=== PATIENT | female | born 1975 | race Caucasian/White ===

== ENCOUNTER → 2022-06-14 | Outpatient (CLI) | payer MEDICAID, SELFPAY ==
--- NOTE | 2022-06-14 10:29 | RAD_ITS ---
STUDY: X-RAY - LEFT KNEE REASON FOR EXAM: Female, 46 years old. Pain and swelling TECHNIQUE: 4 view(s) of the knee. COMPARISON: None. FINDINGS: Normal visualized distal femur. Normal visualized proximal tibia and fibula. Normal proximal tibiofibular articulation. There is moderate degenerative arthrosis of the medial femorotibial compartment with moderate joint space narrowing. Normal lateral femorotibial compartment. There is mild degenerative arthrosis of the patellofemoral articulation. The soft tissue structures are unremarkable. RAD/Knee 4 or More Views IMPRESSION: Degenerative arthrosis. Electronically Signed: Donato Jarrett MD at 10:52 EST ,
== END | disposition home or self-care (01) ==
LOC: RAD 10:27
DX: S83.005A Unspecified dislocation of left patella, initial encounter (principal)
CPT/HCPCS: 73564

== ENCOUNTER 2022-12-01 14:40 | Emergency (ER) | payer MEDICAID, SELFPAY ==
[2022-12-01 14:41] VITALS: BP 171/107; PULSE 118; RESP 16; TEMP 35.6; O2SAT 98; BMI 44.7
--- NOTE | 2022-12-01 16:01 | CT_ITS ---
STUDY: CT ABDOMEN AND PELVIS WITHOUT CONTRAST REASON FOR EXAM: Female, 47 years old. Kidney stones. RADIATION DOSAGE (If Supplied By Facility): CTDIvol = ( 24.18 ) mGy, DLP = ( 1335.01 ) mGycm TECHNIQUE: Transaxial images were obtained from the dome of the diaphragm to the symphysis pubis without oral contrast, and without intravenous contrast. Sagittal and coronal images were reconstructed. Individualized dose optimization techniques were used for this CT. COMPARISON: None. FINDINGS: The visualized lung bases are unremarkable. The visualized portions of the heart are within normal limits. Hepatomegaly without mass. Gallbladder is not visualized since only 3 surgically absent. There is no biliary ductal dilatation. The spleen is mildly enlarged. Several small calcified granulomata are noted. Normal pancreas. Normal bilateral adrenal glands. Normal right kidney. There is a 4 mm calcification upper pole left kidney. There is a 3 mm nonobstructing calculus lower pole calyx. No hydronephrosis. Normal bilateral ureters. Normal visualized stomach. Normal small intestine. There is luminal narrowing and wall thickening of the cecal and ascending colon extends just beyond the horizontal fissure. The distal colon is unremarkable. The appendix is visualized and appears normal. Normal abdominal aorta. Normal inferior vena cava. Normal retroperitoneum. Normal urinary bladder. Status post hysterectomy. Unremarkable vaginal cuff. The soft tissue mass along the left pelvic sidewall thought to be retained ovary. There are phleboliths in the pelvis without lymphadenopathy. No free air or free fluid is seen within the peritoneal cavity. Normal abdominal wall. Normal osseous structures. CT/Abdomen/Pelvis without Cont IMPRESSION: 1. Question mild right-sided colitis. 2. Normal appendix. 3. Nonobstructing left renal calculi. There is no other evidence of renal, ureteral or urinary bladder abnormality. 4. Hepatosplenomegaly. 5. Status post cholecystectomy and hysterectomy. Electronically Signed: Darrian Winter DO at 16:37 EDT Reading Location ID and State: [facility] / [place] Tel [phone], Service support ,
--- NOTE | 2022-12-01 16:03 | EDS_ITS ---
HPI History of Present Illness Chief Complaint: Back [facility] Medical History Arthritis Contact with and (suspected) exposure to other viral communicable diseases HTN (hypertension) Thyroid disease URI (upper respiratory infection) Home Medications cariprazine 6 mg capsule (Vraylar) 6 mg PO DAILY 09/14/22 [History Last Taken Unknown] lamotrigine 100 mg tablet 100 mg PO DAILY 09/14/22 [History Last Taken Unknown] levothyroxine 175 mcg tablet 175 mcg PO DAILY 09/14/22 [History Last Taken Unknown] propranolol 10 mg tablet 10 mg PO BID PRN 09/14/22 [History Last Taken Unknown] quetiapine 25 mg tablet 25 mg PO DAILY 09/14/22 [History Last Taken Unknown] venlafaxine 225 mg tablet,extended release 24 hr 225 mg PO QHS 09/14/22 [History Last Taken Unknown] etodolac 500 mg tablet 500 mg PO BID #40 tabs 10/11/22 [Rx Last Taken Unknown] Allergy/AdvReac Type Severity Reaction Status Date / Time No Known Allergies Allergy Unverified 12/01/22 14:40 Family History (Updated 09/14/22 @ 12:42 by Dory Hooker) Other Skin cancer Surgical History History of cholecystectomy Hx of tonsillectomy Social History (Updated 09/14/22 @ 12:41 by Dory Hooker) Smoking Status: Light Smoker (<10/day) alcohol intake: never EXAM Physical Exam Const Vital Signs: 12/01/22 14:41 Temperature 96.0 F L Temperature Source Temporal Pulse Rate 118 H Respiratory Rate 16 Blood Pressure 171/107 H Blood Pressure Mean 128 Pulse Ox 98 Oxygen Delivery Method Room Air MDM MDM MDM Narrative Medical decision making narrative: HISTORY OF PRESENT ILLNESS: 47-year-old female presents with left lower back pain/flank pain for the past day. States has a history of kidney stones this feels very similar. She denies any urinary complaints. Denies any recent trauma falls or surgery to her back. She denies any fever. She denies any heavy lifting. patient denies any saddle anesthesia, urinary tension, bowel or bladder incontinence, lower extremity weakness, fever or IV drug use, no recent spinal manipulation or surgery, no recent urinary catheterization. REVIEW OF SYSTEMS: Pertinent positives: Back/flank pain Pertinent negatives: Hematuria, frequency, urgency, bowel or bladder incontinence, urinary retention PHYSICAL EXAM: Nursing triage notes reviewed, Vital signs reviewed Constitutional: please see [facility] HENT: MMM Eyes: Pupils equal round and reactive to light, Extraocular muscles intact Neck: No stridor, no JVD, full neck ROM Lungs: Clear to auscultation, No wheezing or rales. No increased work of breathing, no conversational dyspnea, no accessory muscle use, no nasal flaring. No respiratory distress noted Heart: Regular rate and rhythm, No murmurs, No rubs and No gallops, 2+ distal pulses (radial, femoral, posterior tibial) in all extremities Abdomen: Soft, there is no tenderness, rigidity, rebound or guarding, no obvious peritoneal signs, no palpable pulsatile abdominal masses, no auscultated abdominal bruit : Left CVAT Back: TTP over left paraspinal muscles, muscle hypertonicity noted Extremities: No edema Neuro: Intact sensation L1-S1 dermatomal distributions. Intact 5/5 strength in hip flexion (T12-L3). Knee extension (L2-L4). Ankle dorsiflexion (L4-L5). Ankle plantar flexion (S1). Great toe extension (L5). 2+ patellar and Achilles DTRs. Skin: No rash or lesions noted MEDICAL DECISION MAKING: Chief Complaint: Left-sided back/flank pain External records reviewed: No recent advanced imaging of the abdomen or pelvis Factors affecting care: Hypertension, thyroid disease, nephrolithiasis Social determinants of health: Denies drug use History obtained from others: The patient significant other Consults: None ALL IMAGES HAVE BEEN PERSONALLY REVIEWED AND INTERPRETED BY MYSELF. [facility] Narrative: Patient was initially tachycardic, hypertensive afebrile. There is left CVAT as well as TTP over paraspinal back muscles. I considered the following differential diagnosis: Nephrolithiasis, pyelonephritis, musculoskeletal back pain, space-occupying lesion spine, cauda equina, AAA Patient's physical exam and history not consistent with space-occupying lesion of the spine or cauda equina. A low suspicion for acute surgical process in the back. I was more concerned for nephrolithiasis, pyelonephritis or musculoskeletal back pain. I treated the patient with IV morphine, Toradol and fluids I obtained a CT scan abdomen pelvis out contrast rule out nephrolithiasis. Also obtained urine, blood work to rule out signs of UTI or pyelonephritis. Signs of TATIANA or electrolyte abnormalities. Labs and images were remarkable for no evidence of definitive UTI. No evidence of acute kidney injury or significant electrolyte abnormalities. There is no systemic inflammation noted. CT scan showed no evidence of AAA. No evidence of nephrolithiasis. The etiology patient's complaints is unclear likely secondary to muscle skeletal back pain. Will give anti-inflammatories, Tylenol instructions. Get back pain return precautions and follow-up instructions. The patient presented complaining of back pain. There was no history of recent fall or trauma. There was no evidence to support genitourinary etiology. There is also no evidence to suggest vascular pathology such as AAA dissection. No fevers or other evidence to suspect infectious processes, abscess, osteomyelitis etc. The patient?s neurological exam is normal with normal motor and sensory. There is no saddle paresthesias reported and no bowel or bladder incontinence or retention. I suspect the pain is mechanical in nature. Clinical suspicion, plan of care and management was discussed with the patient. The patient was instructed to follow up with their health care provider. The patient was also instructed to return if the pain worsened, changed, or developed weakness or bowel or bladder trouble. The patient agreed with plan. I completed a structured, evidence-based clinical evaluation to screen for acute non-traumatic spinal emergencies. The patient has a normal detailed neurologic exam and red flag historical factors were negative. The evidence indicates that the patient is very low risk for an acute spinal emergency and this is consistent with my clinical intuition. The risk of further workup is higher than the likelihood of the patient having a spinal epidural abscess or other dangerous emergency spinal condition. It is, therefore, in the patient?s best interest not to do additional emergent testing at this time. Shared Decision-Making I have discussed with the patient my clinical impression and the result of an evidence-based clinical evaluation to screen for spinal epidural abscess and other spinal emergencies, as well as the risk of further testing and hospitalization. The evidence shows that the risk for an acute spinal emergency is less than 1%. Although the risk of an acute spinal emergency has not been completely eliminated, the risks of further testing likely exceed any potential benefit, and the patient agrees with not pursuing further emergent evaluation for causes of back pain at this time. Total critical care time today provided was at least 0 minutes. This excludes separately billable procedures. There was a high probability of clinically significant/life threatening deterioration in the patient's condition which required my urgent intervention. Lab Data Attestation: I reviewed the patient's lab results. Labs: Laboratory Results - last 24 hr 12/01/22 12/01/22 12/01/22 16:00 16:05 16:05 WBC 6.3 RBC 4.67 Hgb 14.6 Hct 44.3 MCV 94.9 MCH 31.3 MCHC 33.0 RDW Std Deviation 46.5 H RDW Coeff of Amandeep 13.4 Plt Count 263 MPV 11.5 Immature Gran % (Auto) 0.200 Neut % (Auto) 55.7 Lymph % (Auto) 36.2 [place] % (Auto) 5.7 Eos % (Auto) 1.6 Baso % (Auto) 0.6 Absolute Neuts (auto) 3.5 Absolute Lymphs (auto) 2.27 Nucleated RBC % 0 Sodium 142 Potassium 4.1 Chloride 107 Carbon Dioxide 28.0 Anion Gap 7 BUN 11 Creatinine 0.98 Estim Creat Clear Calc 78.39 Est GFR (MDRD) Af Amer 79 Est GFR (MDRD) Non-Af 65 BUN/Creatinine Ratio 11.2 Glucose 114 H Calcium 10.0 Urine Color Yellow Urine Clarity Cloudy Urine pH 5.0 Ur Specific [place] 1.025 Urine Protein 30 H Urine Glucose (UA) Normal Urine Ketones 15 H Urine Occult Blood 10 H Urine Nitrite Negative Urine Bilirubin 3 H Urine Urobilinogen 1 H Ur Leukocyte Esterase 25 H Radiography Diagnostic Testing: Clinical Impression(s) from Imaging Studies Abdomen/Pelvis CT 12/01/22 16:01 IMPRESSION: 1. Question mild right-sided colitis. 2. Normal appendix. 3. Nonobstructing left renal calculi. There is no other evidence of renal, ureteral or urinary bladder abnormality. 4. Hepatosplenomegaly. 5. Status post cholecystectomy and hysterectomy. Electronically Signed: Darrian Winter DO at 16:37 EDT Reading Location ID and State: [address] [place] [address] Tel [phone], Service support , Discharge Plan Triage Chief Complaint: Back ED Provider: Gage Oliva Dx/Rx/DC Orders Prescriptions: No Action Vraylar 6 mg capsule 6 mg PO DAILY levothyroxine 175 mcg tablet 175 mcg PO DAILY propranolol 10 mg tablet 10 mg PO BID PRN lamotrigine 100 mg tablet 100 mg PO DAILY venlafaxine 225 mg tablet extended release 24hr 225 mg PO QHS quetiapine 25 mg tablet 25 mg PO DAILY etodolac 500 mg tablet 500 mg PO BID Qty: 40 0RF Rx Instructions: do not take in conjunction with other NSAIDs, Tylenol is ok. Primary Care Provider: Care Physician,No Primary Referrals: Care Physician,No Primary [Primary Care Provider] -
[2022-12-01] MEDS: Morphine 4 MG/ML Syringe IV (16:09)
[2022-12-01] MEDS: Ondansetron 4 MG/2 ML Vial IV (16:09)
[2022-12-01] MEDS: 0.9% Normal Saline 1,000 ML 999 ML IV (16:09)
[2022-12-01] MEDS: Ketorolac 15 MG/ML Vial IV (16:09)
[2022-12-01 16:15] LABS: Mucous, Urine 0 SEEN /hpf (<or=2+)
[2022-12-01 16:15] LABS: Absolute Lymphocyte Count 2.27 X10^3/uL (0.83-4.51); Absolute Neutrophil Count 3.5 X10^3/uL (2.0-7.7); Basophil# 0.04 X10^3/uL; Basophil% 0.6 % (0-1); Eosinophils% 1.6 % (0-5); Hematocrit 44.3 % (37-47); Hemoglobin 14.6 g/dL (12.0-15.0); Lymphocyte # 2.27 X10^3/ul (0.83-4.51); Lymphocyte % 36.2 % (19-41); Mean Corpuscular Hgb 31.3 pg (27.0-32.0); Mean Corpuscular Volume 94.9 fL (81-99); Mean Platelet Vol. 11.5 fl (6.2-12.0); Monocyte# 0.36 X10^3/uL; Monocyte% 5.7 % (0-10); NRBC Flagged by Analyzer 0 % (0-5); Neutrophil # 3.49 X10^3/uL (2.7-7.7); Neutrophil % 55.7 % (47-70); Platelet Count 263 K/mm3 (150-450); RBC Distribution Width CV 13.4 % (11.6-14.6); RBC Distribution Width SD 46.5 fl (35.1-43.9); Red Blood Count 4.67 M/mm3 (4.2-5.4); White Blood Count 6.3 K/mm3 (4.4-11.0)
[2022-12-01 16:28] LABS: Color, Urine Yellow (Yellow); Glucose, Dipstick Normal (Normal); Ketone-Dipstick 15 mg/dl (Negative); Leukocyte Esterase-Dipstick 25 /ul (Negative); Nitrite-Dipstick Negative (Negative); Occult Blood-Urine 10 /ul (Negative); Protein-Dipstick 30 mg/dl (Negative); Specific Gravity, Urine 1.025 (1.002-1.030); Urine Bilirubin Dipstick 3 mg/dL (Negative); Urine Clarity Cloudy (Clear); Urine Urobilinogen 1 mg/dl (Normal)
[2022-12-01 16:40] LABS: Anion Gap 7 (5-15); BUN 11 mg/dL (7-18); BUN/Creat Ratio 11.2 RATIO (10-20); Chloride 107 mmol/L (98-107); Creatinine, Serum 0.98 mg/dL (0.55-1.02); EST Glomerular Filtration Rate 65 mL/min (>60); Est Glom Filt Rate - Afr Amer 79 mL/min (>60); Estimated Creatinine Clearance 78.39 ml/min; Glucose 114 mg/dL (74-106); Potassium 4.1 mmol/L (3.5-5.1); Sodium Level 142 mmol/L (136-145)
[2022-12-01 17:02] LABS: Squamous Epithelial Cells - UA 10-25 SEEN /hpf (5-10); White Blood Cells 0-5 SEEN /hpf (0-5)
[2022-12-01] MEDS: dexAMETHasone 10 MG/ML Vial 6 MG IV (17:02)
[2022-12-01 17:03] LABS: Bacteria 1+ /hpf (None Seen); Calcium Oxalate Crystals Ur 1+ /hpf (<or=2+); Red Blood Cells-Urine 0-5 SEEN /hpf (0-5)
[2022-12-01 17:06] VITALS: BP 133/84; PULSE 83; RESP 16; TEMP 36.7; O2SAT 99
== END 2022-12-01 17:08 | disposition home or self-care (01) ==
PROVIDERS: Emergency Provider Emergency Medicine; Visit Provider Emergency Medicine
DX: M54.50 Low back pain, unspecified (principal); I10 Essential (primary) hypertension; F17.200 Nicotine dependence, unspecified, uncomplicated; Z79.899 Other long term (current) drug therapy; Z87.442 Personal history of urinary calculi
CPT/HCPCS: 74176; 80048; 81001; 85025; 96361; 96374; 96375; 99283; J7030; A4216; J2405

== ENCOUNTER 2022-12-29 07:47 | Emergency (ER) | payer MEDICAID, SELFPAY ==
[2022-12-29 07:48] VITALS: BP 180/88; PULSE 76; RESP 18; TEMP 35.8; O2SAT 100; BMI 45.9
--- NOTE | 2022-12-29 08:12 | EKG12_ITS ---
Test Reason : cp Blood Pressure : / mmHG Vent. Rate : 068 BPM Atrial Rate : 068 BPM P-R Int : 158 ms QRS Dur : 106 ms QT Int : 414 ms P-R-T Axes : 053 039 060 degrees QTc Int : 440 ms Normal sinus rhythm Normal ECG Confirmed by CIRO NAPIER, ACOSTA ([id number]), proposal editor BAILEY DUARTE ([id number]) on 01/01/2023 12:44:02 PM Referred By: BB Confirmed By:ACOSTA TANNER MD
--- NOTE | 2022-12-29 08:19 | EDS_ITS ---
HPI History of Present Illness Chief Complaint: Chest Pain Informant: patient and spouse/S.O. Narrative Narrative: Presents with similar 5-day history worsening exertional chest tightness started at work. He states he was does heavy lifting she get tightness takes up to 2 3 hours to resolve with rest. Recurs with lifting. Today while at rest at home before work symptoms started 630 very mild symptoms currently. No recent illness or cough. Denies tobacco. Father with MA at the age of 77. She told him elevated blood pressure from PCP not currently on antihypertensives. Denies diabetes or hyperlipidemia. Denies any recent travel surgery or immobiliza tions. No history of PE or DVT. No history of stress test or heart cath in the past. Prior Similar Symptoms: No CVD Risk Factors: Positive for Hypertension; Negative for Diabetes, Hypercholesterolemia, Family History 1' </=55 or Smoking PE Risk Factors: Negative for Recent Travel/Surgery, Recent Immobilization or Prior DVT or PE [facility] Medical History Arthritis Contact with and (suspected) exposure to other viral communicable diseases HTN (hypertension) Thyroid disease URI (upper respiratory infection) Home Medications lamotrigine 100 mg tablet 100 mg PO DAILY 09/14/22 [History Last Taken 12/28/22] levothyroxine 175 mcg tablet 175 mcg PO DAILY 09/14/22 [History Last Taken 12/29/22] propranolol 10 mg tablet 10 mg PO BID PRN anxiety 09/14/22 [History Last Taken 12/28/22] quetiapine 25 mg tablet 25 mg PO DAILY 09/14/22 [History Last Taken 12/28/22] venlafaxine 225 mg tablet,extended release 24 hr 225 mg PO QHS 09/14/22 [History Last Taken 12/28/22] etodolac 500 mg tablet 500 mg PO BID #40 tabs 10/11/22 [Rx Last Taken Unknown] Allergy/AdvReac Type Severity Reaction Status Date / Time No Known Allergies Allergy Verified 12/29/22 07:23 Family History Other Skin cancer Surgical History History of cholecystectomy Hx of tonsillectomy Social History Smoking Status: Former smoker alcohol intake: never ROS ROS ED Constitutional Constitutional ED: Denies chills, fever(s) or sweats Eyes Eyes: Denies change in vision ENT ENT ED: Denies dysphagia or sore throat Cardiovascular Cardiovascular: Reports chest pain; Denies leg edema, palpitations or racing heartbeat Respiratory/Chest Respiratory/Chest: Denies cough, dyspnea or dyspnea on exertion Gastrointestinal Gastrointestinal: Denies abdominal pain, diarrhea, nausea or vomiting Genitourinary Genitourinary ED: Denies dysuria, hematuria or urinary frequency Musculoskeletal Musculoskeletal: Denies back pain, extremity pain or neck pain Integumentary Denies rash or wounds Neurologic Neurologic: Denies headache(s), paresthesias or weakness EXAM Physical Exam Const Vital Signs: 12/29/22 07:48 12/29/22 08:24 12/29/22 08:24 Temperature 96.5 F L Temperature Source Temporal Pulse Rate 76 67 Respiratory Rate 18 24 H Respiratory Effort Blood Pressure 180/88 H Blood Pressure Mean 118 Pulse Ox 100 100 Oxygen Delivery Method Room Air Room Air Room Air 12/29/22 08:24 12/29/22 09:00 12/29/22 10:00 Temperature Temperature Source Pulse Rate 56 L 62 Respiratory Rate Respiratory Effort Normal Non-Labored Blood Pressure 146/62 H 118/63 Blood Pressure Mean 90 81 Pulse Ox 100 99 Oxygen Delivery Method Room Air 12/29/22 10:21 Temperature Temperature Source Pulse Rate 63 Respiratory Rate Respiratory Effort Blood Pressure 129/65 H Blood Pressure Mean 86 Pulse Ox 100 Oxygen Delivery Method Room Air Positive well nourished and well developed Constitutional Narrative: BMI 45.9. General Appearance ED: well developed and NAD HEENT Reports moist mucous membranes normocephalic and atraumatic Eyes PERRL, EOMs intact bilaterally and conjunctivae normal General Eye ED: Yes normal appearance of both eyes Neck no lymphadenopathy and supple General: Negative for tenderness Chest Wall Chest: Negative for tenderness Resp normal respiratory effort and normal air movement Effort and Inspection: symmetric chest movement; Negative for respiratory distress Cardio regular rate, regular rhythm and no murmurs Peripheral Pulses: pulses 2+ throughout GI normal to inspection, nondistended, normoactive bowel sounds and non-tender Palpation: Negative for guarding or rebound tenderness present Back/Spine no CVA tenderness and no thoracic nor lumbar tenderness Extremity normal to inspection General Extremety ED: Negative for edema or tenderness General Extremity: Negative for edema Neuro oriented x3 and no sensory deficits noted Sensorium / Orientation: awake and alert Skin no rashes or lesions noted and no wounds Heart Score History: Moderately Suspicious ECG: Normal Age: >45 - <65 years Risk Factors: 1 or 2 Risk Factors Troponin: </= Normal Limit Score: 3 MDM MDM MDM Narrative Medical decision making narrative: Interventions / MDM: Differential diagnosis: ACS, chest pain Diagnosis considered but do not suspect: Pulmonary embolism, however D-dimer negative. My EKG interpretation: Sinus rate of 68, no ST changes, isolated T wave version in aVF nonspecific. Wandering baseline inferior leads. Imaging independently reviewed and interpreted by myself: 2 view chest x-ray: No acute process External documents reviewed: N/A Test considered but not ordered:N/A ED course: Patient EKG nonspecific T wave inversion in leads aVF. Cardiac work- up initiated. Initial troponin negative. D-dimer obtained due to exertional dyspnea symptoms also negative. Two-view chest x-ray added with a negative dimer shows no acute process. Patient given aspirin. 0930: Awaiting second troponin at this time. Currently symptom-free. 1150: Patient's repeat troponin also -14. Remains symptom-free.Patient's heart score is a 3. Further discussed with the patient, States it takes an hour to work before she starts having symptoms. I considered admission to exertional symptoms however she would like outpatient management. Blood pressure proved on 129/65 without any intervention. Patient with minimal risk factors, therefore I feel this is reasonable. Patient will call for follow-up outpatient stress testing with strict return precautions. They reported they just moved to the area would like to follow-up with Dr. Fortune. Therefore his information put on paperwork. All questions were answered. Re-evaluation: stable Disposition discussed with patient/family/significant other: patient and significant other Case discussed with consulting clinician: N/A This note was generated with [employer] dictation software. It may contain incorrect words, spelling, and punctuation that were not noted in checking the note before signing. Lab Data Attestation: I reviewed the patient's lab results. Labs: Laboratory Results - last 24 hr 12/29/22 12/29/22 08:30 10:34 WBC 5.0 RBC 4.14 L Hgb 12.7 Hct 39.5 MCV 95.4 MCH 30.7 MCHC 32.2 RDW Std Deviation 48.7 H RDW Coeff of Amandeep 13.9 Plt Count 222 MPV 10.7 Immature Gran % (Auto) 0.600 Neut % (Auto) 58.7 Lymph % (Auto) 32.9 [place] % (Auto) 5.2 Eos % (Auto) 2.2 Baso % (Auto) 0.4 Absolute Neuts (auto) 2.9 Absolute Lymphs (auto) 1.63 Nucleated RBC % 0 PT 13.0 INR 1.0 APTT 27.0 D-Dimer Quant (PE/DVT) 0.28 Sodium 142 Potassium 3.9 Chloride 109 H Carbon Dioxide 28.0 Anion Gap 5 BUN 13 Creatinine 0.99 Estim Creat Clear Calc 77.60 Est GFR (MDRD) Af Amer 78 Est GFR (MDRD) Non-Af 65 BUN/Creatinine Ratio 13.2 Glucose 102 Calcium 9.4 Troponin I High Sens 15 14 Radiography Diagnostic Testing: Clinical Impression(s) from Imaging Studies Chest X-Ray 12/29/22 09:25 IMPRESSION: Normal x-ray examination of the chest. Electronically Signed: Osmani Cordon MD at 9:43 EDT , Discharge Plan Triage Chief Complaint: Chest Pain ED Provider: Kit Russell Dx/Rx/DC Orders Clinical Impression: Elevated blood pressure reading in office without diagnosis of hypertension, Chest pain Instructions: ED Chest Pain, Uncertain Cause Prescriptions: No Action levothyroxine 175 mcg tablet 175 mcg PO DAILY propranolol 10 mg tablet 10 mg PO BID PRN (Reason: anxiety) lamotrigine 100 mg tablet 100 mg PO DAILY venlafaxine 225 mg tablet extended release 24hr 225 mg PO QHS quetiapine 25 mg tablet 25 mg PO DAILY etodolac 500 mg tablet 500 mg PO BID Qty: 40 0RF Rx Instructions: do not take in conjunction with other NSAIDs, Tylenol is ok. Stand Alone Forms: Work / School Excuse Primary Care Provider: Juan Francisco Flores Referrals: Dionisio Fortune Chi, MD [Med Staff - Active Staff] - 3-5 Days Care Physician,No Primary [Non-Staff] - Activity Restrictions/Additional Instructions: Cardiac work-up was negative. D-dimer negative. You report exertional chest tightness after an hour. He would need a stress test as an outpatient. Call for discussion with PCP for this. Your blood pressure 180/80 on arrival down to 129/65 without any treatment. You need recheck for this. Return if any worsening symptoms. Disposition Disposition: Home, Self Care
[2022-12-29 08:24] VITALS: PULSE 67; RESP 24; O2SAT 100
[2022-12-29] MEDS: Aspirin 81 MG TAB.CHEW 324 MG PO (08:36)
[2022-12-29 08:40] LABS: Absolute Lymphocyte Count 1.63 X10^3/uL (0.83-4.51); Absolute Neutrophil Count 2.9 X10^3/uL (2.0-7.7); Basophil# 0.02 X10^3/uL; Basophil% 0.4 % (0-1); Eosinophil# 0.11 X10^3/uL; Eosinophils% 2.2 % (0-5); Hematocrit 39.5 % (37-47); Hemoglobin 12.7 g/dL (12.0-15.0); Lymphocyte # 1.63 X10^3/ul (0.83-4.51); Lymphocyte % 32.9 % (19-41); Mean Corp Hgb Conc 32.2 g/dL (32-36); Mean Corpuscular Hgb 30.7 pg (27.0-32.0); Mean Corpuscular Volume 95.4 fL (81-99); Mean Platelet Vol. 10.7 fl (6.2-12.0); Monocyte# 0.26 X10^3/uL; Monocyte% 5.2 % (0-10); NRBC Flagged by Analyzer 0 % (0-5); Neutrophil # 2.91 X10^3/uL (2.7-7.7); Neutrophil % 58.7 % (47-70); Platelet Count 222 K/mm3 (150-450); RBC Distribution Width CV 13.9 % (11.6-14.6); RBC Distribution Width SD 48.7 fl (35.1-43.9); Red Blood Count 4.14 M/mm3 (4.2-5.4)
[2022-12-29 08:57] LABS: Anion Gap 5 (5-15); BUN 13 mg/dL (7-18); BUN/Creat Ratio 13.2 RATIO (10-20); Calcium,Total 9.4 mg/dL (8.5-10.1); Chloride 109 mmol/L (98-107); Creatinine, Serum 0.99 mg/dL (0.55-1.02); EST Glomerular Filtration Rate 65 mL/min (>60); Est Glom Filt Rate - Afr Amer 78 mL/min (>60); Glucose 102 mg/dL (74-106); Potassium 3.9 mmol/L (3.5-5.1); Sodium Level 142 mmol/L (136-145); Troponin-I HS (w/2H Reflex) 15 pg/mL (3.0-54.0)
[2022-12-29 09:00] VITALS: BP 146/62; PULSE 56; O2SAT 100
[2022-12-29 09:14] LABS: D-Dimer Quantitative (DVT/PE) 0.28 FEU/ug/m (0.27-0.49)
--- NOTE | 2022-12-29 09:25 | RAD_ITS ---
STUDY: X-RAY CHEST REASON FOR EXAM: Female, 47 years old. Chest pain TECHNIQUE: PA and lateral views of the chest. COMPARISON: None. FINDINGS: EKG electrodes are seen. The lungs are clear and expanded. There is no demonstrated pleural abnormality. Normal size heart. Normal mediastinum and aure. Normal visualized pulmonary arteries. Normal visualized aortic arch and descending thoracic aorta. Normal visualized thoracic spine. Normal visualized ribs, clavicles, and shoulders. There is no demonstrated abnormality of the visualized soft tissue structures of the upper abdomen. RAD/Chest PA and Lateral IMPRESSION: Normal x-ray examination of the chest. Electronically Signed: Osmani Cordon MD at 9:43 EDT ,
[2022-12-29 10:00] VITALS: BP 118/63; PULSE 62; O2SAT 99
[2022-12-29 10:21] VITALS: BP 129/65; PULSE 63; O2SAT 100
[2022-12-29 10:35] LABS: Reflex Troponin-HS? (from REC) Y
[2022-12-29 11:50] LABS: Troponin-I HS 14 pg/mL (3.0-54.0)
[2022-12-29 12:11] VITALS: RESP 18; O2SAT 100
== END 2022-12-29 12:12 | disposition home or self-care (01) ==
PROVIDERS: Emergency Provider Emergency Medicine; Visit Provider Emergency Medicine
DX: R07.89 Other chest pain (principal); R03.0 Elevated blood-pressure reading, without diagnosis of hypertension; Z87.891 Personal history of nicotine dependence; Z82.49 Family history of ischemic heart disease and other diseases of the circulatory system
CPT/HCPCS: 71046; 80048; 84484; 85025; 85379; 85610; 85730; 93005; 99284; A4216

== ENCOUNTER → 2023-01-03 | Outpatient (CLI) | payer MEDICAID, SELFPAY ==
[2023-01-03 17:51] LABS: Absolute Lymphocyte Count 2.42 X10^3/uL (0.83-4.51); Absolute Neutrophil Count 4.2 X10^3/uL (2.0-7.7); Basophil# 0.04 X10^3/uL; Basophil% 0.6 % (0-1); Eosinophil# 0.15 X10^3/uL; Eosinophils% 2.1 % (0-5); Hematocrit 43.5 % (37-47); Lymphocyte # 2.42 X10^3/ul (0.83-4.51); Lymphocyte % 33.7 % (19-41); Mean Corp Hgb Conc 32.2 g/dL (32-36); Mean Corpuscular Hgb 30.2 pg (27.0-32.0); Mean Platelet Vol. 11.2 fl (6.2-12.0); Monocyte# 0.35 X10^3/uL; Monocyte% 4.9 % (0-10); NRBC Flagged by Analyzer 0 % (0-5); Neutrophil # 4.21 X10^3/uL (2.7-7.7); Neutrophil % 58.4 % (47-70); Platelet Count 241 K/mm3 (150-450); RBC Distribution Width CV 13.6 % (11.6-14.6); RBC Distribution Width SD 46.9 fl (35.1-43.9); Red Blood Count 4.63 M/mm3 (4.2-5.4); White Blood Count 7.2 K/mm3 (4.4-11.0)
[2023-01-03 18:42] LABS: ALB/GLOB Ratio 0.9 RATIO (0.9-2.4); AST(SGOT) 20 U/L (15-37); Alanine Aminotransfer ALT/SGPT 26 U/L (13-56); Albumin, Serum 3.7 g/dL (3.2-5.0); Alkaline Phosphatase 83 U/L (45-117); Anion Gap 8 (5-15); BUN 13 mg/dL (7-18); BUN/Creat Ratio 13.2 RATIO (10-20); Calcium,Total 9.6 mg/dL (8.5-10.1); Chloride 107 mmol/L (98-107); Creatinine, Serum 0.99 mg/dL (0.55-1.02); EST Glomerular Filtration Rate 65 mL/min (>60); Est Glom Filt Rate - Afr Amer 78 mL/min (>60); Globulin 4.1 g/dL (2.2-4.2); Glucose 90 mg/dL (74-106); Potassium 3.6 mmol/L (3.5-5.1); Protein, Total 7.8 g/dL (6.4-8.2); Sodium Level 140 mmol/L (136-145)
[2023-01-03 20:50] LABS: Hepatitis C Antibody Non-Reactive (Nonreactive); Vitamin D,25 Hydroxy 39.8 ng/mL
[2023-01-04 08:44] LABS: Cholesterol 206 mg/dL (200); High Density Lipoprotein 51 mg/dL; Triglycerides 128 mg/dL; Very Low Density Lipoprotein 26 mg/dL (5-40)
== END | disposition home or self-care (01) ==
LOC: POLAB3 17:05
PROVIDERS: Visit Provider Family Medicine Geriatric Medicine
DX: Z00.00 Encounter for general adult medical examination without abnormal findings (principal); Z13.89 Encounter for screening for other disorder; I10 Essential (primary) hypertension; E78.5 Hyperlipidemia, unspecified
CPT/HCPCS: 36415; 80053; 80061; 82306; 84443; 85025; 86803

== ENCOUNTER → 2023-02-28 | Outpatient (CLI) | payer MEDICAID, SELFPAY | END | disposition home or self-care (01) | LOC: POLAB3 16:47 | PROVIDERS: Visit Provider Family Medicine Geriatric Medicine | DX: E03.9 Hypothyroidism, unspecified (principal) | CPT/HCPCS: 36415; 84443 ==

== ENCOUNTER 2023-05-13 16:09 | Emergency (ER) | payer MEDICAID, SELFPAY ==
[2023-05-13 16:12] VITALS: BP 153/102; PULSE 102; RESP 18; TEMP 36.9; O2SAT 100; BMI 43.2
--- NOTE | 2023-05-13 16:36 | EDS_ITS ---
HPI History of Present Illness Chief Complaint: Headache Informant: patient Onset/Context/Timing Onset: Days Context: Gradual Onset Narrative Narrative: Patient presents secondary to headache and congestion with runny nose. She reports frontal headache for the past 3 or 4 days. She has been taking Advil. She reports some pressure around her eyes and green mucus from her nose. No significant cough. No fever. [facility] Medical History Arthritis Contact with and (suspected) exposure to other viral communicable diseases HTN (hypertension) Thyroid disease URI (upper respiratory infection) Home Medications lamotrigine 100 mg tablet 100 mg PO DAILY 09/14/22 [History Last Taken 12/28/22] propranolol 10 mg tablet 10 mg PO BID PRN anxiety 09/14/22 [History Last Taken 12/28/22] venlafaxine 225 mg tablet,extended release 24 hr 225 mg PO QHS 09/14/22 [History Last Taken 12/28/22] diphenhydramine HCl 50 mg capsule 50 mg PO TID PRN headache #10 caps 05/13/23 [Rx Last Taken Unknown] ketorolac 10 mg tablet 10 mg PO Q8H PRN headache #10 tabs 05/13/23 [Rx Last Taken Unknown] levothyroxine 200 mcg tablet 200 mcg PO DAILY 05/13/23 [History Last Taken Unknown] levothyroxine 25 mcg tablet 25 mcg PO DAILY 05/13/23 [History Last Taken Unknown] metoclopramide HCl 10 mg tablet (Reglan) 10 mg PO Q8H PRN PRN headache #10 tabs 05/13/23 [Rx Last Taken Unknown] Allergy/AdvReac Type Severity Reaction Status Date / Time No Known Allergies Allergy Verified 05/13/23 16:10 Family History Other Skin cancer Surgical History History of cholecystectomy Hx of tonsillectomy Social History Smoking Status: Former smoker alcohol intake: never ROS ROS ED Constitutional Constitutional ED: Denies chills or fever(s) Eyes Eyes: Denies change in vision ENT ENT ED: Reports rhinorrhea; Denies sore throat Cardiovascular Cardiovascular: Denies chest pain or palpitations Respiratory/Chest Respiratory/Chest: Denies cough or dyspnea Gastrointestinal Gastrointestinal: Denies abdominal pain, nausea or vomiting Musculoskeletal Musculoskeletal: Denies back pain or extremity pain Integumentary Denies Abrasions or rash Neurologic Neurologic: Reports headache(s); Denies weakness Psychiatric Psychiatric: Denies anxiety or depression Allergic/Immunologic Allergic/Immunologic ED: Denies lip swelling or urticaria EXAM Physical Exam Const Vital Signs: 05/13/23 16:12 05/13/23 16:16 Temperature 98.4 F Temperature Source Temporal Pulse Rate 102 H Respiratory Rate 18 Respiratory Effort Normal Non-Labored Respiratory Pattern Normal Blood Pressure 153/102 H Blood Pressure Mean 119 Pulse Ox 100 Oxygen Delivery Method Room Air Positive well nourished and well developed General Appearance ED: well developed HEENT Reports moist mucous membranes HEENT Narrative: No tenderness to palpation over the frontal or maxillary sinuses. Posterior pharynx exam unremarkable. TMs are clear bilaterally. Eyes EOMs intact bilaterally Neck Neck Narrative: Mild bilateral cervical lymphadenopathy. Chest Wall inspection of chest normal Resp normal respiratory effort and clear to auscultation bilaterally Cardio regular rate and regular rhythm GI non-tender Palpation: soft Extremity normal to inspection Neuro oriented x3 and no sensory deficits noted Motor Exam: strength 5/5 throughout Psych mental status grossly normal Skin no rashes or lesions noted MDM MDM MDM Narrative Medical decision making narrative: Patient given IM Toradol along with p.o. Reglan and Benadryl. COVID swab obtained. 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 On repeat evaluation patient reports mild improvement in her headache. Her COVID test is negative. She be discharged with prescriptions for Toradol, Reglan, and Benadryl which she can use at home. Return instructions provided. Discharge Plan Triage Chief Complaint: Headache Other Complaint: Cold Sx ED Provider: Susannah Burnett Dx/Rx/DC Orders Clinical Impression: URI (upper respiratory infection), Headache Instructions: ED Headache Unspecified Prescriptions: New ketorolac 10 mg tablet 10 mg PO Q8H PRN (Reason: headache) Qty: 10 0RF metoclopramide HCl [Reglan] 10 mg tablet 10 mg PO Q8H PRN PRN (Reason: headache) Qty: 10 0RF diphenhydramine HCl 50 mg capsule 50 mg PO TID PRN (Reason: headache) Qty: 10 0RF No Action propranolol 10 mg tablet 10 mg PO BID PRN (Reason: anxiety) lamotrigine 100 mg tablet 100 mg PO DAILY venlafaxine 225 mg tablet extended release 24hr 225 mg PO QHS levothyroxine 200 mcg tablet 200 mcg PO DAILY levothyroxine 25 mcg tablet 25 mcg PO DAILY Primary Care Provider: Dionisio Fortune Chi Referrals: Dionisio Fortune Chi, MD [Primary Care Provider] - 1 Week if not improving Disposition Disposition: Home, Self Care
[2023-05-13] MEDS: Metoclopramide 10 MG/10 ML UDC PO (17:00)
[2023-05-13] MEDS: Ketorolac 60 MG/2 ML Vial IM (17:00)
== END 2023-05-13 18:48 | disposition home or self-care (01) ==
PROVIDERS: Emergency Provider Emergency Medicine; PCP Family Medicine Geriatric Medicine; Visit Provider Emergency Medicine
DX: J06.9 Acute upper respiratory infection, unspecified (principal); R51.9 Headache, unspecified; I10 Essential (primary) hypertension; E07.9 Disorder of thyroid, unspecified; Z87.891 Personal history of nicotine dependence; Z79.899 Other long term (current) drug therapy
CPT/HCPCS: 87428; 96372; 99284; A4216

== ENCOUNTER 2023-06-18 16:30 | Outpatient (RCR) | payer MEDICAID, SELFPAY ==
--- NOTE | 2023-05-16 17:00 | HP.PTEVAL_ITS ---
Patient's Visit Information Visit Information Visit Information: FRANKIE MCKINNEY is a 47 year old F referred to Physical Therapy by Dr. Inés Davila MD with a diagnosis of LOW BACK PAIN. Date of Evaluation: 05/16/23 Physical Therapist: Mike Escobar PT, Cert MDT, OCS Visit Plan Frequency: 2x /Week Duration: 4 Weeks Plan: PT INERVETIONS DLS ,POSTURAL EX'S , LUMVAR ROM ,MODATIES AND ACTIVITY MOD IFICATION Subjective Subjective: This 47 y/o female presents to physical therapy with low back pain. Patient has had Back pain since Mar 2023. Patient seen DR paulson did x-rays DDD. Seen DR recommended epidural injections but need PT first. Patient was provided with medication for pain. Pain located symmetrical lumbar . Aggravated factors sitting, standing bending ,lifting such as boxes at work . Alleviating factors rest. Denies parestehesia/tingling-. Bowel/bladder -Coughing/sneezing + . Patient symptoms affects sleeping . No h/o trauma or prior treatment. Patient pain affects QOL and function and lifting boxes at work. Patient goals to decrease pain. SOCIAL: VOCATION: [employer] Pain Bilateral Back: Pain Intensity (Out of 10): 9 Pain Intensity Range: 10 Objective Objective: POSTURE: rounded shoulders head forward GAIT: reciprocal gait mild forward posture PALAPTION: tender LS/S1 NEURO: denies paresthesia/tingling reflexes L3-4,L4-5,L5-S1 1/3 LUMBAR ROM : flexion min loss pain ,extension min loss ,side glides min loss MMT: quads/hams 4/5 ,hip flexion 4-/5 ,hip abduction 4-/5 ,ankle 5/5 FLEXABLITY: hamstrings min tight Special Tests L/S Slump test left side: Negative L/S Slump test right side: Negative L/S Left Straight Leg Raise: Negative L/S Right Straight Leg Raise: Negative Lumbar Standing: Flexion - Mechanical Response: No effect Lumbar Standing: Flexion - Symptoms During Testing: Increases Lumbar Standing: Flexion - Symptoms After Testing: Worse Lumbar Standing: Extension - Mechanical Response: No effect Lumbar Standing: Extension - Symptoms During Testing: Increases Lumbar Standing: Extension - Symptoms After Testing: Worse Lumbar Standing: Right Side Glides - Mechanical Response: No effect Lumbar Standing: Right Side [place] - Symptoms During Testing: Increases Lumbar Standing: Right Side [place] - Symptoms After Testing: Worse Lumbar Standing: Left Side [place] - Mechanical Response: No effect Lumbar Standing: Left Side [place] - Symptoms During Testing: Increases Lumbar Standing: Left Side [place] - Symptoms After Testing: Worse Lumbar Lying: Flexion - Mechanical Response: No effect Lumbar Lying: Flexion - Symptoms During Testing: Increases Lumbar Lying: Flexion - Symptoms After Testing: Worse Lumbar Lying: Extension - Mechanical Response: No effect Lumbar Lying: Extension - Symptoms During Testing: Increases Lumbar Lying: Extension - Symptoms After Testing: Worse Balance/Special Test Scores Oswestry Low Back Score: 22 Goals Goal 1:: Patient to be I with HEP back Goal Time Frame: 4-6 Weeks Goal 2:: Patient to improve posture/body mechanics for job demands Goal Time Frame: 4-6 Weeks Goal 3:: Patient improve lumbar ROM for function of recovery for job demands Goal Time Frame: 4-6 Weeks Goal 4:: Patient to demonstrate 50% improvement with decrease pain and improved function Goal Time Frame: 4-6 Weeks Goal 5:: Patient improve back oswestry score by 5 points to improve QOL and func tion Goal Time Frame: 4-6 Weeks Rehabilitation Potential Physical Therapy Diagnosis: This patient back pain 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 job demands and ADLS thus will benefit from skilled PT Rehabilitation Potential: Good Anticipated Interventions Patient/Client Instruction: Educate patient on: Condition and Plan of Care For the Purpose of:: To decrease pain, To increase ROM, To improve muscle performance and motor function, To improve ability to perform ADL's, To increase tolerance to activity/condition/position, To improve performance and independence with ADL's, To improve ability of physical actions for home/community/work/leisure, To improve health of tissue, To decrease soft tissue restriction, To increase flexibility/ROM and To prevent re-injury Therapeutic Exercise to Include: Strength training, Endurance training, Body mechanics, Postural training, Flexibilty training and Dynamic Lumbar Stabilization For the Purpose of:: To decrease pain, To increase ROM, To improve muscle performance and motor function, To improve ability to perform ADL's, To increase tolerance to activity/condition/position, To improve ability of physical actions for home/community/work/leisure, To improve health of tissue, To decrease soft tissue restriction and To increase flexibility/ROM TENS: Yes IF ES: Yes Cryotherapy (ice pack, ice massage): Yes Thermo therapy (hot pack): Yes For the Purpose of:: To decrease pain, To increase ROM, To improve nutrient delivery to tissue, To increase oxygenation perfusion, To improve health of tissue and To decrease soft tissue restriction Text: Thank you for the opportunity to evaluate your patient. For Medicare and Medicare HMO plans, please review the plan of care and approve it. It will need to be FAXED BACK to us at [phone] for Medicare purposes. For Medicare only, by signing this I certify the plan of care. Please let me know if there are questions or concerns regarding this plan of care. Physician Signature:____ Date:
--- NOTE | 2023-06-28 12:32 | HP.PTDCSUM ---
Discharge Summary D/C summary: It has been my pleasure to treat FRANKIE MCKINNEY referred by Dr. Inés Davila MD, with the diagnosis of LOW BACK PAIN for a total of 9 visit(s). Discharge Date: Please see the following information for a summary of their discharge status. Subjective Subjective: Patient thinks PT did not help . Plan to RTD 06/27 possible need of MRI and injections\ Worse with walking and standing Pain Bilateral Back: Pain Intensity (Out of 10): 9 Objective Objective/Function: POSTURE: rounded shoulders head forward GAIT: reciprocal gait mild forward posture PALAPTION: tender LS/S1 NEURO: denies paresthesia/tingling reflexes L3-4,L4-5,L5-S1 1/3 LUMBAR ROM : flexion min loss pain ,extension min loss ,side glides min loss MMT: quads/hams 4/5 ,hip flexion 4-/5 ,hip abduction 4-/5 ,ankle 5/5 FLEXABLITY: hamstrings min tight Goals Goal 1:: Patient to be I with HEP back Goal 2:: Patient to improve posture/body mechanics for job demands Goal 3:: Patient improve lumbar ROM for function of recovery for job demands Goal 4:: Patient to demonstrate 50% improvement with decrease pain and improved function Goal 5:: Patient improve back oswestry score by 5 points to improve QOL and function Plan Plan: RTD D/C Information d/c sentence: If there are questions or concerns regarding this patient's physical therapy, please feel free to call me at [phone]. Thank you for the referral of this patient. Sincerely, Mike Escobar, PT, Cert MDT, OCS Balance/Gait/Functional tests Balance/Special Test Scores Oswestry Low Back Score: 22
== END 2023-06-18 19:00 | disposition home or self-care (01) ==
LOC: PT 16:30
PROVIDERS: PCP Family Medicine Geriatric Medicine; Referring Provider Anesthesiology Pain Medicine; Visit Provider Anesthesiology Pain Medicine
DX: M54.50 Low back pain, unspecified (principal)
CPT/HCPCS: 97014; 97110; 97162; 97530; G0283

== ENCOUNTER 2023-06-20 07:50 | Emergency (ER) | payer MEDICAID, SELFPAY ==
[2023-06-20 07:51] VITALS: BP 171/75; PULSE 66; RESP 14; TEMP 35.9; O2SAT 100; BMI 43.2
--- NOTE | 2023-06-20 08:13 | EKG12_ITS ---
Test Reason : CP Blood Pressure : / mmHG Vent. Rate : 050 BPM Atrial Rate : 050 BPM P-R Int : 144 ms QRS Dur : 108 ms QT Int : 438 ms P-R-T Axes : 001 021 090 degrees QTc Int : 399 ms Sinus bradycardia with sinus arrhythmia Nonspecific T wave abnormality Abnormal ECG Confirmed by CIRO NAPIER, ACOSTA ([id number]), map editor ESPERANZA HONG ([id number]) on 06/21/2023 10:40:45 AM Referred By: Confirmed By:ACOSTA TANNER MD
--- NOTE | 2023-06-20 08:14 | EDS_ITS ---
HPI History of Present Illness Chief Complaint: Chest Pain Informant: patient Narrative Narrative: 47-year-old female presenting to the emergency room with chest pressure. Patient states that yesterday around 1300 hrs. 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 Nonradiating. No associated shortness of breath nausea vomiting sweating. She states it is intermittent in nature she went to her doctor's office to have her blood pressure checked which had been previously scheduled. She states that they were going to schedule her for an EKG. Patient states her symptoms went away and she was fine throughout the night but when she woke this morning at 0600 the chest pressure returned. It is still present. Nothing she does makes it better or worse. No other new symptoms. [facility] Medical History Arthritis Contact with and (suspected) exposure to other viral communicable diseases HTN (hypertension) Thyroid disease URI (upper respiratory infection) Home Medications lamotrigine 100 mg tablet 100 mg PO DAILY 09/14/22 [History Last Taken 12/28/22] propranolol 10 mg tablet 10 mg PO BID PRN anxiety 09/14/22 [History Last Taken 12/28/22] venlafaxine 225 mg tablet,extended release 24 hr 225 mg PO QHS 09/14/22 [History Last Taken 12/28/22] diphenhydramine HCl 50 mg capsule 50 mg PO TID PRN headache #10 caps 05/13/23 [Rx Last Taken Unknown] ketorolac 10 mg tablet 10 mg PO Q8H PRN headache #10 tabs 05/13/23 [Rx Last Taken Unknown] levothyroxine 200 mcg tablet 200 mcg PO DAILY 05/13/23 [History Last Taken Unknown] levothyroxine 25 mcg tablet 25 mcg PO DAILY 05/13/23 [History Last Taken Unknown] metoclopramide HCl 10 mg tablet (Reglan) 10 mg PO Q8H PRN PRN headache #10 tabs 05/13/23 [Rx Last Taken Unknown] Allergy/AdvReac Type Severity Reaction Status Date / Time No Known Allergies Allergy Verified 06/20/23 07:51 Family History Other Skin cancer Surgical History History of cholecystectomy Hx of tonsillectomy Social History Smoking Status: Former smoker alcohol intake: never ROS ROS ED Constitutional Constitutional ED: Denies chills, fever(s) or weight loss Eyes Eyes: Denies change in vision or diplopia ENT ENT ED: Denies ear pain, rhinorrhea or sore throat Cardiovascular Cardiovascular: Reports chest pain; Denies orthopnea, palpitations or racing heartbeat Respiratory/Chest Respiratory/Chest: Denies cough, dyspnea or orthopnea Gastrointestinal Gastrointestinal: Denies abdominal pain, diarrhea, nausea or vomiting Genitourinary Genitourinary ED: Denies dysuria, hematuria or urinary frequency Musculoskeletal Musculoskeletal: Denies arthralgias or myalgias Integumentary Denies abscess or rash Neurologic Neurologic: Denies headache(s) or weakness Psychiatric Psychiatric: Denies anxiety, depression, suicidal ideation or suicidal thoughts Endocrine Endocrinology: Denies polydipsia, polyphagia or polyuria Allergic/Immunologic Allergic/Immunologic ED: Denies mouth swelling, tongue swelling or urticaria EXAM Physical Exam Const Vital Signs: 06/20/23 07:51 06/20/23 08:47 06/20/23 08:48 Temperature 96.7 F L Temperature Source Temporal Pulse Rate 66 53 L Respiratory Rate 14 16 Respiratory Effort Normal Blood Pressure 171/75 H 130/62 H Blood Pressure Mean 107 84 Pulse Ox 100 96 Oxygen Delivery Method Room Air Room Air 06/20/23 10:01 06/20/23 10:21 Temperature Temperature Source Pulse Rate 56 L 50 L Respiratory Rate 16 19 H Respiratory Effort Blood Pressure 184/117 H 149/89 H Blood Pressure Mean 139 109 Pulse Ox 96 97 Oxygen Delivery Method Room Air Room Air Positive well nourished, well developed and obese General Appearance ED: well developed Nutritional Appearance: obese HEENT Reports normocephalic, head/scalp atraumatic and moist mucous membranes Eyes PERRL and EOMs intact bilaterally Neck no lymphadenopathy, supple and no JVD Chest Wall Chest Narrative: Tender to palpation right costochondral border of the mid ribs. This is not the same pain that the patient has been experiencing Resp normal respiratory effort and clear to auscultation bilaterally Cardio regular rate, regular rhythm and no murmurs GI normal to inspection, nondistended, normoactive bowel sounds and non-tender Palpation: soft Back/Spine no CVA tenderness and normal ROM Extremity normal to inspection General Extremety ED: Negative for edema General Extremity: Negative for edema Neuro oriented x3 and CN's II-XII intact bilaterally Sensorium / Orientation: alert Motor Exam: strength 5/5 throughout Psych mental status grossly normal Mood & Affect: Negative for depressed or tearful Skin no rashes or lesions noted and no wounds MDM MDM MDM Narrative Medical decision making narrative: My independent interpretation of the chest x-ray is no acute process. Initial troponin is 12. Normal D-dimer. BMP shows a glucose of 111. CBC normal white count hemoglobin and platelet count. Patient received nitroglycerin with no change in pain. Delta troponin was ordered. This also was negative. Patient's blood pressures improved currently 149/89. This is reportedly being monitored by primary care. I do not think we necessarily need to intervene at this point as it falls outside of hypertensive urgency emergency. I will defer as I do not have access to her previous blood pressure measurements. At this point I think the patient can be discharged home. Would recommend further evaluation by primary care. Return if worsening or concerns. Patient is understanding of the plan. History & Record Review Discussion w/independent historian: Patient Additional record(s) reviewed:: Prior ED visit and Prior labs Lab Data Attestation: I reviewed the patient's lab results. Labs: Laboratory Results - last 24 hr 06/20/23 06/20/23 08:15 10:25 WBC 5.1 RBC 4.11 L Hgb 12.6 Hct 39.3 MCV 95.6 MCH 30.7 MCHC 32.1 RDW Std Deviation 49.1 H RDW Coeff of Amandeep 13.9 Plt Count 206 MPV 11.0 Immature Gran % (Auto) 0.400 Neut % (Auto) 58.6 Lymph % (Auto) 32.5 Wells % (Auto) 5.3 Eos % (Auto) 2.4 Baso % (Auto) 0.8 Absolute Neuts (auto) 3.0 Absolute Lymphs (auto) 1.64 Nucleated RBC % 0 D-Dimer Quant (PE/DVT) < 0.27 L Sodium 142 Potassium 3.8 Chloride 109 H Carbon Dioxide 29.0 Anion Gap 4 L BUN 13 Creatinine 0.88 Estim Creat Clear Calc 87.30 Est GFR (MDRD) Af Amer 89 Est GFR (MDRD) Non-Af 73 BUN/Creatinine Ratio 14.7 Glucose 111 H Calcium 9.4 Troponin I High Sens 12 11 Radiography Diagnostic Testing: Clinical Impression(s) from Imaging Studies Chest X-Ray 06/20/23 08:25 IMPRESSION: No acute abnormality is seen. Electronically Signed: Osmani Cordon MD at 8:38 EST , EKG Initial EKG: Attestation: I personally reviewed and interpreted this EKG as follows: Comments: Sinus bradycardia at a ventricular rate of 50 bpm. No definitive features of ACS noted Prior EKG tracings: available for review Prior: Unchanged (29 December 2022) Discharge Plan Triage Chief Complaint: Chest Pain ED Provider: Cayetano Valentine Dx/Rx/DC Orders Clinical Impression: Chest pain, Hypertension Instructions: Hypertension Dc, ED Chest Pain, Uncertain Cause Prescriptions: No Action propranolol 10 mg tablet 10 mg PO BID PRN (Reason: anxiety) lamotrigine 100 mg tablet 100 mg PO DAILY venlafaxine 225 mg tablet extended release 24hr 225 mg PO QHS levothyroxine 200 mcg tablet 200 mcg PO DAILY levothyroxine 25 mcg tablet 25 mcg PO DAILY ketorolac 10 mg tablet 10 mg PO Q8H PRN (Reason: headache) Qty: 10 0RF metoclopramide HCl [Reglan] 10 mg tablet 10 mg PO Q8H PRN PRN (Reason: headache) Qty: 10 0RF diphenhydramine HCl 50 mg capsule 50 mg PO TID PRN (Reason: headache) Qty: 10 0RF Primary Care Provider: Dionisio Fortune Chi Referrals: Dionisio Fortune Chi, MD [Primary Care Provider] - As soon as possible Disposition Disposition: Home, Self Care
--- NOTE | 2023-06-20 08:25 | RAD_ITS ---
STUDY: X-RAY CHEST REASON FOR EXAM: Female, 47 years old. Chest pain TECHNIQUE: Single AP portable view of the chest. COMPARISON: Comparison is made with prior study dated December 29, 2022. FINDINGS: EKG electrodes are seen. The lungs are clear and expanded. There is no demonstrated pleural abnormality. There is borderline cardiomegaly. Normal mediastinum and aure. Normal visualized pulmonary arteries. Normal visualized aortic arch and descending thoracic aorta. Normal visualized thoracic spine. Normal visualized ribs, clavicles, and shoulders. There is no demonstrated abnormality of the visualized soft tissue structures of the upper abdomen. RAD/Chest 1 View (Portable) IMPRESSION: No acute abnormality is seen. Electronically Signed: Osmani Cordon MD at 8:38 EST ,
[2023-06-20 08:26] LABS: Absolute Lymphocyte Count 1.64 X10^3/uL (0.83-4.51); Basophil# 0.04 X10^3/uL; Basophil% 0.8 % (0-1); Eosinophil# 0.12 X10^3/uL; Eosinophils% 2.4 % (0-5); Hematocrit 39.3 % (37-47); Hemoglobin 12.6 g/dL (12.0-15.0); Lymphocyte # 1.64 X10^3/ul (0.83-4.51); Lymphocyte % 32.5 % (19-41); Mean Corp Hgb Conc 32.1 g/dL (32-36); Mean Corpuscular Hgb 30.7 pg (27.0-32.0); Mean Corpuscular Volume 95.6 fL (81-99); Monocyte# 0.27 X10^3/uL; Monocyte% 5.3 % (0-10); NRBC Flagged by Analyzer 0 % (0-5); Neutrophil # 2.96 X10^3/uL (2.7-7.7); Neutrophil % 58.6 % (47-70); Platelet Count 206 K/mm3 (150-450); RBC Distribution Width CV 13.9 % (11.6-14.6); RBC Distribution Width SD 49.1 fl (35.1-43.9); Red Blood Count 4.11 M/mm3 (4.2-5.4); White Blood Count 5.1 K/mm3 (4.4-11.0)
[2023-06-20 08:41] LABS: D-Dimer Quantitative (DVT/PE) < 0.27 FEU/ug/m (0.27-0.49)
[2023-06-20 08:42] LABS: Anion Gap 4 (5-15); BUN 13 mg/dL (7-18); BUN/Creat Ratio 14.7 RATIO (10-20); Calcium,Total 9.4 mg/dL (8.5-10.1); Chloride 109 mmol/L (98-107); Creatinine, Serum 0.88 mg/dL (0.55-1.02); EST Glomerular Filtration Rate 73 mL/min (>60); Est Glom Filt Rate - Afr Amer 89 mL/min (>60); Glucose 111 mg/dL (74-106); Potassium 3.8 mmol/L (3.5-5.1); Sodium Level 142 mmol/L (136-145); Troponin-I HS (w/2H Reflex) 12 pg/mL (3.0-54.0)
[2023-06-20 08:47] VITALS: BP 130/62; PULSE 53; RESP 16; O2SAT 96
[2023-06-20 10:01] VITALS: BP 184/117; PULSE 56; RESP 16; O2SAT 96
[2023-06-20 10:20] LABS: Reflex Troponin-HS? (from REC) Y
[2023-06-20 10:21] VITALS: BP 149/89; PULSE 50; RESP 19; O2SAT 97
[2023-06-20 10:53] LABS: Troponin-I HS 11 pg/mL (3.0-54.0)
[2023-06-20 12:28] VITALS: BP 115/62; PULSE 59; RESP 16; O2SAT 97
--- NOTE | 2023-06-20 12:37 | ED.RN ---
Pt and SO upset with RN, requesting an individual work excuse printed with spouse's name as well. This RN explained we were unable to print anything with spouse's name, could only hand write name. Pt states they always did before. Pt further requests print out of work restrictions, this RN explained she was discharged with no work restrictions. Pt given work excuse printout with time spent in ED. Pt upset as printout did not have MD's name. Duplicate last page of discharge instructions printed with Pt name, MD name, visit date. Pt denies further needs, however overheard cursing this RN after leaving room.
== END 2023-06-20 12:31 | disposition home or self-care (01) ==
PROVIDERS: Emergency Provider Emergency Medicine; PCP Family Medicine Geriatric Medicine; Visit Provider Emergency Medicine
DX: R07.9 Chest pain, unspecified (principal); I10 Essential (primary) hypertension; E66.9 Obesity, unspecified; Z87.891 Personal history of nicotine dependence
CPT/HCPCS: 71045; 80048; 84484; 85025; 85379; 93005; 99284; A4216

== ENCOUNTER → 2023-06-22 | Outpatient (CLI) | payer MEDICAID, SELFPAY | END | disposition home or self-care (01) | LOC: PSN 07:00 | PROVIDERS: PCP Family Medicine Geriatric Medicine; Referring Provider Family Medicine Geriatric Medicine; Visit Provider Family Medicine Geriatric Medicine | DX: R68.83 Chills (without fever) (principal) | CPT/HCPCS: 87635; 87804; 87807 ==

== ENCOUNTER 2023-06-25 09:02 | Emergency (ER) | payer MEDICAID, SELFPAY ==
[2023-06-25 09:04] VITALS: BP 174/101; PULSE 94; RESP 16; TEMP 36; O2SAT 100; BMI 41.8
--- NOTE | 2023-06-25 09:18 | EX.ED.VIS.UR ---
HPI HPI - URI History of Present Illness Chief Complaint: Shortness of Breath Informant: patient Narrative Narrative: Patient has had respiratory illness with cough and congestion, headaches, fevers and chills and myalgias for the past 4 days. She had swabs here at the hospital as an outpatient and tested positive for influenza first day of the illness. She presents because she is not getting better and now is hoarse of voice, having feeling of swelling in her throat like things are getting stuck but she is not vomiting and she is able to pass liquids without difficulty, and congestion in her chest without dyspnea. She did have influenza vaccination this year. ROS [facility] ED Constitutional Constitutional ED: Reports body ache(s), chills, fever(s) and malaise ENT ENT ED: Reports hoarseness, nasal congestion, rhinorrhea, sore throat and throat swelling Cardiovascular Cardiovascular: Denies chest pain or palpitations Respiratory/Chest Respiratory/Chest: Reports chest congestion and cough; Denies dyspnea Gastrointestinal Gastrointestinal: Denies abdominal pain, diarrhea, nausea or vomiting Genitourinary Genitourinary ED: Denies dysuria or hematuria Musculoskeletal Musculoskeletal: Denies myalgias or neck pain Integumentary Denies abscess or rash Neurologic Neurologic: Reports headache(s); Denies paresthesias or weakness Psychiatric Psychiatric: Denies depression or suicidal thoughts Endocrine Endocrinology: Denies polydipsia or polyuria [facility] Medical History Arthritis Contact with and (suspected) exposure to other viral communicable diseases HTN (hypertension) Thyroid disease URI (upper respiratory infection) Home Medications lamotrigine 100 mg tablet 100 mg PO DAILY 09/14/22 [History Last Taken 12/28/22] propranolol 10 mg tablet 10 mg PO BID PRN anxiety 09/14/22 [History Last Taken 12/28/22] venlafaxine 225 mg tablet,extended release 24 hr 225 mg PO QHS 09/14/22 [History Last Taken 12/28/22] diphenhydramine HCl 50 mg capsule 50 mg PO TID PRN headache #10 caps 05/13/23 [Rx Last Taken Unknown] ketorolac 10 mg tablet 10 mg PO Q8H PRN headache #10 tabs 05/13/23 [Rx Last Taken Unknown] levothyroxine 200 mcg tablet 200 mcg PO DAILY 05/13/23 [History Last Taken Unknown] levothyroxine 25 mcg tablet 25 mcg PO DAILY 05/13/23 [History Last Taken Unknown] metoclopramide HCl 10 mg tablet (Reglan) 10 mg PO Q8H PRN PRN headache #10 tabs 05/13/23 [Rx Last Taken Unknown] Allergy/AdvReac Type Severity Reaction Status Date / Time No Known Allergies Allergy Verified 06/25/23 09:04 Family History Other Skin cancer Surgical History History of cholecystectomy Hx of tonsillectomy Social History Smoking Status: Former smoker alcohol intake: never EXAM Physical Exam Const Vital Signs: 06/25/23 09:04 Temperature 96.8 F L Temperature Source Temporal Pulse Rate 94 Respiratory Rate 16 Blood Pressure 174/101 H Blood Pressure Mean 125 Pulse Ox 100 Oxygen Delivery Method Room Air Positive well nourished, well developed and obese General Appearance ED: well developed and NAD Nutritional Appearance: obese HEENT Reports moist mucous membranes HEENT Narrative: No stridor normocephalic and atraumatic Throat: posterior oropharynx abnormal Positive for cobblestoning (Without petechiae) and erythema; Negative for exudates Eyes PERRL and EOMs intact bilaterally Neck no lymphadenopathy, supple and no meningeal signs Resp normal respiratory effort and clear to auscultation bilaterally Cardio no murmurs Rate: regular rate; Negative for tachycardic Rhythm: regular rhythm Extremity normal to inspection and full ROM Neuro oriented x3, CN's II-XII intact bilaterally and no sensory deficits noted Sensorium / Orientation: alert Motor Exam: strength 5/5 throughout Psych mental status grossly normal Skin Lesions: no lesions Rashes: no rashes MDM MDM MDM Narrative Medical decision making narrative: Patient has clear lungs, no tachycardia, and her pulse oximetry is 100 on room air. Given this, and her symptoms, I do not think she has influenza pneumonia, and therefore I do not think she needs a chest x-ray although was considered, I think it would be relatively wasteful given the above information. The other symptoms are expected with influenza, and as I discussed with the patient being 4 days into her illness, I would not expect her to be improving yet. Supportive care advised and I will give her an injection of Toradol after we discussed that for aches and pains as well as a dose of Decadron which may help the swelling in her throat, objectively she is not swollen or edematous, there is some posterior pharyngeal cobblestoning to suggest it is sore, and she is not a diabetic so I think that the risk-benefit profile was in her favor here. Discharge Plan Triage Chief Complaint: Shortness of Breath ED Provider: Tyrone Walker Dx/Rx/DC Orders Clinical Impression: Influenza A, Influenzal bronchitis Instructions: ED Influenza (Adult) Prescriptions: No Action propranolol 10 mg tablet 10 mg PO BID PRN (Reason: anxiety) lamotrigine 100 mg tablet 100 mg PO DAILY venlafaxine 225 mg tablet extended release 24hr 225 mg PO QHS levothyroxine 200 mcg tablet 200 mcg PO DAILY levothyroxine 25 mcg tablet 25 mcg PO DAILY ketorolac 10 mg tablet 10 mg PO Q8H PRN (Reason: headache) Qty: 10 0RF metoclopramide HCl [Reglan] 10 mg tablet 10 mg PO Q8H PRN PRN (Reason: headache) Qty: 10 0RF diphenhydramine HCl 50 mg capsule 50 mg PO TID PRN (Reason: headache) Qty: 10 0RF Stand Alone Forms: ED Work / School Excuse Primary Care Provider: Dionisio Fortune Chi Referrals: Dionisio Fotrune Chi, MD [Primary Care Provider] - 1 Week if not improving Disposition Disposition: Home, Self Care
[2023-06-25] MEDS: dexAMETHasone 10 MG/ML Vial PO.IVFORM (09:40)
[2023-06-25] MEDS: Ketorolac 60 MG/2 ML Vial IM (09:41)
== END 2023-06-25 10:15 | disposition home or self-care (01) ==
PROVIDERS: Emergency Provider Emergency Medicine; PCP Family Medicine Geriatric Medicine; Visit Provider Emergency Medicine
DX: J10.1 Influenza due to other identified influenza virus with other respiratory manifestations (principal); J20.9 Acute bronchitis, unspecified; Z87.891 Personal history of nicotine dependence
CPT/HCPCS: 96372; 99282

== ENCOUNTER → 2023-07-10 | Outpatient (CLI) | payer OTHER, MEDICAID, SELFPAY ==
[2023-07-10 17:14] LABS: Absolute Neutrophil Count 4.6 X10^3/uL (2.0-7.7); Basophil# 0.05 X10^3/uL; Basophil% 0.6 % (0-1); Eosinophil# 0.13 X10^3/uL; Eosinophils% 1.6 % (0-5); Hematocrit 40.9 % (37-47); Hemoglobin 12.9 g/dL (12.0-15.0); Mean Corp Hgb Conc 31.5 g/dL (32-36); Mean Corpuscular Hgb 30.1 pg (27.0-32.0); Mean Corpuscular Volume 95.3 fL (81-99); NRBC Flagged by Analyzer 0 % (0-5); Neutrophil # 4.61 X10^3/uL (2.7-7.7); Neutrophil % 57.6 % (47-70); Platelet Count 264 K/mm3 (150-450); RBC Distribution Width CV 13.7 % (11.6-14.6); RBC Distribution Width SD 47.7 fl (35.1-43.9); Red Blood Count 4.29 M/mm3 (4.2-5.4)
--- OUTSIDE RECORDS SUMMARY | 2023-07-10 17:43 | XMS RPT_ITS | CCD ---
Author Name Unknown Address [address] [place] [address] Organization [facility] Care Team Providers Care Cloth Worker Name Role Phone Unavailable Primary Care Provider UnavailOK Gregorio Attending Unavailable Jose Angel Dee Chi Primary Care Provider [phone] JOSE ANGEL DEE CHI Primary Care Unavailable TWYLA DINH Referring Unavailable JOSE ANGEL DEE CHI Primary Care Unavailable LEILA NAPIER, DR SANCHEZ Primary Care Physician LEILA NAPIER, DR SANCHEZ Primary Care Unavailable ALFONSO NAPIER, GENARO Mazariegos Attending Unavail able Medications Current Medications Medication Drug Class(es) Dates Sig (Normalized) Sig (Original) lidocaine 1.8% topical film (1 source) Start: 03-29-2023 End: 04-04-2023 apply 1 dose topically once daily lidocaine 1.8% topical film Dose = 1 patch(es), Topical, qDay, leave on up to 12 hours, # 30 EA, 0 Refill(s) Start Date: 03/29/23 Stop Date: 04/04/23 Status: Ordered predniSONE 20 mg oral tablet (2 sources) Start: 03-11-2023 End: 03-16-2023 take 2 tablets by mouth once daily predniSONE (DELTASONE) 20 mg tablet Take 2 tablets by mouth once daily for 5 days. 10 tablet 0 03/11/2023 03/16/2023 Active Completed/Discontinued Medications Medication Drug Class(es) Dates Sig (Normalized) Sig (Original) cariprazine 6 mg oral capsule (1 source) Atypical Antipsychotic take 1 capsule by mouth once daily at bedtime cariprazine (VRAYLAR) 6 mg capsule Take by mouth daily at bedtime. 0 Active Problems Problem Classification Problem Date Documented Date Episodic/Chronic Osteoarthritis (1 source) Primary gonarthrosis, bilateral; Translations: [Bilateral primary osteoarthritis of knee] Chronic Other non-traumatic joint disorders (1 source) Pain in right knee; Translations: [Pain in joint, lower leg] Episodic Other nutritional; endocrine; and metabolic disorders (1 source) Body mass index 40+ - severely obese; Translations: [Morbid (severe) obesity due to excess calories] Chronic Spondylosis; intervertebral disc disorders; other back problems (1 source) Acute low back pain; Translations: [Acute left-sided low back pain without sciatica] 03-11-2023 Episodic Unclassified (1 source) Acute left-sided low back pain without sciatica; Translations: [Acute left-sided low back pain without sciatica] Onset: 03-12-2023 Results Test Name Value Interpretation Reference Range Facil ity Vital Signs Date Time Vital Sign Value Performing Clinician Facility 03-29-2023 16:05-0400 Blood Pressure Location GENARO HAMILTON MD [facility] 03-29-2023 16:05-0400 Blood Pressure Method GENARO HAMILTON MD [facility] 03-29-2023 16:05-0400 Body temperature 98.24 [degF] GENARO HAMILTON MD [facility] 03-29-2023 16:05-0400 Diastolic Blood Pressure Non-Invasive 83 1 GENARO HAMILTON MD [facility] 03-29-2023 16:05-0400 Heart rate 78 /min GENARO HAMILTON MD [facility] 03-29-2023 16:05-0400 Respiratory rate 18 /min GENARO HAMILTON MD [facility] 03-29-2023 16:05-0400 Systolic Blood Pressure Non-Invasive 157 1 GENARO HAMILTON MD [facility] 03-11-2023 08:22-0400 Body weight 143.79 kg Twyla Athy PA-C Work Phone: [facility] 03-11-2023 08:22-0400 Diastolic blood pressure 90 mm[Hg] Twyla Athy PA-C Work Phone: [facility] 03-11-2023 08:22-0400 Heart rate 75 /min Twyla Athy PA-C Work Phone: [facility] 03-11-2023 08:22-0400 Respiratory rate 16 /min Twyla Athy PA-C Work Phone: [facility] 03-11-2023 08:22-0400 SaO2% (BldA) [Mass fraction] 98 % Twyla Athy PA-C Work Phone: [facility] 03-11-2023 08:22-0400 Systolic blood pressure 140 mm[Hg] Twyla Athy PA-C Work Phone: [facility] 07-13-2022 08:49-0500 Body height 177.8 cm Ok Valle MD Work Phone: [facility] 07-13-2022 08:49-0500 Body weight 150.14 kg Ok Valle MD Work Phone: [facility] Encounters Encounter Date Encounter Type Care Provider Facility Start: 03-29-2023 End: 03-29-2023 Emergency department patient visit DR LAURA DEE MD Facility: Start: 03-29-2023 End: 03-29-2023 Emergency department patient visit GENARO HAMILTON MD [facility] Start: 03-12-2023 End: 03-12-2023 ambulatory JOSE ANGEL DEE Facility:[facility] Start: 03-12-2023 Telephone encounter Dory villalobos APRNJnORDER ADMINISTRATOR Work Phone: [facility] Procedures Date Procedure Procedure Detail Performing Clinician Start: 03-11-2023 Urnls dip stick/tabl et rgnt auto w/o microscopy Twyla Dinh PA-C Work Phone: Plan of Treatment Date Care Activity Detail Author Start: 03-02-2023 Influenza vaccination INFLUENZA (#1) [facility] Start: 2022 COLOGUARD (FIT-DNA) COLOGUARD (FIT-DNA) [facility] Start: 2022 Colonoscopy COLONOSCOPY [facility] Start: 2022 COLORECTAL CANCER SCREENING COLORECTAL CANCER SCREENING [facility] Start: [address] COLONOGRAPHY [facility] Start: 2022 DIABETES SCREEN DIABETES SCREEN [facility] Start: 2022 FECAL OCCULT BLOOD FECAL OCCULT BLOOD [facility] Start: 2022 LIPID SCREEN LIPID SCREEN [facility] Start: 2022 SIGMOIDOSCOPY SIGMOIDOSCOPY [facility] Start: 07-02-2022 DEPRESSION ASSESSMENT DEPRESSION ASSESSMENT [facility] Start: 03-02-2022 Influenza vaccination INFLUENZA (#1) [facility] Start: 08-01-2021 COVID-19 VACCINE (4 - Booster for Pfizer series) COVID-19 VACCINE (4 - Booster for Pfizer series) [facility] Start: 2017 Mammography MAMMOGRAM [facility] Start: 11-24-2007 HPV TESTING HPV TESTING [facility] Start: 1998 PAP TESTING PAP TESTING [facility] Start: 1996 Urine microalbumin profile DTAP,TDAP,TD (1 - Tdap) [facility] Start: 11-24-1995 HEPATITIS C SCREENING HEPATITIS C SCREENING [facility] Start: 11-24-1995 HIV SCREENING HIV SCREENING [facility] Start: 11-24-1983 PNEUMOCOCCAL (1 - PCV) PNEUMOCOCCAL (1 - PCV) [facility] ic Start: 05-26-1978 COVID-19 VACCINE (#1) COVID-19 VACCINE (#1) [facility] Start: 1977 HEPATITIS B (1 of 3 - 3-dose series) HEPATITIS B (1 of 3 - 3-dose series) [facility] End: 04-09-2024 Radex spine lumbosacral 2/3 views XR LUMBAR GENERAL 3V AP/LAT/L5-S1 Radiology STAT Acute left-sided low back pain without sciatica 1 Occurrences starting 03/11/2023 until 04/09/2024 [facility] Work Phone: Payers Date Payer Category Payer Medicaid [id number] 2020 Medicaid [id number] 1975 Unknown [id number] Social History Date Type Detail Facility Tobacco smoking status ALIS Tobacco smoking consumption unknown [facility] Start: 1975 Sex Assigned At Not on file C [facility] Start: 07-13-2022 Tobacco smoking status ALIS Occasional tobacco smoker [facility] Work Phone: History of tobacco use Cigarette Smoker [facility] Work Phone: Start: 07-13-2022 End: 03-11-2023 Tobacco use and exposure Smokeless tobacco non-user [facility] Work Phone: Start: 07-13-2022 Alcohol intake Current drinke r of alcohol (finding) [facility] Start: 07-13-2022 Tobacco Comment Smokes 1 cigar ette every few days [facility] Start: 07-13-2022 Alcohol Comment rarely [facility] Start: 03-11-2023 Tobacco smoking status NHIS Ex-smoker [facility] History of tobacco use Current smoker [facility] Start: 03-11-2023 History of Social function [facility] Start: 03-11-2023 Tobacco use panel [facility] Tobacco smoking status No Smoking Status Entered [facility] Sex Assigned At Female [facility] Functional Status Date Assessment Result Facility 03-29-2023 Functional Status Independent [facility] darin [facility] 03-29-2023 Functional Status ID band on, Call device within reach, Bed in low position, Wheels locked, Upper/Half-Length side-rails up, Visitor at bedside [facility] Mental Status Date Assessment Result Facility 03-29-2023 Mental Status Orientation Oriented x 4 [facility] 03-29-2023 Mental Status [facility] Clinical Notes 05-31-2021 to 03-29-2023 Telephone Encounter - Mandy Charla - 03/12/2023 5:02 PM EDTTelephone Encounter - Dory Decker APRN.CNP - 03/12/2023 4:22 PM Twyla Medina PA-C - 03/11/2023 8:55 AM EDT Note Date & Type Note Facility 03-29-2023 Hospital Discharge instructions Patient Education 03/29/2023 17:09:27 Self-Care for Low Back Pain Self-Care for Low Back Pain Most people have low back pain now and then. In many cases, it isn t serious and self-care can help. Sometimes low back pain can be a sign of a bigger problem. Call your healthcare provider if your pain returns often or gets worse over time. For the long-term care of your back, get regular exercise, lose any excess weight and learn good posture. Take a short rest Lying down during the day may be helpful for short periods of time if severe pain increases with sitting or standing. Long-term bed rest could be damaging. Reduce pain and swelling Cold reduces swelling. Both cold and heat can reduce pain. Protect your skin by placing a towel between your body and the ice or heat source. For the first few days, apply an ice pack for 15 to 20 minutes, several times a day. To make a cold pack, put ice cubes in a plastic bag that seals at the top. After the first few days, try heat for 15 minutes at a time to ease pain. Never sleep on a heating pad. Shja-bwd-icptjoq medicine can help control pain and swelling. Try aspirin or a non-steroidal anti-inflammatory medicine (NSAID) such as ibuprofen. Exercise Exercise can help your back heal. It also helps your back get stronger and more flexible, preventing any reinjury. Ask your healthcare provider about specific exercises for your back. Use good posture to avoid reinjury When moving, bend at the hips and knees. Don t bend at the waist or twist around. When lifting, keep the object close to your body. Lift heavy items using your legs, not your back. Don t try to lift more than you can handle. When sitting, keep your lower back supported. Use a rolled-up towel as needed. Seek medical care right away if: You can't stand or walk. You have a temperature over 100.4 F (38.0 C) You have frequent, painful, or bloody urination. You have severe abdominal pain. You have a sharp, stabbing pain. Your pain is constant. You have pain, tingling, or numbness in your leg. You feel pain in a new area of your back. You notice that the pain isn t decreasing after more than a week. [id number] [facility]. [address] [place] [address]. All rights reserved. This information is not intended as a substitute for professional medical care. Always follow your healthcare professional's instructions. 03/29/2023 17:09:14 Back Care Tips Back Care Tips Caring for your back These are things you can do to prevent a recurrence of acute back pain and to reduce symptoms from chronic back pain: Maintain a healthy weight. If you are overweight, losing weight will help most types of back pain. Exercise is an important part of recovery from most types of back pain. The muscles behind and in front of the spine support the back. This means strengthening both the back muscles and the abdominal muscles will provide better support for your spine. Swimming and brisk walking are good overall exercises to improve your fitness level. Practice safe lifting methods (below). Practice good posture when sitting, standing and walking. Avoid prolonged sitting. This puts more stress on the lower back than standing or walking. Wear quality shoes with sufficient arch support. Foot and ankle alignment can affect back symptoms. Women should avoid wearing high heels. Therapeutic massage can help relax the back muscles without stretching them. During the first 24 to 72 hours after an acute injury or flare-up of chronic back pain, apply an ice pack to the painful area for 20 minutes and then remove it for 20 minutes, over a period of 60 to 90 minutes, or several times a day. As a safety precaution, do not use a heating pad at bedtime. Sleeping on a heating pad can lead to skin mcgarry or tissue damage. You can alternate ice and heat therapies. Medicines Talk to your healthcare provider before using medicines, especially if you have other medical problems or are taking other medicines. You may use acetaminophen or ibuprofen to control pain, unless your healthcare provider prescribed other pain medicine. If you have chronic conditions like diabetes, liver or kidney disease, stomach ulcers, or gastrointestinal bleeding, or are taking blood thinners, talk with your healthcare provider before taking any medicines. Be careful if you are given prescription pain medicines, narcotics, or medicine for muscle spasm. They can cause drowsiness, affect your coordination, reflexes, and judgment. Do not drive or operate heavy machinery while taking these types of medicines. Take prescription pain medicine only as prescribed by your healthcare provider. Lumbar stretch Here is a simple stretching exercise that will help relax muscle spasm and keep your back more limber. If exercise makes your back pain worse, don t do it. Lie on your back with your knees bent and both feet on the ground. Slowly raise your left knee to your chest as you flatten your lower back against the floor. Hold for 5 seconds. Relax and repeat the exercise with your right knee. Do 10 of these exercises for each leg. Safe lifting method Don t bend over at the waist to lift an object off the floor. Instead, bend your knees and hips in a squat. Keep your back and head upright Hold the object close to your body, directly in front of you. Straighten your legs to lift the object. Lower the object to the floor in the reverse fashion. If you must slide something across the floor, push it. Posture tips Sitting Sit in chairs with straight backs or low-back support. Keep your knees lower than your hips, with your feet flat on the floor. When driving, sit up straight. Adjust the seat forward so you are not leaning toward the steering wheel. A small pillow or rolled towel behind your lower back may help if you are driving long distances. Standing When standing for long periods, shift most of your weight to one leg at a time. Alternate legs every few minutes. Sleeping The best way to sleep is on your side with your knees bent. Put a low pillow under your head to support your neck in a neutral spine position. Avoid thick pillows that bend your neck to one side. Put a pillow between your legs to further relax your lower back. If you sleep on your back, put pillows under your knees to support your legs in a slightly flexed position. Use a firm mattress. If your mattress sags, replace it, or use a 1/2-inch plywood board under the mattress to add support. Follow-up care Follow up with your healthcare provider, or as advised. If X-rays, a CT scan or an MRI scan were taken, they will be reviewed by a radiologist. You will be notified of any new findings that may affect your care. Call 911 Call 911 if any of the following occur: Trouble breathing Confusion Very drowsy Fainting or loss of consciousness Rapid or very slow heart rate Loss of bowel or bladder control When to seek medical advice Call your healthcare provider right away if any of the following occur: Pain becomes worse or spreads to your arms or legs Weakness or numbness in one or both arms or legs Numbness in the groin area [phone] [email or web address]. [address] [place], [place] [id number]. All rights reserved. This information is not intended as a substitute for professional medical care. Always follow your healthcare professional's instructions. Follow Up Care 03/29/2023 15:58:23 With:Go to emergency room if symptoms worsen Address:Unknown When:2-4 days With:LAURA DEE MD Address: [facility]/[address] [place], [place] [id number]- When:2-4 days [facility] 03-29-2023 Note Discharge Instructions Thank you for allowing [facility] to assist you with your healthcare needs. The following is important discharge information regarding your hospital visit. Diagnosis from Today's Visit Back pain What to Do Next Instructions from Your Care Team No qualifying data available. Post Acute Orders No qualifying data available. You Need to Schedule the Following Appointments Follow Up with Go to emergency room if symptoms worsen When Within 2-4 days Follow Up with LAURA DEE MD When Within 2-4 days Where: [facility]/[address] [place], [place] [address]- Allergies No Known Medication Allergies Medications Please ask your primary doctor or pharmacist before taking any other medication not listed, including over the counter drugs, herbal medications, vitamins and or supplements as they may interact with your home medications. What How Much When Instructions Last Dose New lidocaine topical (lidocaine 1.8% topical film) 1 patch(es) Topical Once a day leave on up to 12 hours Printed Prescription Please take this list to your next doctor s visit. Bring all medications you take, including over the counter medications, herbals and other supplements with you to your doctor s visit. Patients and families are reminded to discard old lists and to update any records with all medication providers or retail pharmacies. Medication Leaflets lidocaine topical (LYE harvey osorio TOP i tyler) AneCream, Bactine, Glydo, Lidoderm, LidoRx, Medi-Quik [place], RadiaGuard, RectiCare, Regenecare MANLEY [place], Solarcaine Cool Aloe What is the most important information I should know about lidocaine topical? An overdose of numbing medicine can cause fatal side effects if too much of the medicine is absorbed through your skin. Do not use large amounts of lidocaine topical, or cover treated skin areas with a bandage or plastic wrap without medical advice. Keep both used and unused lidocaine skin patches out of the reach of children or pets. The amount of lidocaine in the skin patches could be harmful to a child or pet who accidentally sucks on or swallows the patch. What is lidocaine topical? Lidocaine is a local anesthetic (numbing medication). There are many brands and forms of lidocaine available. Not all brands are listed on this leaflet. Lidocaine topical (for use on the skin) is used to reduce pain or discomfort caused by skin irritations such as sunburn, insect bites, poison jono, poison oak, poison sumac, and minor cuts, scratches, or mcgarry. Lidocaine topical is also used to treat rectal discomfort caused by hemorrhoids. Lidocaine intradermal device can be used in minor medical procedures such as venipuncture or peripheral intravenous cannulation. Lidocaine topical may also be used for purposes not listed in this medication guide. What should I discuss with my healthcare provider before using lidocaine topical? You should not use lidocaine topical if you are allergic to any type of numbing medicine. Fatal overdoses have occurred when numbing medicines were used without the advice of a medical doctor (such as during a cosmetic procedure like laser hair removal). However, overdose has also occurred in women treated with a numbing medicine before having a mammography. Be aware that many cosmetic procedures are performed without a medical doctor present. Tell your doctor if you have ever had: a blood cell disorder called methemoglobinemia (in you or a family member); liver disease; or if you take a heart rhythm medicine. Tell your doctor if you are or . If you apply lidocaine topical to your chest, avoid areas that may come into contact with the baby's mouth. How should I use lidocaine topical? Use this medicine exactly as directed on the label, or as it has been prescribed by your doctor. Do not apply this medicine in larger amounts than recommended. Improper use of lidocaine topical may result in . Lidocaine topical comes in many different forms (gel, spray, cream, lotion, ointment, liquid, skin patch, and others). Do not take by mouth. Topical medicine is for use only on the skin. If this medicine gets in your eyes, nose, mouth, rectum, or vagina, rinse with water. Read and carefully follow any Instructions for Use provided with your medicine. Ask your doctor or pharmacist if you do not understand these instructions. Use the smallest amount of medicine needed to numb the skin or relieve pain. Your body may absorb too much of this medicine if you use too much, if you apply it over large skin areas, or if you apply heat, bandages, or plastic wrap to treated skin areas. Skin that is cut or irritated may also absorb more topical medication than healthy skin. Do not apply this medicine to swollen skin areas or deep puncture wounds. Avoid using the medicine on skin that is raw or blistered, such as a severe burn or abrasion. Do not cover treated skin unless your doctor has told you to. Lidocaine topical may be applied with your finger tips or a cotton swab. Lidocaine intradermal device is applied by a healthcare provider. Store at room temperature away from moisture and heat. Keep both used and unused lidocaine topical skin patches out of the reach of children or pets. The amount of lidocaine in the skin patches could be harmful to a child or pet who accidentally sucks on or swallows the patch. Seek emergency medical attention if this happens. What happens if I miss a dose? Since lidocaine topical is used when needed, you may not be on a dosing schedule. Skip any missed dose if it's almost time for your next dose. Do not use two doses at one time. What happens if I overdose? Seek emergency medical attention or call the Poison Help line at . An overdose of numbing medicine can cause fatal side effects if too much of the medicine is absorbed through your skin and into your blood. Overdose symptoms may include uneven heartbeats, seizure (convulsions), slowed breathing, coma, or respiratory failure (breathing stops). Lidocaine applied to the skin is not likely to cause an overdose unless you apply more than the recommended dose. What should I avoid while using lidocaine topical? Avoid touching the sticky side of a lidocaine skin patch while applying it. Avoid accidentally injuring treated skin areas while they are numb. Avoid coming into contact with very hot or very cold surfaces. What are the possible side effects of lidocaine topical? Get emergency medical help if you have signs of an allergic reaction: hives; difficulty breathing; swelling of your face, lips, tongue, or throat. Call your doctor at once if you have: severe headache or vomiting; severe burning, stinging, or irritation where the medicine was applied; swelling or redness; sudden dizziness or drowsiness after medicine is applied; confusion, problems with speech or vision, ringing in your ears; or unusual sensations of temperature. Common side effects include: mild irritation where the medication is applied; or numbness in places where the medicine is accidentally applied. This is not a complete list of side effects and others may occur. Call your doctor for medical advice about side effects. You may report side effects to FDA at 9-544-VHW-3606. What other drugs will affect lidocaine topical? Medicine used on the skin is not likely to be affected by other drugs you use. But many drugs can interact with each other. Tell each of your health care providers about all medicines you use, including prescription and ivng-sap-cnewfyv medicines, vitamins, and herbal products. Where can I get more information? Your pharmacist can provide more information about lidocaine topical. Remember, keep this and all other medicines out of the reach of children, never share your medicines with others, and use this medication only for the indication prescribed. Every effort has been made to ensure that the information provided by [employer]. ('[employer]') is accurate, up-to-date, and complete, but no guarantee is made to that effect. Drug information contained herein may be time sensitive. [employer] information has been compiled for use by healthcare practitioners and consumers in the [place] and therefore [employer] does not warrant that uses outside of the [place] are appropriate, unless specifically indicated otherwise. [employer]'s drug information does not endorse drugs, diagnose patients or recommend therapy. [employer] drug information is an informational resource designed to assist licensed healthcare practitioners in caring for their patients and/or to serve consumers viewing this service as a supplement to, and not a substitute for, the expertise, skill, knowledge and judgment of healthcare practitioners. The absence of a warning for a given drug or drug combination in no way should be construed to indicate that the drug or drug combination is safe, effective or appropriate for any given patient. [facility] does not assume any responsibility for any aspect of healthcare administered with the aid of information [facility] provides. The information contained herein is not intended to cover all possible uses, directions, precautions, warnings, drug interactions, allergic reactions, or adverse effects. If you have questions about the drugs you are taking, check with your doctor, nurse or pharmacist. Copyright 0311-5604 [facility] [employer] [facility]. Version: 11.. Revision Date: 03/21/2023. Education Materials Self-Care for Low Back Pain Most people have low back pain now and then. In many cases, it isn t serious and self-care can help. Sometimes low back pain can be a sign of a bigger problem. Call your healthcare provider if your pain returns often or gets worse over time. For the long-term care of your back, get regular exercise, lose any excess weight and learn good posture. Take a short rest Lying down during the day may be helpful for short periods of time if severe pain increases with sitting or standing. Long-term bed rest could be damaging. Reduce pain and swelling Cold reduces swelling. Both cold and heat can reduce pain. Protect your skin by placing a towel between your body and the ice or heat source. For the first few days, apply an ice pack for 15 to 20 minutes, several times a day. To make a cold pack, put ice cubes in a plastic bag that seals at the top. After the first few days, try heat for 15 minutes at a time to ease pain. Never sleep on a heating pad. Geyh-ewa-ndvtafn medicine can help control pain and swelling. Try aspirin or a non-steroidal anti-inflammatory medicine (NSAID) such as ibuprofen. Exercise Exercise can help your back heal. It also helps your back get stronger and more flexible, preventing any reinjury. Ask your healthcare provider about specific exercises for your back. Use good posture to avoid reinjury When moving, bend at the hips and knees. Don t bend at the waist or twist around. When lifting, keep the object close to your body. Lift heavy items using your legs, not your back. Don t try to lift more than you can handle. When sitting, keep your lower back supported. Use a rolled-up towel as needed. Seek medical care right away if: You can't stand or walk. You have a temperature over 100.4 F (38.0 C) You have frequent, painful, or bloody urination. You have severe abdominal pain. You have a sharp, stabbing pain. Your pain is constant. You have pain, tingling, or numbness in your leg. You feel pain in a new area of your back. You notice that the pain isn t decreasing after more than a week. 1298-4494 [facility]. [address] [place] [address], [place] [address]. All rights reserved. This information is not intended as a substitute for professional medical care. Always follow your healthcare professional's instructions. Back Care Tips Caring for your back These are things you can do to prevent a recurrence of acute back pain and to reduce symptoms from chronic back pain: Maintain a healthy weight. If you are overweight, losing weight will help most types of back pain. Exercise is an important part of recovery from most types of back pain. The muscles behind and in front of the spine support the back. This means strengthening both the back muscles and the abdominal muscles will provide better support for your spine. Swimming and brisk walking are good overall exercises to improve your fitness level. Practice safe lifting methods (below). Practice good posture when sitting, standing and walking. Avoid prolonged sitting. This puts more stress on the lower back than standing or walking. Wear quality shoes with sufficient arch support. Foot and ankle alignment can affect back symptoms. Women should avoid wearing high heels. Therapeutic massage can help relax the back muscles without stretching them. During the first 24 to 72 hours after an acute injury or flare-up of chronic back pain, apply an ice pack to the painful area for 20 minutes and then remove it for 20 minutes, over a period of 60 to 90 minutes, or several times a day. As a safety precaution, do not use a heating pad at bedtime. Sleeping on a heating pad can lead to skin mcgarry or tissue damage. You can alternate ice and heat therapies. Medicines Talk to your healthcare provider before using medicines, especially if you have other medical problems or are taking other medicines. You may use acetaminophen or ibuprofen to control pain, unless your healthcare provider prescribed other pain medicine. If you have chronic conditions like diabetes, liver or kidney disease, stomach ulcers, or gastrointestinal bleeding, or are taking blood thinners, talk with your healthcare provider before taking any medicines. Be careful if you are given prescription pain medicines, narcotics, or medicine for muscle spasm. They can cause drowsiness, affect your coordination, reflexes, and judgment. Do not drive or operate heavy machinery while taking these types of medicines. Take prescription pain medicine only as prescribed by your healthcare provider. Lumbar stretch Here is a simple stretching exercise that will help relax muscle spasm and keep your back more limber. If exercise makes your back pain worse, don t do it. Lie on your back with your knees bent and both feet on the ground. Slowly raise your left knee to your chest as you flatten your lower back against the floor. Hold for 5 seconds. Relax and repeat the exercise with your right knee. Do 10 of these exercises for each leg. Safe lifting method Don t bend over at the waist to lift an object off the floor. Instead, bend your knees and hips in a squat. Keep your back and head upright Hold the object close to your body, directly in front of you. Straighten your legs to lift the object. Lower the object to the floor in the reverse fashion. If you must slide something across the floor, push it. Posture tips Sitting Sit in chairs with straight backs or low-back support. Keep your knees lower than your hips, with your feet flat on the floor. When driving, sit up straight. Adjust the seat forward so you are not leaning toward the steering wheel. A small pillow or rolled towel behind your lower back may help if you are driving long distances. Standing When standing for long periods, shift most of your weight to one leg at a time. Alternate legs every few minutes. Sleeping The best way to sleep is on your side with your knees bent. Put a low pillow under your head to support your neck in a neutral spine position. Avoid thick pillows that bend your neck to one side. Put a pillow between your legs to further relax your lower back. If you sleep on your back, put pillows under your knees to support your legs in a slightly flexed position. Use a firm mattress. If your mattress sags, replace it, or use a 1/2-inch plywood board under the mattress to add support. Follow-up care Follow up with your healthcare provider, or as advised. If X-rays, a CT scan or an MRI scan were taken, they will be reviewed by a radiologist. You will be notified of any new findings that may affect your care. Call 911 Call 911 if any of the following occur: Trouble breathing Confusion Very drowsy Fainting or loss of consciousness Rapid or very slow heart rate Loss of bowel or bladder control When to seek medical advice Call your healthcare provider right away if any of the following occur: Pain becomes worse or spreads to your arms or legs Weakness or numbness in one or both arms or legs Numbness in the groin area 8548-3099 [facility]. [address] [place] [address], [place] [address]. All rights reserved. This information is not intended as a substitute for professional medical care. Always follow your healthcare professional's instructions. Additional Information VACCINATE! IT SAVES LIVES! Members of the community who have not yet received the COVID-19 vaccine and would like to receive it can visit one of [facility] vaccine clinics. There are many vaccine clinic locations within the [facility]. For locations and available times, please visit www.[email or web address].[email or web address]/. It is important to note that some COVID mobile vaccine clinics are held outdoors and may be canceled in rainy or stormy conditions. To learn more about pediatric vaccinations (ages 5-11), we invite you to visit the [facility] webpage. [email or web address] To learn more about the COVID-19 vaccine, we invite you to visit the CDC website for a list of frequently asked questions. https://www.cdc.gov/coronavirus/2019-ncov/vaccin es/faq.html [email or web address] Patient Portal Access Instructions: Stay connected with your healthcare team and access your personal medical information anytime with the [email or web address] Patient Portal. If you would like a full copy of your medical records please contact the [facility] Medical Records Department Sunday through Sunday between 8a.m. and 4:30p.m. Please follow the directions below to access the portal: 1.Access the email account you provided upon registration to the [facility].2.Look for an invitation email from [facility].3.Open the email and access the invitation link: Accept Invitation to [email or web address].Fill in the required salazar to create your account. Sign into [email or web address] with your username and password that you created in the above steps to stay up to date. You can then view a summary of results, a summary of your visits, and the ability to download your summaries to your computer or send the information securely to a physician. Remember that your healthcare information is confidential, so carefully consider who you will allow to register on the [email or web address] Patient Portal for access to your information. You can also access the [email or web address] Patient Portal on the [employer]. Simply click on Health Records under Health Data and then click on the [employer] logo. HOW TO SAFELY DISPOSE OF PRESCRIPTION MEDICATIONS Please use one of the following methods to safely dispose of your unused medications. 1.Use a drug disposal kit: the drug disposal pouch allows you to safely discard your old and unused drugs. Ask your nurse to give you one when you are discharged.2.Visit a local take-back location: Many local pharmacies and police departments have programs that collect old and unwanted prescription drugs. Call your local pharmacy or go to http://Cloud Elements.CircuitLab/5L9Fp4c to find one close to you.3.Make use of household items: Use cat litter or old coffee grounds to dispose medications if other options are not available. Mix your drugs with these household products, seal them in an airtight container and throw it into the garbage. Call [facility]: [phone] to be sure your drugs can be disposed of in this way. Some medicines may require a different approach.4.Never flush your medications down the toilet. IF YOU HAVE BEEN PRESCRIBED AN OPIOIDS FOR PAIN If you have been prescribed an opioid (such as hydrocodone, oxycodone or morphine), it is critical to understand the possible side effects and risks of opioid pain medications. Even when taken as directed, opioids can have several side effects including: Tolerance, meaning you might need to take more of a medication for the same pain relief. Nausea, vomiting and/or constipation. Sleepiness, dizziness, dry mouth, confusion, depression or itching. Physical dependence, meaning you have withdrawal symptoms when a medication is stopped ? this can develop within a few days. KNOW YOUR RESPONSIBILITIES It is important to know exactly how much and how often to take the opioid pain medications you are prescribed. Never take opioids in higher amounts or more often than prescribed. Do not combine opioids with alcohol or other drugs that cause drowsiness, such as benzodiazepines, also known as benzos, including diazepam and alprazolam, muscle relaxants or sleep aids. Never sell or share prescription opioids. This is illegal. Store opioids in a secure place and out of reach of others (including children, family, friends and visitors). The last page(s) of this document has been signed and retained as a CHART COPY Signatures Patient Education Materials Self-Care for Low Back Pain Back Care Tips Medication Leaflets lidocaine topical My discharge plan and instructions have been reviewed and explained to me and IFAYE ALICIA M understand my current condition and have read and understand these discharge instructions. I have received a written copy of the plan/instructions. If I have questions, I am aware that I should contact my doctor. Patient/Supervisor Blueprinting And Photocopy Signature: Date/Time: Relationship to Patient: Witness Name/Signature: Date/Time: [facility] 03-29-2023 Note ORIGINAL EXAMINATION: 2 XRAY VIEWS OF THE LUMBAR SPINE 03/29/2023 4:49 pm COMPARISON: None. HISTORY: ORDERING SYSTEM PROVIDED HISTORY: Reason for Exam: pain FINDINGS: Straightening of the lordotic curvature. Vertebral body heights maintained. No significant degenerative change by radiograph. IMPRESSION: No acute osseous abnormality by radiograph. Interpreted by: Max Mccarty Preliminary Report By: Max Mccarty Electronically signed By Max Mccarty Dictated Date: 03/29/2023 4:57:51 PM Prelim Date: 03/29/2023 4:58:50 PM Sign Date: 03/29/2023 4:58:50 PM Ordering Provider: JAKE [facility] 03-12-2023 Note HNO ID: [id number] Author: Lyn Underwood RT(R) Service: Radiology Author Type: Technologist Type: Progress Notes Filed: 03/12/2023 4:08 PM Note Text: Radiology Service Progress Note PATIENT NAME: Frankie Ga DATE OF SERVICE: March 12, 2023 TIME: 3:54 PM PATIENT IDENTITY VERIFICATION COMPLETED USING TWO (2) IDENTIFIERS: Name and Date of confirmed by patient verbally. FALL SCREENING: Has the patient had 2 falls in the last year or 1 fall with injury or currently using an Ambulatory Assistive Device (Walker, Cane, Wheelchair, Crutches, etc.)? No PATIENT GENDER DATA: Female. status: : No status: NO. PATIENT RELEVANT IMPLANT DATA REVIEWED: Yes RADIOLOGY DEPARTMENT: General X-ray: Exam(s) Completed: Spine X-Ray(s): Lumbar AP / LAT / L5-S1 Pelvis X-Ray: Pelvis with Hip Left PERIPHERAL IV DATA: Not applicable SIGNED BY: RT Juliann(R) March 12, 2023 3:54 PM [facility] 03-12-2023 Miscellaneous Notes Formatting of this note might be differe nt from the original. Left message for patient to return call. Charla Galvan Please inform patient of hip xray results as well. Reveals degenerative changes (arthritis). Please notify patient of normal xray of lumbar. Continue treatment plan discussed at time of exam. Follow up with PCP documented in this encounter [facility] 03-11-2023 Note HNO ID: [id number] Author: Twyla Dinh PA-C Service: ? Author Type: Physician Manager Of Pmo Type: Progress Notes Filed: 03/11/2023 8:58 AM Note Text: This note was created using Users[employer]. Subjective Frankie Ga is a 47 year old female. HPI Patient presents with a chief complaint of left lower back pain and hip pain. She states it is painful to stand, walk, bend. She denies any pain radiating down her leg. She states it does radiate into her groin and hip area. No abdominal pain. No dysuria, frequency urgency or hematuria. She does have a history of kidney stones remotely when she was 18. None since then. She has tried Tylenol ncyx-ffx-gngktck without relief. No fever. No vomiting or diarrhea. Denies chronic back issues. Review of Systems Musculoskeletal: Positive for back pain. Left hip pain All other systems reviewed and are negative. No past medical history on file. Current Outpatient Medications Medication Sig Dispense Refill levothyroxine (SYNTHROID) 200 mcg tablet levothyroxine (SYNTHROID) 25 mcg tablet venlafaxine XR (EFFEXOR XR) 225 mg tablet lamoTRIgine (LAMICTAL) 100 mg tablet predniSONE (DELTASONE) 20 mg tablet Take 2 tablets by mouth once daily for 5 days. 10 tablet 0 cyclobenzaprine (FLEXERIL) 10 mg tablet Take 1 tablet by mouth three times daily as needed for muscle spasm. 15 tablet 0 No current facility-administered medications for this visit. No past surgical history on file. No family history on file. Social History Tobacco Use Smoking status: Former Types: Cigarettes Smokeless tobacco: Never Objective BP 140/90 Pulse 75 Resp 16 Wt (!) 143.8 kg (317 lb) SpO2 98% Physical Exam Vitals reviewed. Constitutional: Appearance: Normal appearance. HENT: Head: Normocephalic and atraumatic. Cardiovascular: Rate and Rhythm: Normal rate and regular rhythm. Heart sounds: Normal heart sounds. Pulmonary: Effort: Pulmonary effort is normal. Breath sounds: Normal breath sounds. Abdominal: General: Abdomen is flat. Bowel sounds are normal. Palpations: Abdomen is soft. Tenderness: There is no abdominal tenderness. There is no right CVA tenderness, left CVA tenderness or guarding. Musculoskeletal: Comments: Patient tender in the left lower lumbar back. No midline tenderness. Increased pain with bending and twisting. No rash to the back. She has pain with internal rotation of the left hip as well. Able to ambulate. Normal strength and sensation in lower extremities. Neurological: Mental Status: She is alert. Assessment and Plan ASSESSMENT/PLAN: 1. Acute left-sided low back pain without sciatica - ICD9: 724.2, ICD10: M54.50 X-ray closed for the day. No suspicion for fracture however will order x-rays for tomorrow. Likely musculoskeletal abdominal exam normal. Pain. UA here was normal. We will treat with prednisone and muscle relaxer. Follow-up with PCP if not improving. - UA DIP, URINE (POC) - XR LUMBAR GENERAL 3V AP/LAT/L5-S1 - XR HIP GENERAL 3V PELV/AP/LAT LEFT Twyla Dinh PA-C [facility] 03-11-2023 History of Present illness Narrative Formatting of this note is different fro m the original. This note was created using Winshuttle. Subjective Frankie Ga is a 47 year old female. HPI Patient presents with a chief complaint of left lower back pain and hip pain. She states it is painful to stand, walk, bend. She denies any pain radiating down her leg. She states it does radiate into her groin and hip area. No abdominal pain. No dysuria, frequency urgency or hematuria. She does have a history of kidney stones remotely when she was 18. None since then. She has tried Tylenol wkcz-ksx-wmpefsh without relief. No fever. No vomiting or diarrhea. Denies chronic back issues. Review of Systems Musculoskeletal: Positive for back pain. Left hip pain All other systems reviewed and are negative. No past medical history on file. Current Outpatient Medications Medication Sig Dispense Refill levothyroxine (SYNTHROID) 200 mcg tablet levothyroxine (SYNTHROID) 25 mcg tablet venlafaxine XR (EFFEXOR XR) 225 mg tablet lamoTRIgine (LAMICTAL) 100 mg tablet predniSONE (DELTASONE) 20 mg tablet Take 2 tablets by mouth once daily for 5 days. 10 tablet 0 cyclobenzaprine (FLEXERIL) 10 mg tablet Take 1 tablet by mouth three times daily as needed for muscle spasm. 15 tablet 0 No current facility-administered medications for this visit. No past surgical history on file. No family history on file. Social History Tobacco Use Smoking status: Former Types: Cigarettes Smokeless tobacco: Never Objective BP 140/90 Pulse 75 Resp 16 Wt (!) 143.8 kg (317 lb) SpO2 98% Physical Exam Vitals reviewed. Constitutional: Appearance: Normal appearance. HENT: Head: Normocephalic and atraumatic. Cardiovascular: Rate and Rhythm: Normal rate and regular rhythm. Heart sounds: Normal heart sounds. Pulmonary: Effort: Pulmonary effort is normal. Breath sounds: Normal breath sounds. Abdominal: General: Abdomen is flat. Bowel sounds are normal. Palpations: Abdomen is soft. Tenderness: There is no abdominal tenderness. There is no right CVA tenderness, left CVA tenderness or guarding. Musculoskeletal: Comments: Patient tender in the left lower lumbar back. No midline tenderness. Increased pain with bending and twisting. No rash to the back. She has pain with internal rotation of the left hip as well. Able to ambulate. Normal strength and sensation in lower extremities. Neurological: Mental Status: She is alert. Assessment and Plan ASSESSMENT/PLAN: 1. Acute left-sided low back pain without sciatica - ICD9: 724.2, ICD10: M54.50 X-ray closed for the day. No suspicion for fracture however will order x-rays for tomorrow. Likely musculoskeletal abdominal exam normal. Pain. UA here was normal. We will treat with prednisone and muscle relaxer. Follow-up with PCP if not improving. - UA DIP, URINE (POC) - XR LUMBAR GENERAL 3V AP/LAT/L5-S1 - XR HIP GENERAL 3V PELV/AP/LAT LEFT Twyla Dinh PA-C documented in this encounter [facility] 07-13-2022 Note HNO ID: [id number] Author: Ok Valle MD Service: ? Author Type: Physician Type: Progress Notes Filed: 07/13/2022 4:23 PM Note Text: Ok Valle MD Department of Orthopaedics Orthopaedics [address] [facility] [address] Dept: [phone] Dept July 13, 2022 CHIEF COMPLAINT: New and Knee Pain of the Left Knee HPI Patient here today for left knee pain. No specific injury. States the pain started 3 months ago. Her pain is all over the knee cap area. She had a cortisone injection in that knee 10 years ago and did not help. Taking Ibuprofen for the pain and does not help. Andrey with patient today. Patient hand carried copy of x-rays done at [facility] on 06/14/22. ASSESSMENT: M17.0 Primary osteoarthritis of both knees (primary encounter diagnosis) M25.561, M25.562, G89.29 Chronic pain of both knees E66.01, Z68.42 Morbid obesity with BMI of 45.0-49.9, adult ([facility]) PLAN: We had a lengthy discussion about her knee osteoarthritis and some of the ramifications of her weight and tobacco use. She would like to try an anti-inflammatory and we will get her in touch with weight management program. I also provided her with strengthening exercises. FOLLOW UP INSTRUCTIONS: Possible cortisone injection if she would like. Ms. Frankie Rhodes was advised as to contrast therapies and/or to take analgesics/anti-inflammatories as needed and all contraindications were reviewed. OBJECTIVE: Ms. Frankie Rhdoes is a pleasant 46 year old in no apparent distress. Gen:There were no vitals taken for this visit. nl development, morbidly obese , no deformities ENT: Normocephalic, normal hearing, moist mucosa CV: Pulses:DP/PT= 2+ and symmetric, capillary refill < 2 secs, no peripheral edema/varicosities Skin: no rash, bruising or lesions. Good turgor. Psych: cooperative and appropriate, alert and oriented x 3, good mood and affect. Musculoskeletal: Patient walks with mild antalgia, normal station. Hip motion without pain. Knee without effusion. Patella tracks with some lateral tilt. There is positive patellar crepitance. No pain along the medial or lateral facets. Range of motion 0-120 degrees. Positive medial, without lateral joint line pain on palpation. Extremity is warm and well perfused. Sensation is grossly intact to light touch, subjectively. IMAGIN views from an outside facility show moderate tricompartmental osteoarthritis. Supporting Subjective Information Below: Past Medical History: PAST MEDICAL HISTORY Diagnosis Date Depression Disorder of thyroid Past Surgical History: PAST SURGICAL HISTORY Procedure Laterality Date LIGATE FALLOPIAN TUBE 1998 REMOVAL GALLBLADDER 10/2021 THYROIDECTOMY 2006 TONSILLECTOMY AND ADENOIDECTOMY VAGINAL HYSTERECTOMY 2007 Family History: FAMILY HISTORY Problem Relation Age of Onset Hypertension Mother Hypertension Father Social History: Social History Tobacco Use Smoking status: Some Days Types: Cigarettes Smokeless tobacco: Never Tobacco comments: Smokes 1 cigarette every few days Vaping Use Vaping Use: Never used Substance Use Topics Alcohol use: Yes Comment: rarely Drug use: Never Medications: Current Outpatient Medications Medication Sig cariprazine (VRAYLAR) 6 mg capsule Take by mouth daily at bedtime. levothyroxine 175 mcg cap Take 175 mcg by mouth daily before breakfast. propranolol (INDERAL) 10 mg tablet Take 10 mg by mouth twice daily. lamoTRIgine (LAMICTAL) 100 mg tablet Take 100 mg by mouth daily at bedtime. venlafaxine XR (EFFEXOR XR) 225 mg tablet Take 225 mg by mouth daily at bedtime. QUEtiapine (SEROQUEL) 25 mg tablet Take 25 mg by mouth daily at bedtime. No current facility-administered medications for this visit. Allergies: Patient has no allergy information on record. ROS: General (negative for fatigue, malaise, weight loss/gain) HEENT (negative for headache, earache, recent vision changes, sinus pain, sore throat) Respiratory (no recent shortness of breath, hemoptysis) CV (negative for chest tightness, palpitations) Musculoskeletal (see HPI) Psych (no depression, anxiety) Ok Valle MD [facility] 07-13-2022 History of Present illness Narrative Formatting of this note is different fro m the original. Ok Valle MD Department of Orthopaedics Orthopaedics [address] [place] [id number] Dept: [phone] Dept July 13, 2022 CHIEF COMPLAINT: New and Knee Pain of the Left Knee HPI Patient here today for left knee pain. No specific injury. States the pain started 3 months ago. Her pain is all over the knee cap area. She had a cortisone injection in that knee 10 years ago and did not help. Taking Ibuprofen for the pain and does not help. Andrey with patient today. Patient hand carried copy of x-rays done at [facility] on 06/14/22. ASSESSMENT: M17.0 Primary osteoarthritis of both knees (primary encounter diagnosis) M25.561, M25.562, G89.29 Chronic pain of both knees E66.01, Z68.42 Morbid obesity with BMI of 45.0-49.9, adult ([facility]) PLAN: We had a lengthy discussion about her knee osteoarthritis and some of the ramifications of her weight and tobacco use. She would like to try an anti-inflammatory and we will get her in touch with weight management program. I also provided her with strengthening exercises. FOLLOW UP INSTRUCTIONS: Possible cortisone injection if she would like. Ms. Frankie Rhodes was advised as to contrast therapies and/or to take analgesics/anti-inflammatories as needed and all contraindications were reviewed. OBJECTIVE: Ms. Frankie Rhodes is a pleasant 46 year old in no apparent distress. Gen:There were no vitals taken for this visit. nl development, morbidly obese , no deformities ENT: Normocephalic, normal hearing, moist mucosa CV: Pulses:DP/PT= 2+ and symmetric, capillary refill < 2 secs, no peripheral edema/varicosities Skin: no rash, bruising or lesions. Good turgor. Psych: cooperative and appropriate, alert and oriented x 3, good mood and affect. Musculoskeletal: Patient walks with mild antalgia, normal station. Hip motion without pain. Knee without effusion. Patella tracks with some lateral tilt. There is positive patellar crepitance. No pain along the medial or lateral facets. Range of motion 0-120 degrees. Positive medial, without lateral joint line pain on palpation. Extremity is warm and well perfused. Sensation is grossly intact to light touch, subjectively. IMAGIN views from an outside facility show moderate tricompartmental osteoarthritis. Supporting Subjective Information Below: Past Medical History: PAST MEDICAL HISTORY Diagnosis Date Depression Disorder of thyroid Past Surgical History: PAST SURGICAL HISTORY Procedure Laterality Date LIGATE FALLOPIAN TUBE 1998 REMOVAL GALLBLADDER 10/2021 THYROIDECTOMY 2006 TONSILLECTOMY & ADENOIDECTOMY <AGE 14 2009 VAGINAL HYSTERECTOMY 2007 Family History: FAMILY HISTORY Problem Relation Age of Onset Hypertension Mother Hypertension Father Social History: Social History Tobacco Use Smoking status: Some Days Types: Cigarettes Smokeless tobacco: Never Tobacco comments: Smokes 1 cigarette every few days Vaping Use Vaping Use: Never used Substance Use Topics Alcohol use: Yes Comment: rarely Drug use: Never Medications: Current Outpatient Medications Medication Sig cariprazine (VRAYLAR) 6 mg capsule Take by mouth daily at bedtime. levothyroxine 175 mcg cap Take 175 mcg by mouth daily before breakfast. propranolol (INDERAL) 10 mg tablet Take 10 mg by mouth twice daily. lamoTRIgine (LAMICTAL) 100 mg tablet Take 100 mg by mouth daily at bedtime. venlafaxine XR (EFFEXOR XR) 225 mg tablet Take 225 mg by mouth daily at bedtime. QUEtiapine (SEROQUEL) 25 mg tablet Take 25 mg by mouth daily at bedtime. No current facility-administered medications for this visit. Allergies: Patient has no allergy information on record. ROS: General (negative for fatigue, malaise, weight loss/gain) HEENT (negative for headache, earache, recent vision changes, sinus pain, sore throat) Respiratory (no recent shortness of breath, hemoptysis) CV (negative for chest tightness, palpitations) Musculoskeletal (see HPI) Psych (no depression, anxiety) Ok Valle MD documented in this encounter [facility] 05-31-2021 History of Present illness Narrative DATE OF SERVICE: 05/30/2021 CHIEF COMPLAINT: Bilateral ear pain, pressure. HISTORY OF PRESENT ILLNESS: Patient is a 45-year-old female who presents today with a 3 to 4 day history of bilateral ear pain, pressure, and body aches. She states that she has been having sinus issues for the past 3 or 4 days now. It has not been getting much better. Whenever she moves positions, it feels like the sinus pressure moves in that direction. It is putting pressure onto her ears, as well. She is wanting to come in to be seen for this. She has had no COVID exposures that she knows of. She is vaccinated against COVID. PAST MEDICAL HISTORY: Arthritis, frequent headaches, depression, mental health issues, thyroid disease. PAST SURGICAL HISTORY: ENT. MEDICATIONS: Reviewed and considered. ALLERGIES: No known drug allergies. Denies allergies to other sources such as bees and food. SOCIAL HISTORY: Denies alcohol and tobacco use. REVIEW OF SYSTEMS: Denies fevers. Admits to chills and body aches. HEENT: Admits to sinusitis, ear pain, and headaches. Denies sore throat. Respiratory: Denies cough, wheezing, shortness of breath. Cardiovascular: Denies dyspnea, chest pain, and palpitations. PHYSICAL EXAMINATION: Vital Signs: Blood pressure: 176/101, pulse 81, respiration rate 22, temperature 97.0, pulse oximetry is 98% to room air. General: Patient is alert and oriented x3. Appears to be in no acute distress. HEENT: Pupils equal, round, and reactive. TMs, normal bilaterally. Posterior pharynx, nonerythematous. No exudates present. Tonsils within tonsillar pillars. Uvula, midline. Tenderness to palpation of frontal, maxillary, and ethmoid sinuses. No anterior, posterior submandibular lymphadenopathy. Respiratory: Normal breath sounds heard in all lung salazar. No wheezing, rhonchi, or rales present. Cardiac: Regular rate and rhythm. No murmurs noted. DIAGNOSIS: Sinusitis. PLAN: I sent in Augmentin for the patient. She is to take as directed. She is to get lots of rest and fluids. Follow up with her primary care doctor if there is no improvement with this. Patient agrees and understands the plan at this time. Patient is stable upon discharge from [facility] emergency department. ADRIENNE Rosa/[id number] [facility] File#: [id number] END OF DOCUMENT / CHANGE LOG FOLLOWS Last Edited By Elec. Signed By Karo Mcgrath PAC #[email or web address] Karo Mcgrath #[email or web address] on 06/10/2021 21:59 ET on 06/10/2021 21:59 ET Revision Number - 2 ^^^ Verified/Reviewed by 06/10/212199 [facility] PATIENT NAME: FRANKIE RHODES [facility] [address] [place] MEDICAL REC #: [id number] [place] [address] [facility] documented in this encounter [facility] Evaluation + Plan note No data available for this section [facility] Diagnosis Acute left-sided low back pain without sciatica- Primary [facility] Diagnostic Procedure Only (Urgent) - Pending Review Specialty Diagnoses / Procedures Referred By Contac t Referred To Contact XR IMAGING Diagnoses Acute left-sided low back pain without sciatica Procedures XR HIP GENERAL 3V PELV/AP/LAT LEFT RADEX HIP UNILATERAL WITH PELVIS 2-3 VIEWS Twyla Dinh PA-C [address] [place] [address] [place] [address] Referral ID Status Reason Start Date Expiration Date Visits Requested Visits Authorized [id number] Pending Review Auto-Generat ed Referral 03/11/2023 04/09/2024 1 1 * Diagnostic Procedure Only (Urgent) - Pending Review Specialty Diagnoses / Procedures Referred By Contac t Referred To Contact XR IMAGING Diagnoses Acute left-sided low back pain without sciatica Procedures XR LUMBAR GENERAL 3V AP/LAT/L5-S1 RADEX SPINE LUMBOSACRAL 2/3 VIEWS Twyla Dinh PA-C [address] [place] [address] [place] [address] Referral ID Status Reason Start Date Expiration Date Visits Requested Visits Authorized [id number] Pending Review Auto-Generat ed Referral 03/11/2023 04/09/2024 1 1 [facility] Summary Purpose Family History No Family History Records FoundNo Family History Records FoundNo Family History Records FoundNo Family History Records Found No data available for this section No Family History Records Found Advance Directives No Advanced Directives Records FoundNo Advanced Directives Records FoundNo Advanced Directives Records FoundNo Advanced Directives Records FoundNo Advanced Directives Records Found Reason for Referral Specialty Diagnoses / Procedures Referred By Contnoe t Referred To Contact Diagnoses Morbid obesity with BMI of 45.0-49.9, adult (HCC) Procedures ENDOCRINE MEDICAL WEIGHT MANAGEMENT OFFICE/OUTPATIENT NEW HIGH MDM 60-74 MINUTES Ok Valle MD [address] [place] [address] Referral ID Status Reason Start Date Expiration Date Visits Requested Visits Authorized [id number] Authorized PCP Requested Referral 07/13/2022 07/13/2023 1 1 Additional Source Comments Source Comments (unrecognize d section and content) In the event this informatio n is protected by the Federal Confidentiality of Alcohol and Drug Abuse Patient Records regulations: The Federal rules restrict any use of the information to criminally investigate or prosecute any alcohol or drug abuse patient.[facility] event this information is protected by the Federal Confidentiality of Alcohol and Drug Abuse Patient Records regulations: The Federal rules restrict any use of the information to criminally investigate or prosecute any alcohol or drug abuse patient.[facility] the event this information is protected by the Federal Confidentiality of Alcohol and Drug Abuse Patient Records regulations: The Federal rules restrict any use of the information to criminally investigate or prosecute any alcohol or drug abuse patient.[facility] the event this information is protected by the Federal Confidentiality of Alcohol and Drug Abuse Patient Records regulations: The Federal rules restrict any use of the information to criminally investigate or prosecute any alcohol or drug abuse patient.[facility] the event this information is protected by the Federal Confidentiality of Alcohol and Drug Abuse Patient Records regulations: The Federal rules restrict any use of the information to criminally investigate or prosecute any alcohol or drug abuse patient.[facility] the event this information is protected by the Federal Confidentiality of Alcohol and Drug Abuse Patient Records regulations: The Federal rules restrict any use of the information to criminally investigate or prosecute any alcohol or drug abuse patient.[facility] INFORMATION SOURCE (unrecogn ized section and content) DATE CREATED AUTHOR AUTHOR'S ORGANIZ ATION 12/24/2021 [facility] ([place]) DATE CREATED AUTHOR AUTHOR'S ORGANIZ ATION 07/14/2022 [facility] DATE CREATED AUTHOR AUTHOR'S ORGANIZ ATION 03/13/2023 [facility] DATE CREATED AUTHOR AUTHOR'S ORGANIZ ATION 04/09/2023 [facility] ([place]) Reason for Visit (unrecogniz ed section and content) Reason Comments Back Pain Wrapping around to a bdominal x 3 days no injury Reason Comments Results Care Teams (unrecognized sec tion and content) 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 This clinical summary was aggregated from multiple sources. Caution should be exercised in using it in the provision of clinical care. This summary normalizes information from multiple sources, and as a consequence, information in this document may materially change the coding, format and clinical context of patient data. In addition, data may be omitted in some cases. CLINICAL DECISIONS SHOULD BE BASED ON THE PRIMARY CLINICAL RECORDS. [facility]. provides no warranty or guarantee of the accuracy or completeness of information in this document.
[2023-07-10 17:47] LABS: ALB/GLOB Ratio 0.9 RATIO (0.9-2.4); AST(SGOT) 20 U/L (15-37); Alanine Aminotransfer ALT/SGPT 20 U/L (13-56); Albumin, Serum 3.7 g/dL (3.2-5.0); Alkaline Phosphatase 74 U/L (45-117); Anion Gap 6 (5-15); BUN 15 mg/dL (7-18); BUN/Creat Ratio 14.2 RATIO (10-20); Chloride 104 mmol/L (98-107); Cholesterol 198 mg/dL (200); Creatinine, Serum 1.06 mg/dL (0.55-1.02); EST Glomerular Filtration Rate 59 mL/min (>60); Est Glom Filt Rate - Afr Amer 72 mL/min (>60); Globulin 3.9 g/dL (2.2-4.2); Glucose 87 mg/dL (74-106); High Density Lipoprotein 42 mg/dL; Potassium 3.9 mmol/L (3.5-5.1); Protein, Total 7.6 g/dL (6.4-8.2); Sodium Level 138 mmol/L (136-145); Triglycerides 242 mg/dL; Very Low Density Lipoprotein 48 mg/dL (5-40)
== END | disposition home or self-care (01) ==
LOC: POLAB3 15:46
PROVIDERS: PCP Family Medicine Geriatric Medicine; Visit Provider Family Medicine Geriatric Medicine
DX: I10 Essential (primary) hypertension (principal); E78.5 Hyperlipidemia, unspecified
CPT/HCPCS: 36415; 80053; 80061; 84443; 85025

== ENCOUNTER → 2023-07-31 | Outpatient (CLI) | payer OTHER, MEDICAID, SELFPAY ==
--- NOTE | 2023-07-31 16:08 | MRI_ITS ---
STUDY: MRI LUMBAR SPINE WITHOUT CONTRAST REASON FOR EXAM: Female, 47 years old. RADICULOPATHY middle to low back pain w/o injury [id number], no surgery TECHNIQUE: Standardized fat and water weighted pulse sequences were obtained in the sagittal and axial planes. COMPARISON: CT of abdomen and pelvis dated December 01, 2022 FINDINGS: Normal lumbar lordosis. There is no substantial scoliosis. Normal conus medullaris that terminates at the T12-L1 level. No marrow edema or fracture or compression deformity is seen. Dominance of red marrow elements. T12-L1: Normal endplates. Normal disc height, hydration and morphology. Normal bilateral facet joints. Normal central canal and bilateral lateral recesses. Normal bilateral intervertebral neural foramina. L1-2: Normal endplates. Normal disc height, hydration and morphology. Normal bilateral facet joints. Normal central canal and bilateral lateral recesses. Normal bilateral intervertebral neural foramina. L2-3: Normal endplates. Normal disc height, hydration and morphology. Normal bilateral facet joints. Normal central canal and bilateral lateral recesses. Normal bilateral intervertebral neural foramina. L3-4: Normal endplates. Diffuse disc desiccation with mild to moderate disc space narrowing and posterior annular bulging. Superimposed shallow left paracentral disc protrusion is present with left lateral recess stenosis and mild mass effect on the descending nerve root. Normal bilateral facet joints. Normal central canal and bilateral lateral recesses. Normal bilateral intervertebral neural foramina. L4-5: Normal endplates. Diffuse disc desiccation with mild posterior disc space narrowing with no bulge or herniation. Normal bilateral facet joints. Normal central canal and bilateral lateral recesses. Normal bilateral intervertebral neural foramina. L5-S1: Moderate disc space narrowing with diffuse disc desiccation and a small right paracentral disc protrusion causing right lateral recess stenosis with compression the descending nerve root. Normal central canal and left lateral recess. Normal bilateral facet joints. Normal bilateral intervertebral neural foramina. Normal visualized sacral ala. Normal visualized paraspinous soft tissue structures. MRI/Spine Lumbar (Routine) IMPRESSION: 1. Multilevel degenerative changes, as described above. 2. Paracentral disc protrusion is causing lateral recess stenosis and impingement or compression of the descending nerve roots at L3-L4 and L5-S1 Electronically Signed: Darío Xiong MD at 10:06 EST ,
--- OUTSIDE RECORDS SUMMARY | 2023-07-31 16:22 | XMS RPT_ITS | CCD ---
Author Name Unknown Address [address] [place] [address] Organization [facility] Care Team Providers Care Business Process Coordinator Name Role Phone Unavailable Primary Care Provider UnavailOK Gregorio Attending Unavailable Jose Angel Dee Chi Primary Care Provider [phone] JOSE ANGEL DEE CHI Primary Care Unavailable [...] 16:05-0400 Blood Pressure Location GENARO HAMILTON MD [facility] 03-29-2023 16:05-0400 Blood Pressure Method GENARO HAMILTON MD [facility] 03-29-2023 16:05-0400 Body temperature 98.24 [degF] GENARO HAMILTON MD [facility] 03-29-2023 16:05-0400 Diastolic Blood Pressure Non-Invasive 83 1 GENARO HAMILTON MD [facility] 03-29-2023 16:05-0400 Heart rate 78 /min GENARO HAMILTON MD [facility] 03-29-2023 16:05-0400 Respiratory rate 18 /min GENARO HAMILTON MD [facility] 03-29-2023 16:05-0400 Systolic Blood Pressure Non-Invasive 157 1 GENARO HAMILTON MD [facility] 03-11-2023 08:22-0400 Body weight 143.79 kg Twyla Athy PA-C Work Phone: [facility] 03-11-2023 08:22-0400 Diastolic blood pressure 90 mm[Hg] Twyla Athy PA-C Work Phone: [facility] 03-11-2023 08:22-0400 Heart rate 75 /min Twyla Athy PA-C Work Phone: [facility] 03-11-2023 08:22-0400 Respiratory rate 16 /min Twyla Athy PA-C Work Phone: [facility] 03-11-2023 08:22-0400 SaO2% (BldA) [Mass fraction] 98 % Twyla Athy PA-C Work Phone: [facility] 03-11-2023 08:22-0400 Systolic blood pressure 140 mm[Hg] Twyla Athy PA-C Work Phone: [facility] 07-13-2022 08:49-0500 Body height 177.8 cm Ok Valle MD Work Phone: [facility] 07-13-2022 08:49-0500 Body weight 150.14 kg Ok Valle MD Work Phone: [facility] Encounters Encounter Date Encounter Type Care Provider Facility Start: 03-29-2023 End: 03-29-2023 Emergency department patient visit DR LAURA DEE MD Facility: Start: 03-29-2023 End: 03-29-2023 Emergency department patient visit GENARO HAMILTON MD [facility] Start: 03-12-2023 End: 03-12-2023 ambulatory JOSE ANGEL DEE Facility:[facility] Start: 03-12-2023 Telephone encounter Dory villalobos APRNJnENDOSCOPE TECHNICIAN Work Phone: [facility] Procedures Date Procedure Procedure Detail Performing Clinician Start: 03-11-2023 Urnls dip stick/tabl et rgnt auto w/o microscopy Twyla Dinh PA-C Work Phone: Plan of Treatment Date Care Activity Detail Author Start: 03-02-2023 Influenza vaccination INFLUENZA (#1) [facility] Start: 2022 COLOGUARD (FIT-DNA) COLOGUARD (FIT-DNA) [facility] Start: 2022 Colonoscopy COLONOSCOPY [facility] Start: 2022 COLORECTAL CANCER SCREENING COLORECTAL CANCER SCREENING [facility] Start: [address] COLONOGRAPHY [facility] Start: 2022 DIABETES SCREEN DIABETES SCREEN [facility] Start: 2022 FECAL OCCULT BLOOD FECAL OCCULT BLOOD [facility] Start: 2022 LIPID SCREEN LIPID SCREEN [facility] Start: 2022 SIGMOIDOSCOPY SIGMOIDOSCOPY [facility] Start: 07-02-2022 DEPRESSION ASSESSMENT DEPRESSION ASSESSMENT [facility] Start: 03-02-2022 Influenza vaccination INFLUENZA (#1) [facility] Start: 08-01-2021 COVID-19 VACCINE (4 - Booster for Pfizer series) COVID-19 VACCINE (4 - Booster for Pfizer series) [facility] Start: 2017 Mammography MAMMOGRAM [facility] Start: 11-24-2007 HPV TESTING HPV TESTING [facility] Start: 1998 PAP TESTING PAP TESTING [facility] Start: 1996 Urine microalbumin profile DTAP,TDAP,TD (1 - Tdap) [facility] Start: 11-24-1995 HEPATITIS C SCREENING HEPATITIS C SCREENING [facility] Start: 11-24-1995 HIV SCREENING HIV SCREENING [facility] Start: 11-24-1983 PNEUMOCOCCAL (1 - PCV) PNEUMOCOCCAL (1 - PCV) [facility] ic Start: 05-26-1978 COVID-19 VACCINE (#1) COVID-19 VACCINE (#1) [facility] Start: 1977 HEPATITIS B (1 of 3 - 3-dose series) HEPATITIS B (1 of 3 - 3-dose series) [facility] End: 04-09-2024 Radex spine lumbosacral 2/3 views XR LUMBAR GENERAL 3V AP/LAT/L5-S1 Radiology STAT Acute left-sided low back pain without sciatica 1 Occurrences starting 03/11/2023 until 04/09/2024 [facility] Work Phone: Payers Date Payer Category Payer Medicaid [id number] 2020 Medicaid [id number] 1975 Unknown [id number] Social History Date Type Detail Facility Tobacco smoking status DEIS Tobacco smoking consumption unknown [facility] Start: 1975 Sex Assigned At Not on file [facility] Start: 07-13-2022 Tobacco smoking status DEIS Occasional tobacco smoker [facility] Work Phone: History of tobacco use Cigarette Smoker [facility] Work Phone: Start: 07-13-2022 End: 03-11-2023 Tobacco use and exposure Smokeless tobacco non-user [facility] Work Phone: Start: 07-13-2022 Alcohol intake Current drinke r of alcohol (finding) [facility] Start: 07-13-2022 Tobacco Comment Smokes 1 cigar ette every few days [facility] Start: 07-13-2022 Alcohol Comment rarely [facility] Start: 03-11-2023 Tobacco smoking status NHIS Ex-smoker [facility] History of tobacco use Current smoker [facility] Start: 03-11-2023 History of Social function [facility] Start: 03-11-2023 Tobacco use panel [facility] Tobacco smoking status No Smoking Status Entered [facility] Sex Assigned At Female [facility] Functional Status Date Assessment Result Facility 03-29-2023 Functional Status Independent [facility] darin [facility] 03-29-2023 Functional Status ID band on, Call device within reach, Bed in low position, Wheels locked, Upper/Half-Length side-rails up, Visitor at bedside [facility] Mental Status Date Assessment Result Facility 03-29-2023 Mental Status Orientation Oriented x 4 [facility] 03-29-2023 Mental Status [facility] Clinical Notes 05-31-2021 to 03-29-2023 Telephone Encounter [...] pain. Never sleep on a heating pad. Lgdz-zqi-kwwumsj medicine can help control pain and swelling. [...] t decreasing after more than a week. 5278-7051 [employer]. [address] [place] [address]. All rights reserved. This information is not [...] or legs Numbness in the groin area 4962-2686 [employer]. [address] [place], [place] [address]. All rights reserved. This information is not intended as a substitute for professional medical care. Always follow your healthcare professional's instructions. Follow Up Care 03/29/2023 15:58:23 With:Go to emergency room if symptoms worsen Address:Unknown When:2-4 days With:LAURA DEE MD Address: [facility]/[address] [place], [place] [id number]- When:2-4 days [facility] 03-29-2023 Note Discharge Instructions Thank you for allowing [facility] to assist you with your healthcare needs. [...] MD When Within 2-4 days Where: [facility]/[address] [place], [place] [address]- Allergies No Known Medication Allergies Medications Please [...] tyler) AneCream, Bactine, Glydo, Lidoderm, LidoRx, Medi-Quik [place], RadiaGuard, RectiCare, Regenecare MANLEY [place], Solarcaine Cool Aloe What is the most [...] may report side effects to FDA at [phone]-THU-0630. What other drugs will affect lidocaine topical? Medicine used on the skin is not likely to be affected by other drugs you use. But many drugs can interact with each other. Tell each of your health care providers about all medicines you use, including prescription and pjuw-woz-scwwsst medicines, vitamins, and herbal products. Where can I get more information? Your pharmacist can provide more information about lidocaine topical. Remember, keep this and all other medicines out of the reach of children, never share your medicines with others, and use this medication only for the indication prescribed. Every effort has been made to ensure that the information provided by [employer]. ('[employer]') is accurate, up-to-date, and complete, but no guarantee is made to that effect. Drug information contained herein may be time sensitive. [employer] information has been compiled for use by healthcare practitioners and consumers in the [place] and therefore [employer] does not warrant that uses outside of the [place] are appropriate, unless specifically indicated otherwise. [employer]'s drug information does not endorse drugs, diagnose patients or recommend therapy. [employer] drug information is an informational resource designed [...] effective or appropriate for any given patient. [facility] does not assume any responsibility for any aspect of healthcare administered with the aid of information [facility] provides. The information contained herein is not intended to cover all possible uses, directions, precautions, warnings, drug interactions, allergic reactions, or adverse effects. If you have questions about the drugs you are taking, check with your doctor, nurse or pharmacist. Copyright 2504-3913 [facility] [employer]. Version: 11.. Revision Date: 03/21/2023. Education Materials [...] pain. Never sleep on a heating pad. Ftim-nrw-mpppapr medicine can help control pain and swelling. [...] t decreasing after more than a week. 3186-3034 [employer]. [address] [place] [address], [place] [address]. All rights reserved. This information is not [...] or legs Numbness in the groin area 5167-1912 [employer]. [address] [place] [address], [place] [address]. All rights reserved. This information is not intended as a substitute for professional medical care. Always follow your healthcare professional's instructions. Additional Information VACCINATE! IT SAVES LIVES! Members of the community who have not yet received the COVID-19 vaccine and would like to receive it can visit one of [facility] vaccine clinics. There are many vaccine clinic locations within the [facility]. For locations and available times, please visit www.[email or web address].[place].gov/. It is important to note that some COVID mobile vaccine clinics are held outdoors and may be canceled in rainy or stormy conditions. To learn more about pediatric vaccinations (ages 5-11), we invite you to visit the [facility] webpage. https://www.[email or web address].org/pages/2019-Novel- Jhktvpiuwno-Inqdsskbaw-Hjsmm-Questions.html To learn more about the COVID-19 vaccine, we invite you to visit the CDC website for a list of frequently asked questions. https://www.cdc.gov/coronavirus/2019-ncov/vaccin es/faq.html [facility] Access Instructions: Stay connected with your healthcare team and access your personal medical information anytime with the [facility]. If you would like a full copy of your medical records please contact the [facility] Medical Records Department Sunday through Sunday between 8a.m. and 4:30p.m. Please follow the directions below to access the portal: 1.Access the email account you provided upon registration to the [facility].2.Look for an invitation email from [facility].3.Open the email and access the invitation link: Accept Invitation to [facility].Fill in the required salazar to create your [...] you will allow to register on the [facility] Portal for access to your information. You can also access the [facility] Portal on the [employer]. Simply click on Health Records under Health [...] Call your local pharmacy or go to [email or web address] to find one close to you.3.Make use of household items: Use cat litter or old coffee grounds to dispose medications if other options are not available. Mix your drugs with these household products, seal them in an airtight container and throw it into the garbage. Call [facility]: [phone] to be sure your drugs can be [...] aware that I should contact my doctor. Patient/Operations Manager/Coordinator Signature: Date/Time: Relationship to Patient: Witness Name/Signature: Date/Time: [facility] 03-29-2023 Note ORIGINAL EXAMINATION: 2 XRAY VIEWS [...] Date: 03/29/2023 4:58:50 PM Ordering Provider: JAKE [facility] 03-12-2023 Note HNO ID: [id number] Author: Lyn Underwood RT(R) Service: Radiology Author [...] RT Juliann(R) March 12, 2023 3:54 PM [facility] 03-12-2023 Miscellaneous Notes Formatting of this note might be differe nt from the original. Left message for patient to return call. Charla Galvan Please inform patient of hip xray results as well. Reveals degenerative changes (arthritis). Please notify patient of normal xray of lumbar. Continue treatment plan discussed at time of exam. Follow up with PCP documented in this encounter [facility] 03-11-2023 Note HNO ID: [id number] Author: Twyla Dinh PA-C Service: ? Author Type: Physician Scrum Master Type: Progress Notes Filed: 03/11/2023 8:58 AM Note Text: This note was created using [employer]. Subjective Frankie Ga is a 47 year [...] None since then. She has tried Tylenol ersb-ulm-kdaexhm without relief. No fever. No vomiting or [...] GENERAL 3V PELV/AP/LAT LEFT Twyla Dinh PA-C [facility] 03-11-2023 History of Present illness Narrative Formatting of this note is different fro m the original. This note was created using [employer]. Subjective Frankie Ga is a 47 year [...] None since then. She has tried Tylenol vojp-wev-qqczszr without relief. No fever. No vomiting or [...] Twyla Dinh PA-C documented in this encounter [facility] 07-13-2022 Note HNO ID: [id number] Author: Ok Valle MD Service: ? Author Type: Physician Type: Progress Notes Filed: 07/13/2022 4:23 PM Note Text: Ok Valle MD Department of Orthopaedics Orthopaedics [address] [facility] [address] Dept: [phone] Dept July 13, 2022 CHIEF COMPLAINT: New [...] hand carried copy of x-rays done at [facility] on 06/14/22. ASSESSMENT: M17.0 Primary osteoarthritis of both knees (primary encounter diagnosis) M25.561, M25.562, G89.29 Chronic pain of both knees E66.01, Z68.42 Morbid obesity with BMI of 45.0-49.9, adult ([facility]) PLAN: We had a lengthy discussion about [...] Psych (no depression, anxiety) Ok Valle MD [facility] 07-13-2022 History of Present illness Narrative Formatting of this note is different fro m the original. Ok Valle MD Department of Orthopaedics Orthopaedics [address] [place] [address] Dept: [phone] Dept July 13, 2022 CHIEF COMPLAINT: New [...] hand carried copy of x-rays done at [facility] on 06/14/22. ASSESSMENT: M17.0 Primary osteoarthritis of both knees (primary encounter diagnosis) M25.561, M25.562, G89.29 Chronic pain of both knees E66.01, Z68.42 Morbid obesity with BMI of 45.0-49.9, adult ([facility]) PLAN: We had a lengthy discussion about [...] Ok Valle MD documented in this encounter [facility] 05-31-2021 History of Present illness Narrative DATE [...] time. Patient is stable upon discharge from [facility]. ADRIENNE Rosa/[id number] [facility] File#: [id number] END OF DOCUMENT / CHANGE LOG FOLLOWS Last Edited By Ele[employer]. Signed By Karo Mcgrath PAC #[email or web address] Karo Mcgrath #[email or web address] on 06/10/2021 21:59 ET on 06/10/2021 21:59 ET Revision Number - 2 ^^^ Verified/Reviewed by 06/10/212199 [facility] PATIENT NAME: FRANKIE RHODES [facility] [address] [place] MEDICAL REC #: [id number] [place] [address] [facility] STAT[facility] PHYSICIAN documented in this encounter [facility] Evaluation + Plan note No data available for this section [facility]* Diagnosis Acute left-sided low back pain without sciatica- Primary [facility] this encounter [facility] (narrative)* Diagnostic Procedure Only (Urgent) - Pending Review Specialty Diagnoses / Procedures Referred By Contac t Referred To Contact XR IMAGING Diagnoses Acute left-sided low back pain without sciatica Procedures XR HIP GENERAL 3V PELV/AP/LAT LEFT RADEX HIP UNILATERAL WITH PELVIS 2-3 VIEWS Twyla Dinh PA-C [address] [place] [address] [place] [address] Referral ID Status Reason Start Date Expiration Date Visits Requested Visits Authorized [id number] Pending Review Auto-Generat ed Referral 03/11/2023 04/09/2024 1 1 * Diagnostic Procedure Only (Urgent) - Pending Review Specialty Diagnoses / Procedures Referred By Contac t Referred To Contact XR IMAGING Diagnoses Acute left-sided low back pain without sciatica Procedures XR LUMBAR GENERAL 3V AP/LAT/L5-S1 RADEX SPINE LUMBOSACRAL 2/3 VIEWS Twyla Dinh PA-C [address] [place] [address] [place] [address] Referral ID Status Reason Start Date Expiration Date Visits Requested Visits Authorized [id number] Pending Review Auto-Generat ed Referral 03/11/2023 04/09/2024 1 1 [facility] Summary Purpose Family History No Family History [...] MINUTES Ok Valle MD [address] [place] [address] Referral ID Status Reason Start Date Expiration Date Visits Requested Visits Authorized [id number] Authorized PCP Requested Referral 07/13/2022 07/13/2023 1 1 Additional Source Comments Source Comments (unrecognize d section and content) In the event this informatio n is protected by the Federal Confidentiality of Alcohol and Drug Abuse Patient Records regulations: The Federal rules restrict any use of the information to criminally investigate or prosecute any alcohol or drug abuse patient.[facility] the event this information is protected by the Federal Confidentiality of Alcohol and Drug Abuse Patient Records regulations: The Federal rules restrict any use of the information to criminally investigate or prosecute any alcohol or drug abuse patient.[facility] HealthIn the event this information is protected by the Federal Confidentiality of Alcohol and Drug Abuse Patient Records regulations: The Federal rules restrict any use of the information to criminally investigate or prosecute any alcohol or drug abuse patient.[facility] HealthIn the event this information is protected by the Federal Confidentiality of Alcohol and Drug Abuse Patient Records regulations: The Federal rules restrict any use of the information to criminally investigate or prosecute any alcohol or drug abuse patient.[facility] HealthIn the event this information is protected by the Federal Confidentiality of Alcohol and Drug Abuse Patient Records regulations: The Federal rules restrict any use of the information to criminally investigate or prosecute any alcohol or drug abuse patient.[facility] HealthIn the event this information is protected by the Federal Confidentiality of Alcohol and Drug Abuse Patient Records regulations: The Federal rules restrict any use of the information to criminally investigate or prosecute any alcohol or drug abuse patient.[facility] INFORMATION SOURCE (unrecogn ized section and content) DATE CREATED AUTHOR AUTHOR'S ORGANIZ ATION 12/24/2021 [facility] DATE CREATED AUTHOR AUTHOR'S ORGANIZ ATION 07/14/2022 [facility] DATE CREATED AUTHOR AUTHOR'S ORGANIZ ATION 03/13/2023 [facility] DATE CREATED AUTHOR AUTHOR'S ORGANIZ ATION 04/09/2023 [facility]) Reason for Visit (unrecogniz ed section and content) Reason Comments Back Pain Wrapping around to a bdominal x 3 days no injury Reason Comments Results Care Teams (unrecognized sec tion and content) Business Process Coordinator Relationship Specialty Start Date End Date Jose Angel Dee Rolo [address] [facility] [[email or web address] [address] [place] [address] PCP - General Gerontology 03/11/23 FOR RECORDS [...] BE BASED ON THE PRIMARY CLINICAL RECORDS. [facility] [employer] [facility]. provides no warranty or guarantee of the accuracy or completeness of information in this document.
== END | disposition home or self-care (01) ==
LOC: MRI 16:02
PROVIDERS: PCP Family Medicine Geriatric Medicine; Referring Provider Anesthesiology Pain Medicine; Visit Provider Anesthesiology Pain Medicine
DX: M54.16 Radiculopathy, lumbar region (principal)
CPT/HCPCS: 72148

== ENCOUNTER → 2023-09-03 | Outpatient (CLI) | payer OTHER, MEDICAID, SELFPAY ==
[2023-09-03 17:35] LABS: Thyroid Stim Hormone (TSH) 0.06 uIU/mL (0.358-3.74)
--- OUTSIDE RECORDS SUMMARY | 2023-09-03 19:36 | XMS RPT_ITS | CCD ---
Author Name Unknown Address [address] [place] [address] Organization [facility] Care Team Providers Care Family Practice Medical Doctor Name Role Phone Unavailable Primary Care Provider UnavailOK Gregorio Attending Unavailable Jose Angel Dee Chi Primary Care Provider JOSE ANGEL DEE CHI Primary Care Unavailable [...] 16:05-0400 Blood Pressure Location GENARO HAMILTON MD [facility] 03-29-2023 16:05-0400 Blood Pressure Method GENARO HAMILTON MD [facility] 03-29-2023 16:05-0400 Body temperature 98.24 [degF] GENARO HAMILTON MD [facility] 03-29-2023 16:05-0400 Diastolic Blood Pressure Non-Invasive 83 1 GENARO HAMILTON MD [facility] 03-29-2023 16:05-0400 Heart rate 78 /min GENARO HAMILTON MD [facility] 03-29-2023 16:05-0400 Respiratory rate 18 /min GENARO HAMILTON MD [facility] 03-29-2023 16:05-0400 Systolic Blood Pressure Non-Invasive 157 1 GENARO HAMILTON MD [facility] 03-11-2023 08:22-0400 Body weight 143.79 kg Twyla Athy PA-C Work Phone: [facility] 03-11-2023 08:22-0400 Diastolic blood pressure 90 mm[Hg] Twyla Athy PA-C Work Phone: [facility] 03-11-2023 08:22-0400 Heart rate 75 /min Twyla Athy PA-C Work Phone: [facility] 03-11-2023 08:22-0400 Respiratory rate 16 /min Twyla Athy PA-C Work Phone: [facility] 03-11-2023 08:22-0400 SaO2% (BldA) [Mass fraction] 98 % Twyla Athy PA-C Work Phone: [facility] 03-11-2023 08:22-0400 Systolic blood pressure 140 mm[Hg] Twyla Athy PA-C Work Phone: [facility] 07-13-2022 08:49-0500 Body height 177.8 cm Ok Valle MD Work Phone: [facility] 07-13-2022 08:49-0500 Body weight 150.14 kg Ok Valle MD Work Phone: [facility] Encounters Encounter Date Encounter Type Care Provider Facility Start: 03-29-2023 End: 03-29-2023 Emergency department patient visit DR LAURA DEE MD Facility: Start: 03-29-2023 End: 03-29-2023 Emergency department patient visit GENARO HAMILTON MD [facility] Start: 03-12-2023 End: 03-12-2023 ambulatory JOSE ANGEL DEE Facility:[facility] Start: 03-12-2023 Telephone encounter Dory villalobos APRNJnEMBEDDED PROCESSOR Work Phone: [facility] Procedures Date Procedure Procedure Detail Performing Clinician Start: 03-11-2023 Urnls dip stick/tabl et rgnt auto w/o microscopy Twyla Dinh PA-C Work Phone: Plan of Treatment Date Care Activity Detail Author Start: 03-02-2023 Influenza vaccination INFLUENZA (#1) [facility] Start: 2022 COLOGUARD (FIT-DNA) COLOGUARD (FIT-DNA) [facility] Start: 2022 Colonoscopy COLONOSCOPY [facility] Start: 2022 COLORECTAL CANCER SCREENING COLORECTAL CANCER SCREENING [facility] Start: [address] COLONOGRAPHY [facility] Start: 2022 DIABETES SCREEN DIABETES SCREEN [facility] Start: 2022 FECAL OCCULT BLOOD FECAL OCCULT BLOOD [facility] Start: 2022 LIPID SCREEN LIPID SCREEN [facility] Start: 2022 SIGMOIDOSCOPY SIGMOIDOSCOPY [facility] Start: 07-02-2022 DEPRESSION ASSESSMENT DEPRESSION ASSESSMENT [facility] Start: 03-02-2022 Influenza vaccination INFLUENZA (#1) [facility] Start: 08-01-2021 COVID-19 VACCINE (4 - Booster for Pfizer series) COVID-19 VACCINE (4 - Booster for Pfizer series) [facility] Start: 2017 Mammography MAMMOGRAM [facility] Start: 11-24-2007 HPV TESTING HPV TESTING [facility] Start: 1998 PAP TESTING PAP TESTING [facility] Start: 1996 Urine microalbumin profile DTAP,TDAP,TD (1 - Tdap) [facility] Start: 11-24-1995 HEPATITIS C SCREENING HEPATITIS C SCREENING [facility] Start: 11-24-1995 HIV SCREENING HIV SCREENING [facility] Start: 11-24-1983 PNEUMOCOCCAL (1 - PCV) PNEUMOCOCCAL (1 - PCV) [facility] ic Start: 05-26-1978 COVID-19 VACCINE (#1) COVID-19 VACCINE (#1) [facility] Start: 1977 HEPATITIS B (1 of 3 - 3-dose series) HEPATITIS B (1 of 3 - 3-dose series) [facility] End: 04-09-2024 Radex spine lumbosacral 2/3 views XR LUMBAR GENERAL 3V AP/LAT/L5-S1 Radiology STAT Acute left-sided low back pain without sciatica 1 Occurrences starting 03/11/2023 until 04/09/2024 [facility] Work Phone: Payers Date Payer Category Payer Medicaid [id number] 2020 Medicaid [id number] 1975 Unknown [id number] Social History Date Type Detail Facility Tobacco smoking status ILIS Tobacco smoking consumption unknown [facility] Start: 1975 Sex Assigned At Not on file C [facility] Start: 07-13-2022 Tobacco smoking status ILIS Occasional tobacco smoker [facility] Work Phone: History of tobacco use Cigarette Smoker [facility] Work Phone: Start: 07-13-2022 End: 03-11-2023 Tobacco use and exposure Smokeless tobacco non-user [facility] Work Phone: Start: 07-13-2022 Alcohol intake Current drinke r of alcohol (finding) [facility] Start: 07-13-2022 Tobacco Comment Smokes 1 cigar ette every few days [facility] Start: 07-13-2022 Alcohol [facility] Start: 03-11-2023 Tobacco smoking status NHIS Ex-smoker [facility] History of tobacco use Current smoker [facility] Start: 03-11-2023 History of Social function [facility] Start: 03-11-2023 Tobacco use panel [facility] Tobacco smoking status No Smoking Status Entered [facility] Sex Assigned At Female [facility] Functional Status Date Assessment Result Facility 03-29-2023 Functional Status Independent [facility] 03-29-2023 Functional Status ID band on, Call device within reach, Bed in low position, Wheels locked, Upper/Half-Length side-rails up, Visitor at bedside [facility] Mental Status Date Assessment Result Facility 03-29-2023 Mental Status Orientation Oriented x 4 [facility] 03-29-2023 Mental Status [facility] Clinical Notes 05-31-2021 to 03-29-2023 Telephone [...] pain. Never sleep on a heating pad. Crwr-ybl-syprlqv medicine can help control pain and swelling. [...] t decreasing after more than a week. [phone] [employer]. [address] [place] [address]. All rights reserved. This information is not [...] or legs Numbness in the groin area [phone] [employer]. [address] [place], [place] [address]. All rights reserved. This information is not intended as a substitute for professional medical care. Always follow your healthcare professional's instructions. Follow Up Care 03/29/2023 15:58:23 With:Go to emergency room if symptoms worsen Address:Unknown When:2-4 days With:LAURA DEE MD Address: [facility]/[address] [place], [place] [id number]- When:2-4 days [facility] 03-29-2023 Note Discharge Instructions Thank you for allowing [facility] to assist you with your healthcare needs. [...] MD When Within 2-4 days Where: [facility]ULT [facility]/[address] [place], [place] [address]- Allergies No Known Medication Allergies Medications Please [...] tyler) AneCream, Bactine, Glydo, Lidoderm, LidoRx, Medi-Quik [place], RadiaGuard, RectiCare, Regenecare MANLEY [place], Solarcaine Cool Aloe What is the most [...] irritations such as sunburn, insect bites, poison jnoo, poison oak, poison sumac, and minor cuts, [...] may report side effects to FDA at 7-867-XXT-2301. What other drugs will affect lidocaine topical? Medicine used on the skin is not likely to be affected by other drugs you use. But many drugs can interact with each other. Tell each of your health care providers about all medicines you use, including prescription and hqrt-wvz-xtixfwx medicines, vitamins, and herbal products. Where can I get more information? Your pharmacist can provide more information about lidocaine topical. Remember, keep this and all other medicines out of the reach of children, never share your medicines with others, and use this medication only for the indication prescribed. Every effort has been made to ensure that the information provided by [employer]. ('[employer]') is accurate, up-to-date, and complete, but no guarantee is made to that effect. Drug information contained herein may be time sensitive. [employer] information has been compiled for use by healthcare practitioners and consumers in the [place] and therefore [employer] does not warrant that uses outside of the [place] are appropriate, unless specifically indicated otherwise. [employer]'s drug information does not endorse drugs, diagnose patients or recommend therapy. [employer] drug information is an informational resource designed [...] effective or appropriate for any given patient. [facility] does not assume any responsibility for any aspect of healthcare administered with the aid of information [facility] provides. The information contained herein is not intended to cover all possible uses, directions, precautions, warnings, drug interactions, allergic reactions, or adverse effects. If you have questions about the drugs you are taking, check with your doctor, nurse or pharmacist. Copyright 0366-7827 [facility]. Version: 11.. Revision Date: 03/21/2023. Education Materials [...] pain. Never sleep on a heating pad. Vnju-ujc-qwuxrzt medicine can help control pain and swelling. [...] t decreasing after more than a week. 4115-5764 [employer]. [address] [place] [address], [place] [address]. All rights reserved. This information is not [...] or legs Numbness in the groin area 5357-4337 [employer]. [address] [place] [address], [place] [address]. All rights reserved. This information is not intended as a substitute for professional medical care. Always follow your healthcare professional's instructions. Additional Information VACCINATE! IT SAVES LIVES! Members of the community who have not yet received the COVID-19 vaccine and would like to receive it can visit one of [facility] vaccine clinics. There are many vaccine clinic locations within the [facility]. For locations and available times, please visit www.[email or web address].[email or web address]/. It is important to note that some COVID mobile vaccine clinics are held outdoors and may be canceled in rainy or stormy conditions. To learn more about pediatric vaccinations (ages 5-11), we invite you to visit the [facility] webpage. https://www.[email or web address].org/pages/2019-Novel- Yjtchfnirwj-Bzklfdmpcf-Bfpoj-Questions.html To learn more about the COVID-19 vaccine, we invite you to visit the CDC website for a list of frequently asked questions. https://www.cdc.gov/coronavirus/2019-ncov/vaccin es/faq.html [facility] Patient Portal Access Instructions: Stay connected with your healthcare team and access your personal medical information anytime with the [facility] Patient Portal. If you would like a full copy of your medical records please contact the [facility] Medical Records Department Sunday through Sunday between 8a.m. and 4:30p.m. Please follow the directions below to access the portal: 1.Access the email account you provided upon registration to the [facility].2.Look for an invitation email from [facility].3.Open the email and access the invitation link: Accept Invitation to [facility]4.Fill in the required salazar to create your [...] you will allow to register on the [facility] Patient Portal for access to your information. You can also access the [facility] Patient Portal on the [employer]. Simply click on Health Records under Health [...] Call your local pharmacy or go to http://[employer] Sound Magazine/9Q7Yq4z to find one close to you.3.Make use of household items: Use cat litter or old coffee grounds to dispose medications if other options are not available. Mix your drugs with these household products, seal them in an airtight container and throw it into the garbage. Call [facility]: [phone] to be sure your drugs can be [...] aware that I should contact my doctor. Patient/Instruction Dean Signature: Date/Time: Relationship to Patient: Witness Name/Signature: Date/Time: [facility] 03-29-2023 Note ORIGINAL EXAMINATION: 2 XRAY VIEWS [...] Date: 03/29/2023 4:58:50 PM Ordering Provider: JAKE [facility] 03-12-2023 Note HNO ID: [id number] Author: Lyn Underwood RT(R) Service: Radiology Author [...] RT Juliann(R) March 12, 2023 3:54 PM [facility] 03-12-2023 Miscellaneous Notes Formatting of this note might be differe nt from the original. Left message for patient to return call. Charla Galvan Please inform patient of hip xray results as well. Reveals degenerative changes (arthritis). Please notify patient of normal xray of lumbar. Continue treatment plan discussed at time of exam. Follow up with PCP documented in this encounter [facility] 03-11-2023 Note HNO ID: [id number] Author: Twyla Dinh PA-C Service: ? Author Type: Physician Cell Operator Type: Progress Notes Filed: 03/11/2023 8:58 AM Note Text: This note was created using [employer]. Subjective Frankie Ga is a 47 year [...] None since then. She has tried Tylenol kygz-pvc-oeyqnhm without relief. No fever. No vomiting or [...] GENERAL 3V PELV/AP/LAT LEFT Twyla Dinh PA-C [facility] 03-11-2023 History of Present illness Narrative Formatting of this note is different fro m the original. This note was created using [employer]. Subjective Frankie Ga is a 47 year [...] None since then. She has tried Tylenol gyvo-pmz-khclbxb without relief. No fever. No vomiting or [...] Twyla Dinh PA-C documented in this encounter [facility] 07-13-2022 Note HNO ID: [id number] Author: Ok Valle MD Service: ? Author Type: Physician Type: Progress Notes Filed: 07/13/2022 4:23 PM Note Text: Ok Valle MD Department of Orthopaedics Orthopaedics [address] [facility] [address] Dept: [phone] Dept July 13, 2022 CHIEF COMPLAINT: New [...] hand carried copy of x-rays done at [facility] on 06/14/22. ASSESSMENT: M17.0 Primary osteoarthritis of both knees (primary encounter diagnosis) M25.561, M25.562, G89.29 Chronic pain of both knees E66.01, Z68.42 Morbid obesity with BMI of 45.0-49.9, adult ([facility]) PLAN: We had a lengthy discussion [...] Psych (no depression, anxiety) Ok Valle MD [facility] 07-13-2022 History of Present illness Narrative Formatting of this note is different fro m the original. Ok Valle MD Department of Orthopaedics Orthopaedics [address] [place] [address] Dept: [phone] Dept July 13, 2022 CHIEF COMPLAINT: New [...] hand carried copy of x-rays done at [facility] on 06/14/22. ASSESSMENT: M17.0 Primary osteoarthritis of both knees (primary encounter diagnosis) M25.561, M25.562, G89.29 Chronic pain of both knees E66.01, Z68.42 Morbid obesity with BMI of 45.0-49.9, adult ([facility]) PLAN: We had a lengthy discussion [...] Ok Valle MD documented in this encounter [facility] 05-31-2021 History of Present illness Narrative DATE [...] time. Patient is stable upon discharge from [facility]. ADRIENNE Rosa/[id number] [facility] File#: [id number] END OF DOCUMENT / CHANGE LOG FOLLOWS Last Edited By [employer]. Signed By Karo Mcgrath PAC #[id number] Karo Mcgrath #[email or web address] on 06/10/2021 21:59 ET on 06/10/2021 21:59 ET Revision Number - 2 ^^^ Verified/Reviewed by 06/10/212199 [facility] PATIENT NAME: FRANKIE RHODES [facility] [place] MEDICAL REC #: [id number] [place] [address] [facility] PHYSICIAN documented in this encounter [facility] Evaluation + Plan note No data available for this section [facility] Diagnosis Acute left-sided low back pain without sciatica- Primary [facility]ative)* Diagnostic Procedure Only (Urgent) - Pending Review Specialty Diagnoses / Procedures Referred By Contac t Referred To Contact XR IMAGING Diagnoses Acute left-sided low back pain without sciatica Procedures XR HIP GENERAL 3V PELV/AP/LAT LEFT RADEX HIP UNILATERAL WITH PELVIS 2-3 VIEWS Twyla Dinh PA-C [address] [place] [address] [place] [address] Referral ID Status Reason Start Date Expiration Date Visits Requested Visits Authorized [id number] Pending Review Auto-Generat ed Referral 03/11/2023 04/09/2024 1 1 * Diagnostic Procedure Only (Urgent) - Pending Review Specialty Diagnoses / Procedures Referred By Contac t Referred To Contact XR IMAGING Diagnoses Acute left-sided low back pain without sciatica Procedures XR LUMBAR GENERAL 3V AP/LAT/L5-S1 RADEX SPINE LUMBOSACRAL 2/3 VIEWS Twyla Dinh PA-C [address] [place] [address] [place] [address] Referral ID Status Reason Start Date Expiration Date Visits Requested Visits Authorized [id number] Pending Review Auto-Generat ed Referral 03/11/2023 04/09/2024 1 1 [facility] Summary Purpose Family History No Family History [...] MINUTES Ok Valle MD [address] [place] [address] Referral ID Status Reason Start Date Expiration Date Visits Requested Visits Authorized [id number] Authorized PCP Requested Referral 07/13/2022 07/13/2023 1 1 Additional Source Comments Source Comments (unrecognize d section and content) In the event this informatio n is protected by the Federal Confidentiality of Alcohol and Drug Abuse Patient Records regulations: The Federal rules restrict any use of the information to criminally investigate or prosecute any alcohol or drug abuse patient.[facility] the event this information is protected by the Federal Confidentiality of Alcohol and Drug Abuse Patient Records regulations: The Federal rules restrict any use of the information to criminally investigate or prosecute any alcohol or drug abuse patient.[facility] the event this information is protected by the Federal Confidentiality of Alcohol and Drug Abuse Patient Records regulations: The Federal rules restrict any use of the information to criminally investigate or prosecute any alcohol or drug abuse patient.[facility] Hospital[facility] the event this information is protected by the Federal Confidentiality of Alcohol and Drug Abuse Patient Records regulations: The Federal rules restrict any use of the information to criminally investigate or prosecute any alcohol or drug abuse patient.[facility] the event this information is protected by the Federal Confidentiality of Alcohol and Drug Abuse Patient Records regulations: The Federal rules restrict any use of the information to criminally investigate or prosecute any alcohol or drug abuse patient.[facility] the event this information is protected by the Federal Confidentiality of Alcohol and Drug Abuse Patient Records regulations: The Federal rules restrict any use of the information to criminally investigate or prosecute any alcohol or drug abuse patient.[facility] INFORMATION SOURCE (unrecogn ized section and content) DATE CREATED AUTHOR AUTHOR'S ORGANIZ ATION 12/24/2021 [facility] ([place]) DATE CREATED AUTHOR AUTHOR'S ORGANIZ ATION 07/14/2022 [facility] DATE CREATED AUTHOR AUTHOR'S ORGANIZ ATION 03/13/2023 [facility] DATE CREATED AUTHOR AUTHOR'S ORGANIZ ATION 04/09/2023 [facility] ([place]) Reason for Visit (unrecogniz ed section and content) Reason Comments Back Pain Wrapping around to a bdominal x 3 days no injury Reason Comments Results Care Teams (unrecognized sec tion and content) Family Practice Medical Doctor Relationship Specialty Start Date End Date Jose Angel Dee Rolo [address] [facility] [address] [place] [address] PCP - General Gerontology 03/11/23 FOR RECORDS [...] BE BASED ON THE PRIMARY CLINICAL RECORDS. [facility] [employer] [facility]. provides no warranty or guarantee of the accuracy or completeness of information in this document.
== END | disposition home or self-care (01) ==
PROVIDERS: PCP Family Medicine Geriatric Medicine; Visit Provider Family Medicine Geriatric Medicine
DX: E03.9 Hypothyroidism, unspecified (principal)
CPT/HCPCS: 36415; 84443

== ENCOUNTER → 2023-10-16 | Outpatient (CLI) | payer MEDICAID, SELFPAY | END | disposition home or self-care (01) | LOC: PSN 11:50 | PROVIDERS: PCP Family Medicine Geriatric Medicine; Visit Provider Family Medicine Geriatric Medicine | DX: R68.83 Chills (without fever) (principal); E03.9 Hypothyroidism, unspecified | CPT/HCPCS: 36415; 82728; 83540; 83550; 84443; 85025; 87631 ==

== ENCOUNTER → 2023-10-16 | Outpatient (CLI) | payer MEDICAID, SELFPAY ==
[2023-10-16 13:26] LABS: Absolute Lymphocyte Count 1.91 X10^3/uL (0.83-4.51); Absolute Neutrophil Count 3.7 X10^3/uL (2.0-7.7); Basophil# 0.03 X10^3/uL; Basophil% 0.5 % (0-1); Eosinophil# 0.13 X10^3/uL; Eosinophils% 2.2 % (0-5); Hematocrit 41.7 % (37-47); Hemoglobin 13.3 g/dL (12.0-15.0); Lymphocyte # 1.91 X10^3/ul (0.83-4.51); Lymphocyte % 31.6 % (19-41); Mean Corp Hgb Conc 31.9 g/dL (32-36); Mean Corpuscular Hgb 29.2 pg (27.0-32.0); Mean Corpuscular Volume 91.4 fL (81-99); Mean Platelet Vol. 11.3 fl (6.2-12.0); Monocyte# 0.27 X10^3/uL; Monocyte% 4.5 % (0-10); NRBC Flagged by Analyzer 0 % (0-5); Neutrophil # 3.68 X10^3/uL (2.7-7.7); Neutrophil % 60.9 % (47-70); Platelet Count 243 K/mm3 (150-450); RBC Distribution Width CV 12.6 % (11.6-14.6); RBC Distribution Width SD 41.7 fl (35.1-43.9); Red Blood Count 4.56 M/mm3 (4.2-5.4)
[2023-10-16 13:55] LABS: Ferritin 108 ng/mL (8-252); Iron 49 ug/dL (50-170); Iron Binding Capacity,Total 205 ug/dL (250-450); PERCENT IRON SATURATION 23.9 % (15.0-55.0); Thyroid Stim Hormone (TSH) 0.02 uIU/mL (0.358-3.74)
== END | disposition home or self-care (01) ==
LOC: POLAB3 11:41
PROVIDERS: PCP Family Medicine Geriatric Medicine; Visit Provider Family Medicine Geriatric Medicine
DX: E03.9 Hypothyroidism, unspecified (principal)
CPT/HCPCS: 36415; 82728; 83540; 83550; 84443; 85025

== ENCOUNTER 2024-02-25 16:26 | Emergency (ER) | payer MEDICAID, SELFPAY ==
[2024-02-25 16:28] VITALS: BP 135/94; PULSE 84; RESP 18; TEMP 35.9; O2SAT 99; BMI 43.0
[2024-02-25 18:27] VITALS: BP 149/64; PULSE 81; O2SAT 99
--- NOTE | 2024-02-25 18:49 | EX.ED.DYSGE1 ---
HPI History of Present Illness Chief Complaint: General Illness Informant: patient Onset/Context/Timing Onset: Days (3) Context: Gradual Onset Timing: Continuous Quality: Pressure Location: Right flank and right pelvis Worsened by: Nothing Relieved by: Nothing Narrative Narrative: Patient presents with pelvic and right flank pain that has been getting worse over the past 3 days. Patient states it is gradually getting worse. Patient describes it as a pressure. Patient states that it is over the right flank and right pelvic area. Patient states nothing makes it better and nothing makes it worse. Patient admits to some nausea but denies any vomiting. Patient denies any fevers or chills. Patient denies any dysuria or hematuria. Patient is also noted a rash over her abdomen, upper extremities, and lower extremities. Patient denies any new soaps, laundry detergents, fabric softeners, foods, or other new exposures. [facility] Medical History Anxiety Bipolar 1 disorder Contact with and (suspected) exposure to other viral communicable diseases URI (upper respiratory infection) Thyroid disease Arthritis HTN (hypertension) Home Medications ?Medication ?Instructions ?Recorded ?Last Taken ?Type venlafaxine 225 mg tablet,extended 225 mg PO QHS 09/14/22 12/28/22 History release 24 hr levothyroxine 200 mcg tablet 200 mcg PO DAILY 05/13/23 Unknown History levothyroxine 25 mcg tablet 25 mcg PO DAILY 05/13/23 Unknown History diclofenac potassium 50 mg tablet 50 mg PO BID 09/19/23 Unknown History metoprolol tartrate 25 mg tablet 25 mg PO BID 09/19/23 Unknown History acetaminophen 500 mg tablet 550 mg PO .Q8hr PRN 09/21/23 Unknown History propranolol 20 mg tablet 20 mg PO BID 09/21/23 Unknown History amlodipine 5 mg tablet 5 mg PO QDAY 11/07/23 Unknown History buspirone 7.5 mg tablet 7.5 mg PO BID #60 tabs 01/15/24 Unknown Rx divalproex 500 mg tablet,extended 500 mg PO DAILY #90 tabs 01/15/24 Unknown Rx release 24 hr hydroxyzine HCl 25 mg tablet 25 mg PO TID PRN anxiety #90 tabs 01/15/24 Unknown Rx Allergy/AdvReac Type Severity Reaction Status Date / Time adhesive tape Allergy Mild Rash Verified 02/25/24 16:28 Family History Other CVA (cerebral vascular accident) Cancer Hypertension Melanoma Skin cancer Surgical History Hx of tonsillectomy History of cholecystectomy Social History household members: spouse Smoking Status: Current some day smoker tobacco type: cigarettes alcohol intake: current details: only around the holidays substance use type: does not use what type of physical activity do you participate in: walking ROS ROS ED Constitutional Constitutional ED: Denies chills or fever(s) Eyes Eyes: Denies blurry vision or change in vision ENT ENT ED: Denies rhinorrhea or sore throat Cardiovascular Cardiovascular: Denies chest pain or palpitations Respiratory/Chest Respiratory/Chest: Denies cough or dyspnea Gastrointestinal Gastrointestinal: Reports nausea; Denies vomiting Genitourinary Genitourinary ED: Denies dysuria or hematuria Musculoskeletal Musculoskeletal: Reports back pain; Denies neck pain Integumentary Reports rash; Denies abscess Neurologic Neurologic: Denies headache(s) or weakness Allergic/Immunologic Allergic/Immunologic ED: Denies mouth swelling or urticaria EXAM Physical Exam Const Vital Signs: 02/25/24 16:28 02/25/24 18:22 02/25/24 18:27 Temperature 96.7 F L Temperature Source Temporal Pulse Rate 84 81 Respiratory Rate 18 Respiratory Effort Normal Non-Labored Blood Pressure 135/94 H 149/64 H Blood Pressure Mean 107 92 Pulse Ox 99 99 Oxygen Delivery Method Room Air Room Air 02/25/24 19:36 Temperature Temperature Source Pulse Rate 58 L Respiratory Rate 18 Respiratory Effort Blood Pressure 143/87 H Blood Pressure Mean 105 Pulse Ox 98 Oxygen Delivery Method Room Air Positive well nourished and well developed General Appearance ED: well developed and NAD HEENT Reports moist mucous membranes Neck supple and no JVD Resp normal respiratory effort and clear to auscultation bilaterally Cardio regular rate and regular rhythm GI non-distended Palpation: soft and tender RLQ and RUQ; Negative for guarding or rebound tenderness present Back/Spine General Back: CVA tenderness right Neuro oriented x3, CN's II-XII intact bilaterally and no sensory deficits noted Sensorium / Orientation: alert Motor Exam: strength 5/5 throughout Psych mental status grossly normal Skin Skin Narrative: There is a patchy erythematous papular rash noted over the upper extremities, lower legs, and abdomen. There are no vesicles or pustules noted. There are no petechia noted. There is no involvement of the palms or soles. There is no involvement of mucous membranes. MDM MDM MDM Narrative Medical decision making narrative: Differential diagnosis includes ureteral calculus, pyelonephritis, viral illness, and electrolyte abnormality. CT scan of the abdomen pelvis will be obtained to assess for ureteral calculus. CBC will be obtained to assess for leukocytosis and anemia. Comprehensive metabolic profile will be obtained to assess for hepatic function, renal function, and electrolyte abnormality. Urinalysis will be obtained to assess for urinary tract infection and hematuria. Lab Data Attestation: I reviewed the patient's lab results. Lab results narrative: CBC was reviewed and was within normal limits. Comprehensive metabolic profile was reviewed and was within normal limits. Urinalysis was reviewed. There is no evidence of urinary tract infection or hematuria. Labs: Laboratory Results - last 24 hr 02/25/24 02/25/24 18:01 19:39 WBC 8.4 RBC 4.57 Hgb 14.0 Hct 42.7 MCV 93.4 MCH 30.6 MCHC 32.8 RDW Std Deviation 46.4 H RDW Coeff of Amandeep 13.6 Plt Count 219 MPV 11.8 Immature Gran % (Auto) 0.400 Neut % (Auto) 50.5 Lymph % (Auto) 41.0 Moore % (Auto) 5.6 Eos % (Auto) 1.8 Baso % (Auto) 0.7 Absolute Neuts (auto) 4.3 Absolute Lymphs (auto) 3.45 Nucleated RBC % 0 Sodium 140 Potassium 3.8 Chloride 103 Carbon Dioxide 31.0 Anion Gap 6 BUN 13 Creatinine 0.90 Estim Creat Clear Calc 117.81 Est GFR (MDRD) Af Amer 87 Est GFR (MDRD) Non-Af 72 BUN/Creatinine Ratio 14.5 Glucose 92 Calcium 9.7 Total Bilirubin 0.40 AST 12 L ALT 16 Alkaline Phosphatase 75 Total Protein 7.8 Albumin 4.0 Globulin 3.8 Albumin/Globulin Ratio 1.1 Urine Color Yellow Urine Clarity Cloudy Urine pH 6.0 Ur Specific [place] 1.025 Urine Protein 30 H Urine Glucose (UA) Normal Urine Ketones 5 H Urine Occult Blood Negative Urine Nitrite Negative Urine Bilirubin 1 H Urine Urobilinogen 1 H Ur Leukocyte Esterase 25 H Urine RBC 0 SEEN Urine WBC 0-5 SEEN Ur Squamous Epith Cells 5-10 SEEN Urine Bacteria 3+ Urine Mucus 4+ Radiography Diagnostic Testing: Clinical Impression(s) from Imaging Studies Abdomen/Pelvis CT 02/25/24 19:10 IMPRESSION: 1. Limited by patient''s size. 2. Hepatosplenomegaly. 3. Stable nonobstructing left renal stone. Electronically Signed: Kirk Beverly MD at 20:26 EDT , CT scan of the abdomen pelvis was obtained. There is a nonobstructing left renal stone. There is no acute abnormality noted. There is no free air or free fluid. This was interpreted by the radiologist and was also independently reviewed by myself. Treatment and Re-Evaluation :: Patient was given IV fluids and Toradol. Patient was feeling better on reevaluation. Patient was advised of her findings. Patient was instructed to drink plenty of fluids. Patient was instructed to follow-up with her primary care physician in 5 to 7 days. Patient understood and was agreeable with the plan. All questions were answered. Discharge Plan Triage Chief Complaint: General Illness ED Provider: Matthew Lemus Dx/Rx/DC Orders Clinical Impression: Acute right flank pain, Viral illness Instructions: ED Flank Pain, Uncertain Cause, ED Viral Exanthem Rash (Adult) Prescriptions: No Action venlafaxine 225 mg tablet extended release 24hr 225 mg PO QHS metoprolol tartrate 25 mg tablet 25 mg PO BID diclofenac potassium 50 mg tablet 50 mg PO BID propranolol 20 mg tablet 20 mg PO BID acetaminophen 500 mg tablet 550 mg PO .Q8hr PRN amlodipine 5 mg tablet 5 mg PO QDAY buspirone 7.5 mg tablet 7.5 mg PO BID Qty: 60 1RF hydroxyzine HCl 25 mg tablet 25 mg PO TID PRN (Reason: anxiety) Qty: 90 0RF divalproex 500 mg tablet extended release 24 hr 500 mg PO DAILY Qty: 90 1RF levothyroxine 200 mcg tablet 200 mcg PO DAILY levothyroxine 25 mcg tablet 25 mcg PO DAILY Primary Care Provider: Dionisio Fortune Chi Referrals: Dionisio Fortune Chi, MD [Primary Care Provider] - 5-7 Days Print Language: Greek Disposition Disposition: Home, Self Care
--- NOTE | 2024-02-25 19:10 | CT_ITS ---
EXAM: CT ABDOMEN AND PELVIS WITHOUT INTRAVENOUS CONTRAST CLINICAL INDICATION: RT FLANK PAIN TECHNIQUE: Helically acquired images were obtained of the abdomen and pelvis without intravenous contrast. This CT exam was performed using one or more of the following dose reduction techniques: automated exposure control, adjustment of the mA and/or kV according to patient size, and/or use of iterative reconstruction technique. RADIATION DOSE: CTDIvol = 24.19 mGy, DLP = 1292.70 mGy-cm COMPARISON: 12/01/2022 FINDINGS: LIMITATIONS: Limited by patient size which causes artifact and decreases resolution. LOWER THORAX: Clear lung bases. No cardiomegaly. No significant pericardial effusion. ABDOMEN: LIVER: Fatty liver with marked hepatomegaly. GALLBLADDER AND BILE DUCTS: Absent gallbladder. No intra- or extrahepatic biliary ductal dilation. PANCREAS: Unremarkable. No focal cystic mass. SPLEEN: Moderate splenomegaly. ADRENALS: Unremarkable. No nodules. KIDNEYS AND URETERS: Normal right kidney. Left kidney has a stable 3 mm upper pole stone. Normal renal size and position. No hydronephrosis. STOMACH AND BOWEL: Unremarkable. No stomach or bowel distention. No focal inflammatory change. PELVIS: APPENDIX: No evidence of acute appendicitis. BLADDER: Unremarkable. REPRODUCTIVE: Absent uterus. ABDOMEN and PELVIS: INTRAPERITONEAL SPACE: Unremarkable. No ascites or other fluid collection. No free air. BONES/JOINTS: Unremarkable. No suspicious lytic or blastic abnormality. SOFT TISSUES: Small fat-containing umbilical hernia. VASCULATURE: Unremarkable. Abdominal aorta is non-dilated. LYMPH NODES: Unremarkable. No enlarged lymph nodes. CT/Abdomen/Pelvis without Cont IMPRESSION: 1. Limited by patient''s size. 2. Hepatosplenomegaly. 3. Stable nonobstructing left renal stone. Electronically Signed: Kirk Beevrly MD at 20:26 EDT ,
[2024-02-25 19:28] LABS: Absolute Lymphocyte Count 3.45 X10^3/uL (0.83-4.51); Absolute Neutrophil Count 4.3 X10^3/uL (2.0-7.7); Basophil# 0.06 X10^3/uL; Basophil% 0.7 % (0-1); Eosinophil# 0.15 X10^3/uL; Eosinophils% 1.8 % (0-5); Hematocrit 42.7 % (37-47); Lymphocyte # 3.45 X10^3/ul (0.83-4.51); Mean Corp Hgb Conc 32.8 g/dL (32-36); Mean Corpuscular Hgb 30.6 pg (27.0-32.0); Mean Corpuscular Volume 93.4 fL (81-99); Mean Platelet Vol. 11.8 fl (6.2-12.0); Monocyte# 0.47 X10^3/uL; Monocyte% 5.6 % (0-10); NRBC Flagged by Analyzer 0 % (0-5); Neutrophil # 4.25 X10^3/uL (2.7-7.7); Neutrophil % 50.5 % (47-70); Platelet Count 219 K/mm3 (150-450); RBC Distribution Width CV 13.6 % (11.6-14.6); RBC Distribution Width SD 46.4 fl (35.1-43.9); Red Blood Count 4.57 M/mm3 (4.2-5.4); White Blood Count 8.4 K/mm3 (4.4-11.0)
[2024-02-25 19:36] VITALS: BP 143/87; PULSE 58; RESP 18; O2SAT 98
[2024-02-25] MEDS: 0.9% Normal Saline (1000mL) 1,000 ML 1000 ML IV (19:36)
[2024-02-25 19:46] LABS: Red Blood Cells-Urine 0 SEEN /hpf (0-5)
[2024-02-25 19:49] LABS: Color, Urine Yellow (Yellow); Glucose, Dipstick Normal (Normal); Ketone-Dipstick 5 mg/dl (Negative); Leukocyte Esterase-Dipstick 25 /ul (Negative); Nitrite-Dipstick Negative (Negative); Occult Blood-Urine Negative /ul (Negative); Protein-Dipstick 30 mg/dl (Negative); Specific Gravity, Urine 1.025 (1.002-1.030); Urine Clarity Cloudy (Clear); Urine Urobilinogen 1 mg/dl (Normal)
[2024-02-25] MEDS: Ketorolac 30 MG/ML Syringe IV (19:51)
[2024-02-25 19:53] LABS: ALB/GLOB Ratio 1.1 RATIO (0.9-2.4); AST(SGOT) 12 U/L (15-37); Alanine Aminotransfer ALT/SGPT 16 U/L (13-56); Alkaline Phosphatase 75 U/L (45-117); Anion Gap 6 (5-15); BUN 13 mg/dL (7-18); BUN/Creat Ratio 14.5 RATIO (10-20); Calcium,Total 9.7 mg/dL (8.5-10.1); Chloride 103 mmol/L (98-107); EST Glomerular Filtration Rate 72 mL/min (>60); Est Glom Filt Rate - Afr Amer 87 mL/min (>60); Estimated Creatinine Clearance 117.81 ml/min; Globulin 3.8 g/dL (2.2-4.2); Glucose 92 mg/dL (74-106); Potassium 3.8 mmol/L (3.5-5.1); Protein, Total 7.8 g/dL (6.4-8.2); Sodium Level 140 mmol/L (136-145)
[2024-02-25 20:00] LABS: Urine Bilirubin Dipstick 1 mg/dL (Negative)
[2024-02-25 20:01] LABS: Bacteria 3+ /hpf (None Seen); Mucous, Urine 4+ /hpf (<or=2+); Squamous Epithelial Cells - UA 5-10 SEEN /hpf (5-10); White Blood Cells 0-5 SEEN /hpf (0-5)
[2024-02-25 21:17] VITALS: BP 142/65; PULSE 63; RESP 18; TEMP 36.6; O2SAT 96
== END 2024-02-25 21:18 | disposition home or self-care (01) ==
PROVIDERS: Emergency Provider Emergency Medicine; PCP Family Medicine Geriatric Medicine; Visit Provider Emergency Medicine
DX: R10.11 Right upper quadrant pain (principal); R10.31 Right lower quadrant pain; B34.9 Viral infection, unspecified; I10 Essential (primary) hypertension; F17.210 Nicotine dependence, cigarettes, uncomplicated; Z79.899 Other long term (current) drug therapy
CPT/HCPCS: 74176; 80053; 81001; 85025; 96361; 96374; 99283; J7030; A4216

== ENCOUNTER → 2024-02-28 | Outpatient (CLI) | payer MEDICAID, SELFPAY ==
[2024-02-28 16:12] LABS: Absolute Lymphocyte Count 2.88 X10^3/uL (0.83-4.51); Absolute Neutrophil Count 3.3 X10^3/uL (2.0-7.7); Basophil# 0.05 X10^3/uL; Basophil% 0.7 % (0-1); Eosinophil# 0.13 X10^3/uL; Eosinophils% 1.9 % (0-5); Hematocrit 38.6 % (37-47); Hemoglobin 12.8 g/dL (12.0-15.0); Lymphocyte # 2.88 X10^3/ul (0.83-4.51); Lymphocyte % 43.2 % (19-41); Mean Corp Hgb Conc 33.2 g/dL (32-36); Mean Corpuscular Hgb 30.6 pg (27.0-32.0); Mean Corpuscular Volume 92.3 fL (81-99); Mean Platelet Vol. 11.1 fl (6.2-12.0); Monocyte# 0.32 X10^3/uL; Monocyte% 4.8 % (0-10); NRBC Flagged by Analyzer 0 % (0-5); Neutrophil # 3.28 X10^3/uL (2.7-7.7); Neutrophil % 49.3 % (47-70); Platelet Count 226 K/mm3 (150-450); RBC Distribution Width CV 13.5 % (11.6-14.6); RBC Distribution Width SD 46.5 fl (35.1-43.9); Red Blood Count 4.18 M/mm3 (4.2-5.4); White Blood Count 6.7 K/mm3 (4.4-11.0)
[2024-02-28 16:52] LABS: Valproic Acid (Depakene) Level 26 ug/mL (50-100)
[2024-02-28 17:01] LABS: ALB/GLOB Ratio 0.9 RATIO (0.9-2.4); AST(SGOT) 15 U/L (15-37); Alanine Aminotransfer ALT/SGPT 14 U/L (13-56); Albumin, Serum 3.7 g/dL (3.2-5.0); Alkaline Phosphatase 72 U/L (45-117); Anion Gap 7 (5-15); BUN 14 mg/dL (7-18); Calcium,Total 9.5 mg/dL (8.5-10.1); Chloride 106 mmol/L (98-107); Cholesterol 220 mg/dL (200); Creatinine, Serum 0.88 mg/dL (0.55-1.02); EST Glomerular Filtration Rate 74 mL/min (>60); Est Glom Filt Rate - Afr Amer 89 mL/min (>60); Globulin 3.9 g/dL (2.2-4.2); Glucose 93 mg/dL (74-106); High Density Lipoprotein 50 mg/dL; Potassium 3.8 mmol/L (3.5-5.1); Protein, Total 7.6 g/dL (6.4-8.2); Sodium Level 141 mmol/L (136-145); Triglycerides 161 mg/dL; Very Low Density Lipoprotein 32 mg/dL (5-40)
== END | disposition home or self-care (01) ==
PROVIDERS: Nurse Practitioner Psychiatric/Mental Health; PCP Family Medicine Geriatric Medicine; Visit Provider Family Medicine Geriatric Medicine
DX: I10 Essential (primary) hypertension (principal); E78.5 Hyperlipidemia, unspecified; E03.9 Hypothyroidism, unspecified
CPT/HCPCS: 36415; 80053; 80061; 80164; 84443; 85025

== ENCOUNTER → 2024-03-12 | Outpatient (CLI) | payer MEDICAID, SELFPAY ==
--- NOTE | 2024-03-12 15:46 | BI_ITS ---
MAMMOGRAPHY - BILATERAL SCREENING REASON FOR EXAM: Female, 48 years old. Routine annual screening examination. PERTINENT HISTORY: Non-contributory. TECHNIQUE: Digital bilateral breast david (3D mammographic acquisition) in the CC and MLO projections. 2-D mediolateral oblique (MLO) and craniocaudad (CC) views of both breasts were obtained. CAD: Full Field Digital Mammography with Computer Added Detection was performed. COMPARISON: None. Baseline examination. FINDINGS: Breast Composition: There are scattered areas of fibroglandular density. There are no dominant masses or suspicious calcifications. Small benign appearing bilateral axillary lymph nodes. No other significant abnormalities are identified. There has been no significant change since the prior study. BI/SCRN MAMM (CAD)W/DAVID BILAT IMPRESSION: Negative screening mammogram. Yearly followup mammogram recommended. (A) ASSESSMENT CATEGORY: BIRADS Category 2: Benign. A letter regarding these results will be sent to the patient by the facility within 30 days. Approximately 10% of breast cancers are not detected by mammography. A normal mammogram should not delay biopsy of a clinically suspicious abnormality. [id number] Electronically Signed: Osmani Cordon MD at 8:09 EDT ,
== END | disposition home or self-care (01) ==
LOC: OPBI 15:43
PROVIDERS: PCP Family Medicine Geriatric Medicine; Referring Provider Family Medicine Geriatric Medicine; Visit Provider Family Medicine Geriatric Medicine
DX: Z12.31 Encounter for screening mammogram for malignant neoplasm of breast (principal)
CPT/HCPCS: 77063; 77067

== ENCOUNTER 2024-04-22 11:24 | Emergency (ER) | payer MEDICAID, SELFPAY ==
[2024-04-22 11:24] VITALS: BP 130/100; PULSE 97; RESP 18; TEMP 37.1; O2SAT 100; BMI 42.8
--- NOTE | 2024-04-22 12:36 | EDS_ITS ---
HPI History of Present Illness Chief Complaint: Back Onset/Context/Timing Onset: Weeks (1) Context: Gradual Onset Timing: Continuous Quality: Sharp and - (Stabbing) Location: Lumbar Worsened by: improves with Ambulation and - (Standing) Relieved by: Nothing Associated Symptoms Associated Symptoms: Radiation to Right Leg (Lateral thigh); Negative for Numbness or Tingling Narrative Narrative: Patient presents with back pain that has been getting worse over the past week. Patient states it is gradually getting worse. Pain described as sharp and stabbing. Patient states it is over the lower lumbar area. Patient states it is worse with standing and ambulation. Patient states nothing seems to help with it. Patient states it radiates into her right lateral thigh. Patient denies any fevers or chills. Patient denies any paresthesias or weakness. Patient denies any bowel or bladder changes. Patient denies any saddle anesthesia. Patient denies any trauma or injury. [facility] Medical History (Updated 04/22/24 @ 15:[address] Matthew Lemus, DO) Anxiety Bipolar 1 disorder Contact with and (suspected) exposure to other viral communicable diseases URI (upper respiratory infection) Thyroid disease Arthritis HTN (hypertension) Home Medications ?Medication ?Instructions ?Recorded ?Last Taken ?Type levothyroxine 200 mcg tablet 200 mcg PO DAILY 05/13/23 Unknown History levothyroxine 25 mcg tablet 25 mcg PO DAILY 05/13/23 Unknown History diclofenac potassium 50 mg tablet 50 mg PO BID 09/19/23 Unknown History metoprolol tartrate 25 mg tablet 25 mg PO BID 09/19/23 Unknown History acetaminophen 500 mg tablet 550 mg PO .Q8hr PRN 09/21/23 Unknown History propranolol 20 mg tablet 20 mg PO BID 09/21/23 Unknown History amlodipine 5 mg tablet 5 mg PO QDAY 11/07/23 Unknown History hydroxyzine HCl 25 mg tablet 25 mg PO TID PRN anxiety #90 tabs 01/15/24 Unknown Rx buspirone 7.5 mg tablet 7.5 mg PO BID #180 tabs 02/26/24 Unknown Rx venlafaxine 225 mg tablet,extended 225 mg PO QHS #90 tabs 02/26/24 Unknown Rx release 24 hr divalproex 500 mg tablet,extended 1,500 mg (3 x 500 mg) PO DAILY #90 09/03/24 Unknown Rx release 24 hr tabs hydrocodone-acetaminophen 5-325mg 1 tab PO Q6H PRN PRN Pain 3 days 04/22/24 Unknown Rx 5mg-325mg #10 TABLETS Allergy/AdvReac Type Severity Reaction Status Date / Time adhesive tape Allergy Mild Rash Verified 04/22/24 11:24 Family History Other CVA (cerebral vascular accident) Cancer Hypertension Melanoma Skin cancer Surgical History (Updated 04/22/24 @ 13:[address] Matthew Lemus DO) Hx of thyroidectomy Hx of oophorectomy Hx of tonsillectomy History of cholecystectomy Social History household members: spouse Smoking Status: Current some day smoker tobacco type: cigarettes alcohol intake: current details: only around the holidays substance use type: does not use what type of physical activity do you participate in: walking ROS ROS ED Constitutional Constitutional ED: Denies chills or fever(s) Eyes Eyes: Denies blurry vision or change in vision ENT ENT ED: Denies rhinorrhea or sore throat Cardiovascular Cardiovascular: Denies chest pain or palpitations Respiratory/Chest Respiratory/Chest: Denies cough or dyspnea Gastrointestinal Gastrointestinal: Denies nausea or vomiting Genitourinary Genitourinary ED: Denies dysuria or hematuria Musculoskeletal Musculoskeletal: Reports back pain; Denies neck pain Integumentary Reports rash; Denies abscess Neurologic Neurologic: Denies headache(s) or weakness Allergic/Immunologic Allergic/Immunologic ED: Denies mouth swelling or urticaria EXAM Physical Exam Const Vital Signs: 04/22/24 11:24 04/22/24 13:30 Temperature 98.7 F 97.1 F L Temperature Source Temporal Pulse Rate 97 86 Respiratory Rate 18 15 Blood Pressure 130/100 H 138/72 H Blood Pressure Mean 110 94 Pulse Ox 100 98 Oxygen Delivery Method Room Air Positive well nourished and well developed General Appearance ED: well developed and NAD HEENT Reports moist mucous membranes Neck supple and no JVD Back/Spine Back/Spine Narrative: There is tenderness over the lumbar spine and paraspinal muscles. There is no edema or ecchymosis. There is no bony crepitance or step-off noted. Range of motion is slightly limited in all motions of the lumbar spine secondary to pain. Strength is 5/5 bilaterally in the lower extremities. There are no sensory deficits noted. Deep tendon reflexes are 2/4 bilaterally in the lower extremities. Lumbar Spine / Lower Back: ROM limited and straight leg raise negative bilatera lly Extremity normal to inspection General Extremety ED: Negative for edema or tenderness General Extremity: Negative for edema Neuro oriented x3 and no sensory deficits noted Sensorium / Orientation: alert Motor Exam: strength 5/5 throughout Deep Tendon Reflexes: Rt Patellar (L4): 2+, Lt Patellar (L4): 2+, Rt Ankle (S1): 2+ and Lt Ankle (S1): 2+ Deep Tendon Reflexes Back: Rt Patellar (L4): 2+, Lt Patellar (L4): 2+, Rt Ankle (S1): 2+ and Lt Ankle (S1): 2+ Psych mental status grossly normal MDM MDM MDM Narrative Medical decision making narrative: Patient was advised that this is most likely muscular strain. Patient was given a dose of [place] here. Patient is given a prescription for a short course of [place]. Patient was instructed to use ice to the area. Patient was instructed to follow-up with her primary care physician in 5 to 7 days. Patient was instr ucted to return if worse in any way. Patient understood and was agreeable with the plan. All questions were answered. Discharge Plan Triage Chief Complaint: Back ED Provider: Matthew Lemus Dx/Rx/DC Orders Clinical Impression: Acute lumbosacral myofascial strain, Low back pain, Body mass index (BMI) of 40.0 to 44.9 in adult Instructions: ED Back Sprain/Strain Prescriptions: New hydrocodone-acetaminophen 5-325 mg tablet 1 tab PO Q6H PRN PRN (Reason: Pain) 3 Days Qty: 10 0RF No Action metoprolol tartrate 25 mg tablet 25 mg PO BID diclofenac potassium 50 mg tablet 50 mg PO BID propranolol 20 mg tablet 20 mg PO BID acetaminophen 500 mg tablet 550 mg PO .Q8hr PRN amlodipine 5 mg tablet 5 mg PO QDAY hydroxyzine HCl 25 mg tablet 25 mg PO TID PRN (Reason: anxiety) Qty: 90 0RF buspirone 7.5 mg tablet 7.5 mg PO BID Qty: 180 1RF venlafaxine 225 mg tablet extended release 24hr 225 mg PO QHS Qty: 90 1RF levothyroxine 200 mcg tablet 200 mcg PO DAILY levothyroxine 25 mcg tablet 25 mcg PO DAILY divalproex 500 mg tablet extended release 24 hr 1,500 mg PO DAILY Qty: 90 1RF Primary Care Provider: Dionisio Fortune Chi Referrals: Dionisio Fortune Chi, MD [Primary Care Provider] - 3-5 Days Print Language: Hebrew Disposition Disposition: Home, Self Care Discharge Date/Time: 04/22/24 13:31
--- NOTE | 2024-04-22 13:20 | ED.RN ---
THIS NURSE WENT IN AND TALKED WITH PT AFTER RECEIVING A CALL FROM PATIENT [employer] WHICH SHE CALLED. PT FELT DR DID NOT LISTEN TO HER SO THIS NURSE SAT AT THE BEDSIDE AND LISTENED TO PTS CONCERNS AND COMPLAINTS. DISCUSSED THE CHRONIC PAIN AND THE MUSCULAR DISCOMFORT SHE IS EXPERIENCING AT THIS TIME. PT SEEMED CONCERNED FOR WORK ALONG WITH SOMETHING FOR THE PAIN SINCE SHE DOESN'T SEE PAIN MANAGEMENT UNTIL SUNDAY. AFTER THE DISCUSSION PT SEEMED MORE AT EASE WITH THE SITUATION AND THE DISCHARGE PLAN
[2024-04-22] MEDS: HYDROcodone Bitartrate/Apap 5/325 Tablet PO (13:28)
[2024-04-22 13:30] VITALS: BP 138/72; PULSE 86; RESP 15; TEMP 36.2; O2SAT 98
== END 2024-04-22 13:31 | disposition home or self-care (01) ==
PROVIDERS: Emergency Provider Emergency Medicine; PCP Family Medicine Geriatric Medicine; Visit Provider Emergency Medicine
DX: S39.012A Strain of muscle, fascia and tendon of lower back, initial encounter (principal); X58.XXXA Exposure to other specified factors, initial encounter; I10 Essential (primary) hypertension; F17.210 Nicotine dependence, cigarettes, uncomplicated; Z79.899 Other long term (current) drug therapy
CPT/HCPCS: 99282

== ENCOUNTER → 2024-07-09 | Outpatient (CLI) | payer MEDICAID, SELFPAY ==
[2024-07-09 16:03] LABS: Color, Urine Yellow (Yellow); Glucose, Dipstick Normal (Normal); Ketone-Dipstick 5 mg/dl (Negative); Leukocyte Esterase-Dipstick 25 /ul (Negative); Nitrite-Dipstick Negative (Negative); Occult Blood-Urine Negative /ul (Negative); Protein-Dipstick 30 mg/dl (Negative); Urine Clarity Sl. Cloudy (Clear); Urine Urobilinogen 1 mg/dl (Normal)
[2024-07-09 16:05] LABS: Urine Bilirubin Dipstick 1 mg/dL (Negative)
== END | disposition home or self-care (01) ==
LOC: LAB 15:34
PROVIDERS: PCP Family Medicine Geriatric Medicine; Referring Provider Family Medicine Geriatric Medicine; Visit Provider Family Medicine Geriatric Medicine
DX: R11.0 Nausea (principal)
CPT/HCPCS: 81002; 87086; 87088

== ENCOUNTER → 2024-07-10 | Outpatient (CLI) | payer MEDICAID, SELFPAY | END | disposition home or self-care (01) | PROVIDERS: PCP Family Medicine Geriatric Medicine; Referring Provider Family Medicine Geriatric Medicine; Visit Provider Family Medicine Geriatric Medicine | DX: R68.83 Chills (without fever) (principal) | CPT/HCPCS: 87631 ==

== ENCOUNTER → 2024-07-25 | Outpatient (CLI) | payer MEDICAID, SELFPAY ==
[2024-07-25 12:20] LABS: Valproic Acid (Depakene) Level 70 ug/mL (50-100)
== END | disposition home or self-care (01) ==
LOC: LAB 11:16
PROVIDERS: PCP Family Medicine Geriatric Medicine; Referring Provider Nurse Practitioner Psychiatric/Mental Health; Visit Provider Nurse Practitioner Psychiatric/Mental Health
DX: F31.9 Bipolar disorder, unspecified (principal)
CPT/HCPCS: 36415; 80164

== ENCOUNTER → 2024-08-27 | Outpatient (CLI) | payer MEDICAID, SELFPAY | END | disposition home or self-care (01) | LOC: POLAB3 14:46 | PROVIDERS: PCP Family Medicine Geriatric Medicine; Visit Provider Family Medicine Geriatric Medicine | DX: E03.9 Hypothyroidism, unspecified (principal) | CPT/HCPCS: 36415; 84443; 87631 ==

== ENCOUNTER 2024-09-23 10:11 | Emergency (ER) | payer MEDICAID, SELFPAY ==
[2024-09-23 10:12] VITALS: BP 123/98; PULSE 112; RESP 17; TEMP 36.2; O2SAT 100; BMI 41.1
--- NOTE | 2024-09-23 10:43 | EKG12_ITS ---
Test Reason : DIZZINESS Blood Pressure : */* mmHG Vent. Rate : 97 BPM Atrial Rate : 97 BPM P-R Int : 156 ms QRS Dur : 106 ms QT Int : 370 ms P-R-T Axes : 28 32 38 degrees QTcB Int : 469 ms Normal sinus rhythm Normal ECG Confirmed by CIRO NAPIER, ACOSTA ([id number]), loan expeditor BAILEY DUARTE ([id number]) on 09/24/2024 8:18:14 AM Referred By: Confirmed By: ACOSTA TANNER MD
--- NOTE | 2024-09-23 10:44 | EDS_ITS ---
HPI History of Present Illness Chief Complaint: Dizziness Detail of Chief Complaint: Dizziness Informant: patient Narrative Narrative: Patient presents the emergency department complaint of dizziness started today while she was at work. 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 They put some chemicals in a bucket. Patient then started suddenly feeling somewhat lightheaded and she got really hot and sweaty. Face got flushed. She felt like she might pass out but sat down. There is no syncope. Subsequently she complained of feeling somewhat short of breath and feeling when she had a hard time swallowing. She does have a history of anxiety and bipolar disorder. She has had not had any recent illness. She has had prior hysterectomy. She denies chest pain or shortness of breath. She denies racing heart. [facility] Medical History (Updated 09/23/24 @ 12:[address] Latrice Magaña, ) Personal history of colonic polyps Anxiety Bipolar 1 disorder Contact with and (suspected) exposure to other viral communicable diseases URI (upper respiratory infection) Thyroid disease Arthritis HTN (hypertension) Home Medications ?Medication ?Instructions ?Recorded ?Last Taken ?Type levothyroxine 200 mcg tablet 200 mcg PO DAILY 05/13/23 Unknown History levothyroxine 25 mcg tablet 25 mcg PO DAILY 05/13/23 U nknown History metoprolol tartrate 25 mg tablet 25 mg PO BID 09/19/23 Unknown History acetaminophen 500 mg tablet 550 mg PO .Q8hr PRN fever or pain 09/21/23 Unknown History propranolol 20 mg tablet 20 mg PO BID 09/21/23 Unknow n History amlodipine 5 mg tablet 5 mg PO QDAY 11/07/23 Unknow n History divalproex 500 mg tablet,extended 1,500 mg (3 x 500 mg ) PO DAILY #90 05/08/24 Unknown Rx release 24 hr tabs etodolac 500 mg tablet 500 mg PO BID 05/13/24 Unkno wn History losartan 100 mg tablet 100 mg PO QDAY 05/13/24 Unkn own History buspirone 7.5 mg tablet 7.5 mg PO TID #270 tabs 07/03 09/23 Unknown Rx venlafaxine 225 mg tablet,extended 225 mg PO QHS #90 t abs 07/24/24 Unknown Rx release 24 hr omeprazole 40 mg capsule,delayed 40 mg PO QDAY #60 cap s 09/05/24 Unknown Rx release ondansetron 4 mg disintegrating 4 mg PO Q8H #20 tabs 0 09/05/24 Unknown Rx tablet Allergy/AdvReac Type Severity Reaction Status Date / Time adhesive tape Allergy Mild Rash Verified 09/23/24 10:15 Family History (Updated 05/13/24 @ 08:10 by Hoa Norris) Mother Colon polyps Hypertension Other CVA (cerebral vascular accident) Cancer Melanoma Skin cancer Surgical History Hx of colonoscopy Hx of thyroidectomy Hx of oophorectomy Hx of tonsillectomy History of cholecystectomy Social History (Updated 09/05/24 @ 15:49 by Bela Euceda LPN) household members: spouse current occupational status: employed and disabled Smoking Status: Former smoker Electronic Cigarette Use: not used second hand exposure: Yes alcohol intake: current details: only around the holidays substance use type: does not use what type of physical activity do you participate in: walking ROS ROS ED Review of Systems ROS Unobtainable: other Constitutional Constitutional ED: Reports lethargy, sweats and other; Denies chills, fever(s) or weight loss Eyes Eyes: Denies blurry vision, change in vision or diplopia ENT ENT ED: Denies rhinorrhea or sore throat Cardiovascular Cardiovascular: Denies chest pain, orthopnea or racing heartbeat Respiratory/Chest Respiratory/Chest: Reports dyspnea; Denies cough, dyspnea on exertion, orthopnea or sputum Gastrointestinal Gastrointestinal: Denies abdominal pain, diarrhea, nausea or vomiting Genitourinary Genitourinary ED: Denies dysuria, hematuria or urinary frequency Musculoskeletal Musculoskeletal: Denies arthralgias, back pain, myalgias or neck pain Integumentary Denies abscess, Abrasions or rash Neurologic Neurologic: Reports other Details: Dizziness ; Denies headache(s) or weakness Psychiatric Psychiatric: Denies anxiety, depression or suicidal thoughts Endocrine Endocrinology: Denies polydipsia, polyphagia or polyuria Hematologic/Lymphatic Hematologic/Lymphatic: Denies easy bleeding, easy bruising or lymphadenopathy Allergic/Immunologic Allergic/Immunologic ED: Denies mouth swelling, tongue swelling or urticaria EXAM Physical Exam Const Vital Signs: 09/23/24 10:12 09/23/24 11:02 09/23/24 12:12 Temperature 97.2 F L Temperature Source Temporal Pulse Rate 112 H 75 Pulse Rate [Lying] 93 Pulse Rate [Sitting (for 1 minute prior to obtaining)] 106 H Pulse Rate [Standing (for 1 minute prior to obtaining)] 150 H Respiratory Rate 17 18 Blood Pressure 123/98 H 128/81 H Blood Pressure [Lying] 120/76 Blood Pressure [Sitting (for 1 minute prior to obtaining)] 165/116 H Blood Pressure [Standing (for 1 minute prior to obtaining)] 165/128 H Blood Pressure Mean 106 96 Blood Pressure Mean [Lying] 90 Blood Pressure Mean [Sitting (for 1 minute prior to obtaining)] 132 Blood Pressure Mean [Standing (for 1 minute prior to obtaining)] 140 Pulse Ox 100 100 Oxygen Delivery Method Room Air Room Air 09/23/24 12:49 Temperature 98.5 F Temperature Source Oral Pulse Rate 77 Pulse Rate [Lying] Pulse Rate [Sitting (for 1 minute prior to obtaining)] Pulse Rate [Standing (for 1 minute prior to obtaining)] Respiratory Rate 17 Blood Pressure 129/90 H Blood Pressure [Lying] Blood Pressure [Sitting (for 1 minute prior to obtaining)] Blood Pressure [Standing (for 1 minute prior to obtaining)] Blood Pressure Mean 103 Blood Pressure Mean [Lying] Blood Pressure Mean [Sitting (for 1 minute prior to obtaining)] Blood Pressure Mean [Standing (for 1 minute prior to obtaining)] Pulse Ox 100 Oxygen Delivery Method Room Air MDM MDM MDM Narrative Medical decision making narrative: Patient presents with episode of dizziness and feeling well and feeling present. In the differential would be vasovagal episode versus possible exposure to chemical. Anxiety also in the differential as she has a history of this. IV line will be established. She will be given a liters of normal saline fluid bolus. Orthostatic vital signs will be obtained. Basic labs and EKG will be obtained. EKG obtained arrival showed a sinus rhythm with ventricular rate of 97 bpm with no acute ST segment changes. CBC with differential showed a normal white count 6.1 with hemoglobin 13.4 and platelet count of 177. Chemistries unremarkable. BUN 13 and creatinine 0.98. Patient did have orthostatic vital signs obtained in her blood pressure did not drop and her heart rate did increase to the 150s with standing so she was given a liter normal same fluid bolus. Patient on repeat examination at 1223 feels markedly improved. I will ambulate her. I suspect she may have had a vasovagal episode. Also has history of anxiety. I feel she can be safely discharged to home. Recommended pushing fluids today and resting and follow-up with primary care physician within next 3 to 5 days. Just prior to discharge initially she was ambulated and ambulated she sat down and started feeling flushed again and lightheaded. I did obtain a D-dimer and a troponin which both were normal. We gave her a second liter of fluid. On repeat exam she is feeling well. I feel she can be discharged to home. Advised to return if persistent symptoms or condition worsen anyway. Lab Data Attestation: I reviewed the patient's lab results. Labs: Laboratory Results - last 24 hr 09/23/24 09/23/24 11:01 12:50 WBC 6.1 RBC 4.35 Hgb 13.4 Hct 40.8 MCV 93.8 MCH 30.8 MCHC 32.8 RDW Std Deviation 45.5 H RDW Coeff of Amandeep 13.2 Plt Count 177 MPV 11.6 Immature Gran % (Auto) 0.300 Neut % (Auto) 60.0 Lymph % (Auto) 31.6 [place] % (Auto) 6.7 Eos % (Auto) 0.7 Baso % (Auto) 0.7 Absolute Neuts (auto) 3.7 Absolute Lymphs (auto) 1.93 Nucleated RBC % 0 D-Dimer Quant (PE/DVT) < 0.27 L Sodium 142 Potassium 4.0 Chloride 105 Carbon Dioxide 24.7 Anion Gap 12 BUN 13 Creatinine 0.98 Estim Creat Clear Calc 105.51 Est GFR (MDRD) Non-Af 72 BUN/Creatinine Ratio 13.4 Glucose 83 Calcium 7.7 Troponin T High Sens 8 EKG Initial EKG: Attestation: I personally reviewed and interpreted this EKG as follows: Comments: Sinus rhythm with ventricular rate of 97 bpm with no acute ST segment changes Discharge Plan Triage Chief Complaint: Dizziness ED Provider: Latrice Magaña Dx/Rx/DC Orders Clinical Impression: Near syncope, Vasovagal episode, Anxiety Instructions: ED Anxiety Reaction, ED Near-Fainting- Vagal Reaction Prescriptions: No Action metoprolol tartrate 25 mg tablet 25 mg PO BID propranolol 20 mg tablet 20 mg PO BID acetaminophen 500 mg tablet 550 mg PO .Q8hr PRN (Reason: fever or pain) amlodipine 5 mg tablet 5 mg PO QDAY divalproex 500 mg tablet extended release 24 hr 1,500 mg PO DAILY Qty: 90 2RF losartan 100 mg tablet 100 mg PO QDAY etodolac 500 mg tablet 500 mg PO BID buspirone 7.5 mg tablet 7.5 mg PO TID Qty: 270 1RF venlafaxine 225 mg tablet extended release 24hr 225 mg PO QHS Qty: 90 1RF omeprazole 40 mg capsule,delayed release(DR/EC) 40 mg PO QDAY Qty: 60 1RF ondansetron 4 mg tablet,disintegrating 4 mg PO Q8H Qty: 20 1RF levothyroxine 200 mcg tablet 200 mcg PO DAILY levothyroxine 25 mcg tablet 25 mcg PO DAILY Primary Care Provider: Dionisio Fortune Chi Referrals: Dionisio Fortune Chi, MD [Primary Care Provider] - 3-5 Days Print Language: French Disposition Disposition: Home, Self Care
[2024-09-23 11:02] VITALS: BP 120/76; BP 165/116; BP 165/128; PULSE 106; PULSE 150; PULSE 93
[2024-09-23] MEDS: 0.9% Normal Saline (1000mL) 1,000 ML 1000 ML IV (11:07)
[2024-09-23 11:20] LABS: Absolute Lymphocyte Count 1.93 X10^3/uL (0.83-4.51); Absolute Neutrophil Count 3.7 X10^3/uL (2.0-7.7); Basophil# 0.04 X10^3/uL; Basophil% 0.7 % (0-1); Eosinophil# 0.04 X10^3/uL; Eosinophils% 0.7 % (0-5); Hematocrit 40.8 % (37-47); Hemoglobin 13.4 g/dL (12.0-15.0); Lymphocyte # 1.93 X10^3/ul (0.83-4.51); Lymphocyte % 31.6 % (19-41); Mean Corp Hgb Conc 32.8 g/dL (32-36); Mean Corpuscular Hgb 30.8 pg (27.0-32.0); Mean Corpuscular Volume 93.8 fL (81-99); Mean Platelet Vol. 11.6 fl (6.2-12.0); Monocyte# 0.41 X10^3/uL; Monocyte% 6.7 % (0-10); NRBC Flagged by Analyzer 0 % (0-5); Neutrophil # 3.67 X10^3/uL (2.7-7.7); Platelet Count 177 K/mm3 (150-450); RBC Distribution Width CV 13.2 % (11.6-14.6); RBC Distribution Width SD 45.5 fl (35.1-43.9); Red Blood Count 4.35 M/mm3 (4.2-5.4); White Blood Count 6.1 K/mm3 (4.4-11.0)
[2024-09-23 11:53] LABS: Anion Gap 12 (5-15); BUN 13 mg/dL (4-19); BUN/Creat Ratio 13.4 RATIO (10-20); Calcium,Total 7.7 mg/dL (7.6-11.0); Carbon Dioxide 24.7 mmol/L (21.0-32.0); Chloride 105 mmol/L (98-108); Creatinine, Serum 0.98 mg/dL (0.70-1.20); EST Glomerular Filtration Rate 72 (>60); Estimated Creatinine Clearance 105.51 ml/min (50-250); Glucose 83 mg/dL (70-99); Sodium Level 142 mmol/L (133-145)
[2024-09-23 12:12] VITALS: BP 128/81; PULSE 75; RESP 18; O2SAT 100
[2024-09-23] MEDS: 0.9% Normal Saline (1000mL) 1,000 ML 999 ML IV (12:38)
--- NOTE | 2024-09-23 12:47 | NURSING ---
pt amb and felt fine during amb and when sat up initially but when returned to room got flushed and c/o feeling hot again like did when came in to be seen initially pt back in bed and new orders in per dr. wing.
[2024-09-23 12:49] VITALS: BP 129/90; PULSE 77; RESP 17; TEMP 36.9; O2SAT 100
[2024-09-23 13:13] LABS: Troponin T High Sensitivity 8 ng/L (<=14)
[2024-09-23 13:27] LABS: D-Dimer Quantitative (DVT/PE) < 0.27 FEU/ug/m (0.27-0.49)
[2024-09-23 14:00] VITALS: BP 124/90; PULSE 77; RESP 19; O2SAT 100
[2024-09-23 14:06] VITALS: BP 124/90; PULSE 77; RESP 19; TEMP 36.6; O2SAT 100
== END 2024-09-23 14:06 | disposition home or self-care (01) ==
PROVIDERS: Emergency Provider Emergency Medicine; PCP Family Medicine Geriatric Medicine; Visit Provider Emergency Medicine
DX: R55 Syncope and collapse (principal); F31.9 Bipolar disorder, unspecified; F41.9 Anxiety disorder, unspecified; I10 Essential (primary) hypertension; Z79.899 Other long term (current) drug therapy; Z87.891 Personal history of nicotine dependence
CPT/HCPCS: 80048; 84484; 85025; 85379; 93005; 96360; 96361; 99285; A4216

== ENCOUNTER → 2024-10-02 | Outpatient (CLI) | payer MEDICAID, SELFPAY ==
--- NOTE | 2024-10-02 11:57 | NM_ITS ---
PROCEDURE: GASTRIC EMPTYING STUDY 10/02/2024 REASON FOR EXAM: NAUSEA COMPARISON: None. TECHNIQUE: The patient ingested a standard meal of 1.2 mCi of sulfur colloid mixed with oatmeal and water. . There was no vomiting postprandially. Anterior and posterior planar images of the upper abdomen were obtained for 1 minute immediately following the meal at 1h, 2h and 4h if more than 10% of the activity persisted within the stomach. Regions of interest were drawn, and a geometric mean was used to calculate a [id number]-[id number]. RADIOPHARMACEUTICAL: 1.2 mCi of technetium labeled sulfur colloid. FINDINGS: Percent activity remaining in stomach: 1 hour 91 % (normal 37-90%) NM/Gastric Emptying Study IMPRESSION: Normal gastric emptying study. Reading Location: [place] [id number]
== END | disposition home or self-care (01) ==
LOC: NM 11:57
PROVIDERS: PCP Family Medicine Geriatric Medicine; Referring Provider Student in an Organized Health Care Education/Training Program; Visit Provider Student in an Organized Health Care Education/Training Program
DX: R11.0 Nausea (principal)
CPT/HCPCS: 78264; A9541

== ENCOUNTER → 2024-11-20 | Outpatient (CLI) | payer MEDICAID, SELFPAY ==
[2024-11-20 16:14] LABS: Absolute Lymphocyte Count 2.46 X10^3/uL (0.83-4.51); Absolute Neutrophil Count 2.9 X10^3/uL (2.0-7.7); Basophil# 0.05 X10^3/uL; Basophil% 0.8 % (0-1); Eosinophil# 0.14 X10^3/uL; Eosinophils% 2.3 % (0-5); Hematocrit 41.2 % (37-47); Hemoglobin 13.5 g/dL (12.0-15.0); Lymphocyte # 2.46 X10^3/ul (0.83-4.51); Lymphocyte % 41.1 % (19-41); Mean Corp Hgb Conc 32.8 g/dL (32-36); Mean Corpuscular Hgb 30.8 pg (27.0-32.0); Mean Corpuscular Volume 94.1 fL (81-99); Mean Platelet Vol. 11.4 fl (6.2-12.0); Monocyte# 0.41 X10^3/uL; Monocyte% 6.9 % (0-10); NRBC Flagged by Analyzer 0 % (0-5); Neutrophil # 2.89 X10^3/uL (2.7-7.7); Neutrophil % 48.4 % (47-70); Platelet Count 196 K/mm3 (150-450); RBC Distribution Width CV 13.8 % (11.6-14.6); RBC Distribution Width SD 47.5 fl (35.1-43.9); Red Blood Count 4.38 M/mm3 (4.2-5.4)
[2024-11-20 17:01] LABS: ALB/GLOB Ratio 1.4 RATIO (0.9-2.4); AST(SGOT) 27 U/L (<=31); Alanine Aminotransfer ALT/SGPT 16 U/L (<=34); Albumin, Serum 4.2 g/dL (3.5-5.0); Alkaline Phosphatase 68 U/L (35-104); Anion Gap 12 (5-15); BUN 11 mg/dL (4-19); BUN/Creat Ratio 14.2 RATIO (10-20); Calcium,Total 9.4 mg/dL (7.6-11.0); Carbon Dioxide 23.8 mmol/L (21.0-32.0); Chloride 105 mmol/L (98-108); Cholesterol 226 mg/dL (<=200); EST Glomerular Filtration Rate 92 (>60); Glucose 75 mg/dL (70-99); High Density Lipoprotein 43 mg/dL; Low Density Lipoprotein Calc. 119 mg/dL; Potassium 4.1 mmol/L (3.3-5.1); Protein, Total 7.2 g/dL (5.9-8.4); Sodium Level 141 mmol/L (133-145); Total Bilirubin 0.41 mg/dL (0.00-1.30); Triglycerides 322 mg/dL; Very Low Density Lipoprotein 64 mg/dL (5-40); cholesterol:hdl ratio screen 5.28
== END | disposition home or self-care (01) ==
LOC: LAB 13:24
PROVIDERS: PCP Family Medicine Geriatric Medicine; Referring Provider Family Medicine Geriatric Medicine; Visit Provider Family Medicine Geriatric Medicine
DX: I10 Essential (primary) hypertension (principal); E78.5 Hyperlipidemia, unspecified
CPT/HCPCS: 36415; 80053; 80061; 84443; 85025

== ENCOUNTER 2024-11-21 12:16 | Day surgery (SDC) | payer MEDICAID, SELFPAY ==
[2024-11-21] VITALS (8 sets, daily range): BP systolic 121–141; BP diastolic 62–86; PULSE 64–81; RESP 16–17; TEMP 36.1–36.4; O2SAT 99–100; BMI 47.3
--- NOTE | 2024-11-21 12:40 | HP.PCM_ITS ---
HPI - General General Date of Admission: 11/21/24 Date of Service: 11/21/24 Chief Complaint: nausea, constipation, and diarrhea HPI Narrative FRANKIE MCKINNEY, is a 48 F who presents with nausea, constipation, and diarrhea Over the past few years pt has had issues with constipation alternating with diarrhea. She will go 7 days without a bm and then have diarrhea 2x per day for a few days. She has not tried any medications for her constipation. When she has the constipation she has some rectal bleeding. Her last colonoscopy was a few years ago with polyps. She is due for colonoscopy at this time. For 9 months now, she has had daily nausea but no vomiting. Her nausea typically lasts the entire day. It is not related to when she eats. She is having some abd pain associated with the nausea. [facility] Medical History No natural teeth Bipolar disorder Depression Hypothyroid Fatty liver Former smoker Post-menopausal Personal history of colonic polyps Anxiety Bipolar 1 disorder Contact with and (suspected) exposure to other viral communicable diseases URI (upper respiratory infection) Thyroid disease Arthritis HTN (hypertension) Home Medications ?Medication ?Instructions ?Recorded ?Last Taken ?Type levothyroxine 200 mcg tablet 200 mcg PO DAILY 05/13/23 Unknown History levothyroxine 25 mcg tablet 25 mcg PO DAILY 05/13/23 U nknown History acetaminophen 500 mg tablet 500 mg PO Q6H PRN fever or pain 09/21/23 Unknown History propranolol 20 mg tablet 20 mg PO BID 09/21/23 Unknow n History amlodipine 5 mg tablet 5 mg PO QDAY 11/07/23 Unknow n History buspirone 7.5 mg tablet 7.5 mg PO TID #270 tabs 10/30 10/24 Unknown Rx divalproex 500 mg tablet,extended 1,500 mg (3 x 500 mg ) PO DAILY #90 11/12/24 Unknown Rx release 24 hr tabs venlafaxine 225 mg tablet,extended 225 mg PO QHS #90 t abs 11/12/24 Unknown Rx release 24 hr Allergy/AdvReac Type Severity Reaction Status Date / Time adhesive tape Allergy Mild Rash Verified 11/20/24 12:09 Family History Mother Colon polyps Hypertension Other CVA (cerebral vascular accident) Cancer Melanoma Skin cancer Surgical History History of hysterectomy Hx of colonoscopy Hx of thyroidectomy Hx of oophorectomy Hx of tonsillectomy History of cholecystectomy Social History household members: spouse current occupational status: employed and disabled Smoking Status: Former smoker Electronic Cigarette Use: not used second hand exposure: Yes alcohol intake: current details: only around the holidays substance use type: does not use what type of physical activity do you participate in: walking ROS Constitutional Constitutional: Denies fatigue, fever(s), poor appetite, weight gain or weight loss Gastrointestinal Gastrointestinal: Denies belching, bloating, change in bowel habits, change in stool character, chewing difficulty, coffee ground emesis, constipation, crampi ng, diarrhea, dyspepsia, dysphagia, early satiety, excessive flatus, fecal incontinence, heartburn, hematemesis, hematochezia, hemorrhoids, loose stools, melena, nausea, odynophagia, rectal bleeding, tenesmus, vomiting or weight changes Physical Exam Const alert, oriented x3, no apparent distress and healthy appearing General Appearance: cooperative GI normal to inspection, nondistended, normoactive bowel sounds, soft to palpation, non-tender and non-distended Percussion: normal to percussion Rectal Exam: deferred Assessment & Plan Assessment/Plan (1) Abdominal pain: (2) Constipation: (3) Nausea: (4) Encounter for screening for malignant neoplasm of colon: PLAN: Assessment and Plan Assessment and Plan (1) Nausea: Status: Acute Plan: This is a 48 yo female pt here today for evaluation of nausea, abd pain, constipation and diarrhea. Her symptoms have been ongoing for a few years but over the past 9 months have been worse. Last colonoscopy was a few years ago with polyps. She will undergo colonoscopy and EGD as soon as she is able. In the mean time, I will order GES to rule out delayed gastric emptying leading to nausea. SHe will take omeprazole 40 mg daily and Zofran PRN. For her constipation, she will take miralax daily. We will consider tx with Linzess in future. She will f/u after procedure or before if needed. -Colonoscopy and EGD -Start PPI -Zofran PRN -Miralax daily -f/u after procedure (2) Constipation: Status: Acute (3) Abdominal pain: Status: Acute Orders: Orders Gastric Emptying Study Today R11.0 - Nausea Medications: New omeprazole 40 mg PO QDAY 60 caps 1RF ondansetron 4 mg PO Q8H 20 tabs 1RF
--- NOTE | 2024-11-21 12:49 | PRE.ANES_ITS ---
ASA Classification* ASA Classification ASA Classification: 2 Assessment & Plan Anesthesia* Anesthesia Assessment Anesthesia Assessment: Discussed sedation and/or anesthesia options, risks, benefits, and alternatives with patient/parents/legal guardian/POA. Questions invited. The patient/parents/legal guardian/POA seems to understand and agrees to proceed with anesthesia plan. Reviewed the physical assessment, medical history, allergy history and patient home medications list prior to surgery/procedure/anesthetic and documented any changes. Performed airway and anesthesia risk assessments. Anesthesia Type Anesthesia Type: MAC Anesthesia Focused Assessment* Airway Assessment Mouth opens: >3 cm Mallampati Score: II Focused Labs Anesthesia Preop lab: CBC WBC 6.0 K/mm3 (4.4-11.0) 11/20/24 13:11/20/24 RBC 4.38 M/mm3 (4.2-5.4) 11/20/24 13:11/20/24 Hgb 13.5 g/dL (12.0-15.0) 11/20/24 13:11/20/24 Hct 41.2 % (37-47) 11/20/24 13:11/20/24 Plt Count 196 K/mm3 (150-450) 11/20/24 13:11/20/24 CHEMISTRY Potassium 4.1 mmol/L (3.3-5.1) 11/20/24 13:31 11/20/24 Sodium 141 mmol/L (133-145) 11/20/24 13:31 11/20/24 BUN 11 mg/dL (4-19) 11/20/24 13:11/20/24 Creatinine 0.80 mg/dL (0.70-1.20) 11/20/24 13:11/20/24 Glucose 75 mg/dL (70-99) 11/20/24 13:11/20/24 TSH 46.000 uIU/mL (0.300-4.200) H 11/20/24 13:31 0 11/20/24 COAG PT 13.0 SECONDS (11.7-14.9) 12/29/22 08:30 Pre-Assessment Diagnosis/Proposed Procedure Planned Operative Procedure(s): EGD, CSCOPE Anesthesia History Anesthesia History - utilization management um nurse: Anesthesia History - utilization management um nurse Hx Hospitalization No 11/20/24 12:11 Any Problems With Anesthesia No 11/20/24 12:11 Cholinesterase deficiency No 11/20/24 12:11 You/Your Family Experience No 11/20/24 12:11 fever (hyperthermia) with Relationship Recent Exposure to Contagious Disease Does patient have nerve No 11/20/24 12:11 stimulator Patient instructed to have device shut off --Does patient have Pacemaker or ICD? When Was Last Pacemaker Check QUESTION #4 FULL TEXT: You/Your Family Experience fever (hyperthermia) with Anesthesia Last Oral Intake Last Oral intake: Last Oral Intake NPO since Meds taken in AM with sips of water? Meds patient instructed to take am of surgery PONV PONV - utilization management um nurse: PONV - utilization management um nurse Female Yes 11/20/24 12:11 HX of Motion Sickness No 11/20/24 12:11 HX of N/V After Surgery No 11/20/24 12:11 Non-Smoker Yes 11/20/24 12:11 Duration of Surgery greater No 11/20/24 12:11 than 60 minutes Number of Risk Factors 2 11/20/24 12:11 PONV Score Moderate Risk 11/20/24 12:11 Height & Weight Height & Weight: Anesthesia: Height & Weight Height 5 ft 10 in 11/12/24 15:54 Respiratory Assessment Respiratory Assessment - utilization management um nurse: Respiratory Tract Infection Hx - utilization management um nurse Hx Respiratory Tract Infection No 11/20/24 12:11 STOP Sleep Apnea STOP Sleep Apnea - utilization management um nurse: STOP Sleep Apnea - utilization management um nurse Hx Hypertension Yes: CONTROLLED WITH MED 11/20/24 12:11 Hx Sleep Apnea No 11/20/24 12:11 CPAP BIPAP Do you snore loudly (louder No 11/20/24 12:11 than talking or can be heard Do you often feel tired/ No 11/20/24 12:11 fatigued/ sleepy during daytime? Has anyone observed you stop No 11/20/24 12:11 breathing during sleep? STOP Results Negative 11/20/24 12:11 QUESTION #5 FULL TEXT : Do you snore loudly (louder than talking or can be heard through closed doors)? 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 Specify any problems Hx of Preganancy in last 3 N/A 11/20/24 12:11 Months Nurse Filling Out Transfusion NBUCHER 11/20/24 12:11 & Questions: Date: 11/20/24 11/20/24 12:11 Time: 12:12 11/20/24 12:11 Patient unable to answer at this time (ie. confused, unrespo /Reproduction History /Reproductive History - utilization management um nurse: /Reproductive Hx- utilization management um nurse Hx Now No 11/20/24 12:11 Gestational Age (in weeks): EDC: Hx Hx Para Hx Section SAB No 11/20/24 12:11 Active Medications Active Medications: Current Medications Generic Name Dose Route Start Last Admin Trade Name Freq PRN Reason Stop Dose Admin Lactated Ringer's 1,000 mls @ 15 mls/hr 11/21/24 12:45 IV .Q48H OLENA PFSH Medical History No natural teeth Bipolar disorder Depression Hypothyroid Fatty liver Former smoker Post-menopausal Personal history of colonic polyps Anxiety Bipolar 1 disorder Contact with and (suspected) exposure to other viral communicable diseases URI (upper respiratory infection) Thyroid disease Arthritis HTN (hypertension) Home Medications ?Medication ?Instructions ?Recorded ?Last Taken ?Type levothyroxine 200 mcg tablet 200 mcg PO DAILY 05/13/23 Unknown History levothyroxine 25 mcg tablet 25 mcg PO DAILY 05/13/23 U nknown History acetaminophen 500 mg tablet 500 mg PO Q6H PRN fever or pain 09/21/23 Unknown History propranolol 20 mg tablet 20 mg PO BID 09/21/23 Unknow n History amlodipine 5 mg tablet 5 mg PO QDAY 11/07/23 Unknow n History buspirone 7.5 mg tablet 7.5 mg PO TID #270 tabs 10/30 10/24 Unknown Rx divalproex 500 mg tablet,extended 1,500 mg (3 x 500 mg ) PO DAILY #90 11/12/24 Unknown Rx release 24 hr tabs venlafaxine 225 mg tablet,extended 225 mg PO QHS #90 t abs 11/12/24 Unknown Rx release 24 hr Allergy/AdvReac Type Severity Reaction Status Date / Time adhesive tape Allergy Mild Rash Verified 11/20/24 12:09 Family History Mother Colon polyps Hypertension Other CVA (cerebral vascular accident) Cancer Melanoma Skin cancer Surgical History History of hysterectomy Hx of colonoscopy Hx of thyroidectomy Hx of oophorectomy Hx of tonsillectomy History of cholecystectomy Social History household members: spouse current occupational status: employed and disabled Smoking Status: Former smoker Electronic Cigarette Use: not used second hand exposure: Yes alcohol intake: current details: only around the holidays substance use type: does not use what type of physical activity do you participate in: walking Review of Systems (Anesthesia) ROS Narrative System reviewed and no additional complaints, except as documented.
[2024-11-21] MEDS: Lactated Ringers 1,000 ML 15 ML IV (12:52)
--- NOTE | 2024-11-21 13:30 | EGD_PTH ---
PATIENT: FRANKIE MCKINNEY LOC: EN U#:[id number] AGE/SX: 48/F ROOM: RE11/21/[address]: Dr. Dwain Pedraza DO : 1975 BED: DIS: 11/21/2024 SPEC #: [id number] RECD: 11/21/24 16:58 STATUS: MOOK REAshley #: [id number] MEHRDAD: 11/21/24 13:[address]: Dwain Pedraza DEPT: SURGICAL PATHOLOGY RECD BY: Pedro Luis Llanos ENTERED: 11/25/24 08:37 SP TYPE: EGD BIOPSY OT DR: Dr. Dionisio Fortune MD Tissues: A - Esophagus, NOS B - Gastric mucous membrane C - Duodenum, NOS D - Ileum, NOS E - COLON BIOPSY Procedures: Immunohistochemical Stains Surgery Specimen Level IV HEADER OPERATION: Colonoscopy, EGD, biopsy PRE-OP DIAGNOSIS: Abdominal pain, constipation, nausea, encounter for screening for malignant neoplasm of colon TISSUE SUBMITTED: A- Distal esophagus biopsy, B- Gastric body biopsy, C- Duodenum biopsy, D- Terminal ileum biopsy, E- Random colon biopsy MICROSCOPIC DIAGNOSIS A. Esophagus, distal, biopsy: Columnar mucosa, negative for goblet cell metaplasia. No squamous mucosa seen. B. Stomach, gastric body, biopsy: Oxyntic mucosa with features of reactive gastropathy. IHC negative for H.pylori organisms. C. Small bowel, duodenum, biopsy: Normal villous architecture. Negative for increased intraepithelial lymphocytes. D. Small bowel, terminal ileum, biopsy: Normal villous architecture with mucosal lymphoid aggregates, favor reactive. E. Colon, random, biopsy: No specific pathologic change. The histologic features of microscopic colitis are not demonstrated. MICROSCOPIC DESCRIPTION Slides are reviewed. All matched controls reacted appropriately. These tests were developed and their performance characteristics determined by [facility]. They may not have been cleared or approved by the U.S. Food and Drug Administration. The FDA has determined that such clearance or approval is not necessary. The above immunohistochemical/dualISH markers are ordered and reviewed by the Pathologist. GROSS DESCRIPTION A. Received in formalin in a container labeled with the patient's name, date of , and distal esophagus are 2 lozano-pink fragments of mucosal tissue measuring 0.3 x 0.2 x 0.2 cm and 0.5 x 0.3 x 0.2 cm. Submitted in toto in A1. B. Received in formalin in a container labeled with the patient's name, date of , and gastric body for H. pylori and path are 2 lozano-pink fragments of mucosal tissue measuring 0.3 x 0.2 x 0.2 cm and 0.7 x 0.2 x 0.2 cm. Submitted in toto in B1. C. Received in formalin in a container labeled with the patient's name, date of , and duodenum is a 0.5 x 0.3 x 0.2 cm fragment of lozano-pink mucosal tissue. Submitted in toto in C1. D. Received in formalin in a container labeled with the patient's name, date of , and terminal ileum biopsy is a 0.6 x 0.3 x 0.2 cm fragment of lozano-pink mucosal tissue. Submitted in toto in D1. E. Received in formalin in a container labeled with the patient's name, date of , and random colon biopsy are multiple lozano-pink fragments of mucosal tissue measuring 1.1 x 0.7 x 0.2 cm in aggregate. Submitted in toto in E1. [facility] 11-25-2024 CPT:38783l7,95360
--- NOTE | 2024-11-21 14:13 | PCM.POST.ANE ---
Anesthesia: Postop Eval I Current Vital Signs Temperature: 97.1 F Pulse Rate: 72 Blood Pressure: 127/62 Respiratory Rate: 16 Pulse Ox: 99 Oxygen Delivery Method: Room Air Assessment Airway patent: Yes Spontaneous unlabored respirations: Yes Mental status: Awake and Calm nausea: No Vomiting: No Anesthesia Complication: No Fluid Hydration Crystalloid volume administer (ml): 300 Total IV fluid infused: 300 Progress Note Anesthesia document: Postop Eval 1 completed: Yes
--- NOTE | 2024-11-21 14:22 | OP.CCLET_ITS ---
11/21/2024 Dionisio Fortune MD [address] [place] [address] Re : [facility] Fortune This procedure was performed on Thursday, November 21, 2024. My impressions and recommendations are as follows: Impressions : - Z-line irregular, 40 cm from the incisors. Biopsied. - Chronic gastritis. Biopsied. - Chronic duodenitis. Biopsied. Recommendations : - Discharge patient to home. - Resume previous diet. - Continue present medications. - Await pathology results. My findings are described in the full procedure note, which is enclosed. If I can be of further assistance, please feel free to contact me at . Sincerely, Dwain Friend, 11/21/2024 2:21:30 PM This report has been signed electronically.
--- NOTE | 2024-11-21 14:22 | OP.EGD_ITS ---
Patient Name: Meredith Ga Procedure Date: 11/21/2024 1:37 PM Date of : 1975 Age: 48 Procedure: Upper GI endoscopy Indications: Epigastric abdominal pain, Dysphagia, Heartburn Providers: Dwain Pedraza DO Medicines: Monitored Anesthesia Care Patient Profile: Refer to note in patient chart for documentation of history and physical. Patient has symptoms. Complications: No immediate complications. Procedure: Pre-Anesthesia Assessment: - Prior to the procedure, a History and Physical was performed, and patient medications and allergies were reviewed. The patient is competent. The risks and benefits of the procedure and the sedation options and risks were discussed with the patient. All questions were answered and informed consent was obtained. Patient identification and proposed procedure were verified by the physician in the pre-procedure area. Mental Status Examination: alert and oriented. Airway Examination: normal oropharyngeal airway and neck mobility. Respiratory Examination: clear to auscultation. CV Examination: normal. Prophylactic Antibiotics: The patient does not require prophylactic antibiotics. Prior Anticoagulants: The patient has taken no anticoagulant or antiplatelet agents. ASA Grade Assessment: II - A patient with mild systemic disease. After reviewing the risks and benefits, the patient was deemed in satisfactory condition to undergo the procedure. The anesthesia plan was to use monitored anesthesia care (MAC). Immediately prior to administration of medications, the patient was re-assessed for adequacy to receive sedatives. The heart rate, respiratory rate, oxygen saturations, blood pressure, adequacy of pulmonary ventilation, and response to care were monitored throughout the procedure. The physical status of the patient was re-assessed after the procedure. After obtaining informed consent, the endoscope was passed under direct vision. Throughout the procedure, the patient's blood pressure, pulse, and oxygen saturations were monitored continuously. The pediatric colonoscope was introduced through the mouth, and advanced to the third part of the duodenum. Small bowel enteroscopy was deemed necessary. The upper GI endoscopy was accomplished without difficulty. Scope In: 1:51:45 PM Scope Out: 1:55:50 PM Total Procedure Duration Time 0 hours 4 minutes 5 seconds Findings: The Z-line was irregular and was found 40 cm from the incisors. Biopsies were taken with a cold forceps for histology. Verification of patient identification for the specimen was done. Estimated blood loss was minimal. Segmental mild inflammation characterized by erosions and erythema was found in the gastric body. Biopsies were taken with a cold forceps for Helicobacter pylori testing. Biopsies were taken with a cold forceps for histology. Biopsies were taken with a cold forceps for histology. Verification of patient identification for the specimen was done. Estimated blood loss was minimal. Patchy mild inflammation characterized by erythema and granularity was found in the entire duodenum. Biopsies were taken with a cold forceps for histology. Verification of patient identification for the specimen was done. Estimated blood loss was minimal. Impression: - Z-line irregular, 40 cm from the incisors. Biopsied. - Chronic gastritis. Biopsied. - Chronic duodenitis. Biopsied. Recommendation: - Discharge patient to home. - Resume previous diet. - Continue present medications. - Await pathology results. Procedure Code(s): --- Professional --- 47942, Small intestinal endoscopy, enteroscopy beyond second portion of duodenum, not including ileum; with biopsy, single or multiple CPT copyright 2021 [employer]. All rights reserved. The codes documented in this report are preliminary and upon put in beat adjuster review may be revised to meet current compliance requirements. Dwain Pedraza DO 11/21/2024 2:21:30 PM This report has been signed electronically. Number of Addenda: 0 Note Initiated On: 11/21/2024 1:37 PM
--- NOTE | 2024-11-21 14:27 | OP.CCLET_ITS ---
11/21/2024 Dionisio Fortune MD [address] [place] [address] Re : Colonoscopy procedure for Meredith Ga Dear Dr. Fortune This procedure was performed on Thursday, November 21, 2024. My impressions and recommendations are as follows: Impressions : - Congested mucosa in the recto-sigmoid colon, in the sigmoid colon, in the descending colon and at the splenic flexure. Biopsied. - Diverticulosis in the recto-sigmoid colon, in the sigmoid colon and in the descending colon. - The examined portion of the ileum was normal. Biopsied. Recommendations : - Discharge patient to home. - Resume previous diet. - Continue present medications. - Await pathology results. - Repeat colonoscopy in 5 years for surveillance. My findings are described in the full procedure note, which is enclosed. If I can be of further assistance, please feel free to contact me at . Sincerely, Dwain Pedraza, 11/21/2024 2:27:25 PM This report has been signed electronically.
--- NOTE | 2024-11-21 14:27 | OP.COLON_ITS ---
Patient Name: Meredith Ga Procedure Date: 11/21/2024 1:56 PM Date of : 1975 Age: 48 Procedure: Colonoscopy Indications: Chronic diarrhea Providers: Dwain Pedraza DO Medicines: Monitored Anesthesia Care Patient Profile: Refer to note in patient chart for documentation of history and physical. Patient has symptoms. This is a 48 year old female. Refer to note in patient chart for documentation of history and physical. Last Colonoscopy: several years ago. Complications: No immediate complications. Procedure: Pre-Anesthesia Assessment: - Prior to the procedure, a History and Physical was performed, and patient medications and allergies were reviewed. The patient is competent. The risks and benefits of the procedure and the sedation options and risks were discussed with the patient. All questions were answered and informed consent was obtained. Patient identification and proposed procedure were verified by the physician in the pre-procedure area. Mental Status Examination: alert and oriented. Airway Examination: normal oropharyngeal airway and neck mobility. Respiratory Examination: clear to auscultation. CV Examination: normal. Prophylactic Antibiotics: The patient does not require prophylactic antibiotics. Prior Anticoagulants: The patient has taken no anticoagulant or antiplatelet agents. ASA Grade Assessment: II - A patient with mild systemic disease. After reviewing the risks and benefits, the patient was deemed in satisfactory condition to undergo the procedure. The anesthesia plan was to use monitored anesthesia care (MAC). Immediately prior to administration of medications, the patient was re-assessed for adequacy to receive sedatives. The heart rate, respiratory rate, oxygen saturations, blood pressure, adequacy of pulmonary ventilation, and response to care were monitored throughout the procedure. The physical status of the patient was re-assessed after the procedure. After I obtained informed consent, the scope was passed under direct vision. Throughout the procedure, the patient's blood pressure, pulse, and oxygen saturations were monitored continuously. The pediatric colonoscope was introduced through the anus and advanced to the terminal ileum. The colonoscopy was performed without difficulty. The patient tolerated the procedure well. The quality of the bowel preparation was adequate. The terminal ileum, ileocecal valve, appendiceal orifice, and rectum were photographed. Scope In: 1:58:00 PM Scope Withdrawal Time 0 hours 6 minutes 58 seconds Scope Out: 2:10:54 PM Total Procedure Duration Time 0 hours 12 minutes 54 seconds Findings: The perianal and digital rectal examinations were normal. An area of mildly congested mucosa was found in the recto-sigmoid colon, in the sigmoid colon, in the descending colon and at the splenic flexure. Biopsies were taken with a cold forceps for histology. Verification of patient identification for the specimen was done. Estimated blood loss was minimal. Scattered small and large-mouthed diverticula were found in the recto-sigmoid colon, sigmoid colon and descending colon. The terminal ileum appeared normal. Biopsies were taken with a cold forceps for histology. Verification of patient identification for the specimen was done. Estimated blood loss was minimal. Impression: - Congested mucosa in the recto-sigmoid colon, in the sigmoid colon, in the descending colon and at the splenic flexure. Biopsied. - Diverticulosis in the recto-sigmoid colon, in the sigmoid colon and in the descending colon. - The examined portion of the ileum was normal. Biopsied. Recommendation: - Discharge patient to home. - Resume previous diet. - Continue present medications. - Await pathology results. - Repeat colonoscopy in 5 years for surveillance. Procedure Code(s): --- Professional --- 96586, Colonoscopy, flexible; with biopsy, single or multiple CPT copyright 2021 [employer]. All rights reserved. The codes documented in this report are preliminary and upon auditing coder review may be revised to meet current compliance requirements. Dwain Pedraza DO 11/21/2024 2:27:25 PM This report has been signed electronically. Number of Addenda: 0 Note Initiated On: 11/21/2024 1:56 PM
--- NOTE | 2024-11-21 14:51 | POSTOPAN2_ITS ---
Anesthesia Postop Eval I Sum Postop Eval Completion status Anesthesia document: Postop Eval 1 completed: Yes Anesthesia Postop Eval I Summary Anesthesia Postop Eval I Summary: Anesthesia Postop Eval I: Assessment Summary Airway patent Yes 11/21/24 14:13 POWER AND RECOVERY SUPERINTENDENT.[email or web address] Spontaneous unlabored Yes 11/21/24 14:13 POWER AND RECOVERY SUPERINTENDENT.SOBR respirations Mental status Awake,Calm 11/21/24 14:13 POWER AND RECOVERY SUPERINTENDENT.SOBR nausea No 11/21/24 14:13 POWER AND RECOVERY SUPERINTENDENT.SOBR Vomiting No 11/21/24 14:13 POWER AND RECOVERY SUPERINTENDENT.SOBR Anesthesia Postop Eval I: Fluid Summary Crystalloid volume administer 300 11/21/24 14:13 POWER AND RECOVERY SUPERINTENDENT.SOBR (ml) Colloids volume administered ( ml) Blood Product volume administered (ml) Total IV fluid infused 300 11/21/24 14:13 POWER AND RECOVERY SUPERINTENDENT.SOBR Anesthesia Postop Eval I: Summary Notes Anesthesia Complication No 11/21/24 14:13 POWER AND RECOVERY SUPERINTENDENT.SOBR Anesthesia Complication Comment: Post-operative progress note Anesthesia: Postop Eval II Evaluation Mental status: Awake Pain Level: 0 nausea: No Vomiting: No
--- NOTE | 2024-11-21 14:51 | PCM.POSTANE2 ---
Anesthesia Postop Eval I Sum Postop Eval Completion status Anesthesia document: Postop Eval 1 completed: Yes Anesthesia Postop Eval I Summary Anesthesia Postop Eval I Summary: Anesthesia Postop Eval I: Assessment Summary Airway patent Yes 11/21/24 14:13 GLASS FURNACE TENDER.SOBR Spontaneous unlabored Yes 11/21/24 14:13 GLASS FURNACE TENDER.SOBR respirations Mental status Awake,Calm 11/21/24 14:13 GLASS FURNACE TENDER.SOBR nausea No 11/21/24 14:13 GLASS FURNACE TENDER.SOBR Vomiting No 11/21/24 14:13 GLASS FURNACE TENDER.SOBR Anesthesia Postop Eval I: Fluid Summary Crystalloid volume administer 300 11/21/24 14:13 GLASS FURNACE TENDER.SOBR (ml) Colloids volume administered ( ml) Blood Product volume administered (ml) Total IV fluid infused 300 11/21/24 14:13 GLASS FURNACE TENDER.SOBR Anesthesia Postop Eval I: Summary Notes Anesthesia Complication No 11/21/24 14:13 GLASS FURNACE TENDER.SOBR Anesthesia Complication Comment: Post-operative progress note Anesthesia: Postop Eval II Evaluation Mental status: Awake Pain Level: 0 nausea: No Vomiting: No
== END 2024-11-21 15:09 | disposition home or self-care (01) ==
LOC: EN 12:16 → AC 12:17
PROVIDERS: PCP Family Medicine Geriatric Medicine; Referring Provider Family Medicine Geriatric Medicine; Visit Provider Internal Medicine Gastroenterology
PROC: 0DJD8ZZ Inspection of Lower Intestinal Tract, Via Natural or Artificial Opening Endoscopic (ICD-10-PCS; CPT 45378; principal; 2024-11-21 13:25)
DX: Z12.11 Encounter for screening for malignant neoplasm of colon (principal); K57.30 Diverticulosis of large intestine without perforation or abscess without bleeding; K52.9 Noninfective gastroenteritis and colitis, unspecified; K29.50 Unspecified chronic gastritis without bleeding; K29.80 Duodenitis without bleeding; I10 Essential (primary) hypertension; E03.9 Hypothyroidism, unspecified; Z79.890 Hormone replacement therapy; Z79.899 Other long term (current) drug therapy; Z86.0100 Personal history of colon polyps, unspecified; Z87.891 Personal history of nicotine dependence
CPT/HCPCS: 45380; 44361; 88305; 88342

== ENCOUNTER → 2025-01-29 | Outpatient (CLI) | payer MEDICAID, SELFPAY | END | disposition home or self-care (01) | LOC: SL 10:31 | PROVIDERS: PCP Family Medicine Geriatric Medicine; Visit Provider Family Medicine Geriatric Medicine | DX: G47.10 Hypersomnia, unspecified (principal); R06.83 Snoring | CPT/HCPCS: 95806 ==

== ENCOUNTER → 2025-02-05 | Outpatient (CLI) | payer MEDICAID, SELFPAY ==
--- OUTSIDE RECORDS SUMMARY | 2025-02-05 06:48 | XMS RPT_ITS | CCD ---
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 Josiah Crooks Attending Provider Care Physician, No Primary Primary Care Provider Unavailable Care Physician, No Primary Referring Provider Un available NIKOLE Tidwell Attending Provider Tong, Dionisio Chi Primary Care Provider TONG NAPIER, DR SANCHEZ Primary Care Physician TONG NAPIER, DR SANCHEZ Primary Care Unavailable JANESSA MATOS MD Attending Unavailable GENARO HAMILTON MD Attending Unavail able TONG NAPIER, DR SANCHEZ Primary Care Unavailable Tong, Dionisio Chi Primary Care Provider TONG NAPIER, DR SANCHEZ Primary Care Unavailable JANESSA MATOS MD Attending Unavailable TONG, DIONISIO CHI Primary Care Unavailable TONG, DIONISIO CHI Primary Care Unavailable Criss Anderson Attending Unavailable Tong, Dionisio Chi Primary Care Unavailable Yessy Mckinney Attending Unavailable Yessy Mckinney Referring Unavailable Tong, Dionisio Chi Primary Care Unavailable Tong, Dionisio Chi Primary Care Unavailable Tong, Dionisio Chi Attending Unavailable Tong, Dionisio Chi Primary Care Unavailable Tong, Dionisio Chi Attending Unavailable Tong, Dionisio Chi Attending Unavailable Tong, Dionisio Chi Primary Care Unavailable Tong, Dionisio Chi Referring Unavailable Tong, Dionisio Chi Primary Care Unavailable Tong, Dionisio Chi Attending Unavailable Tong, Dionisio Chi Referring Unavailable Yessy Mckinney Attending Unavailable Tong, Dionisio Chi Primary Care Unavailable Tong, Dionisio Chi Referring Unavailable Tong, Dionisio Chi Attending Unavailable Tong, Dionisio Chi Primary Care Unavailable Tong, Dionisio Chi Referring Unavailable Latrice Magaña Attending Unavailable Tong, Dionisio Chi Primary Care Unavailable Matthew Lemus Attending Unavailable Tong, Dionisio Chi Primary Care Unavailable Tong, Dionisio Chi Primary Care Unavailable FriendDwain Attending Unavailable Tong, Dionisio Chi Referring Unavailable Tong, Dionisio Chi Primary Care Unavailable Tong, Dionisio Chi Attending Unavailable Tong, Dionisio Chi Attending Unavailable Tong, Dionisio Chi Primary Care Unavailable Tong, Dionisio Chi Referring Unavailable Tong, Dionisio Chi Primary Care Unavailable Venancio Ontiveros Attending Unavailable Tong, Dionisio Chi Attending Unavailable Tong, Dionisio Chi Primary Care Unavailable Tong, Dionisio Chi Primary Care Unavailable Tong, Dionisio Chi Referring Unavailable Venancio Ontiveros Attending Unavailable Tong, Dionisio Chi Primary Care Unavailable Matthew Lemus Attending Unavailable Criss Anderson Attending Unavailable Tong, Dionisio Chi Primary Care Unavailable Criss Anderson Attending Unavailable Tong, Dionisio Chi Primary Care Unavailable Louis Andersondison Referring Unavailable Criss Anderson Attending Unavailable Tong, Dionisio Chi Primary Care Unavailable Tong, Dionisio Chi Primary Care Unavailable Tong, Dionisio Chi Attending Unavailable Tong, Dionisio Chi Referring Unavailable Monica Criss Attending Unavailable Tong, Dionisio Chi Primary Care Unavailable Yessy Mckinney Attending Unavailable Tong, Dionisio Chi Primary Care Unavailable Tong, Dionisio Chi Referring Unavailable Monica Criss Attending Unavailable Tong, Dionisio Chi Primary Care Unavailable Tong, Dionisio Chi Primary Care Unavailable Hoa Norris Attending Unavailable Tong, Dionisio Chi Primary Care Unavailable Dwain Pedraza Consulting Unavailable FriendDwain Attending Unavailable Tong, Dioniiso Chi Referring Unavailable Allergies Allergy Classification Reported Allergen(s) Allergy Type Date of Onset Reaction(s) Facility (1 source) Adhesive Tape Drug allergy (disorder) 11-21-2024 [facility] Medications Current Medications Medication Drug Class(es) Dates Sig (Normalized) Sig (Original) amLODIPine 5 mg oral tablet (1 source) Dihydropyridine Calcium Channel Wally Start: 04-09-2024 take 1 tablet by mouth once daily at bedtime amLODIPine (NORVASC) 5 mg tablet Take 5 mg by mouth daily at bedtime. 04/09/2024 Active amoxicillin 875 mg oral tablet (1 source) Penicillin-class Antibacterial Start: 07-28-2024 End: 08-04-2024 take 1 tablet by mouth twice daily amoxicillin (AMOXIL) 875 mg tablet Indications: Acute otitis media, right Take 1 tablet by mouth two times a day for 7 days. 14 tablet 07/28/2024 08/04/2024 Active busPIRone hydrochloride 7.5 mg oral tablet (1 source) Start: 07-24-2024 busPIRone (BUSPAR) 7.5 mg tablet 07/24/2024 Active cyclobenzaprine hydrochloride 10 mg oral tablet (5 sources) Muscle Relaxant Start: 03-11-2023 take 1 tablet by mouth every eight hours as needed cyclobenzaprine (FLEXERIL) 10 mg tablet Take 1 tablet by mouth three times daily as needed for muscle spasm. 15 tablet 03/11/2023 Active Comment on above: Take 1 tablet by abimael th three times daily as needed for muscle spasm. etodolac 500 mg oral tablet (4 sources) Nonsteroidal Anti-inflammatory Drug Start: 10-11-2022 take 500 mg by mouth twice daily Etodolac Active 500 MG PO TWICE A DAY 40 October 11, 2022 12:00am do not take in conjunction with other NSAIDs, Tylenol is ok. hydrOXYzine hydrochloride 25 mg oral tablet (1 source) Antihistamine Start: 07-04-2024 take 1 tablet by mouth every eight hours as needed hydrOXYzine HCl (ATARAX) 25 mg tablet Take 25 mg by mouth three times a day as needed. 07/04/2024 Active lamoTRIgine 100 mg oral tablet (10 sources) Mood Stabilizer, Anti-epileptic Agent Start: 09-14-2022 lamoTRIgine (LAMICTAL) 100 mg tablet 02/06/2023 Active take 1 tablet by abimael th once daily at bedtime lamoTRIgine (LAMICTAL) 100 mg tablet Jayy e 100 mg by mouth daily at bedtime. 0 Active Comment on above: Take 100 mg by mouth daily at bedtime. levothyroxine sodium 0.025 mg oral tablet (15 sources) l-Thyroxine Start: 03-03-2023 levothyroxine (SYNTHROID) 25 mcg tablet 03/03/2023 Active Start: 01-11-2023 levothyroxine (SYNTHROID) 200 mcg tablet 01/11/2023 Active Start: 09-14-2022 take 175 ug by mouth once trinh y Levothyroxine Active 175 MCG PO DAILY September 14, 2022 12:00am take 1 capsule by mo [facility] once daily before breakfast levothyroxine 175 mcg cap Take 175 mcg by mouth daily before breakfast. 0 Active Comment on above: Take 175 mcg by mout h daily before breakfast. lidocaine 1.8% topical film (1 source) Start: 03-29-20 End: 04-04-20 apply 1 dose topically once daily lidocaine 1.8% topical film Dose = 1 patch(es), Topical, qDay, leave on up to 12 hours, # 30 EA, 0 Refill(s) Start Date: 03/29/23 Stop Date: 04/04/23 Status: Ordered metoprolol tartrate 25 mg oral tablet (1 source) beta-Adrenergic Wally Start: 06-06-20 metoprolol tartrate, short acting, (LOPRESSOR) 25 mg tablet 06/06/2024 Active propranolol hydrochloride 10 mg oral tablet (6 sources) beta-Adrenergic Wally Start: 09-15-19 take 10 mg by mouth twice daily Propranolol Active 10 MG PO TWICE A DAY September 14, 2022 12:00am take 1 tablet by abimael th three times daily propranolol (INDERAL) 20 mg tablet Take 20 mg by mouth three times a day. Active take 1 tablet by mouth twice angelia ly propranolol (INDERAL) 10 mg tablet Take 10 mg by mouth twice daily. 0 Active Comment on above: Take 10 mg by mouth twice daily. QUEtiapine 25 mg oral tablet (5 sources) Atypical Antipsychotic Start: take 25 mg by mouth once daily Quetiapine Active 25 MG PO DAILY September 14, 2022 12:00am take 1 tablet by abimael once daily at bedtime QUEtiapine (SEROQUEL) 25 mg tablet Take 25 mg by mouth daily at bedtime. 0 Active Comment on above: Take 25 mg by mouth daily at bedtime. 24 hr divalproex sodium 500 mg extended release oral tablet (1 source) Mood Stabilizer, Anti-epileptic Agent Start: 07-25-2024 divalproex ER (DEPAKOTE ER) 500 mg 24 hr tablet 07/25/2024 Active 24 hr venlafaxine 225 mg extended release oral tablet (10 sources) Serotonin and Norepinephrine Reuptake Inhibitor Start: 09-14-2022 venlafaxine XR (EFFEXOR XR) 225 mg tablet 03/05/2023 Active take 1 tablet by abimael th once daily at bedtime venlafaxine XR (EFFEXOR XR) 225 mg table t Take 225 mg by mouth daily at bedtime. 0 Active Comment on above: Take 225 mg by mouth daily at bedtime. Completed/Discontinued Medications Medication Drug Class(es) Dates Sig (Normalized) Sig (Original) brexpiprazole 0.5 mg oral tablet (4 sources) Atypical Antipsychotic Start: 09-14-2022 End: 10-11-2022 take 1 tablet by mouth once daily Brexpiprazole (Rexulti) 0.5 mg tablet Discontinued 0.5 MG PO DAILY September 14, 2022 12:00am October 11, 2022 10:40am cariprazine 6 mg oral capsule (5 sources) Atypical Antipsychotic Start: 09-14-2022 End: 12-29-2022 take 1 capsule by mouth once daily Cariprazine (Vraylar) 6 mg capsule Discontinued 6 MG PO DAILY September 14, 2022 12:00am December 29, 2022 9:51am take 1 capsule by [facility] once daily at bedtime cariprazine (VRAYLAR) 6 mg capsule Take by mouth daily at bedtime. 0 Active Comment on above: Take by mouth daily at bedtime. meloxicam 15 mg oral tablet (1 source) Nonsteroidal Anti-inflammatory Drug Start: 07-13-19 take 1 tablet by mouth once daily meloxicam (MOBIC) 15 mg tablet Indications: Primary osteoarthritis of both knees , Chronic pain of both knees Take 1 tablet by mouth once daily. 30 tablet 1 07/13/2022 Active Comment on above: Take 1 tablet by abimael once daily. predniSONE 20 mg oral tablet (3 sources) Start: 03-11-20 End: 03-16-20 take 2 tablets by mouth once daily predniSONE (DELTASONE) 20 mg tablet Take 2 tablets by mouth once daily for 5 days. 10 tablet 03/11/2023 03/16/2023 Comment on above: Take 2 tablets by mo [facility] once daily for 5 days. Problems Active Problems Problem Classification Problem Date Documented Da te Episodic/Chronic Abdominal pain (3 sources) Right lower quadrant pain; Translations: [Right lower quadrant pain] Onset: 06-17-2024 02-25-2024 Episodic Conditions associated with dizziness or vertigo (1 source) Dizziness and giddiness; Translations: [Dizziness and giddiness] Onset: 12-10-2024 Episodic Essential hypertension (1 source) Essential (primary) hypertension; Translations: [Essential (primary) hypertension] Onset: 11-25-2024 Chronic Immunizations and screening for infectious disease (7 sources) Contact with and (suspected) exposure to other viral communicable diseases; Translations: [Contact with or suspected exposure to other viral communicable disease] 09-14-2022 Episodic Mood disorders (1 source) Bipolar disorder, unspecified; Translations: [Bipolar disorder, unspecified] Onset: 08-13-2024 Chronic Nausea and vomiting (2 sources) Nausea; Translations: [Nausea] Onset: 10-07-2024 Episodic Nonspecific chest pain (3 sources) Chest pain; Translations: [Chest pain, unspecified] 12-29-2022 Episodic Osteoarthritis (4 sources) Primary gonarthrosis, bilateral; Translations: [Bilateral primary osteoarthritis of knee] Chronic Other circulatory disease (3 sources) Elevated blood-pressure reading without diagnosis of hypertension; Translations: [Elevated blood-pressure reading, without diagnosis of hypertension] 12-29-2022 Episodic Other gastrointestinal disorders (1 source) Constipation, unspecified; Translations: [Constipation, unspecified] Onset: 12-03-2024 Episodic Other lower respiratory disease (3 sources) Shortness of breath; Translations: [Shortness of breath] 12-29-2022 Episodic Other lower respiratory disease (1 source) Snoring; Translations: [Snoring] Onset: 01-12-2025 Episodic Other non-traumatic joint disorders (1 source) Pain in right knee; Translations: [Pain in joint, lower leg] Episodic Other nutritional; endocrine; and metabolic disorders (1 source) Body mass index 40+ - severely obese; Translations: [Morbid (severe) obesity due to excess calories] Chronic Other screening for suspected conditions (not mental disorders or infectious disease) (3 sources) Encounter for screening for malignant neoplasm of colon; Translations: [Encounter for screening mammogram for malignant neoplasm of breast] Onset: 04-02-2024 Episodic Other upper respiratory infections (8 sources) Upper respiratory infection; Translations: [Acute upper respiratory infection, unspecified] 09-14-2022 Episodic Otitis media and related conditions (1 source) Acute right otitis media; Translations: [Otitis media, unspecified, right ear] 07-28-2024 Episodic Residual codes; unclassified (1 source) Hypersomnia, unspecified; Translations: [Hypersomnia, unspecified] Onset: 01-29-2025 Chronic Spondylosis; intervertebral disc disorders; other back problems (6 sources) Backache; Translations: [Dorsalgia, unspecified] 12-01-2022 Episodic Thyroid disorders (2 sources) Hypothyroidism, unspecified; Translations: [Hypothyroidism, unspecified] Onset: 09-10-2024 Chronic Unclassified (1 source) Low back pain, unspecified; Translations: [Low back pain, unspecified] Onset: 06-17-2024 Past or Other Problems Problem Classification Problem Date Documented Da te Episodic/Chronic Residual codes; unclassified (1 source) Chills (without fever); Translations: [Chills (without fever)] Onset: 07-30-2024 Episodic Results Test Name Value Interpretation Reference Range Facility Gastroenterology Visit Repor ton 12-03-2024 Gastroenterology Visit Report [facility] Gastroenterology [address] [place] [address] OFFICE VISIT Date of Service: 12/03/24 MR#: [id number] Acct: [id number] Name: FRANKIE MCKINNEY Rep #: [id number] : 1975 Provider: NIKOLE Field Age/Sex: 49/F [place] [facility] [place] Status: Signed Intake Vital Signs 11/21/24 12:53 Height 5 ft 7 in Intake Visit Reasons: Test Result Chief Complaint: nausea Allergies adhesive tape Allergy (Mild, Verified 11/21/24 12:51) Rash Medications ???Medication ???Instructions ???Recorded ???Confirmed ???Type levothyroxine 200 mcg tablet 200 mcg PO DAILY 05/13/23 11/21/24 History levothyroxine 25 mcg tablet 25 mcg PO DAILY 05/13/23 11/21/24 History acetaminophen 500 mg tablet 500 mg PO Q6H PRN fever or pain 11/21/24 History buspirone 7.5 mg tablet 7.5 mg PO TID #270 tabs 11/12/24 0 11/21/24 Rx divalproex 500 mg tablet,extended 1,500 mg (3 x 500 mg) PO DAILY #9 0 11/12/24 11/21/24 Rx release 24 hr tabs venlafaxine 225 mg tablet,extended 225 mg PO QHS #90 tabs 11/12/24 11/21/24 Rx release 24 hr ondansetron 4 mg disintegrating 4 mg PO Q8H #30 tabs 11/26/2410/24 Rx tablet amlodipine 5 mg tablet 10 mg PO QDAY 12/03/24 12/03/24 Hi story linaclotide 72 mcg capsule 72 mcg PO QAM #30 caps 12/03/24 Rx (Linzess) omeprazole 40 mg capsule,delayed 40 mg PO QDAY #90 caps 12/03/24 Rx release Patient : No Nurse's Note: OV 12/03/24 Pt here for a f/u and reports nausea, constipation, and abdominal pain. Continues zofran daily. PFSH Medical History No natural teeth Bipolar disorder Depression Hypothyroid Fatty liver Former smoker Post-menopausal Personal history of colonic polyps Anxiety Bipolar 1 disorder Contact with and (suspected) exposure to other viral communicable diseases URI (upper respiratory infection) Thyroid disease Arthritis HTN (hypertension) Surgical History History of hysterectomy Hx of colonoscopy Hx of thyroidectomy Hx of oophorectomy Hx of tonsillectomy History of cholecystectomy Family History Mother Colon polyps Hypertension Other CVA (cerebral vascular accident) Cancer Melanoma Skin cancer Social History household members: spouse current occupational status: employed and disabled Smoking Status: Former smoker Electronic Cigarette Use: not used second hand exposure: Yes alcohol intake: current details: only around the holidays substance use type: does not use what type of physical activity do you participate in: walking HPI HPI Chief Complaint: nausea Details: FRANKIE MCKINNEY, is a 49 F who presents to the office today for f/u. BGI established 3.7.25 with constipation alternating with diarrhea for many years. Pt will go about every 7days and then have diarrhea for 2 days. Last colonoscopy was a few years ago with polyps. She notes she is due for a colonscopy Pt also having nausea daily but no vomiting. Unrelated to oral intake. Start miralax daily and Zofran PRN GES 4.3.25; 91 % at 1 hour Colonoscopy 11.21.24 - Congested mucosa in the recto-sigmoid colon, in the sigmoid colon, in the descending colon and at the splenic flexure. Biopsied. - Diverticulosis in the recto-sigmoid colon, in the sigmoid colon and in the descending colon. - The examined portion of the ileum was normal. Biopsied. EGD 11.21.24 - Z-line irregular, 40 cm from the incisors. Biopsied. - Chronic gastritis. Biopsied. - Chronic duodenitis. Biopsied. OV 6.4.25 Pt here today to review EGD and colonoscopy results. She continues with daily nausea but no vomiting. She takes Zofran which helps for a few hours. It is not worse with oral intake. She is having a bm every 4-6 days that is large and difficult to pass. She denies any diarrhea. ROS Const Constitutional: Positive for weight change; No fatigue or fever(s) ENT ENT: No difficulty swallowing Gastro GI: Positive for abdominal pain, constipation and nausea/dyspepsia; No belching, bloating, change in bowel habits, change in stool character, coffee ground emesis, cramping, diarrhea, heartburn, difficulty swallowing, feeling full early, excessive flatus, incontinent of stools, Vomiting blood/hematemesis, Blood in stool, loose stools, Black,tarry stools, pain with swallowing, vomiting or other Musc Musculoskeletal: Positive for joint pain and back pain Skin Skin: No yellowing of the eye or itchy eyes Psych Psychiatric: Positive for anxiety and Positive for depression Endo Endocrine: Positive for weight change; No fatigue (more content not included)... Normal [facility] Colonoscopy Reporton 025 Colonoscopy Report [facility] Medical Records Department [address] [place] [address] Colonoscopy Report MR#: [id number] Acct: [id number] Name: FRANKIE MCKINNEY Rep #: [id number] : 1975 48 From: Dwain Pedraza DO PCP: Dr. Dionisio Fortune MD Status:REG [facility] Patient Name: Frankie Mckinney Procedure Date: 11/21/2024 1:56 PM Date of : 1975 Age: 48 Procedure: Colonoscopy Indications: Chronic diarrhea Providers: Dwain Pedraza DO Medicines: Monitored Anesthesia Care Patient Profile: Refer to note in patient chart for documentation of history and physical. Patient has symptoms. This is a 48 year old female. Refer to note in patient chart for documentation of history and physical. Last Colonoscopy: several years ago. Complications: No immediate complications. Procedure: Pre-Anesthesia Assessment: - Prior to the procedure, a History and Physical was performed, and patient medications and allergies were reviewed. The patient is competent. The risks and benefits of the procedure and the sedation options and risks were discussed with the patient. All questions were answered and informed consent was obtained. Patient identification and proposed procedure were verified by the physician in the pre-procedure area. Mental Status Examination: alert and oriented. Airway Examination: normal oropharyngeal airway and neck mobility. Respiratory Examination: clear to auscultation. CV Examination: normal. Prophylactic Antibiotics: The patient does not require prophylactic antibiotics. Prior Anticoagulants: The patient has taken no anticoagulant or antiplatelet agents. ASA Grade Assessment: II - A patient with mild systemic disease. After reviewing the risks and benefits, the patient was deemed in satisfactory condition to undergo the procedure. The anesthesia plan was to use monitored anesthesia care (MAC). Immediately prior to administration of medications, the patient was re-assessed for adequacy to receive sedatives. The heart rate, respiratory rate, oxygen saturations, blood pressure, adequacy of pulmonary ventilation, and response to care were monitored throughout the procedure. The physical status of the patient was re-assessed after the procedure. After I obtained informed consent, the scope was passed under direct vision. Throughout the procedure, the patient's blood pressure, pulse, and oxygen saturations were monitored continuously. The pediatric colonoscope was introduced through the anus and advanced to the terminal ileum. The colonoscopy was performed without difficulty. The patient tolerated the procedure well. The quality of the bowel preparation was adequate. The terminal ileum, ileocecal valve, appendiceal orifice, and rectum were photographed. Scope In: 1:58:00 PM Scope Withdrawal Time 0 hours 6 minutes 58 seconds Scope Out: 2:10:54 PM Total Procedure Duration Time 0 hours 12 minutes 54 seconds Findings: The perianal and digital rectal examinations were normal. An area of mildly congested mucosa was found in the recto-sigmoid colon, in the sigmoid colon, in the descending colon and at the splenic flexure. Biopsies were taken with a cold forceps for histology. Verification of patient identification for the specimen was done. Estimated blood loss was minimal. Scattered small and large-mouthed diverticula were found in the recto-sigmoid colon, sigmoid colon and descending colon. The terminal ileum appeared normal. Biopsies were taken with a cold forceps for histology. Verification of patient identification for the specimen was done. Estimated blood loss was minimal. Impression: - Congested mucosa in the recto-sigmoid colon, in the sigmoid colon, in the descending colon and at the splenic flexure. Biopsied. - Diverticulosis in the recto-sigmoid colon, in the sigmoid colon and in the descending colon. - The examined portion of the ileum was normal. Biopsied. Recommendation: - Discharge patient to home. - Resume previous diet. - Continue present medications. - Await pathology results. - Repeat colonoscopy in 5 years for surveillance. Procedure Code(s): --- Professional --- 71843, Colonoscopy, flexible; with biopsy, single or multiple CPT copyright 2021 [employer]. All rights reserved. The codes documented in this report are preliminary and upon solvent station attendant review may be revised to meet current compliance requirements. Dwain Pedraza DO 11/21/2024 2:27:25 PM This report has been signed electronically. Number of Addenda: 0 Note Initiated On: 11/21/2024 1:56 PM 11/21/24 1427 Date Dwain Pedraza DO Cosigner Signature: Date (if indicated) CC: Dr. Dionisio Fortune MD; Dwain Pedraza DO Date Dictat (more content not included)... Normal [facility] EGD Reporton 11-21-2024 EGD Report [facility] Medical Records Department [address] [place] [address] EGD Report MR#: [id number] Acct: [id number] Name: FRANKIE MCKINNEY Rep #: [id number] : 1975 48 From: Dwain Pedraza DO PCP: Dr. Dionisio Fortune MD Status:REG [facility] Patient Name: Frankie Mckinney Procedure Date: 11/21/2024 1:37 PM Date of : 1975 Age: 48 Procedure: Upper GI endoscopy Indications: Epigastric abdominal pain, Dysphagia, Heartburn Providers: Dwain Pedraza DO Medicines: Monitored Anesthesia Care Patient Profile: Refer to note in patient chart for documentation of history and physical. Patient has symptoms. Complications: No immediate complications. Procedure: Pre-Anesthesia Assessment: - Prior to the procedure, a History and Physical was performed, and patient medications and allergies were reviewed. The patient is competent. The risks and benefits of the procedure and the sedation options and risks were discussed with the patient. All questions were answered and informed consent was obtained. Patient identification and proposed procedure were verified by the physician in the pre-procedure area. Mental Status Examination: alert and oriented. Airway Examination: normal oropharyngeal airway and neck mobility. Respiratory Examination: clear to auscultation. CV Examination: normal. Prophylactic Antibiotics: The patient does not require prophylactic antibiotics. Prior Anticoagulants: The patient has taken no anticoagulant or antiplatelet agents. ASA Grade Assessment: II - A patient with mild systemic disease. After reviewing the risks and benefits, the patient was deemed in satisfactory condition to undergo the procedure. The anesthesia plan was to use monitored anesthesia care (MAC). Immediately prior to administration of medications, the patient was re-assessed for adequacy to receive sedatives. The heart rate, respiratory rate, oxygen saturations, blood pressure, adequacy of pulmonary ventilation, and response to care were monitored throughout the procedure. The physical status of the patient was re-assessed after the procedure. After obtaining informed consent, the endoscope was passed under direct vision. Throughout the procedure, the patient's blood pressure, pulse, and oxygen saturations were monitored continuously. The pediatric colonoscope was introduced through the mouth, and advanced to the third part of the duodenum. Small bowel enteroscopy was deemed necessary. The upper GI endoscopy was accomplished without difficulty. Scope In: 1:51:45 PM Scope Out: 1:55:50 PM Total Procedure Duration Time 0 hours 4 minutes 5 seconds Findings: The Z-line was irregular and was found 40 cm from the incisors. Biopsies were taken with a cold forceps for histology. Verification of patient identification for the specimen was done. Estimated blood loss was minimal. Segmental mild inflammation characterized by erosions and erythema was found in the gastric body. Biopsies were taken with a cold forceps for Helicobacter pylori testing. Biopsies were taken with a cold forceps for histology. Biopsies were taken with a cold forceps for histology. Verification of patient identification for the specimen was done. Estimated blood loss was minimal. Patchy mild inflammation characterized by erythema and granularity was found in the entire duodenum. Biopsies were taken with a cold forceps for histology. Verification of patient identification for the specimen was done. Estimated blood loss was minimal. Impression: - Z-line irregular, 40 cm from the incisors. Biopsied. - Chronic gastritis. Biopsied. - Chronic duodenitis. Biopsied. Recommendation: - Discharge patient to home. - Resume previous diet. - Continue present medications. - Await pathology results. Procedure Code(s): --- Professional --- 77647, Small intestinal endoscopy, enteroscopy beyond second portion of duodenum, not including ileum; with biopsy, single or multiple CPT copyright 2021 [employer]. All rights reserved. The codes documented in this report are preliminary and upon solvent station attendant review may be revised to meet current compliance requirements. Dwain Pedraza DO 11/21/2024 2:21:30 PM This report has been signed electronically. Number of Addenda: 0 Note Initiated On: 11/21/2024 1:37 PM 11/21/24 1421 Date Dwain Self Signature: Date (if indicated) CC: Dr. Dionisio Fortune MD; Dwain Pedraza DO Date Dictated: 11/21/24 8428 Date Transcribed: Advertising Representative: MORALES Signed Normal [facility] Immunohistochemical Stainson 11-21-2024 Immunohistochemical Stains Patient Age/Sex Location Account Attending Physician FRANKIE MCKINNEY 48/F EN [id number] Dwain Pedraza DO Specimen: [id number] Received: 11/21/24 Status: MOOK Gonzalez Num: [id number] Spec Type: EGD BIOPSY Subm Dr: Dwain Pedraza DO HEADER OPERATION: Colonoscopy, EGD, biopsy PRE-OP DIAGNOSIS: Abdominal pain, constipation, nausea, encounter for screening for malignant neoplasm of colon TISSUE SUBMITTED: A- Distal esophagus biopsy, B- Gastric body biopsy, C- Duodenum biopsy, D- Terminal ileum biopsy, E- Random colon biopsy MICROSCOPIC DIAGNOSIS A. Esophagus, distal, biopsy: Columnar mucosa, negative for goblet cell metaplasia. No squamous mucosa seen. B. Stomach, gastric body, biopsy: Oxyntic mucosa with features of reactive gastropathy. IHC negative for H.pylori organisms. C. Small bowel, duodenum, biopsy: Normal villous architecture. Negative for increased intraepithelial lymphocytes. D. Small bowel, terminal ileum, biopsy: Normal villous architecture with mucosal lymphoid aggregates, favor reactive. E. Colon, random, biopsy: No specific pathologic change. The histologic features of microscopic colitis are not demonstrated. MICROSCOPIC DESCRIPTION Slides are reviewed. All matched controls reacted appropriately. These tests were developed and their performance characteristics determined by [facility]. They may not have been cleared or approved by the U.S. Food and Drug Administration. The FDA has determined that such clearance or approval is not necessary. The above immunohistochemical/dualIS H markers are ordered and reviewed by the Pathologist. GROSS DESCRIPTION A. Received in formalin in a container labeled with the patient's name, date of , and distal esophagus are 2 lozano-pink fragments of mucosal tissue measuring 0.3 x 0.2 x 0.2 cm and 0.5 x 0.3 x 0.2 cm. Submitted in toto in A1. B. Received in formalin in a container labeled with the patient's name, date of , and Patient Age/Sex Location Account Attending Physician FRANKIE MCKINNEY 48/ EN [id number] Dwain Pedraza DO gastric body for H. pylori and path are 2 lozano-pink fragments of mucosal tissue measuring 0.3 x 0.2 x 0.2 cm and 0.7 x 0.2 x 0.2 cm. Submitted in toto in B1. C. Received in formalin in a container labeled with the patient's name, date of , and duodenum is a 0.5 x 0.3 x 0.2 cm fragment of lozano-pink mucosal tissue. Submitted in toto in C1. D. Received in formalin in a container labeled with the patient's name, date of , and terminal ileum biopsy is a 0.6 x 0.3 x 0.2 cm fragment of lozano-pink mucosal tissue. Submitted in toto in D1. E. Received in formalin in a container labeled with the patient's name, date of , and random colon biopsy are multiple lozano-pink fragments of mucosal tissue measuring 1.1 x 0.7 x 0.2 cm in aggregate. Submitted in toto in E1. [facility] 11-25-2024 CPT:82743q4,83097 Patient Age/Sex Location Account Attending Physician FRANKIE MCKINNEY 48/F EN [id number] Dwain Pedraza DO Signed (signature on file) Dr. Macrina Thayer MD 12/01/24 1224 [facility] Comment on above: Performed By: #### L 100.0100, L500.2500 #### [facility] [address] [place], [address] MR/POSTOP.ANEon 11-21-2024 MR/POSTOP.[facility] Medical Records Department [address] [place] [address] Anesthesia Postop Eval I 11/21/24 1413 MR#: [id number] Acct: [id number] Name: FRANKIE MCKINNEY Rep #: [id number] : 1975 48 From: Wai Fernando INSURANCE CUSTOMER SERVICE SPECIALIST PCP: Dr. Dionisio Fortune MD Status:REG SD Y Race: C Location: [place] [address] Anesthesia: Postop Eval I Current Vital Signs Temperature: 97.1 F Pulse Rate: 72 Blood Pressure: 127/62 Respiratory Rate: 16 Pulse Ox: 99 Oxygen Delivery Method: Room Air Assessment Airway patent: Yes Spontaneous unlabored respirations: Yes Mental status: Awake and Calm nausea: No Vomiting: No Anesthesia Complication: No Fluid Hydration Crystalloid volume administer (ml): 300 Total IV fluid infused: 300 Progress Note Anesthesia document: Postop Eval 1 completed: Yes 11/21/24 1419 Date Wai Fernando INSURANCE CUSTOMER SERVICE SPECIALIST Cosigner Signature: Date CC: Signed Normal [facility] MR/[id number] 11-21-2024 MR/POSTOPAN2 [facility] Medical Records Department [address] [place] [address] Anesthesia Postop Eval II 11/21/24 1451 MR#: [id number] Acct: [id number] Name: FRANKIE MCKINNEY Rep #: [id number] : 1975 48 From: Jorge Perez MD PCP: Dr. Dionisio Fortune MD Status:REG [facility] Y Race: C Location: [place] [address] Anesthesia Postop Eval I Sum Postop Eval Completion status Anesthesia document: Postop Eval 1 completed: Yes Anesthesia Postop Eval I Summary Anesthesia Postop Eval I Summary: Anesthesia Postop Eval I: Assessment Summary Airway patent Yes 11/21/24 14:13 INSURANCE CUSTOMER SERVICE SPECIALIST.SOBR Spontaneous unlabored Yes 11/21/24 14:13 INSURANCE CUSTOMER SERVICE SPECIALIST.SOBR respirations Mental status Awake,Calm 11/21/24 14:13 INSURANCE CUSTOMER SERVICE SPECIALIST.SOBR nausea No 11/21/24 14:13 INSURANCE CUSTOMER SERVICE SPECIALIST.SOBR Vomiting No 11/21/24 14:13 INSURANCE CUSTOMER SERVICE SPECIALIST.SOBR Anesthesia Postop Eval I: Fluid Summary Crystalloid volume administer 300 11/21/24 14:13 INSURANCE CUSTOMER SERVICE SPECIALIST.SOBR (ml) Colloids volume administered ( ml) Blood Product volume administered (ml) Total IV fluid infused 300 11/21/24 14:13 INSURANCE CUSTOMER SERVICE SPECIALIST.SOBR Anesthesia Postop Eval I: Summary Notes Anesthesia Complication No 11/21/24 14:13 INSURANCE CUSTOMER SERVICE SPECIALIST.SOBR Anesthesia Complication Comment: Post-operative progress note Anesthesia: Postop Eval II Evaluation Mental status: Awake Pain Level: 0 nausea: No Vomiting: No 11/21/24 1451 Date Jorge Bernal Signature: Date CC: Signed Normal [facility] CBC W/Diff, Automatedon 10-31 Absolute Lymph 2.46 X10 3/uL Normal 0.83-4.51 [facility] Comment on above: Performed By: #### L 100.0100, L500.2500 #### [facility] [address] [place], [address] Absolute Neut 2.9 X10 3/uL Normal 2.0-7.7 [facility] Comment on above: Performed By: #### L 100.0100, L500.2500 #### [facility] [address] [place], [address] Basophils/100 WBC (Bld) 0.8 % Normal 0-1 [facility] Comment on above: Performed By: #### L 100.0100, L500.2500 #### [facility] [address] [facility] [place], [address] Eosinophils/100 WBC (Bld) 2.3 % Normal 0-5 [facility] Comment on above: Performed By: #### L 100.0100, L500.2500 #### [facility] [address] [place], [address] Erythrocyte distribution width (RBC) [Ratio] 13.8 % Normal 11.6-14.6 [facility] Comment on above: Performed By: #### L 100.0100, L500.2500 #### [facility] [address] [place], [address] Hematocrit (Bld) [Volume fraction] 41.2 % Normal 37-47 [facility] Comment on above: Performed By: #### L 100.0100, L500.2500 #### [facility] [address] [place], [address] Hemoglobin (Bld) [Mass/Vol] 13.5 g/dL Normal 12.0-15.0 [facility] Comment on above: Performed By: #### L 100.0100, L500.2500 #### [facility] [address] [place], [address] IG% 0.500 Normal 0.0-0.9 [facility] Comment on above: Result Comment: IG% - Immature Granulocytes (promyelocytes, myelocytes and metamyelocytes) > 1% indicates that a LEFT SHIFT is Present. Performed By: #### L 100.0100, L500.2500 #### [facility] [address] [place], [address] Lymphocytes/100 WBC (Bld) 41.1 % High 19-41 [facility] Comment on above: Performed By: #### L 100.0100, L500.2500 #### [facility] [address] [place], [address] MCH (RBC) [Entitic mass] 30.8 pg Normal 27.0-32.0 [facility] Comment on above: Performed By: #### L 100.0100, L500.2500 #### [facility] [address] [place], [address] MCHC (RBC) [Mass/Vol] 32.8 g/dL Normal 32-36 [facility] Comment on above: Performed By: #### L 100.0100, L500.2500 #### [facility] [address] [place], [address] MCV (RBC) [Entitic vol] 94.1 fL Normal 81-99 [facility] Comment on above: Performed By: #### L 100.0100, L500.2500 #### [facility] [address] [place], [address] Monocytes/100 WBC (Bld) 6.9 % Normal 0-10 [facility] Comment on above: Performed By: #### L 100.0100, L500.2500 #### [facility] [address] [place], [address] Neutrophils/100 WBC (Bld) 48.4 % Normal 47-70 [facility] Comment on above: Performed By: #### L 100.0100, L500.2500 #### [facility] [address] [place], [address] Nucleated RBC (Bld) [#/Vol] 0 10*3/uL Normal 0-5 [facility] Comment on above: Performed By: #### L 100.0100, L500.2500 #### [facility] [address] [place], [address] Platelet mean volume (Bld) [Entitic vol] 11.4 fL Normal 6.2-12.0 [facility] Comment on above: Performed By: #### L 100.0100, L500.2500 #### [facility] [address] [place], [address] Platelets (Bld) [#/Vol] 196 10*3/uL Normal 150-450 [facility] Comment on above: Performed By: #### L 100.0100, L500.2500 #### [facility] [address] [place], [address] RBC (Bld) [#/Vol] 4.38 10*6/uL Normal 4.2-5.4 [facility] Comment on above: Performed By: #### L 100.0100, L500.2500 #### [facility] [address] [place], [address] RDW SD 47.5 fl High 35.1-43.9 [facility] Comment on above: Performed By: #### L 100.0100, L500.2500 #### [facility] [address] [place], [address] WBC (Bld) [#/Vol] 6.0 10*3/uL Normal 4.4-11.0 [facility] Comment on above: Performed By: #### L 100.0100, L500.2500 #### [facility] [address] [place], [address] Comprehensive Metabolic Prof [facility] 11-20-2024 Albumin [Mass/Vol] 4.2 g/dL Normal 3.5-5.0 [facility] Comment on above: Performed By: #### L 100.0100, L500.2500 #### [facility] [address] [place], [address] Albumin/Globulin [Mass ratio] 1.4 {ratio} Normal 0.9-2.4 [facility] Comment on above: Performed By: #### L 100.0100, L500.2500 #### [facility] [address] [place], [address] ALK PHOS 68 U/L Normal 35-104 [facility] Comment on above: Performed By: #### L 100.0100, L500.2500 #### [facility] [address] [place], [address] ALT [Catalytic activity/Vol] 16 U/L Normal <=34 [facility] Comment on above: Performed By: #### L 100.0100, L500.2500 #### [facility] [address] [place], [address] AST [Catalytic activity/Vol] 27 U/L Normal <=31 [facility] Comment on above: Performed By: #### L 100.0100, L500.2500 #### [facility] [address] [place], [address] Bilirubin [Mass/Vol] 0.41 mg/dL Normal 0.00-1.30 [facility] Comment on above: Performed By: #### L 100.0100, L500.2500 #### [facility] [address] [place], [address] BUN/CRE 14.2 RATIO Normal 10-20 [facility] Comment on above: Performed By: #### L 100.0100, L500.2500 #### [facility] [address] [place], [address] Calcium [Mass/Vol] 9.4 mg/dL Normal 7.6-11.0 [facility] Comment on above: Performed By: #### L 100.0100, L500.2500 #### [facility] [address] [place], [address] Chloride [Moles/Vol] 105 mmol/L Normal 98-108 [facility] Comment on above: Performed By: #### L 100.0100, L500.2500 #### [facility] [address] [place], [address] CO2 [Moles/Vol] 23.8 mmol/L Normal 21.0-32.0 [facility] Comment on above: Performed By: #### L 100.0100, L500.2500 #### [facility] [address] [place], [address] Creatinine [Mass/Vol] 0.80 mg/dL Normal 0.70-1.20 [facility] Comment on above: Performed By: #### L 100.0100, L500.2500 #### [facility] [address] [place], [address] GAP 12 Normal 5-15 [facility] Comment on above: Performed By: #### L 100.0100, L500.2500 #### [facility] [address] [place], [address] GFR/1.73 sq M.predicted among non-blacks MDRD (S/P/Bld) [Vol rate/Area] 92 mL/min/{1.73_m2} Normal >60 [facility] Comment on above: Result Comment: mL/m in/1.73m2 CKD-EPI Creatinine Equation (2020) Performed By: #### L 100.0100, L500.2500 #### [facility] [address] [place], [address] Globulin (S) [Mass/Vol] 3.0 g/dL Normal 2.2-4.2 [facility] Comment on above: Performed By: #### L 100.0100, L500.2500 #### [facility] [address] [place], [address] Glucose [Mass/Vol] 75 mg/dL Normal 70-99 [facility] Comment on above: Performed By: #### L 100.0100, L500.2500 #### [facility] [address] [place], [address] Potassium [Moles/Vol] 4.1 mmol/L Normal 3.3-5.1 [facility] Comment on above: Performed By: #### L 100.0100, L500.2500 #### [facility] [address] [place], [address] Sodium [Moles/Vol] 141 mmol/L Normal 133-145 [facility] Comment on above: Performed By: #### L 100.0100, L500.2500 #### [facility] [address] [place], [address] T PROT 7.2 g/dL Normal 5.9-8.4 [facility] Comment on above: Performed By: #### L 100.0100, L500.2500 #### [facility] [address] [place], [address] Urea nitrogen [Mass/Vol] 11 mg/dL Normal 4-19 [facility] Comment on above: Performed By: #### L 100.0100, L500.2500 #### [facility] [address] [place], [address] Lipid Profileon 11-20-2024 CHOL:HDL 5.28 Normal [facility] Comment on above: Performed By: #### L 100.0100, L500.2500 #### [facility] [address] [place], [address] Cholesterol [Mass/Vol] 226 mg/dL High <=200 [facility] Comment on above: Result Comment: Chol esterol level, Desirable <200 mg/dL Borderline high cholesterol 200-239 mg/dL High cholesterol >=240 mg/dL Recommendations of the NCEP Adult Treatment Panel for the following risk-cutoff thresholds for the [place] population. Performed By: #### L 100.0100, L500.2500 #### [facility] [address] [place], [address] Cholesterol in HDL [Mass/Vol] 43 mg/dL Normal [facility] Comment on above: Result Comment: Rhonda onal Cholesterol Education Program (NCEP) guidelines: <40 mg/dL: Low HDL-cholesterol (major risk factor for CHD) >= 60 mg/dL: High HDL-cholesterol (negative risk factor for CHD) HDL-cholesterol is affected by a number of factors, e.g. smoking, exercise, hormones, sex and age. Performed By: #### L 100.0100, L500.2500 #### [facility] [address] [place], [address] Cholesterol in LDL [Mass/Vol] 119 mg/dL Normal [facility] Comment on above: Result Comment: Bord mpnafq=222-732 mg/dL Higher Rerw=031 mg/dL or greater Performed By: #### L 100.0100, L500.2500 #### [facility] [address] [place], [address] Cholesterol in VLDL [Mass/Vol] 64 mg/dL High 5-40 [facility] Comment on above: Performed By: #### L 100.0100, L500.2500 #### [facility] [address] [place], [address] Triglyceride [Mass/Vol] 322 mg/dL High [facility] Comment on above: Result Comment: The drugs N-Acetylcysteine and Metamizole may falsely depress this assay. Normal range: <150 mg/dL Borderline High: 150-199 mg/dL High: 200-499 mg/dL Very High: >500 mg/dL Performed By: #### L 100.0100, L500.2500 #### [facility] [address] [place], [address] Thyroid Stim Hormone (TSH)on 11-20-2024 TSH 46.000 uIU/mL High 0.300-4.200 [facility] Comment on above: Performed By: #### L 100.0100, L500.2500 #### [facility] [address] [place], [address] /Sara 11-12-2024 MR/GREG. [address], [address] [place] [address] OFFICE VISIT Date of Service: 11/12/24 MR#: [id number] Acct: [id number] Name: FRANKIE MCKINNEY #: [id number] : 1975 Provider: RAVEN dai Age/Sex: 48/F Location[place] [facility] Status: Signed Intake Vital Signs 09/30/24 15:52 11/12/24 15:54 Height 5 ft 10 in 5 ft 10 in Weight: 305 lb BMI 43.7 BP 151/91 H 143/75 H Blood Pressure Location Lt radial Lt radial Position Sitting Sitting Respiration 16 16 Pulse 73 84 Pulse Source Monitor Monitor BP Intake Visit Reasons: Follow up Accompanied by: Allergies adhesive tape Allergy (Mild, Verified 11/12/24 15:57) Rash Medications ???Medication ???Instructions ???Recorded ???Confirmed ???Type levothyroxine 200 mcg tablet 200 mcg PO DAILY 05/13/23 11/12/24 History levothyroxine 25 mcg tablet 25 mcg PO DAILY 05/13/23 11/12/24 History metoprolol tartrate 25 mg tablet 25 mg PO BID 09/19/23 11/12/24 His tory acetaminophen 500 mg tablet 550 mg PO .Q8hr PRN fever or pain 09/21/23 11/12/24 History propranolol 20 mg tablet 20 mg PO BID 09/21/23 11/12/24 His tory amlodipine 5 mg tablet 5 mg PO QDAY 11/07/23 11/12/24 His tory losartan 100 mg tablet 100 mg PO QDAY 05/13/24 11/12/24 H istory omeprazole 40 mg capsule,delayed 40 mg PO QDAY #60 caps 09/05/24 Rx release buspirone 7.5 mg tablet 7.5 mg PO TID #270 tabs 11/12/24 0 11/12/24 Rx divalproex 500 mg tablet,extended 1,500 mg (3 x 500 mg) PO DAILY #9 0 11/12/24 11/12/24 Rx release 24 hr tabs venlafaxine 225 mg tablet,extended 225 mg PO QHS #90 tabs 11/12/24 11/12/24 Rx release 24 hr PFSH Medical History (Updated 10/01/24 @ 00:02 by Chuck Sharma) Personal history of colonic polyps Anxiety Bipolar 1 disorder Contact with and (suspected) exposure to other viral communicable diseases URI (upper respiratory infection) Thyroid disease Arthritis HTN (hypertension) Surgical History Hx of colonoscopy Hx of thyroidectomy Hx of oophorectomy Hx of tonsillectomy History of cholecystectomy Family History (Updated 05/13/24 @ 08:10 by Hoa Norris) Mother Colon polyps Hypertension Other CVA (cerebral vascular accident) Cancer Melanoma Skin cancer Social History (Updated 09/05/24 @ 15:49 by Bela Euceda LPN) household members: spouse current occupational status: employed and disabled Smoking Status: Former smoker Electronic Cigarette Use: not used second hand exposure: Yes alcohol intake: current details: only around the holidays substance use type: does not use what type of physical activity do you participate in: walking HPI History of Present Illness History provided by: patient HPI: Frankie Mckinney is a 48 year old female patient presenting today for a follow up evaluation. 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 Is planning to start on Sunday with one position and another one tomorrow. Reports she was unable to take 50mg of quetiapine and felt it was too much so she reduced down to 25mg and still felt it was too much so she discontinued. Reports mood has been up and down without the quetiapine. Reports feelings of depression more than half the time. Denies SI/HI. Has been feelings more anxious and over thinking things recently. Does feel anxiety symptoms will improve when she starts working her new jobs. Her has been encouraging her to get of the house. Admits to having a couple of panic attacks since last appointment. Reports panic were brought about by her and her arguing. Sleep has been good. Denies issues falling asleep. Denies issues staying asleep at night. Is getting a lot of sleep on the weekend. Appetite has been good. Admits to gaining about 18 pounds since August. Previous similar episode: Yes Age of first onset of symptoms: 11-20 years (20 years old diagnosed with Bipolar disorder) Review of Systems Constitutional Reports: fatigue (feels fatigued by midweek); Denies: fever(s), chills or change in weight Eyes Denies: change in vision Ears, Nose, Mouth, Throat Denies: throat pain or neck pain Cardiovascular Reports: chest pain (occasional, plan for nuclear stress test when able) and palpitations; Denies: dyspnea Respiratory Denies: dyspnea, cough or wheezing Gastrointestinal Denies: abdominal pain, nausea, vomiting or diarrhea Genitourinary Denies: dysuria, urinary frequency or urinary urgency Musculoskeletal Reports: back pain; Denies: neck pain Integumentary/Breast Denies: rash, pruritus or erythema Neurological Denies: headache(s) Psychiatric Reports: anxiety (much from last (more content not included)... Normal [facility] Gastric Emptying Studyon Gastric Emptying Study [facility] Imaging Services [address] [place] [address] Gastric Emptying Study MR#: [id number] Acct: [id number] Name: FRANKIE MCKINNEY Rep #: [id number] : 1975 F 48 From: Osmani gutierrez MD PCP: Dr. Dionisio Fortune MD Status: REG CLI Study: Gastric Emptying Study Date of Exam: 10/02/24 Exam# [id number] Ordering Dr: Yessy Mckinney PROCEDURE: GASTRIC EMPTYING STUDY 10/02/2024 REASON FOR EXAM: NAUSEA COMPARISON: None. TECHNIQUE: The patient ingested a standard meal of 1.2 mCi of sulfur colloid mixed with oatmeal and water. . There was no vomiting postprandially. Anterior and posterior planar images of the upper abdomen were obtained for 1 minute immediately following the meal at 1h, 2h and 4h if more than 10% of the activity persisted within the stomach. Regions of interest were drawn, and a geometric mean was used to calculate a [id number]. RADIOPHARMACEUTICAL: 1.2 mCi of technetium labeled sulfur colloid. FINDINGS: Percent activity remaining in stomach: 1 hour 91 % (normal 37-90%) NM/Gastric Emptying Study IMPRESSION: Normal gastric emptying study. Reading Location: [place] [address] CC: Dr. Dionisio Fortune MD; NIKOLE Field Advertising Representative: Signed Normal [facility] MR/BMS.BPon 09-30-2024 MR/BMS.BP [facility] [address], [address] [place] [address] OFFICE VISIT Date of Service: 09/30/24 MR#: [id number] Acct: [id number] Name: FRANKIE MCKINNEY Rep #: [id number] : 1975 Provider: RAVEN dai Age/Sex: 48/F Location[place] [facility] [place] Status: Signed Intake Vital Signs 07/24/24 15:51 09/23/24 10:12 09/30/24 15:52 Height 5 ft 10 in 5 ft 10 in 5 ft 10 in BP 151/91 H Blood Pressure Location Lt radial Position Sitting Respiration 16 Pulse 73 Pulse Source Monitor BP Intake Visit Reasons: follow up Accompanied by: Allergies adhesive tape Allergy (Mild, Verified 09/30/24 16:14) Rash Medications ???Medication ???Instructions ???Recorded ???Confirmed ???Type levothyroxine 200 mcg tablet 200 mcg PO DAILY 05/13/23 09/30/24 History levothyroxine 25 mcg tablet 25 mcg PO DAILY 05/13/23 09/30/24 History metoprolol tartrate 25 mg tablet 25 mg PO BID 09/19/23 09/30/24 His tory acetaminophen 500 mg tablet 550 mg PO .Q8hr PRN fever or pain 09/21/23 09/30/24 History propranolol 20 mg tablet 20 mg PO BID 09/21/23 09/30/24 His tory amlodipine 5 mg tablet 5 mg PO QDAY 11/07/23 09/30/24 His tory losartan 100 mg tablet 100 mg PO QDAY 05/13/24 09/30/24 H istory buspirone 7.5 mg tablet 7.5 mg PO TID #270 tabs 07/24/24 0 09/30/24 Rx venlafaxine 225 mg tablet,extended 225 mg PO QHS #90 tabs 07/24/24 09/30/24 Rx release 24 hr omeprazole 40 mg capsule,delayed 40 mg PO QDAY #60 caps 09/05/24 Rx release divalproex 500 mg tablet,extended 1,500 mg (3 x 500 mg) PO DAILY #9 0 09/30/24 09/30/24 Rx release 24 hr tabs quetiapine 50 mg tablet 50 mg PO QHS #30 tabs 09/30/2407/26 Rx PFSH Medical History (Updated 10/01/24 @ 00:02 by Chuck Sharma) Personal history of colonic polyps Anxiety Bipolar 1 disorder Contact with and (suspected) exposure to other viral communicable diseases URI (upper respiratory infection) Thyroid disease Arthritis HTN (hypertension) Surgical History Hx of colonoscopy Hx of thyroidectomy Hx of oophorectomy Hx of tonsillectomy History of cholecystectomy Family History (Updated 05/13/24 @ 08:10 by Hoa Norris) Mother Colon polyps Hypertension Other CVA (cerebral vascular accident) Cancer Melanoma Skin cancer Social History (Updated 09/05/24 @ 15:49 by Bela Euceda LPN) household members: spouse current occupational status: employed and disabled Smoking Status: Former smoker Electronic Cigarette Use: not used second hand exposure: Yes alcohol intake: current details: only around the holidays substance use type: does not use what type of physical activity do you participate in: walking HPI History of Present Illness History provided by: patient HPI: Frankie Mckinney is a 48 year old female patient presenting today for a follow up evaluation. Reports she has not been doing well. Does report on september 01 she quit her job due to having a new job lined up but only worked 2 hours and never went back. 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 Does report some frustration from her that she quit her job. 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 Does report she has been feeling much more depressed and has even written a suicide note out last week but threw it away and was able to utilize coping skills to bring herself out of this. Denies SI currently, since last week. Does report she has been having some financial concerns as well. Has been calling around for financial assistance and has applied for unemployment and for food stamps. Does report that due to not working, her will get an increase in SSI. Has been arguing with her more which has been distressing for her as well. Has been sleeping more. Does feel she is sleeping almost all day. Admits to frequent mood swings and increase irritability. Previous similar episode: Yes Age of first onset of symptoms: 11-20 years (20 years old diagnosed with Bipolar disorder) Review of Systems Constitutional Reports: fatigue (feels fatigued by midweek); Denies: fever(s), chills or change in weight Eyes Denies: change in vision Ears, Nose, Mouth, Throat Denies: throat pain or neck pain Cardiovascular Reports: chest pain (occasional, plan for nuclear stress test when able) and palpitations; Denies: dyspnea Respiratory Denies: dyspnea, cough or wheezing Gastrointestinal Denies: abdominal pain, nausea, vomiting or diarrhea Genitourinary Denies: dysuria, urinary frequency or urinary urgency Musculoskeletal (more content not included)... [facility] 12 Lead EKGon 09-23-2024 12 Lead EKG [facility] Cardi[facility] Services [address] [place] [address] 12 Lead EKG 09/23/24 1049 MR#: [id number] Acct: [id number] Name: FRANKIE MCKINNEY Rep #: [id number] : 1975 48 From: Rick Mcfarland MD Attending Dr: Status: DEP ER Ordering Dr: Latrice Magaña DO Date: 09/23/24 Location: ED Sex: F C Admitted: Test Reason : DIZZINESS Blood Pressure : */* mmHG Vent. Rate : 97 BPM Atrial Rate : 97 BPM P-R Int : 156 ms QRS Dur : 106 ms QT Int : 370 ms P-R-T Axes : 28 32 38 degrees QTcB Int : 469 ms Normal sinus rhythm Normal ECG Confirmed by RICK MCFARLAND MD ([id number]), supervising film or videotape editor BAILEY DUARTE ([id number]) on 09/24/2024 8:18:14 AM Referred By: Confirmed By: RICK MCFARLAND MD 09/24/24 0818 Date Rick Mcfarland MD CC: Dr. Latrice Magaña DO; Dr. Dionisio Fortune MD Signed [facility] Basic Metabolic Profile (BMP )on 09-23-2024 BUN/CRE 13.4 RATIO Normal 10-20 [facility] Comment on above: Performed By: #### L 100.0100, L500.2500 #### [facility] [address] [place], [address] Calcium [Mass/Vol] 7.7 mg/dL Normal 7.6-11.0 [facility] Comment on above: Performed By: #### L 100.0100, L500.2500 #### [facility] [address] [place], [address] Chloride [Moles/Vol] 105 mmol/L Normal 98-108 [facility] Comment on above: Performed By: #### L 100.0100, L500.2500 #### [facility] [address] [place], [address] CO2 [Moles/Vol] 24.7 mmol/L Normal 21.0-32.0 [facility] Comment on above: Performed By: #### L 100.0100, L500.2500 #### [facility] [address] [place], [address] Creatinine [Mass/Vol] 0.98 mg/dL Normal 0.70-1.20 [facility] Comment on above: Performed By: #### L 100.0100, L500.2500 #### [facility] [address] [place], [address] ECRCL 105.51 ml/min Normal 50-250 [facility] Comment on above: Performed By: #### L 100.0100, L500.2500 #### [facility] [address] [place], [address] GAP 12 Normal 5-15 [facility] Comment on above: Performed By: #### L 100.0100, L500.2500 #### [facility] [address] [place], [address] GFR/1.73 sq M.predicted among non-blacks MDRD (S/P/Bld) [Vol rate/Area] 72 mL/min/{1.73_m2} Normal >60 [facility] Comment on above: Result Comment: mL/m in/1.73m2 CKD-EPI Creatinine Equation (2020) Performed By: #### L 100.0100, L500.2500 #### [facility] [address] [place], [address] Glucose [Mass/Vol] 83 mg/dL Normal 70-99 [facility] Comment on above: Performed By: #### L 100.0100, L500.2500 #### [facility] [address] [place], [address] Potassium [Moles/Vol] 4.0 mmol/L Normal 3.3-5.1 [facility] Comment on above: Performed By: #### L 100.0100, L500.2500 #### [facility] [address] [place], [address] Sodium [Moles/Vol] 142 mmol/L Normal 133-145 [facility] Comment on above: Performed By: #### L 100.0100, L500.2500 #### [facility] [address] [place], [address] Urea nitrogen [Mass/Vol] 13 mg/dL Normal 4-19 [facility] Comment on above: Performed By: #### L 100.0100, L500.2500 #### [facility] [address] [place], [address] CBC W/Diff, Automatedon 08-31 Absolute Lymph 1.93 X10 3/uL Normal 0.83-4.51 [facility] Comment on above: Performed By: #### L 100.0100, L500.2500 #### [facility] [address] [place], [address] Absolute Neut 3.7 X10 3/uL Normal 2.0-7.7 [facility] Comment on above: Performed By: #### L 100.0100, L500.2500 #### [facility] [address] [place], [address] Basophils/100 WBC (Bld) 0.7 % Normal 0-1 [facility] Comment on above: Performed By: #### L 100.0100, L500.2500 #### [facility] [address] [place], [address] Eosinophils/100 WBC (Bld) 0.7 % Normal 0-5 [facility] Comment on above: Performed By: #### L 100.0100, L500.2500 #### [facility] [address] [place], [address] Erythrocyte distribution width (RBC) [Ratio] 13.2 % Normal 11.6-14.6 [facility] Comment on above: Performed By: #### L 100.0100, L500.2500 #### [facility] [address] [place], [address] Hematocrit (Bld) [Volume fraction] 40.8 % Normal 37-47 [facility] Comment on above: Performed By: #### L 100.0100, L500.2500 #### [facility] [address] [place], [address] Hemoglobin (Bld) [Mass/Vol] 13.4 g/dL Normal 12.0-15.0 [facility] Comment on above: Performed By: #### L 100.0100, L500.2500 #### [facility] [address] [place], [address] IG% 0.300 Normal 0.0-0.9 [facility] Comment on above: Result Comment: IG% - Immature Granulocytes (promyelocytes, myelocytes and metamyelocytes) > 1% indicates that a LEFT SHIFT is Present. Performed By: #### L 100.0100, L500.2500 #### [facility] [address] [place], [address] Lymphocytes/100 WBC (Bld) 31.6 % Normal 19-41 [facility] Comment on above: Performed By: #### L 100.0100, L500.2500 #### [facility] [address] [place], [address] MCH (RBC) [Entitic mass] 30.8 pg Normal 27.0-32.0 [facility] Comment on above: Performed By: #### L 100.0100, L500.2500 #### [facility] [address] [place], [address] MCHC (RBC) [Mass/Vol] 32.8 g/dL Normal 32-36 [facility] Comment on above: Performed By: #### L 100.0100, L500.2500 #### [facility] [address] [place], [address] MCV (RBC) [Entitic vol] 93.8 fL Normal 81-99 [facility] Comment on above: Performed By: #### L 100.0100, L500.2500 #### [facility] [address] [place], [address] Monocytes/100 WBC (Bld) 6.7 % Normal 0-10 [facility] Comment on above: Performed By: #### L 100.0100, L500.2500 #### [facility] [address] [place], [address] Neutrophils/100 WBC (Bld) 60.0 % Normal 47-70 [facility] Comment on above: Performed By: #### L 100.0100, L500.2500 #### [facility] [address] [place], [address] Nucleated RBC (Bld) [#/Vol] 0 10*3/uL Normal 0-5 [facility] Comment on above: Performed By: #### L 100.0100, L500.2500 #### [facility] [address] [place], [address] Platelet mean volume (Bld) [Entitic vol] 11.6 fL Normal 6.2-12.0 [facility] Comment on above: Performed By: #### L 100.0100, L500.2500 #### [facility] [address] [place], [address] Platelets (Bld) [#/Vol] 177 10*3/uL Normal 150-450 [facility] Comment on above: Performed By: #### L 100.0100, L500.2500 #### [facility] [address] [place], [address] RBC (Bld) [#/Vol] 4.35 10*6/uL Normal 4.2-5.4 [facility] Comment on above: Performed By: #### L 100.0100, L500.2500 #### [facility] [address] [place], [address] RDW SD 45.5 fl High 35.1-43.9 [facility] Comment on above: Performed By: #### L 100.0100, L500.2500 #### [facility] [address] [place], [address] WBC (Bld) [#/Vol] 6.1 10*3/uL Normal 4.4-11.0 [facility] Comment on above: Performed By: #### L 100.0100, L500.2500 #### [facility] [address] [place], [address] D-Dimer Quantitative (DVT/PE )on 09-23-2024 D-DIMER QUANT < 0.27 Low 0.27-0.49 [facility] Comment on above: Result Comment: NORM AL D-Dimer level (<0.50) indicates no DVT or PE. Performed By: #### L 100.0100, L500.2500 #### [facility] [address] [place], [address] Emergency Department Summary on 09-23-2024 Emergency Department Summary [facility] Medical Records Department [address] [place] [address] Emergency Department Summary 09/23/24 MR#: [id number] Acct: [id number] Name: FRANKIE MCKINNEY Rep #: [id number] : 1975 48 From: Latrice Magaña DO PCP: Dr. Dionisio Fortune MD Status:DEP ER Location: ED HPI History of Present Illness Chief Complaint: Dizziness Detail of Chief Complaint: Dizziness Informant: patient Narrative Narrative: Patient presents the emergency department complaint of dizziness started today while she was at work. 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 They put some chemicals in a bucket. Patient then started suddenly feeling somewhat lightheaded and she got really hot and sweaty. Face got flushed. She felt like she might pass out but sat down. There is no syncope. Subsequently she complained of feeling somewhat short of breath and feeling when she had a hard time swallowing. She does have a history of anxiety and bipolar disorder. She has had not had any recent illness. She has had prior hysterectomy. She denies chest pain or shortness of breath. She denies racing heart. [facility] Medical History (Updated 09/23/24 @ 12:[address] Latrice Magaña DO) Personal history of colonic polyps Anxiety Bipolar 1 disorder Contact with and (suspected) exposure to other viral communicable diseases URI (upper respiratory infection) Thyroid disease Arthritis HTN (hypertension) Home Medications ???Medication ???Instructions ???Recorded ???Last Taken ???Type levothyroxine 200 mcg tablet 200 mcg PO DAILY 05/13/23 Unknown History levothyroxine 25 mcg tablet 25 mcg PO DAILY 05/13/23 Unknown H istory metoprolol tartrate 25 mg tablet 25 mg PO BID 09/19/23 Unknown Hist ory acetaminophen 500 mg tablet 550 mg PO .Q8hr PRN fever or pain 09/21/23 Unknown History propranolol 20 mg tablet 20 mg PO BID 09/21/23 Unknown Hist ory amlodipine 5 mg tablet 5 mg PO QDAY 11/07/23 Unknown Hist ory divalproex 500 mg tablet,extended 1,500 mg (3 x 500 mg) PO DAILY #9 0 05/08/24 Unknown Rx release 24 hr tabs etodolac 500 mg tablet 500 mg PO BID 05/13/24 Unknown His tory losartan 100 mg tablet 100 mg PO QDAY 05/13/24 Unknown Hi story buspirone 7.5 mg tablet 7.5 mg PO TID #270 tabs 07/24/24 U nknown Rx venlafaxine 225 mg tablet,extended 225 mg PO QHS #90 tabs 07/24/24 Unknown Rx release 24 hr omeprazole 40 mg capsule,delayed 40 mg PO QDAY #60 caps 09/05/24 Un known Rx release ondansetron 4 mg disintegrating 4 mg PO Q8H #20 tabs 09/05/24 Unkn own Rx tablet Allergy/AdvReac Type Severity Reaction Status Date / Time adhesive tape Allergy Mild Rash Verified 09/23/24 10:15 Family History (Updated 05/13/24 @ 08:10 by Hoa Norris) Mother Colon polyps Hypertension Other CVA (cerebral vascular accident) Cancer Melanoma Skin cancer Surgical History Hx of colonoscopy Hx of thyroidectomy Hx of oophorectomy Hx of tonsillectomy History of cholecystectomy Social History (Updated 09/05/24 @ 15:49 by Bela Euceda LPN) household members: spouse current occupational status: employed and disabled Smoking Status: Former smoker Electronic Cigarette Use: not used second hand exposure: Yes alcohol intake: current details: only around the holidays substance use type: does not use what type of physical activity do you participate in: walking ROS ROS ED Review of Systems ROS Unobtainable: other Constitutional Constitutional ED: Reports lethargy, sweats and other; Denies chills, fever(s) or weight loss Eyes Eyes: Denies blurry vision, change in vision or diplopia ENT ENT ED: Denies rhinorrhea or sore throat Cardiovascular Cardiovascular: Denies chest pain, orthopnea or racing heartbeat Respiratory/Chest Respiratory/Chest: Reports dyspnea; Denies cough, dyspnea on exertion, orthopnea or sputum Gastrointestinal Gastrointestinal: Denies abdominal pain, diarrhea, nausea or vomiting Genitourinary Genitourinary ED: Denies dysuria, hematuria or urinary frequency Musculoskeletal Musculoskeletal: Denies arthralgias, back pain, myalgias or neck pain Integumentary Denies abscess, Abrasions or rash Neurologic Neurologic: Reports other Details: Dizziness ; Denies headache(s) or weakness Psychiatric Psychiatric: Denies anxiety, depression or suicidal thoughts Endocrine Endocrinology: Denies polydipsia, polyphagia or polyuria Hematologic/Lymphatic Hematologic/Lymphatic: Denies easy bleeding, easy bruising or lymphadenopathy Allergic/Immunologic Allergic/Immunologic ED: Denies mouth swelling, tongue swelling or urticaria EXAM Physical Exam Const Vital Signs: 09/23/24 10:12 09/23/24 11:02 (more content not included)... [facility] L501.4021on 09-23-2024 Trop T High Sen 8 ng/L Normal <=14 [facility] Comment on above: Performed By: #### L 501.4021 #### [facility] [address] [place], [address] Gastroenterology Visit Repor ton 09-05-2024 Gastroenterology Visit Report [facility] [address] [place] [address] OFFICE VISIT Date of Service: 09/05/24 MR#: [id number] Acct: [id number] Name: FRANKIE MCKINNEY Rep #: [id number] : 1975 Provider: NIKOLE Field Age/Sex: 48/F Location[place] [facility] [place] Status: Signed Intake Vital Signs 07/24/24 15:51 Height 5 ft 10 in Weight: 289 lb BMI 41.4 BP 122/78 H Blood Pressure Location Lt radial Position Sitting Respiration 16 Pulse 66 Pulse Source Monitor Intake Visit Reasons: Nausea/vomiting Chief Complaint: nausea, constipation, and diarrhea Security Door Installer Required: No Accompanied by: Allergies adhesive tape Allergy (Mild, Verified 01/23/25 15:55) Rash Patient : No Have you fallen in the past year?: No Nurse's Note: OV 09.05.24 Pt here to establish care with [facility]. Pt reports nausea, constipation, diarrhea, bloody stools and abdominal pain. Pt takes Bismuth for symptoms but finds no relief. Pt denies vomiting. Pt reports prior colonoscopy 3 years ago. [facility] Medical History (Updated 09/05/24 @ 16:21 by NIKOLE Field) Personal history of colonic polyps Anxiety Bipolar 1 disorder Contact with and (suspected) exposure to other viral communicable diseases URI (upper respiratory infection) Thyroid disease Arthritis HTN (hypertension) Surgical History (Updated 05/13/24 @ 08:09 by Hoa Norris) Hx of colonoscopy Hx of thyroidectomy Hx of oophorectomy Hx of tonsillectomy History of cholecystectomy Family History (Updated 05/13/24 @ 08:10 by Hoa Norris) Mother Colon polyps Hypertension Other CVA (cerebral vascular accident) Cancer Melanoma Skin cancer Social History (Updated 09/05/24 @ 15:49 by Bela Euceda LPN) household members: spouse current occupational status: employed and disabled Smoking Status: Current some day smoker Electronic Cigarette Use: not used second hand exposure: Yes alcohol intake: current details: only around the holidays substance use type: does not use what type of physical activity do you participate in: walking HPI HPI Chief Complaint: nausea, constipation, and diarrhea Details: FRANKIE MCKINNEY, is a 48 F who presents to the office today for establishment with [facility]. Over the past few years pt has had issues with constipation alternating with diarrhea. She will go 7 days without a bm and then have diarrhea 2x per day for a few days. She has not tried any medications for her constipation. When she has the constipation she has some rectal bleeding. Her last colonoscopy was a few years ago with polyps. She is due for colonoscopy at this time. For 9 months now, she has had daily nausea but no vomiting. Her nausea typically lasts the entire day. It is not related to when she eats. She is having some abd pain associated with the nausea. ROS Const Constitutional: No fatigue, fever(s) or weight change ENT ENT: No difficulty swallowing Gastro GI: Positive for abdominal pain, change in bowel habits, constipation, diarrhea, Blood in stool and nausea/dyspepsia; No belching, bloating, change in stool character, coffee ground emesis, cramping, heartburn, difficulty swallowing, feeling full early, excessive flatus, incontinent of stools, Vomiting blood/hematemesis, loose stools, Black,tarry stools, pain with swallowing, vomiting or other Musc Musculoskeletal: Positive for back pain, muscle cramps and Arthritis; No joint pain Skin Skin: No yellowing of the eye or itchy eyes Psych Psychiatric: Positive for anxiety and Positive for depression Endo Endocrine: No fatigue or weight change Aller/Imm Allergy/Immunologic: No itchy eyes Driss/Lymp Hematologic/Lymphatic: No easy bleeding or easy bruising Exam Const General: cooperative and comfortable Nutritional Appearance: average body habitus and well nourished HENMT Head: normal to inspection Ears: hearing grossly normal bilaterally Nose: external nose normal Face and sinus: normal facial exam Mouth: oral mucosae normal Throat: posterior oropharynx normal Eyes General: appearance normal, both eyes and all related structures Neck Neck: normal visual inspection Chest Chest palpation inspection: normal inspection of the chest and normal palpation of entire chest wall Resp Effort Inspection: normal respiratory effort Auscultation: Bilateral: Clear to Auscultation Cardio Palpation: normal PMI Rate: regular rate Rhythm: regular rhythm GI Inspection: normal to inspection Auscultation: normal bowel sounds Percussion: normal to percussion Palpation: soft and no hepatosplenomegaly Skin General: no rashes or lesions noted Neuro General: patient alert Extrem General: normal to inspection Psych Affect: normal affect Assessment and Plan Assessment and Faraz (more content not included)... Normal [facility] Thyroid Stim Hormone (TSH)on 08-29-2024 TSH 1.990 uIU/mL Normal 0.300-4.200 [facility] Comment on above: Performed By: #### L 400.2010, #### [facility] [address] [place], [address] M100.678on 08-27-202400. SARS-CoV-2 (COVID 19 ) Negative INFLUENZA A Negative INFLUENZA B Negative RSV PCR Negative Normal [facility] Comment on above: Performed By: #### L 400.2010, #### [facility] [address] [place], [address] [facility] 07-28-2024 CN Office Visit ([facility] ) -- FRANKIE MCKINNEY ([id number]) 1975 F Date Time Provider Department 07/28/24 7:15 AM LENY RIVERA [facility] During your visit today, we recorded the following information about you: Temperature Pulse Respiration Blood pressure 98.5 degrees 120/minute 18/minute 122/80 Weight 132 kg Leny Rivera APRN.[employer] 07/28/2024 7:32 AM Signed CC: Patient presents with: Nasal Congestion: right ear pain and sore throat x 4 days HPI: Frankie Mckinney is a 48 year old female who presents to the office with complaint of head congestion, sore throat, and ear symptoms for 4 days. Symptoms are worsening Associated symptoms includes sore throat. Denies wheezing, dyspnea, fatigue, nausea, vomiting , and diarrhea. Treatments tried include nothing so far. with no relief of symptoms. Sick contacts: unknown. History of asthma, frequent episodes of bronchitis, chronic bronchitis, bronchiectasis or COPD: No Smoker: No Seasonal/environmental allergies: No The ROS is otherwise negative. The patient's pmh, medications, allergies, and past visits are reviewed. PHYSICAL EXAM: BP 122/80 Pulse 120 Temp 36.9 ?C (98.5 ?F) Resp 18 Wt 132 kg (291 lb 0.1 oz) SpO2 99% General appearance: alert, cooperative, pleasant, in no acute distress Head: Normocephalic Eyes: EOM's intact, conjunctiva pink and moist, no icterus, sclera white, non-injected Ears: Right ear: External ear/canal- Normal, TM - erythematous. Left ear: External ear/canal- Normal, TM - clear with good landmarks Oropharynx:moist without lesions, No erythema, exudates or tonsillar hypertrophy. Heart: Negative. RRR without obvious murmur, gallop, or rubs. No ectopy. Lungs: clear to auscultation, without rales or wheeze, good air exchange No past medical history on file. No past surgical history on file. ALLERGIES Patient has no known allergies. MEDICATIONS amLODIPine (NORVASC) 5 mg tablet Take 5 mg by mouth daily at bedtime. divalproex ER (DEPAKOTE ER) 500 mg 24 hr tablet metoprolol tartrate, short acting, (LOPRESSOR) 25 mg tablet busPIRone (BUSPAR) 7.5 mg tablet hydrOXYzine HCl (ATARAX) 25 mg tablet Take 25 mg by mouth three times a day as needed. levothyroxine (SYNTHROID) 200 mcg tablet levothyroxine (SYNTHROID) 25 mcg tablet venlafaxine XR (EFFEXOR XR) 225 mg tablet propranolol (INDERAL) 20 mg tablet Take 20 mg by mouth three times a day. amoxicillin (AMOXIL) 875 mg tablet Take 1 tablet by mouth two times a day for 7 days. lamoTRIgine (LAMICTAL) 100 mg tablet (Patient not taking: Reported on 07/28/2024) cyclobenzaprine (FLEXERIL) 10 mg tablet Take 1 tablet by mouth three times daily as needed for muscle spasm. (Patient not taking: Reported on 07/28/2024) No family history on file. Social History Tobacco Use Smoking status: Former Types: Cigarettes Smokeless tobacco: Never ASSESSMENT/PLAN: 1. Sore throat - ICD9: 462, ICD10: J02.9 (primary diagnosis) - STREP A MOLECULAR (POC) - neg 2. Acute otitis media, right - ICD9: 382.9, ICD10: H66.91 - AMOXICILLIN 875 MG TABLET Prescription instructions reviewed with patient as applicable. Potential red flag symptoms discussed with the patient. Reviewed appropriate action plan to take if red flag symptoms occur. Patient agreeable to treatment plan. Leny Rivera APRN.[employer] Allergies As of Date: 07/28/2024 (No Known Allergies) Date Reviewed: 07/28/2024 Reviewed by: Charla Galvan MA - Fully Assessed Reason for Visit: Nasal Congestion [235] Cmt: right ear pain and sore throat x 4 days Primary Visit Diagnosis:Sore throat [J02.9] Other Visit Diagnosis:Acute otitis media, right [H66.91] Order(s):STREP A MOLECULAR (POC) [2247989] Order #: [id number]. #:[id number] 2-LAB amoxicillin (AMOXIL) 875 mg tabletTake 1 tablet by mouth two times a day for 7 days.Disp: 14 tabletRfl: 0 Prescriptions as of 07/28/2024 - amLODIPine (NORVASC) 5 mg tablet Take 5 mg by mouth daily at bedtime. - divalproex ER (DEPAKOTE ER) 500 mg 24 hr tablet - metoprolol tartrate, short acting, (LOPRESSOR) 25 mg tablet - busPIRone (BUSPAR) 7.5 mg tablet - hydrOXYzine HCl (ATARAX) 25 mg tablet Take 25 mg by mouth three times a day as needed. - propranolol (INDERAL) 20 mg tablet Take 20 mg by mouth three times a day. - amoxicillin (AMOXIL) 875 mg tablet Take 1 tablet by mouth two times a day for 7 days. - levothyroxine (SYNTHROID) 200 mcg tablet - levothyroxine (SYNTHROID) 25 mcg tablet - venlafaxine XR (EFFEXOR XR) 225 mg tablet - lamoTRIgine (LAMICTAL) 100 mg tablet - cyclobenzaprine (FLEXERIL) 10 mg tablet Take 1 tablet by mouth three times daily as needed for muscle spasm. Problem List As Of Date: 07/28/2024 (None) Prescriptions ordered this encounter Disp Refills Start End AMOXICILLIN 875 MG TABLET 14 t* 0 07/28/2024 08/04/2024 Route: OR (more content not included)... Normal [facility] STREP A MOLECULAR (POC)on Procedural Control Valid [facility] Strep A (POCT) Negative Negative [facility] Valproic Acid (Depakene) Lev shraddha 07-25-2024 VALPROIC ACID 70 ug/mL Normal 50-100 [facility] Comment on above: Performed By: #### L 501.8100 #### [facility] [address] [place], [place], [id number] MR/BMS.BPon 07-24-2024 MR/BMS.[address], [address] [place] [address] OFFICE VISIT Date of Service: 07/24/24 MR#: [id number] Acct: [id number] Name: FRANKIE MCKINNEY Rep #: [id number] : 1975 Provider: RAVEN dai Age/Sex: 48/F Location[place] [facility] [place] Status: Signed Intake Vital Signs 05/13/24 08:52 07/24/24 15:51 Height 5 ft 10 in 5 ft 10 in Weight: 289 lb BMI 41.4 BP 122/78 H Blood Pressure Location Lt radial Position Sitting Respiration 16 Pulse 66 Pulse Source Monitor BP Intake Visit Reasons: follow up Accompanied by: Allergies adhesive tape Allergy (Mild, Verified 07/24/24 15:55) Rash Medications ???Medication ???Instructions ???Recorded ???Confirmed ???Type levothyroxine 200 mcg tablet 200 mcg PO DAILY 05/13/23 07/24/24 History levothyroxine 25 mcg tablet 25 mcg PO DAILY 05/13/23 07/24/24 History metoprolol tartrate 25 mg tablet 25 mg PO BID 09/19/23 07/24/24 History acetaminophen 500 mg tablet 550 mg PO .Q8hr PRN 09/21/23 07/24/24 History propranolol 20 mg tablet 20 mg PO BID 09/21/23 07/24/24 History amlodipine 5 mg tablet 5 mg PO QDAY 11/07/23 07/24/24 History divalproex 500 mg tablet,extended 1,500 mg (3 x 500 mg) PO DAILY #90 05/08/24 07/24/24 Rx release 24 hr tabs hydroxyzine HCl 25 mg tablet 25 mg PO TID PRN anxiety #90 tabs 05/08/24 07/24/24 Rx etodolac 500 mg tablet 500 mg PO BID 05/13/24 07/24/24 History losartan 100 mg tablet 100 mg PO QDAY 05/13/24 07/24/24 History buspirone 7.5 mg tablet 7.5 mg PO TID #270 tabs 07/24/24 07/24/24 Rx venlafaxine 225 mg tablet,extended 225 mg PO QHS #90 tabs 07/24/24 07/24/24 Rx release 24 hr PFSH Medical History (Updated 05/13/24 @ 08:09 by Hoa Norris) Personal history of colonic polyps Anxiety Bipolar 1 disorder Contact with and (suspected) exposure to other viral communicable diseases URI (upper respiratory infection) Thyroid disease Arthritis HTN (hypertension) Surgical History (Updated 05/13/24 @ 08:09 by Hoa Norris) Hx of colonoscopy Hx of thyroidectomy Hx of oophorectomy Hx of tonsillectomy History of cholecystectomy Family History (Updated 05/13/24 @ 08:10 by Hoa Norris) Mother Colon polyps Hypertension Other CVA (cerebral vascular accident) Cancer Melanoma Skin cancer Social History (Updated 05/13/24 @ 08:14 by Hoa Norris) household members: spouse current occupational status: employed Smoking Status: Former smoker alcohol intake: current details: only around the holidays substance use type: does not use what type of physical activity do you participate in: walking HPI History of Present Illness History provided by: patient HPI: Frankie Mckinney is a 48 year old female patient presenting today for a follow up evaluation. Reports she is having a lot of emotional responses right now as she just found out her brother has stage 2 breast cancer. Does report her brother will have surgery and chemo. Does report some frustration about her pay decreasing at work. Does feel due to that her anxiety has been heightened. Does voice concerns around financial stability. 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 Does feel she has been more depressed recently. Has been trying to get into counseling but has been unable to get something scheduled. Has been sleeping more than before and is getting 12 hours of sleep. Does feel she is sleeping the whole day if she is off of work. Reports appetite to be poor. Has lose about 10 pounds in 2 months. Has not been experiencing any manic symptoms and has not been gambling since last appointment. Denies any SI/HI. Previous similar episode: Yes Age of first onset of symptoms: 11-20 years (20 years old diagnosed with Bipolar disorder) Review of Systems Constitutional Reports: change in weight (loss) and fatigue (feels fatigued by midweek); Denies: fever(s) or chills Eyes Denies: change in vision Ears, Nose, Mouth, Throat Denies: throat pain or neck pain Cardiovascular Reports: chest pain (occasional, plan for nuclear stress test when able) and palpitations; Denies: dyspnea Respiratory Denies: dyspnea, cough or wheezing Gastrointestinal Denies: abdominal pain, nausea, vomiting or diarrhea Genitourinary Denies: dysuria, urinary frequency or urinary urgency Musculoskeletal Reports: back pain; Denies: neck pain Integumentary/Breast Denies: rash, pruritus or erythema Neurological Denies: headache(s) Psychiatric Reports: anxiety (much from last appointment ), mood swings, change in sleep pattern, loss of interest, irritability, memory loss and difficulty concentrating; Denies: panic attacks, visual hallucinations, auditory hallucinations, suicidal ideation or homicidal ideation Endocrine (more content not included)... Normal [facility] Urine Cultureon 07-11-2024 URC Mixed Gram Positive Organisms Stokes Count 50,000-80,000 MIXC Mixed contaminants. Submit a new specimen if indicated. Normal [facility] Comment on above: Performed By: #### L 400.2010, #### [facility] [address] [place], [address] M100.678on 07-10-2024 M100.678 Pending SARS-CoV-2 (COVID 19) Negative INFLUENZA A Negative INFLUENZA B Negative RSV PCR Negative Normal [facility] Comment on above: Performed By: #### L 100.0100, L500.2500 #### [facility] [address] [place], [address] Urinalysis, Routine (Dipstic k)on 07-09-2024 BILIRUBIN URINE 1 mg/dL Abnormal Negative [facility] Comment on above: Order Comment: CLEAN CATCH Result Comment: COLO R OF URINE MAY AFFECT DIPSTICK RESULTS. Performed By: #### L 400.2010, #### [facility] [address] [place], [address] Clarity (U) Sl. Cloudy Normal Clear [facility] Comment on above: Order Comment: CLEAN CATCH Performed By: #### L 400.2010, #### [facility] [address] [place], [address] Color (U) Yellow Normal Yellow [facility] Comment on above: Order Comment: CLEAN CATCH Performed By: #### L 400.2010, #### [facility] [address] [place], [address] GLUCOSE, UR Normal Normal Normal [facility] Comment on above: Order Comment: CLEAN CATCH Performed By: #### L 400.2010, #### [facility] [address] [place], [address] KETONE UR 5 mg/dl Abnormal Negative [facility] Comment on above: Order Comment: CLEAN CATCH Performed By: #### L 400.2010, #### [facility] [address] [place], [address] LEUK ESTERASE 25 /ul Abnormal Negative [facility] Comment on above: Order Comment: CLEAN CATCH Performed By: #### L 400.2010, #### [facility] [address] [place], [address] Nitrite Ql (U) Negative Normal Negative [facility] Comment on above: Order Comment: CLEAN CATCH Performed By: #### L 400.2010, #### [facility] [address] [place], [address] OCCULT BLOOD-UR Negative Normal Negative [facility] Comment on above: Order Comment: CLEAN CATCH Performed By: #### L 400.2010, #### [facility] [address] [place], [address] pH UR 5.0 Normal 5.0 - 8.0 [facility] Comment on above: Order Comment: CLEAN CATCH Performed By: #### L 400.2010, #### [facility] [address] [place], [address] PROT DIPSTX 30 mg/dl Abnormal Negative [facility] Comment on above: Order Comment: CLEAN CATCH Performed By: #### L 400.2010, #### [facility] [address] [place], [address] SP.GR. DIPSTX 1.020 Normal 1.002-1.030 [facility] Comment on above: Order Comment: CLEAN CATCH Performed By: #### L 400.2010, .2199 #### [facility] [address] [place], [address] UROBILI 1 mg/dl Abnormal Normal [facility] Comment on above: Order Comment: CLEAN CATCH Performed By: #### L 400.2010, #### [facility] [address] [place], [address] MR/BMS.on 05-08-2024 MR/BMS.[address], [address] [place] [address] OFFICE VISIT Date of Service: 05/08/24 MR#: [id number] Acct: [id number] Name: FRANKIE MCKINNEY Rep #: [id number] : 1975 Provider: RAVEN dai Age/Sex: 48/F Location[place] [facility] [place] Status: Signed Intake Vital Signs 02/26/24 15:49 04/22/24 11:24 05/08/24 15:49 Height 5 ft 10 in 5 ft 10 in 5 ft 10 in BP Intake Visit Reasons: 8wfu Allergies adhesive tape Allergy (Mild, Verified 04/22/24 11:24) Rash PFSH Medical History (Updated 04/30/24 @ 00:01 by Chuck Sharma) Anxiety Bipolar 1 disorder Contact with and (suspected) exposure to other viral communicable diseases URI (upper respiratory infection) Thyroid disease Arthritis HTN (hypertension) Surgical History (Updated 04/22/24 @ 13:[address] Matthew Lemus, DO) Hx of thyroidectomy Hx of oophorectomy Hx of tonsillectomy History of cholecystectomy Family History Other CVA (cerebral vascular accident) Cancer Hypertension Melanoma Skin cancer Social History household members: spouse Smoking Status: Current some day smoker tobacco type: cigarettes alcohol intake: current details: only around the holidays substance use type: does not use what type of physical activity do you participate in: walking HPI History of Present Illness History provided by: patient HPI: Frankie Mckinney is a 48 year old female patient presenting today for a follow up evaluation. States she has been feeling sandhu and irritable since her landlord has and they are having plumbing issues since April 30 and has not showered since then and cannot get any resolution. Plan is also for them to exterminate for bugs tomorrow in their home and they are stressed about having their animals out of the house during this time. Does feel that increasing Depakote has been beneficial. Does still feel manic closer to but is not having any lack of sleep and has decreased her poor spending habits. Report she is sleeping well. States she is having some spinal issues as well which is frustrating for her as well. Does feel she is more tired during the week and catches up on sleep during the weekends. Reports appetite to be good. Does feel she has gained weight but is unsure of an amount. Has still been feeling anxious but admits the buspirone has been beneficial. Denies panic attacks. Does report some conflict around her accusing her of cheating and at times calling her names. Previous similar episode: Yes Age of first onset of symptoms: 11-20 years (20 years old diagnosed with Bipolar disorder) Review of Systems Constitutional Reports: change in weight (has gained some weight recently) and fatigue (feels fatigued by midweek); Denies: fever(s) or chills Eyes Denies: change in vision Ears, Nose, Mouth, Throat Denies: throat pain or neck pain Cardiovascular Reports: chest pain (occasional, plan for nuclear stress test when able) and palpitations; Denies: dyspnea Respiratory Denies: dyspnea, cough or wheezing Gastrointestinal Denies: abdominal pain, nausea, vomiting or diarrhea Genitourinary Denies: dysuria, urinary frequency or urinary urgency Musculoskeletal Reports: back pain; Denies: neck pain Integumentary/Breast Denies: rash, pruritus or erythema Neurological Denies: headache(s) Psychiatric Reports: anxiety (much from last appointment ), memory loss and difficulty concentrating; Denies: panic attacks, visual hallucinations, auditory hallucinations, suicidal ideation or homicidal ideation Endocrine Reports: fatigue (feels fatigued by midweek); Denies: polyuria or polydipsia Hematologic/Lymphatic Denies: easy bruising or easy bleeding Allergic/Immunologic Denies: wheezing Exam Mental Status Exam - Psych Appearance casually dressed and no apparent distress Attitude cooperative and friendly Activity/Motor Behavior MSE activity/motor behavior finding no adventitious movements and appropriate eye contact Speech regular rate, regular volume and regular prosody Mood OK Affect full range Thought Process linear, logical and coherent Thought Content no delusions and no hallucinations Suicidal Ideation none Homicidal Ideation none Attention impaired (per patient self report) Concentration impaired (per patient self report) Sensorium/Orientation awake, alert and oriented x3 Memory/Cognition impaired (per patient self report) Insight good Judgement good Exam Constitutional Common normals: no acute distress, average body habitus and patient oriented x3 Neuro Common normals: patient oriented x3 Speech: speech normal Gait (neuro): normal gait Psych (more content not included)... Normal [facility] Emergency Department Summary on 04-22-2024 Emergency Department Summary [facility] Medical Records Department [address] [place] [address] Emergency Department Summary 04/22/24 MR#: [id number] Acct: [id number] Name: FRANKIE MCKINNEY Rep #: [id number] : 1975 48 From: Matthew Lemus DO PCP: Dr. Dionisio Fortune MD Status:DEP ER Location: ED HPI History of Present Illness Chief Complaint: Back Onset/Context/Timing Onset: Weeks (1) Context: Gradual Onset Timing: Continuous Quality: Sharp and - (Stabbing) Location: Lumbar Worsened by: improves with Ambulation and - (Standing) Relieved by: Nothing Associated Symptoms Associated Symptoms: Radiation to Right Leg (Lateral thigh); Negative for Numbness or Tingling Narrative Narrative: Patient presents with back pain that has been getting worse over the past week. Patient states it is gradually getting worse. Pain described as sharp and stabbing. Patient states it is over the lower lumbar area. Patient states it is worse with standing and ambulation. Patient states nothing seems to help with it. Patient states it radiates into her right lateral thigh. Patient denies any fevers or chills. Patient denies any paresthesias or weakness. Patient denies any bowel or bladder changes. Patient denies any saddle anesthesia. Patient denies any trauma or injury. [facility] Medical History (Updated 04/22/24 @ 15:[address] Matthew Lemsu, DO) Anxiety Bipolar 1 disorder Contact with and (suspected) exposure to other viral communicable diseases URI (upper respiratory infection) Thyroid disease Arthritis HTN (hypertension) Home Medications ???Medication ???Instructions ???Recorded ???Last Taken ???Type levothyroxine 200 mcg tablet 200 mcg PO DAILY 05/13/23 Unknown History levothyroxine 25 mcg tablet 25 mcg PO DAILY 05/13/23 Unknown History diclofenac potassium 50 mg tablet 50 mg PO BID 09/19/23 Unknown History metoprolol tartrate 25 mg tablet 25 mg PO BID 09/19/23 Unknown History acetaminophen 500 mg tablet 550 mg PO .Q8hr PRN 09/21/23 Unknown History propranolol 20 mg tablet 20 mg PO BID 09/21/23 Unknown History amlodipine 5 mg tablet 5 mg PO QDAY 11/07/23 Unknown History hydroxyzine HCl 25 mg tablet 25 mg PO TID PRN anxiety #90 tabs 01/15/24 Unknown Rx buspirone 7.5 mg tablet 7.5 mg PO BID #180 tabs 02/26/24 Unknown Rx venlafaxine 225 mg tablet,extended 225 mg PO QHS #90 tabs 02/26/24 Unknown Rx release 24 hr divalproex 500 mg tablet,extended 1,500 mg (3 x 500 mg) PO DAILY #90 03/04/24 Unknown Rx release 24 hr tabs hydrocodone-acetaminophen 5-325mg 1 tab PO Q6H PRN PRN Pain 3 days 04/22/24 Unknown Rx 5mg-325mg #10 TABLETS Allergy/AdvReac Type Severity Reaction Status Date / Time adhesive tape Allergy Mild Rash Verified 04/22/24 11:24 Family History Other CVA (cerebral vascular accident) Cancer Hypertension Melanoma Skin cancer Surgical History (Updated 04/22/24 @ 13:[address] Matthew Lemus DO) Hx of thyroidectomy Hx of oophorectomy Hx of tonsillectomy History of cholecystectomy Social History household members: spouse Smoking Status: Current some day smoker tobacco type: cigarettes alcohol intake: current details: only around the holidays substance use type: does not use what type of physical activity do you participate in: walking ROS ROS ED Constitutional Constitutional ED: Denies chills or fever(s) Eyes Eyes: Denies blurry vision or change in vision ENT ENT ED: Denies rhinorrhea or sore throat Cardiovascular Cardiovascular: Denies chest pain or palpitations Respiratory/Chest Respiratory/Chest: Denies cough or dyspnea Gastrointestinal Gastrointestinal: Denies nausea or vomiting Genitourinary Genitourinary ED: Denies dysuria or hematuria Musculoskeletal Musculoskeletal: Reports back pain; Denies neck pain Integumentary Reports rash; Denies abscess Neurologic Neurologic: Denies headache(s) or weakness Allergic/Immunologic Allergic/Immunologic ED: Denies mouth swelling or urticaria EXAM Physical Exam Const Vital Signs: 04/22/24 11:24 04/22/24 13:30 Temperature 98.7 F 97.1 F L Temperature Source Temporal Pulse Rate 97 86 Respiratory Rate 18 15 Blood Pressure 130/100 H 138/72 H Blood Pressure Mean 110 94 Pulse Ox 100 98 Oxygen Delivery Method Room Air Positive well nourished and well developed General Appearance ED: well developed and NAD HEENT Reports moist mucous membranes Neck supple and no JVD Back/Spine Back/Spine Narrative: There is tenderness over the lumbar spine and paraspinal muscles. There is no edema or ecchymosis. There is no bony crepitance or step-off noted. Range of motion is slightly limited in all motions of the lumbar (more content not included)... Normal [facility] SCRN MAMM (CAD)W/DAVID [place] n 03-12-2024 SCRN MAMM (CAD)W/DAVID [facility] Imaging Services [address] [place], [place] [address] SCRN MAMM (CAD)W/DAVID RANGEL MR#: [id number] Acct: [id number] Name: FRANKIE MCKINNEY Rep #: [id number] : 1975 F 48 From: Osmani gutierrez MD PCP: Dr. Dionisio Fortune MD Status: [facility] Study: SCRN MAMM (CAD)W/DAVID BILAT Date of Exam: 03/02 07/25 Exam# [id number] Ordering Dr: Dionisio Fortune MD [id number] MAMMOGRAPHY - BILATERAL SCREENING REASON FOR EXAM: Female, 48 years old. Routine annual screening examination. PERTINENT HISTORY: Non-contributory. TECHNIQUE: Digital bilateral breast david (3D mammographic acquisition) in the CC and MLO projections. 2-D mediolateral oblique (MLO) and craniocaudad (CC) views of both breasts were obtained. CAD: Full Field Digital Mammography with Computer Added Detection was performed. COMPARISON: None. Baseline examination. FINDINGS: Breast Composition: There are scattered areas of fibroglandular density. There are no dominant masses or suspicious calcifications. Small benign appearing bilateral axillary lymph nodes. No other significant abnormalities are identified. There has been no significant change since the prior study. BI/SCRN MAMM (CAD)W/DAVID BILAT IMPRESSION: Negative screening mammogram. Yearly followup mammogram recommended. (A) ASSESSMENT CATEGORY: BIRADS Category 2: Benign. A letter regarding these results will be sent to the patient by the facility within 30 days. Approximately 10% of breast cancers are not detected by mammography. A normal mammogram should not delay biopsy of a clinically suspicious abnormality. [id number] Electronically Signed: Osmani Cordon MD at 8:09 EDT , CC: Dr. Dionisio Fortune MD Advertising Representative: Signed Normal [facility] CBC W/Diff, Automatedon 08-2 Absolute Lymph 2.88 X10 3/uL Normal 0.83-4.51 [facility] Comment on above: Performed By: #### L 100.0100, L500.4100, L500.4050, L501.9520 #### [facility] [address] [place], [address] Absolute Neut 3.3 X10 3/uL Normal 2.0-7.7 [facility] Comment on above: Performed By: #### L 100.0100, L500.4100, L500.4050, L501.9520 #### [facility] [address] [place], [address] Basophils/100 WBC (Bld) 0.7 % Normal 0-1 [facility] Comment on above: Performed By: #### L 100.0100, L500.4100, L500.4050, L501.9520 #### [facility] [address] [place], [address] Eosinophils/100 WBC (Bld) 1.9 % Normal 0-5 [facility] Comment on above: Performed By: #### L 100.0100, L500.4100, L500.4050, L501.9520 #### [facility] [address] [place], [address] Erythrocyte distribution width (RBC) [Ratio] 13.5 % Normal 11.6-14.6 [facility] Comment on above: Performed By: #### L 100.0100, L500.4100, L500.4050, L501.9520 #### [facility] [address] [place], [address] Hematocrit (Bld) [Volume fraction] 38.6 % Normal 37-47 [facility] Comment on above: Performed By: #### L 100.0100, L500.4100, L500.4050, L501.9520 #### [facility] [address], [address] Hemoglobin (Bld) [Mass/Vol] 12.8 g/dL Normal 12.0-15.0 [facility] Comment on above: Performed By: #### L 100.0100, L500.4100, L500.4050, L501.9520 #### [facility] [address] [place], [address] IG% 0.100 Normal 0.0-0.9 [facility] Comment on above: Result Comment: IG% - Immature Granulocytes (promyelocytes, myelocytes and metamyelocytes) > 1% indicates that a LEFT SHIFT is Present. Performed By: #### L 100.0100, L500.4100, L500.4050, L501.9520 #### [facility] [address] [place], [address] Lymphocytes/100 WBC (Bld) 43.2 % High 19-41 [facility] Comment on above: Performed By: #### L 100.0100, L500.4100, L500.4050, L501.9520 #### [facility] [address] [place], [address] MCH (RBC) [Entitic mass] 30.6 pg Normal 27.0-32.0 [facility] Comment on above: Performed By: #### L 100.0100, L500.4100, L500.4050, L501.9520 #### [facility] [address] [place], [address] MCHC (RBC) [Mass/Vol] 33.2 g/dL Normal 32-36 [facility] Comment on above: Performed By: #### L 100.0100, L500.4100, L500.4050, L501.9520 #### [facility] [address] [place], [address] MCV (RBC) [Entitic vol] 92.3 fL Normal 81-99 [facility] Comment on above: Performed By: #### L 100.0100, L500.4100, L500.4050, L501.9520 #### [facility] [address] [place], [address] Monocytes/100 WBC (Bld) 4.8 % Normal 0-10 [facility] Comment on above: Performed By: #### L 100.0100, L500.4100, L500.4050, L501.9520 #### [facility] [address] [place], [address] Neutrophils/100 WBC (Bld) 49.3 % Normal 47-70 [facility] Comment on above: Performed By: #### L 100.0100, L500.4100, L500.4050, L501.9520 #### [facility] [address] [place], [address] Nucleated RBC (Bld) [#/Vol] 0 10*3/uL Normal 0-5 [facility] Comment on above: Performed By: #### L 100.0100, L500.4100, L500.4050, L501.9520 #### [facility] [address] [place], [address] Platelet mean volume (Bld) [Entitic vol] 11.1 fL Normal 6.2-12.0 [facility] Comment on above: Performed By: #### L 100.0100, L500.4100, L500.4050, L501.9520 #### [facility] [address] [place], [address] Platelets (Bld) [#/Vol] 226 10*3/uL Normal 150-450 [facility] Comment on above: Performed By: #### L 100.0100, L500.4100, L500.4050, L501.9520 #### [facility] [address] [place], [address] RBC (Bld) [#/Vol] 4.18 10*6/uL Low 4.2-5.4 [facility] Comment on above: Performed By: #### L 100.0100, L500.4100, L500.4050, L501.9520 #### [facility] [address] [place], [address] RDW SD 46.5 fl High 35.1-43.9 [facility] Comment on above: Performed By: #### L 100.0100, L500.4100, L500.4050, L501.9520 #### [facility] [address] [place], [address] WBC (Bld) [#/Vol] 6.7 10*3/uL Normal 4.4-11.0 [facility] Comment on above: Performed By: #### L 100.0100, L500.4100, L500.4050, L501.9520 #### [facility] [address] [place], [address] Comprehensive Metabolic [facility] 02-28-2024 Albumin [Mass/Vol] 3.7 g/dL Normal 3.2-5.0 [facility] Comment on above: Performed By: #### L 100.0100, L500.4100, L500.4050, L501.9520 #### [facility] [address] [place], [address] Albumin/Globulin [Mass ratio] 0.9 {ratio} Normal 0.9-2.4 [facility] Comment on above: Performed By: #### L 100.0100, L500.4100, L500.4050, L501.9520 #### [facility] [address] [place], [address] ALK P 72 U/L Normal 45-117 [facility] Comment on above: Performed By: #### L 100.0100, L500.4100, L500.4050, L501.9520 #### [facility] [address] [place], [address] ALT [Catalytic activity/Vol] 14 U/L Normal 13-56 [facility] Comment on above: Performed By: #### L 100.0100, L500.4100, L500.4050, L501.9520 #### [facility] [address] [place], [address] AST [Catalytic activity/Vol] 15 U/L Normal 15-37 [facility] Comment on above: Performed By: #### L 100.0100, L500.4100, L500.4050, L501.9520 #### [facility] [address] [place], [address] Bilirubin [Mass/Vol] 0.60 mg/dL Normal 0.20-1.00 [facility] Comment on above: Result Comment: For patients on eltrombopag therapy, use of Dimension [place] TBIL is not recommended. Performed By: #### L 100.0100, L500.4100, L500.4050, L501.9520 #### [facility] [address] [place], [address] BUN/CRE 16.0 RATIO Normal 10-20 [facility] Comment on above: Performed By: #### L 100.0100, L500.4100, L500.4050, L501.9520 #### [facility] [address] [place], [address] CA,Total 9.5 mg/dL Normal 8.5-10.1 [facility] Comment on above: Performed By: #### L 100.0100, L500.4100, L500.4050, L501.9520 #### [facility] [address] [place], [address] Chloride [Moles/Vol] 106 mmol/L Normal 98-107 [facility] Comment on above: Performed By: #### L 100.0100, L500.4100, L500.4050, L501.9520 #### [facility] [address] [place], [address] CO2 [Moles/Vol] 28.0 mmol/L Normal 21.0-32.0 [facility] Comment on above: Performed By: #### L 100.0100, L500.4100, L500.4050, L501.9520 #### [facility] [address] [place], [address] Creatinine [Mass/Vol] 0.88 mg/dL Normal 0.55-1.02 [facility] Comment on above: Result Comment: The validity of the calculated GFR GFRAA in patients over 70 years has not been determined. Clinical correlation is essential. Performed By: #### L 100.0100, L500.4100, L500.4050, L501.9520 #### [facility] [address] [place], [address] EST GFR - AA 89 mL/min Normal >60 [facility] Comment on above: Result Comment: Afri can [place]ian GFR Calc Performed By: #### L 100.0100, L500.4100, L500.4050, L501.9520 #### [facility] [address] [place], [address] GAP 7 Normal 5-15 [facility] Comment on above: Performed By: #### L 100.0100, L500.4100, L500.4050, L501.9520 #### [facility] [address] [place], [address] GFR/1.73 sq M.predicted among non-blacks MDRD (S/P/Bld) [Vol rate/Area] 74 mL/min/{1.73_m2} Normal >60 [facility] Comment on above: Result Comment: Non- GFR Calc Performed By: #### L 100.0100, L500.4100, L500.4050, L501.9520 #### [facility] [address] [place], [address] Globulin (S) [Mass/Vol] 3.9 g/dL Normal 2.2-4.2 [facility] Comment on above: Performed By: #### L 100.0100, L500.4100, L500.4050, L501.9520 #### [facility] [address] [place], [address] Glucose [Mass/Vol] 93 mg/dL Normal 74-106 [facility] Comment on above: Performed By: #### L 100.0100, L500.4100, L500.4050, L501.9520 #### [facility] [address] [place], [address] Potassium [Moles/Vol] 3.8 mmol/L Normal 3.5-5.1 [facility] Comment on above: Performed By: #### L 100.0100, L500.4100, L500.4050, L501.9520 #### [facility] [address] [place], [address] Sodium [Moles/Vol] 141 mmol/L Normal 136-145 [facility] Comment on above: Performed By: #### L 100.0100, L500.4100, L500.4050, L501.9520 #### [facility] [address] [place], [address] T PROT 7.6 g/dL Normal 6.4-8.2 [facility] Comment on above: Performed By: #### L 100.0100, L500.4100, L500.4050, L501.9520 #### [facility] [address] [place], [address] Urea nitrogen [Mass/Vol] 14 mg/dL Normal 7-18 [facility] Comment on above: Performed By: #### L 100.0100, L500.4100, L500.4050, L501.9520 #### [facility] [address] [place], [address] Lipid Profileon 02-28-2024 Cholesterol [Mass/Vol] 220 mg/dL High 200 [facility] Comment on above: Result Comment: <200 mg/dL Desirable 200-240 mg/dL Borderline >240 mg/dL High Risk Performed By: #### L 100.0100, L500.4100, L500.4050, L501.9520 #### [facility] [address] [place], [address] Cholesterol in HDL [Mass/Vol] 50 mg/dL Normal [facility] Comment on above: Result Comment: The drugs N-Acetylcysteine and Metamizole may falsely depress this assay. Reference Range HDL <40 mg/dL Low HDL Cholesterol HDL >or= 60 mg/dL High HDL Cholesterol Performed By: #### L 100.0100, L500.4100, L500.4050, L501.9520 #### [facility] [address] [place], [address] Cholesterol in LDL [Mass/Vol] 138 mg/dL High 0-130 [facility] Comment on above: Performed By: #### L 100.0100, L500.4100, L500.4050, L501.9520 #### [facility] [address] [place], [address] Cholesterol in VLDL [Mass/Vol] 32 mg/dL Normal 5-40 [facility] Comment on above: Performed By: #### L 100.0100, L500.4100, L500.4050, L501.9520 #### [facility] [address] [place], [address] Triglyceride [Mass/Vol] 161 mg/dL Normal [facility] Comment on above: Result Comment: The drugs N-Acetylcysteine and Metamizole may falsely depress this assay. Serum Triglycerides Reference Interval Normal <150 mg/dL Borderline high 150 - 199 mg/dL High 200 - 499 mg/dL Very High > or = 500 mg/dL Performed By: #### L 100.0100, L500.4100, L500.4050, L501.9520 #### [facility] [address] [place], [address] Thyroid Stim Hormone (TSH)on 02-28-2024 TSH 40.400 uIU/mL High 0.358-3.740 [facility] Comment on above: Performed By: #### L 100.0100, L500.4100, L500.4050, L501.9520 #### [facility] [address] [place], [address] Valproic Acid (Depakene) Lev shraddha 02-28-2024 VALPROIC ACID 26 ug/mL Low 50-100 [facility] Comment on above: Performed By: #### L 100.0100, L500.2500 #### [facility] [address] [place], [address] MR/BMS.Cary 02-26-2024 MR/BMS. [address], [address] [place] [address] OFFICE VISIT Date of Service: 02/26/24 MR#: [id number] Acct: [id number] Name: FAYEFRANKIE Rep #: [id number] : 1975 Provider: DEMOLITION ENGINEER-C Criss B ell Age/Sex: 48/F Location: BMS.BP Status: Signed Intake Vital Signs 01/15/24 15:43 02/25/24 16:28 02/26/24 15:47 02/26/24 15:49 Height 5 ft 10 in 5 ft 10 in 5 ft 10 in 5 ft 10 in Weight: 300 lb BMI 43.0 BP 128/74 H Blood Pressure Location Lt brachial Position Sitting Respiration 16 Pulse 64 Pulse Source Palpation BP Intake Visit Reasons: 6 wk FU Is patient in pain?: Yes (pelvic and right side) Pain scale (1-10): 9 Allergies adhesive tape Allergy (Mild, Verified 02/26/24 15:48) Rash Medications ???Medication ???Instructions ???Recorded ???Confirmed ???Type levothyroxine 200 mcg tablet 200 mcg PO DAILY 05/13/23 02/26/24 History levothyroxine 25 mcg tablet 25 mcg PO DAILY 05/13/23 02/26/24 History diclofenac potassium 50 mg tablet 50 mg PO BID 09/19/23 02/26/24 History metoprolol tartrate 25 mg tablet 25 mg PO BID 09/19/23 02/26/24 History acetaminophen 500 mg tablet 550 mg PO .Q8hr PRN 09/21/23 02/26/24 History propranolol 20 mg tablet 20 mg PO BID 09/21/23 02/26/24 History amlodipine 5 mg tablet 5 mg PO QDAY 11/07/23 02/26/24 History divalproex 500 mg tablet,extended 500 mg PO DAILY #90 tabs 01/15/24 02/26/24 Rx release 24 hr hydroxyzine HCl 25 mg tablet 25 mg PO TID PRN anxiety #90 tabs 01/15/24 02/26/24 Rx buspirone 7.5 mg tablet 7.5 mg PO BID #180 tabs 02/26/24 02/26/24 Rx venlafaxine 225 mg tablet,extended 225 mg PO QHS #90 tabs 02/26/24 02/26/24 Rx release 24 hr PFSH Medical History Anxiety Bipolar 1 disorder Contact with and (suspected) exposure to other viral communicable diseases URI (upper respiratory infection) Thyroid disease Arthritis HTN (hypertension) Surgical History Hx of tonsillectomy History of cholecystectomy Family History Other CVA (cerebral vascular accident) Cancer Hypertension Melanoma Skin cancer Social History household members: spouse Smoking Status: Current some day smoker tobacco type: cigarettes alcohol intake: current details: only around the holidays substance use type: does not use what type of physical activity do you participate in: walking HPI History of Present Illness History provided by: patient HPI: Frankie Mckinney is a 48 year old female patient presenting today for a follow up evaluation. Reports things have been going well. Has started taking buspirone and feels this has been effective. Is still having anxiety but feels it is much decreased. Denies having any panic attacks. Reports that since her last appointment she has done well with handling the of her ex . Does report she has been having some issues with her daughter and getting in verbal altercations with her. Patient reports she went to the hospital last night due to having some abdominal pain and a rash of unknown origin. Mood has been in between. Has been feeling sad more recently and feels she is going through a cycle of sadness and thinks this is due to her oldest daughter. Denies SI/HI. Has been eating well. Patient has been struggling with sleep and is getting only a few hours of sleep per night. Sleep schedule is all over the place. Is struggling with impulsively spending a lot of money. Does struggle at times with spending money gambling. Previous similar episode: Yes Age of first onset of symptoms: 11-20 years (20 years old diagnosed with Bipolar disorder) Review of Systems Constitutional Reports: change in weight (weight loss of 100 lbs in one year, intentional) and fatigue (feels fatigued by midweek); Denies: fever(s) or chills Eyes Denies: change in vision Ears, Nose, Mouth, Throat Denies: throat pain or neck pain Cardiovascular Reports: chest pain (occasional, plan for nuclear stress test when able) and palpitations; Denies: dyspnea Respiratory Denies: dyspnea, cough or wheezing Gastrointestinal Denies: abdominal pain, nausea, vomiting or diarrhea Genitourinary Denies: dysuria, urinary frequency or urinary urgency Musculoskeletal Reports: back pain; Denies: neck pain Integumentary/Breast Denies: rash, pruritus or erythema Neurological Denies: headache(s) Psychiatric Reports: anxiety, memory loss and difficulty concentrating; Denies: visual hallucinations, auditory hallucinations, suicidal ideation or homicidal ideation Endocrine Reports: fatigue (feels fatigued by midweek); Denies: polyuria or polyd (more content not included)... Normal [facility] Abdomen/Pelvis without Conto n 02-25-2024 Abdomen/Pelvis without Cont [facility] Imaging Services [address] [place] [address] Abdomen/Pelvis without Cont MR#: [id number] Acct: [id number] Name: FRANKIE MCKINNEY Rep #: [id number] : 1975 F 48 From: Kirk soto MD PCP: Dr. Dionisio Fortune MD Status: REG ER Study: Abdomen/Pelvis without Cont Date of Exam: 01/31 12/23 Exam# [id number] Ordering Dr: Matthew Lemus DO [id number] EXAM: CT ABDOMEN AND PELVIS WITHOUT INTRAVENOUS CONTRAST CLINICAL INDICATION: RT FLANK PAIN TECHNIQUE: Helically acquired images were obtained of the abdomen and pelvis without intravenous contrast. This CT exam was performed using one or more of the following dose reduction techniques: automated exposure control, adjustment of the mA and/or kV according to patient size, and/or use of iterative reconstruction technique. RADIATION DOSE: CTDIvol = 24.19 mGy, DLP = 1292.70 mGy-cm COMPARISON: 12/01/2022 FINDINGS: LIMITATIONS: Limited by patient size which causes artifact and decreases resolution. LOWER THORAX: Clear lung bases. No cardiomegaly. No significant pericardial effusion. ABDOMEN: LIVER: Fatty liver with marked hepatomegaly. GALLBLADDER AND BILE DUCTS: Absent gallbladder. No intra- or extrahepatic biliary ductal dilation. PANCREAS: Unremarkable. No focal cystic mass. SPLEEN: Moderate splenomegaly. ADRENALS: Unremarkable. No nodules. KIDNEYS AND URETERS: Normal right kidney. Left kidney has a stable 3 mm upper pole stone. Normal renal size and position. No hydronephrosis. STOMACH AND BOWEL: Unremarkable. No stomach or bowel distention. No focal inflammatory change. PELVIS: APPENDIX: No evidence of acute appendicitis. BLADDER: Unremarkable. REPRODUCTIVE: Absent uterus. ABDOMEN and PELVIS: INTRAPERITONEAL SPACE: Unremarkable. No ascites or other fluid collection. No free air. BONES/JOINTS: Unremarkable. No suspicious lytic or blastic abnormality. SOFT TISSUES: Small fat-containing umbilical hernia. VASCULATURE: Unremarkable. Abdominal aorta is non-dilated. LYMPH NODES: Unremarkable. No enlarged lymph nodes. CT/Abdomen/Pelvis without Cont IMPRESSION: 1. Limited by patient''s size. 2. Hepatosplenomegaly. 3. Stable nonobstructing left renal stone. Electronically Signed: Kirk Beverly MD at 20:26 EDT , CC: Dr. Matthew Lemus DO; Dr. Dionisio Fortune MD Advertising Representative: Signed Normal [facility] CBC W/Diff, Automatedon 08- Absolute Lymph 3.45 X10 3/uL Normal 0.83-4.51 [facility] Comment on above: Performed By: #### L 100.0100, L500.2500 #### [facility] [address] [place], [employer] Absolute Neut 4.3 X10 3/uL Normal 2.0-7.7 [facility] Comment on above: Performed By: #### L 100.0100, L500.2500 #### [facility] [address] [place], [address] Basophils/100 WBC (Bld) 0.7 % Normal 0-1 [facility] Comment on above: Performed By: #### L 100.0100, L500.2500 #### [facility] [address] [facility] [place], [address] Eosinophils/100 WBC (Bld) 1.8 % Normal 0-5 [facility] Comment on above: Performed By: #### L 100.0100, L500.2500 #### [facility] [address] [place], [address] Erythrocyte distribution width (RBC) [Ratio] 13.6 % Normal 11.6-14.6 [facility] Comment on above: Performed By: #### L 100.0100, L500.2500 #### [facility] [address] [place], [address] Hematocrit (Bld) [Volume fraction] 42.7 % Normal 37-47 [facility] Comment on above: Performed By: #### L 100.0100, L500.2500 #### [facility] [address] [place], [address] Hemoglobin (Bld) [Mass/Vol] 14.0 g/dL Normal 12.0-15.0 [facility] Comment on above: Performed By: #### L 100.0100, L500.2500 #### [facility] [address] [place], [address] IG% 0.400 Normal 0.0-0.9 [facility] Comment on above: Result Comment: IG% - Immature Granulocytes (promyelocytes, myelocytes and metamyelocytes) > 1% indicates that a LEFT SHIFT is Present. Performed By: #### L 100.0100, L500.2500 #### [facility] [address] [place], [address] Lymphocytes/100 WBC (Bld) 41.0 % Normal 19-41 [facility] Comment on above: Performed By: #### L 100.0100, L500.2500 #### [facility] [address] [place], [address] MCH (RBC) [Entitic mass] 30.6 pg Normal 27.0-32.0 [facility] Comment on above: Performed By: #### L 100.0100, L500.2500 #### [facility] [address] [place], [address] MCHC (RBC) [Mass/Vol] 32.8 g/dL Normal 32-36 [facility] Comment on above: Performed By: #### L 100.0100, L500.2500 #### [facility] [address] [place], [address] MCV (RBC) [Entitic vol] 93.4 fL Normal 81-99 [facility] Comment on above: Performed By: #### L 100.0100, L500.2500 #### [facility] [address] [place], [address] Monocytes/100 WBC (Bld) 5.6 % Normal 0-10 [facility] Comment on above: Performed By: #### L 100.0100, L500.2500 #### [facility] [address] [place], [address] Neutrophils/100 WBC (Bld) 50.5 % Normal 47-70 [facility] Comment on above: Performed By: #### L 100.0100, L500.2500 #### [facility] [address] [place], [address] Nucleated RBC (Bld) [#/Vol] 0 10*3/uL Normal 0-5 [facility] Comment on above: Performed By: #### L 100.0100, L500.2500 #### [facility] [address] [place], [address] Platelet mean volume (Bld) [Entitic vol] 11.8 fL Normal 6.2-12.0 [facility] Comment on above: Performed By: #### L 100.0100, L500.2500 #### [facility] [address] [place], [address] Platelets (Bld) [#/Vol] 219 10*3/uL Normal 150-450 [facility] Comment on above: Performed By: #### L 100.0100, L500.2500 #### [facility] [address] [place], [address] RBC (Bld) [#/Vol] 4.57 10*6/uL Normal 4.2-5.4 [facility] Comment on above: Performed By: #### L 100.0100, L500.2500 #### [facility] [address] [place], [address] RDW SD 46.4 fl High 35.1-43.9 [facility] Comment on above: Performed By: #### L 100.0100, L500.2500 #### [facility] [address] [place], [address] WBC (Bld) [#/Vol] 8.4 10*3/uL Normal 4.4-11.0 [facility] Comment on above: Performed By: #### L 100.0100, L500.2500 #### [facility] [address] [place], [address] CNOVon 02-25-2024 CNOV Office Visit (UCTR ) -- FRANKIE MCKINNEY ([id number]) 1975 F Date Time Provider Department 02/25/24 4:00 PM DORY LE [facility] During your visit today, we recorded the following information about you: Dory Le APRN.CNP 02/25/2024 4:19 PM Signed Called to triage patient. 48 year old female presents for complaints of pelvic pain Acute onset of symptoms was over the weekend. Right lower pelvic +radiates into right back +nausea Progressively worsening. Right lower abdomen/pelvic region with TTP Right sided CVA TTP Given concerns for intraabdominal process and work up requires more than what [facility] can provide, has been referred to ED Allergies As of Date: 02/25/2024 (No Known Allergies) Date Reviewed: 03/11/2023 Reviewed by: Yocasta Gregory LPN - Fully Assessed Reason for Visit: Abdominal Pain [1] Primary Visit Diagnosis:Right lower quadrant abdominal pain [R10.31] Prescriptions as of 02/25/2024 - levothyroxine (SYNTHROID) 200 mcg tablet - levothyroxine (SYNTHROID) 25 mcg tablet - venlafaxine XR (EFFEXOR XR) 225 mg tablet - lamoTRIgine (LAMICTAL) 100 mg tablet - cyclobenzaprine (FLEXERIL) 10 mg tablet Take 1 tablet by mouth three times daily as needed for muscle spasm. Problem List As Of Date: 02/25/2024 (None) Encounter Status:Closed by DORY LE on 02/25/24 Normal [facility] Metabolic Prof alireza 02-25-2024 Albumin [Mass/Vol] 4.0 g/dL Normal 3.2-5.0 [facility] Comment on above: Performed By: #### L 100.0100, L500.2500 #### [facility] [address] [place], [address] Albumin/Globulin [Mass ratio] 1.1 {ratio} Normal 0.9-2.4 [facility] Comment on above: Performed By: #### L 100.0100, L500.2500 #### [facility] [address] [place], [address] ALK P 75 U/L Normal 45-117 [facility] Comment on above: Performed By: #### L 100.0100, L500.2500 #### [facility] [address] [facility] [place], [address] ALT [Catalytic activity/Vol] 16 U/L Normal 13-56 [facility] Comment on above: Performed By: #### L 100.0100, L500.2500 #### [facility] [address] [place], [address] AST [Catalytic activity/Vol] 12 U/L Low 15-37 [facility] Comment on above: Performed By: #### L 100.0100, L500.2500 #### [facility] [address] [place], [address] Bilirubin [Mass/Vol] 0.40 mg/dL Normal 0.20-1.00 [facility] Comment on above: Result Comment: For patients on eltrombopag therapy, use of Dimension [place] TBIL is not recommended. Performed By: #### L 100.0100, L500.2500 #### [facility] [address] [place], [address] BUN/CRE 14.5 RATIO Normal 10-20 [facility] Comment on above: Performed By: #### L 100.0100, L500.2500 #### [facility] [address] [place], [address] CA,Total 9.7 mg/dL Normal 8.5-10.1 [facility] Comment on above: Performed By: #### L 100.0100, L500.2500 #### [facility] [address] [place], [address] Chloride [Moles/Vol] 103 mmol/L Normal 98-107 [facility] Comment on above: Performed By: #### L 100.0100, L500.2500 #### [facility] [address] [place], [address] CO2 [Moles/Vol] 31.0 mmol/L Normal 21.0-32.0 [facility] Comment on above: Performed By: #### L 100.0100, L500.2500 #### [facility] [address] [place], [address] Creatinine [Mass/Vol] 0.90 mg/dL Normal 0.55-1.02 [facility] Comment on above: Result Comment: The validity of the calculated GFR GFRAA in patients over 70 years has not been determined. Clinical correlation is essential. Performed By: #### L 100.0100, L500.2500 #### [facility] [address] [place], [address] ECRCL 117.81 ml/min Normal [facility] Comment on above: Performed By: #### L 100.0100, L500.2500 #### [facility] [address] [place], [address] EST GFR - AA 87 mL/min Normal >60 [facility] Comment on above: Result Comment: Afri can Albanian GFR Calc Performed By: #### L 100.0100, L500.2500 #### [facility] [address] [place], [address] GAP 6 Normal 5-15 [facility] Comment on above: Performed By: #### L 100.0100, L500.2500 #### [facility] [address] [place], [address] GFR/1.73 sq M.predicted among non-blacks MDRD (S/P/Bld) [Vol rate/Area] 72 mL/min/{1.73_m2} Normal >60 [facility] Comment on above: Result Comment: Non- GFR Calc Performed By: #### L 100.0100, L500.2500 #### [facility] [address] [place], [address] Globulin (S) [Mass/Vol] 3.8 g/dL Normal 2.2-4.2 [facility] Comment on above: Performed By: #### L 100.0100, L500.2500 #### [facility] [address] [place], [address] Glucose [Mass/Vol] 92 mg/dL Normal 74-106 [facility] Comment on above: Performed By: #### L 100.0100, L500.2500 #### [facility] [address] [place], [address] Potassium [Moles/Vol] 3.8 mmol/L Normal 3.5-5.1 [facility] Comment on above: Performed By: #### L 100.0100, L500.2500 #### [facility] [address] [place], [address] Sodium [Moles/Vol] 140 mmol/L Normal 136-145 [facility] Comment on above: Performed By: #### L 100.0100, L500.2500 #### [facility] [address] [place], [address] T PROT 7.8 g/dL Normal 6.4-8.2 [facility] Comment on above: Performed By: #### L 100.0100, L500.2500 #### [facility] [address] [place], [address] Urea nitrogen [Mass/Vol] 13 mg/dL Normal 7-18 [facility] Comment on above: Performed By: #### L 100.0100, L500.2500 #### [facility] [address] [place], [address] Emergency Department Summary on 02-25-2024 Emergency Department Summary [facility] Medical Records Department [address] [place] [address] Emergency Department Summary 02/25/24 MR#: [id number] Acct: [id number] Name: FRANKIE MCKINNEY Rep #: [id number] : 1975 48 From: Matthew Lemus DO PCP: Dr. Dionisio Fortune MD Status:DEP ER Location: ED HPI History of Present Illness Chief Complaint: General Illness Informant: patient Onset/Context/Timing Onset: Days (3) Context: Gradual Onset Timing: Continuous Quality: Pressure Location: Right flank and right pelvis Worsened by: Nothing Relieved by: Nothing Narrative Narrative: Patient presents with pelvic and right flank pain that has been getting worse over the past 3 days. Patient states it is gradually getting worse. Patient describes it as a pressure. Patient states that it is over the right flank and right pelvic area. Patient states nothing makes it better and nothing makes it worse. Patient admits to some nausea but denies any vomiting. Patient denies any fevers or chills. Patient denies any dysuria or hematuria. Patient is also noted a rash over her abdomen, upper extremities, and lower extremities. Patient denies any new soaps, laundry detergents, fabric softeners, foods, or other new exposures. [facility] Medical History Anxiety Bipolar 1 disorder Contact with and (suspected) exposure to other viral communicable diseases URI (upper respiratory infection) Thyroid disease Arthritis HTN (hypertension) Home Medications ???Medication ???Instructions ???Recorded ???Last Taken ???Type venlafaxine 225 mg tablet,extended 225 mg PO QHS 09/14/22 12/28/22 History release 24 hr levothyroxine 200 mcg tablet 200 mcg PO DAILY 05/13/23 Unknown History levothyroxine 25 mcg tablet 25 mcg PO DAILY 05/13/23 Unknown History diclofenac potassium 50 mg tablet 50 mg PO BID 09/19/23 Unknown History metoprolol tartrate 25 mg tablet 25 mg PO BID 09/19/23 Unknown History acetaminophen 500 mg tablet 550 mg PO .Q8hr PRN 09/21/23 Unknown History propranolol 20 mg tablet 20 mg PO BID 09/21/23 Unknown History amlodipine 5 mg tablet 5 mg PO QDAY 11/07/23 Unknown History buspirone 7.5 mg tablet 7.5 mg PO BID #60 tabs 01/15/24 Unknown Rx divalproex 500 mg tablet,extended 500 mg PO DAILY #90 tabs 01/15/24 Unknown Rx release 24 hr hydroxyzine HCl 25 mg tablet 25 mg PO TID PRN anxiety #90 tabs 01/15/24 Unknown Rx Allergy/AdvReac Type Severity Reaction Status Date / Time adhesive tape Allergy Mild Rash Verified 02/25/24 16:28 Family History Other CVA (cerebral vascular accident) Cancer Hypertension Melanoma Skin cancer Surgical History Hx of tonsillectomy History of cholecystectomy Social History household members: spouse Smoking Status: Current some day smoker tobacco type: cigarettes alcohol intake: current details: only around the holidays substance use type: does not use what type of physical activity do you participate in: walking ROS ROS ED Constitutional Constitutional ED: Denies chills or fever(s) Eyes Eyes: Denies blurry vision or change in vision ENT ENT ED: Denies rhinorrhea or sore throat Cardiovascular Cardiovascular: Denies chest pain or palpitations Respiratory/Chest Respiratory/Chest: Denies cough or dyspnea Gastrointestinal Gastrointestinal: Reports nausea; Denies vomiting Genitourinary Genitourinary ED: Denies dysuria or hematuria Musculoskeletal Musculoskeletal: Reports back pain; Denies neck pain Integumentary Reports rash; Denies abscess Neurologic Neurologic: Denies headache(s) or weakness Allergic/Immunologic Allergic/Immunologic ED: Denies mouth swelling or urticaria EXAM Physical Exam Const Vital Signs: 02/25/24 16:28 02/25/24 18:22 02/25/24 18:27 Temperature 96.7 F L Temperature Source Temporal Pulse Rate 84 81 Respiratory Rate 18 Respiratory Effort Normal Non-Labored Blood Pressure 135/94 H 149/64 H Blood Pressure Mean 107 92 Pulse Ox 99 99 Oxygen Delivery Method Room Air Room Air 02/25/24 19:36 Temperature Temperature Source Pulse Rate 58 L Respiratory Rate 18 Respiratory Effort Blood Pressure 143/87 H Blood Pressure Mean 105 Pulse Ox 98 Oxygen Delivery Method Room Air Positive well nourished and well developed General Appearance ED: well developed and NAD HEENT Reports moist mucous membranes Neck supple and no JVD Resp normal respiratory effort and clear to auscultation bilaterally Cardio regular rate and regular rhythm GI non-distended Palpation: soft and tender RLQ and RUQ; (more content not included)... Normal [facility] Urinalysis, Completeon 02-24 BACTERIA 3+ /hpf Normal None Seen [facility] Comment on above: Order Comment: CLEAN CATCH Performed By: #### L 100.0100, L500.2500 #### [facility] [address] [place], [address] EPI,SQUAMOUS 5-10 SEEN Normal 5-10 [facility] Comment on above: Order Comment: CLEAN CATCH Performed By: #### L 100.0100, L500.2500 #### [facility] [address] [place], [address] Mucus Ql (Urine sed) 4+ /hpf Normal [facility] Comment on above: Order Comment: CLEAN CATCH Performed By: #### L 100.0100, L500.2500 #### [facility] [address] [place], [address] WBC 0-5 SEEN Normal 0-5 [facility] Comment on above: Order Comment: CLEAN CATCH Performed By: #### L 100.0100, L500.2500 #### [facility] [address] [place], [address] RBC 0 SEEN Normal 0-5 [facility] Comment on above: Order Comment: CLEAN CATCH Performed By: #### L 100.0100, L500.2500 #### [facility] [address] [place], [address] XR SPINE LUMBAR AP/LATon XR SPINE LUMBAR AP/LAT ORIGINAL EXAMINATION: 2 XRAY VIEWS OF THE [...] Date: 03/29/2023 4:58:50 PM Ordering Provider: JAKE Lopez [facility] ([place]) No Panel Informationon 03-12 Radiology Study observation (narrative) [facility] XR Lumbar spine 3 Viewson IMPRESSION: Unremark able lumbar spine X-ray. Advertising Representative: SHERLY Transcribe Date/Time: Mar 12 2023 4:15P Dictated by : ZAIN FRIEDMAN MD This examination was interpreted and the report reviewed and electronically signed by: ZAIN FRIEDMAN MD on Mar 12 2023 4:16PM [facility] * * *Final Report* * * DATE OF EXAM: Mar 12 2023 4:06PM WOX [id number] - XR LUMBAR 3V AP/LAT/L5-S1 / PROCEDURE REASON: Acute left-sided low back pain without sciatica * * * * Physician Interpretation * * * * EXAM TITLE: XR LUMBAR 3V AP/LAT/L5-S1 EXAM DATE/TIME: 03/12/2023 4:06 PM COMPARISON: None. CLINICAL INDICATION/HISTORY: Low back pain. TECHNIQUE: AP, lateral and cone down lateral views of the lumbar spine are presented. FINDINGS: There are five [id number] lumbar vertebrae. No fracture or subluxations are noted. The disc spaces are well preserved. There is no significant osteophyte formation. DIVISION OF RADIOLOGY Provider, [facility] - 03/12/2023 * * *Final Report* * * DATE OF EXAM: Mar 12 2023 4:06PM WOX [id number] - XR LUMBAR 3V AP/LAT/L5-S1 / PROCEDURE REASON: Acute left-sided low back pain without sciatica * * * * Physician Interpretation * * * * EXAM TITLE: XR LUMBAR 3V AP/LAT/L5-S1 EXAM DATE/TIME: 03/12/2023 4:06 PM COMPARISON: None. CLINICAL INDICATION/HISTORY: Low back pain. TECHNIQUE: AP, lateral and cone down lateral views of the lumbar spine are presented. FINDINGS: There are five [id number] lumbar vertebrae. No fracture or subluxations are noted. The disc spaces are well preserved. There is no significant osteophyte formation. IMPRESSION IMPRESSION: Unremarkable lumbar spine X-ray. Advertising Representative: SHERLY Transcribe Date/Time: Mar 12 2023 4:15P Dictated by : ZAIN FRIEDMAN MD This examination was interpreted and the report reviewed and electronically signed by: ZAIN FRIEDMAN MD on Mar 12 2023 4:16PM EST [facility] XR Lumbar spine 3 ViewsOrder ed By: [facility] Provider on 03-12-2023 [facility] XR Pelvis and Hip - left AP and Lateral frogon 03-12-2023 IMPRESSION: Findings are suggestive of degenerative changes in the left hip. Advertising Representative: SHERLY Transcribe Date/Time: Mar 12 2023 4:16P Dictated by : ZAIN FRIEDMAN MD This examination was interpreted and the report reviewed and electronically signed by: ZAIN FRIEDMAN MD on Mar 12 2023 4:18PM EST DIVISION OF RADIOLOGY * * *Final Report* * * DATE OF EXAM: Mar 12 2023 4:06PM WOX [id number] - XR HIP 3V PELV+ AP/LAT LT / PROCEDURE REASON: Acute left-sided low back pain without sciatica * * * * Physician Interpretation * * * * EXAM TITLE: XR HIP 3V PELV+ AP/LAT LT EXAM DATE/TIME: 03/12/2023 4:06 PM COMPARISON: None. CLINICAL INDICATION/HISTORY: Low back pain radiating to the anterior left hip. TECHNIQUE: AP and frog lateral views of the left hip and AP view of the pelvis are presented. FINDINGS: No acute fractures or subluxations are noted in the left hip. The left hip joint space is maintained however osteophyte formation and subchondral bony sclerosis are noted. There are mild degenerative changes in the right hip. The visualized pelvic bones are intact. The mineralization of the bones is normal. There is no significant soft tissue swelling. DIVISION [facility]OLOGY [facility] * * *Final Report* * * DATE OF EXAM: Mar 12 2023 4:06PM WOX [id number] - XR HIP 3V PELV+ AP/LAT LT / PROCEDURE REASON: Acute left-sided low back pain without sciatica * * * * Physician Interpretation * * * * EXAM TITLE: XR HIP 3V PELV+ AP/LAT LT EXAM DATE/TIME: 03/12/2023 4:06 PM COMPARISON: None. CLINICAL INDICATION/HISTORY: Low back pain radiating to the anterior left hip. TECHNIQUE: AP and frog lateral views of the left hip and AP view of the pelvis are presented. FINDINGS: No acute fractures or subluxations are noted in the left hip. The left hip joint space is maintained however osteophyte formation and subchondral bony sclerosis are noted. There are mild degenerative changes in the right hip. The visualized pelvic bones are intact. The mineralization of the bones is normal. There is no significant soft tissue swelling. IMPRESSION IMPRESSION: Findings are suggestive of degenerative changes in the left hip. Advertising Representative: SHERLY Transcribe Date/Time: Mar 12 2023 4:16P Dictated by : ZAIN FRIEDMAN MD This examination was interpreted and the report reviewed and electronically signed by: ZAIN FRIEDMAN MD on Mar 12 2023 4:18PM EST [facility] UA DIP, URINE (POC)on 2022 BILIRUBIN UA (POCT) Negative Negative [facility] CLARITY UA (POCT) Cloudy [facility] COLOR UA (POCT) Yellow [facility] GLUCOSE UA (POCT) Negative Negative mg/dL [facility] Hemoglobin Ql (U) Negative Negative [facility] KETONE UA (POCT) Negative Negative mg/dL [facility] LEUKOCYTES UA (POCT) [facility] NITRITE UA (POCT) Negative Negative [facility] PH UA (POCT) 6.0 4.5 - 8.0 [facility] Protein Ql (U) Negative Negative mg/dL [facility] SPECIFIC GRAVITY UA (POCT) 1.025 1.005 - 1.030 [facility] UROBILINOGEN UA (POCT) 0.2 E.U./dL Normal E.U./dL [facility] No Panel InformationOrdered By: Dionisio Fortune on 02-28-2023 Thyroid Stimulating Hormone (TSH) 35.90 uIU/mL 0.358-3.74 [facility] Absolute lymphocyte countOrd ered By: Dionisio Fortune on 01-03-2023 Lymphocytes Auto (Unsp spec) [#/Vol] 2.42 10*3/uL 0.83-4.51 [facility] Basophil percentageOrdered B y: Dionisio Fortune on 01-03-2023 Basophils/100 WBC (Bld) 0.6 % 0-1 [facility] Bilirubin [Mass/Vol] 0.50 mg/dL 0.20-1.00 [facility] Comment on above: For patients on eltr ombopag therapy, use of Dimension [place] TBIL is not recommended. Chloride [Moles/Vol] 107 mmol/L 98-107 [facility] Cholesterol [Mass/Vol] 206 mg/dL <200 [facility] Comment on above: <200 mg/dL Desirable 200-240 mg/dL Borderline >240 mg/dL High Risk Eosinophils/100 WBC (Bld) 2.1 % 0-5 [facility] Glucose [Mass/Vol] 90 mg/dL 74-106 [facility] Neutrophils (Bld) [#/Vol] 4.2 10*3/uL 2.0-7.7 [facility] Neutrophils/100 WBC (Bld) 58.4 % 47-70 [facility] Potassium [Moles/Vol] 3.6 mmol/L 3.5-5.1 [facility] Protein [Mass/Vol] 7.8 g/dL 6.4-8.2 [facility] Sodium [Moles/Vol] 140 mmol/L 136-145 [facility] Triglyceride [Mass/Vol] 128 mg/dL <199 [facility] Comment on above: The drugs N-Acetylcy steine and Metamizole may falsely depress this assay.Serum Triglycerides Reference Interval Normal <150 mg/dL Borderline high 150 - 199 mg/dL High 200 - 499 mg/dL Very High > or = 500 mg/dL WBC (Bld) [#/Vol] 7.2 10*3/uL 4.4-11.0 [facility] Blood erythrocytes count (nu mber/volume)Ordered By: Dionisio Fortune on 01-03-2023 RBC (Bld) [#/Vol] 4.63 10*6/uL 4.2-5.4 [facility] Blood hemoglobin measurement (mass/volume)Ordered By: Dionisio Fortune on 01-03-2023 Hemoglobin (Bld) [Mass/Vol] 14.0 g/dL 12.0-15.0 [facility] Blood lymphocytes/100 leukoc ytesOrdered By: Dionisio Fortune on 01-03-2023 Lymphocytes/100 WBC (Bld) 33.7 % 19-41 [facility] Blood monocytes/100 leukocyt esOrdered By: Dionisio Fortune on 01-03-2023 Monocytes/100 WBC (Bld) 4.9 % 0-10 [facility] Blood platelet mean volumeOr dered By: Dionisio Fortune on 01-03-2023 Platelet mean volume (Bld) [Entitic vol] 11.2 fL 6.2-12.0 [facility] Determination of erythrocyte mean corpuscular volume (MCV)Ordered By: Dionisio Fortune on 01-03-2023 MCV (RBC) [Entitic vol] 94.0 fL 81-99 [facility] Hematocrit Auto (Bld) [Volum e fraction][facility] Hematocrit (Bld) [Volume fraction] 43.5 % 37-47 [facility] - Chemistry and C hemistry - challengeOrdered By: [facility] 01-03-2023 ALP [Catalytic activity/Vol] 83 U/L 45-117 [facility] ALT [Catalytic activity/Vol] 26 U/L 13-56 [facility] CO2 [Moles/Vol] 25.0 mmol/L 21.0-32.0 [facility] Globulin (S) [Mass/Vol] 4.1 g/dL 2.2-4.2 [facility] Urea nitrogen/Creatinine [Mass ratio] 13.2 mg/mg 10-20 [facility] - Hematology and Cell countsOrdered By: [facility] 01-03-2023 Erythrocyte distribution width (RBC) [Entitic vol] 46.9 fL 35.1-43.9 [facility] Erythrocyte distribution width (RBC) [Ratio] 13.6 % 11.6-14.6 [facility] Immature granulocytes/100 WBC (Bld) 0.300 % 0.0-0.9 [facility] Comment on above: IG% - Immature Granu locytes (promyelocytes, myelocytes and metamyelocytes) > 1% indicates that a LEFT SHIFT is Present. MCH (RBC) [Entitic mass] 30.2 pg 27.0-32.0 [facility] Nucleated RBC/100 WBC (Bld) [Ratio] 0 % 0-5 [facility] MCHC Auto (RBC) [Mass/Vol]Or dered By: Dionisio Fortune on 01-03-2023 MCHC (RBC) [Mass/Vol] 32.2 g/dL 32-36 [facility] No Panel InformationOrdered By: Dionisio Fortune on 01-03-2023 Estimated GFR (MDRD) Amer 78 mL/min >60 [facility] Comment on above: GFR Calc Estimated GFR (MDRD) Non-Af Amer 65 mL/min >60 [facility] Comment on above: Non- GFR Calc Hepatitis C Antibody Non-Reactive Nonreactive [facility] Comment on above: Non Reactive: < 0.8 Equivocal: >/= 0.8 to < 1.0 Reactive: >/= 1.0The CDC recommends that a reactive/equivocal HCV antibody result be followed up by the HCV Nucleic Acid Amplificationtest (292848) Thyroid Stimulating Hormone (TSH) 13.30 uIU/mL 0.358-3.74 [facility] Vitamin D 25-Hydroxy 39.8 ng/mL [facility] Comment on above: Vitamin D 25(OH) Sta tus Range Deficiency <20 ng/mL (50nmol/L) Insufficiency 20 - 30 ng/mL (50 - 75 nmol/L) Sufficiency 30 - 100 ng/mL (75 - 250 nmol/L) Toxicity >100 ng/mL (>250 nmol/L) Platelets bldOrdered By: Dionisio Fortune on 01-03-2023 Platelets (Bld) [#/Vol] 241 10*3/uL 150-450 [facility] Serum or plasma albumin maria g urement (mass/volume)Ordered By: Dionisoi Fortune on 01-03-2023 Albumin [Mass/Vol] 3.7 g/dL 3.2-5.0 [facility] Serum or plasma albumin/glob ulin mass ratioOrdered By: Dionisio Fortune on 01-03-2023 Albumin/Globulin [Mass ratio] 0.9 {ratio} 0.9-2.4 [facility] Serum or plasma calcium maria g urement (mass/volume)Ordered By: Dionisio Fortune on 01-03-2023 Calcium [Mass/Vol] 9.6 mg/dL 8.5-10.1 [facility] Serum or plasma cholesterol in HDL measurement (mass/volume)Ordered By: Dionisio Fortune on 01-03-2023 Cholesterol in HDL [Mass/Vol] 51 mg/dL >40 [facility] Comment on above: The drugs N-Acetylcy steine and Metamizole may falsely depress this assay. Reference Range HDL <40 mg/dL Low HDL Cholesterol HDL >or= 60 mg/dL High HDL Cholesterol Serum or plasma cholesterol in VLDL measurement (mass/volume)Ordered By: Dionisio Fortune on 01-03-2023 Cholesterol in VLDL [Mass/Vol] 26 mg/dL 5-40 [facility] Serum or plasma creatinine m easurement (mass/volume)Ordered By: Dionisio Fortune on 01-03-2023 Creatinine [Mass/Vol] 0.99 mg/dL 0.55-1.02 [facility] Comment on above: The validity of the calculated GFR & GFRAA in patients over 70 years has not been determined. Clinical correlation is essential. Serum or plasma low density lipoprotein (LDL) cholesterol measurement (mass/volume)Ordered By: Dionisio Fortune on 01-03-2023 Cholesterol in LDL [Mass/Vol] 129 mg/dL 0-130 [facility] Serum or plasma urea nitroge n measurement (mass/volume)Ordered By: Dionisio Fortune on 01-03-2023 Urea nitrogen [Mass/Vol] 13 mg/dL 7-18 [facility] Thin prep Papanicolaou smear with manual screeningOrdered By: Dionisio Fortune on 01-03-2023 Thin prep Papanicolaou smear with manual screening 20 U/L 15-37 [facility] Thin prep Papanicolaou smear with manual screening 8 5-15 [facility] Absolute lymphocyte countOrd ered By: Kit Russell on 12-29-2022 Lymphocytes Auto (Unsp spec) [#/Vol] 1.63 10*3/uL 0.83-4.51 [facility] Basophil percentageOrdered B y: Kit Russell on 12-29-2022 Basophils/100 WBC (Bld) 0.4 % 0-1 [facility] Chloride [Moles/Vol] 109 mmol/L 98-107 [facility] Eosinophils/100 WBC (Bld) 2.2 % 0-5 [facility] Glucose [Mass/Vol] 102 mg/dL 74-106 [facility] Comment on above: Fasting Glucose resu lt from 100 to 125 mg/dL suggests IMPAIRED HOMEOSTASIS per A.D.A. criteria. Neutrophils (Bld) [#/Vol] 2.9 10*3/uL 2.0-7.7 [facility] Neutrophils/100 WBC (Bld) 58.7 % 47-70 [facility] Potassium [Moles/Vol] 3.9 mmol/L 3.5-5.1 [facility] Sodium [Moles/Vol] 142 mmol/L 136-145 [facility] WBC (Bld) [#/Vol] 5.0 10*3/uL 4.4-11.0 [facility] Blood erythrocytes count (nu mber/volume)Ordered By: Kit Russell on 12-29-2022 RBC (Bld) [#/Vol] 4.14 10*6/uL 4.2-5.4 [facility] Blood hemoglobin measurement (mass/volume)Ordered By: Kit Russell on 12-29-2022 Hemoglobin (Bld) [Mass/Vol] 12.7 g/dL 12.0-15.0 [facility] Blood lymphocytes/100 leukoc ytesOrdered By: Kit Russell on 12-29-2022 Lymphocytes/100 WBC (Bld) 32.9 % 19-41 [facility] Blood monocytes/100 leukocyt esOrdered By: Kit Russell on 12-29-2022 Monocytes/100 WBC (Bld) 5.2 % 0-10 [facility] Blood platelet mean volumeOr dered By: Kit Russell on 12-29-2022 Platelet mean volume (Bld) [Entitic vol] 10.7 fL 6.2-12.0 [facility] Determination of erythrocyte mean corpuscular volume (MCV)Ordered By: Kit Russell on 12-29-2022 MCV (RBC) [Entitic vol] 95.4 fL 81-99 [facility] Hematocrit Auto (Bld) [Volum e fraction]Ordered By: Kit Russell on 12-29-2022 Hematocrit (Bld) [Volume fraction] 39.5 % 37-47 [facility] INR in Blood by Coagulation assayOrdered By: Kit Russell on 12-29-2022 INR Coag (Bld) [Relative time] 1.0 {INR} [facility] - Chemistry and C hemistry - challengeOrdered By: Kit Russell on 12-29-2022 CO2 [Moles/Vol] 28.0 mmol/L 21.0-32.0 [facility] Urea nitrogen/Creatinine [Mass ratio] 13.2 mg/mg 10-20 [facility] - CoagulationOrde red By: Kit Russell on 12-29-2022 aPTT Coag (Bld) [Time] 27.0 s 24.1-36.2 [facility] PT Coag (PPP) [Time] 13.0 s 11.7-14.9 [facility] - Hematology and Cell countsOrdered By: Kit Russell on 12-29-2022 Erythrocyte distribution width (RBC) [Entitic vol] 48.7 fL 35.1-43.9 [facility] Erythrocyte distribution width (RBC) [Ratio] 13.9 % 11.6-14.6 [facility] Immature granulocytes/100 WBC (Bld) 0.600 % 0.0-0.9 [facility] Comment on above: IG% - Immature Granu locytes (promyelocytes, myelocytes and metamyelocytes) > 1% indicates that a LEFT SHIFT is Present. MCH (RBC) [Entitic mass] 30.7 pg 27.0-32.0 [facility] Nucleated RBC/100 WBC (Bld) [Ratio] 0 % 0-5 [facility] MCHC Auto (RBC) [Mass/Vol]Or dered By: Kit Russell on 12-29-2022 MCHC (RBC) [Mass/Vol] 32.2 g/dL 32-36 [facility] No Panel InformationOrdered By: Kit Rusesll on 12-29-2022 Troponin I High Sensitivity 14 pg/mL 3.0-54.0 [facility] Comment on above: Please Note: New Carla t Units and Gender Specific Reference Ranges. For more information see Policy Stat Procedure [place] High Sensitivity Troponin (TNIH) and attachments. D-Dimer Quantitative (PE/DVT) 0.28 FEU/ug/m 0.27-0.49 [facility] Comment on above: NORMAL D-Dimer level (<0.50) indicates no DVT or PE. Estimated Creatinine Clearance Calc 77.60 ml/min [facility] Estimated GFR (MDRD) Amer 78 mL/min >60 [facility] Comment on above: GFR Calc Estimated GFR (MDRD) Non-Af Amer 65 mL/min >60 [facility] Comment on above: Non- GFR Calc Platelets bldOrdered By: Xander Russell on 12-29-2022 Platelets (Bld) [#/Vol] 222 10*3/uL 150-450 [facility] Serum or plasma calcium maria g urement (mass/volume)Ordered By: Kit Russell on 12-29-2022 Calcium [Mass/Vol] 9.4 mg/dL 8.5-10.1 [facility] [facility] Serum or plasma creatinine m easurement (mass/volume)Ordered By: Kit Russell on 12-29-2022 Creatinine [Mass/Vol] 0.99 mg/dL 0.55-1.02 [facility] Comment on above: The validity of the calculated GFR & GFRAA in patients over 70 years has not been determined. Clinical correlation is essential. Serum or plasma urea nitroge n measurement (mass/volume)Ordered By: Kit Russell on 12-29-2022 Urea nitrogen [Mass/Vol] 13 mg/dL 7-18 [facility] Thin prep Papanicolaou smear with manual screeningOrdered By: Kit Russell on 12-29-2022 Thin prep Papanicolaou smear with manual screening 5 5-15 [facility] Absolute lymphocyte countOrd ered By: Dr. Oliva on 12-01-2022 Lymphocytes Auto (Unsp spec) [#/Vol] 2.27 10*3/uL 0.83-4.51 [facility] Basophil percentageOrdered B y: Dr. Oliva on 12-01-2022 Basophils/100 WBC (Bld) 0.6 % 0-1 [facility] Chloride [Moles/Vol] 107 mmol/L 98-107 [facility] Eosinophils/100 WBC (Bld) 1.6 % 0-5 [facility] Glucose [Mass/Vol] 114 mg/dL 74-106 [facility] Comment on above: Fasting Glucose resu lt from 100 to 125 mg/dL suggests IMPAIRED HOMEOSTASIS per A.D.A. criteria. Neutrophils (Bld) [#/Vol] 3.5 10*3/uL 2.0-7.7 [facility] Neutrophils/100 WBC (Bld) 55.7 % 47-70 [facility] Potassium [Moles/Vol] 4.1 mmol/L 3.5-5.1 [facility] Sodium [Moles/Vol] 142 mmol/L 136-145 [facility] WBC (Bld) [#/Vol] 6.3 10*3/uL 4.4-11.0 [facility] Basophil percentage 0-5 SEEN /hpf 0-5 [facility] Bilirubin Test strip Ql (U)O rdered By: Dr. Oliva on 12-01-2022 Bilirubin Ql (U) 3 mg/dL Negative [facility] Comment on above: COLOR OF URINE MAY A FFECT DIPSTICK RESULTS. Blood erythrocytes count (nu mber/volume)Ordered By: Dr. Oliva on 12-01-2022 RBC (Bld) [#/Vol] 4.67 10*6/uL 4.2-5.4 [facility] Blood hemoglobin measurement (mass/volume)Ordered By: Dr. Oliva on 12-01-2022 Hemoglobin (Bld) [Mass/Vol] 14.6 g/dL 12.0-15.0 [facility] Blood lymphocytes/100 leukoc ytesOrdered By: Dr. Oliva on 12-01-2022 Lymphocytes/100 WBC (Bld) 36.2 % 19-41 [facility] Blood monocytes/100 leukocyt esOrdered By: Dr. Oliva on 12-01-2022 Monocytes/100 WBC (Bld) 5.7 % 0-10 [facility] Blood platelet mean volumeOr dered By: Dr. Oliva on 12-01-2022 Platelet mean volume (Bld) [Entitic vol] 11.5 fL 6.2-12.0 [facility] Calcium oxalate crystals det ection in urine sediment by light microscopyOrdered By: Dr. Oliva on 12-01-2022 Calcium oxalate crystals LM Ql (Urine sed) 1+ /hpf [facility] Determination of erythrocyte mean corpuscular volume (MCV)Ordered By: Dr. Oliva on 12-01-2022 MCV (RBC) [Entitic vol] 94.9 fL 81-99 [facility] Hematocrit Auto (Bld) [Volum e fraction]Ordered By: Dr. Oliva on 12-01-2022 Hematocrit (Bld) [Volume fraction] 44.3 % 37-47 [facility] Ketones Test strip Ql (U)Ord ered By: Dr. Oliva on 12-01-2022 Ketones Ql (U) 15 mg/dl Negative [facility] Laboratory - Chemistry and C hemistry - challengeOrdered By: Dr. Oliva on 12-01-2022 CO2 [Moles/Vol] 28.0 mmol/L 21.0-32.0 [facility] Urea nitrogen/Creatinine [Mass ratio] 11.2 mg/mg 10-20 [facility] Laboratory - Hematology and Cell countsOrdered By: Dr. Oliva on 12-01-2022 Erythrocyte distribution width (RBC) [Entitic vol] 46.5 fL 35.1-43.9 [facility] Erythrocyte distribution width (RBC) [Ratio] 13.4 % 11.6-14.6 [facility] Immature granulocytes/100 WBC (Bld) 0.200 % 0.0-0.9 [facility] Comment on above: IG% - Immature Granu locytes (promyelocytes, myelocytes and metamyelocytes) > 1% indicates that a LEFT SHIFT is Present. MCH (RBC) [Entitic mass] 31.3 pg 27.0-32.0 [facility] Nucleated RBC/100 WBC (Bld) [Ratio] 0 % 0-5 [facility] MCHC Auto (RBC) [Mass/Vol]Or dered By: Dr. Oliva on 12-01-2022 MCHC (RBC) [Mass/Vol] 33.0 g/dL 32-36 [facility] Mucus LM Ql (Urine sed)Order ed By: Dr. Oliva on 12-01-2022 Mucus Ql (Urine sed) 0 SEEN /hpf [facility] Nitrite Test strip Ql (U)Ord ered By: Dr. Oliva on 12-01-2022 Nitrite Ql (U) Negative Negative [facility] No Panel InformationOrdered By: Dr. Oliva on 12-01-2022 Estimated Creatinine Clearance Calc 78.39 ml/min [facility] Estimated GFR (MDRD) Amer 79 mL/min >60 [facility] Comment on above: GFR Calc Estimated GFR (MDRD) Non-Af Amer 65 mL/min >60 [facility] Comment on above: Non- GFR Calc Platelets bldOrdered By: Dr. Oliva on 12-01-2022 Platelets (Bld) [#/Vol] 263 10*3/uL 150-450 [facility] Protein Test strip Ql (U)Ord ered By: Dr. Oliva on 12-01-2022 Protein Ql (U) 30 mg/dl Negative [facility] Serum or plasma calcium maria g urement (mass/volume)Ordered By: Dr. Oliva on 12-01-2022 Calcium [Mass/Vol] 10.0 mg/dL 8.5-10.1 [facility] Serum or plasma creatinine m easurement (mass/volume)Ordered By: Dr. Oliva on 12-01-2022 Creatinine [Mass/Vol] 0.98 mg/dL 0.55-1.02 [facility] Comment on above: The validity of the calculated GFR & GFRAA in patients over 70 years has not been determined. Clinical correlation is essential. Serum or plasma urea nitroge n measurement (mass/volume)Ordered By: Dr. Oliva on 12-01-2022 Urea nitrogen [Mass/Vol] 11 mg/dL 7-18 [facility] Squamous epithelial cells de tection in urine sediment by light microscopyOrdered By: Dr. Oliva on 12-01-2022 Epithelial cells.squamous LM Ql (Urine sed) 10-25 SEEN /hpf 5-10 [facility] Thin prep Papanicolaou smear with manual screeningOrdered By: Dr. Oliva on 12-01-2022 Thin prep Papanicolaou smear with manual screening 7 5-15 [facility] Urine blood detectionOrdered By: Dr. Oliva on 12-01-2022 RBC Ql (U) 10 /ul Negative [facility] RBC Ql (U) 0-5 SEEN /hpf 0-5 [facility] Urine clarityOrdered By: Dr. Oliva on 12-01-2022 Clarity (U) Cloudy Clear [facility] Urine color determinationOrd ered By: Dr. Oliva on 12-01-2022 Color (U) Yellow Yellow [facility] Urine glucose detectionOrder ed By: Dr. Oliva on 12-01-2022 Glucose Ql (U) Normal mg/dl Normal [facility] Urine leukocyte esterase det ection by dipstickOrdered By: Dr. Oliva on 12-01-2022 Leukocyte esterase Test strip Ql (U) 25 /ul Negative [facility] Urine pHOrdered By: Dr. Rosalinda khan on 12-01-2022 pH (U) 5.0 [pH] 5.0 - 8.0 [facility] Urine sediment bacteria coun t by microscopy (number/high power field)Ordered By: Dr. Oliva on 12-01-2022 Bacteria LM.HPF (Urine sed) [#/Area] 1 /[HPF] None Seen [facility] Urine specific gravity measu rementOrdered By: Dr. Oliva on 12-01-2022 Specific gravity (U) [Rel density] 1.025 1.002-1.030 [facility] Urobilinogen Auto test strip Ql (U)Ordered By: Dr. Oliva on 12-01-2022 Urobilinogen Ql (U) 1 mg/dl Normal [facility] No Panel Informationon 09-14 POC SARS CoV-2 Antigen Negative [facility] CNOVon 07-13-2022 CNOV Office Visit (CHARLY[facility] ) -- FRANKIE LAZCANO ([id number]) 1975 F Date Time Provider Department 07/13/22 8:30 AM TYRONE SCHRADER During your visit today, we recorded the following information about you: Weight Height 150.1 kg 1.778 m Tyrone Schrader MD 07/13/2022 4:23 PM Signed Tyrone Schrader MD Department of Orthopaedics [facility] [address] [facility] [address] Dept: [phone] Dept July 13, 2022 CHIEF COMPLAINT: New [...] hand carried copy of x-rays done at [facility] on 06/14/22. ASSESSMENT: M17.0 Primary osteoarthritis of both knees (primary encounter diagnosis) M25.561, M25.562, G89.29 Chronic pain of both knees E66.01, Z68.42 Morbid obesity with BMI of 45.0-49.9, adult ([facility]) PLAN: We had a lengthy discussion about her knee osteoarthritis and some of the ramifications of her weight and tobacco use. She would like to try an anti-inflammatory and we will get her in touch with weight management program. I also provided her with strengthening exercises. FOLLOW UP INSTRUCTIONS: Possible cortisone injection if she would like. Ms. Frankie Lazcano was advised as to contrast therapies and/or to take analgesics/anti-inflammato krishan as needed and all contraindications were reviewed. OBJECTIVE: Ms. Frankie Lazcano is a pleasant 46 year old in [...] Musculoskeletal (see HPI) Psych (no depression, anxiety) Tyrone Schrader MD Allergies As of Date: 07/13/2022 (Not on File) Date Reviewed: 07/13/2022 Reviewed by: Tyrone Schrader MD - Fully Assessed Reason for Visit: New [708247] Knee Pain [132] Primary Visit Diagnosis:Primary osteoarthritis of both knees [M17.0] Other Visit Diagnoses:Chronic pain of both knees [M25.561, M25.562, G89.29] Morbid obesity with BMI of 45.0-49.9, adult (HCC) [E66.01, Z68.42] Order(s):meloxicam (MOBIC) 15 mg tabletTake 1 tablet by mouth once daily.Disp: 30 tabletRfl: 1 ENDOCRINE MEDICAL WEIG (more content not included)... Normal [facility] 11-16-2021 OPERATIVE REPORT Normal [facility] [place] OR DATE OF SERVICE: 11/16/2021 PREOPERATIVE DIAGNOSIS: Symptomatic cholelithiasis and chronic cholecystitis. POSTOPERATIVE DIAGNOSIS: Symptomatic cholelithiasis and chronic cholecystitis. OPERATION: Laparoscopic cholecystectomy. SURGEON: Mike Briones MD ANESTHESIA: General. INDICATIONS FOR PROCEDURE: The patient is a 45-year-old female presenting for surgical removal of the gallbladder due to symptomatic cholelithiasis as well as chronic cholecystitis. SPECIMENS: Gallbladder. ESTIMATED BLOOD LOSS: 10 mL. PREOPERATIVE ANTIBIOTICS: 3 g of Ancef. DESCRIPTION OF PROCEDURE: The patient was transferred to the operating room and identified by medical record and name. The patient was transferred to the operating room table and all bony prominences were appropriately padded. [facility] PATIENT NAME: FRANKIE LAZCANO [address] [place] MEDICAL REC #: [id number] [place] [address] ADMIT DATE: DISCHARGE DATE: OPERATIVE REPORT ATTENDING PHY: Mike Briones MD After induction of anesthesia, the patient was prepped and draped in standard surgical technique. A formal timeout was performed. Patient received antibiotics prior to incision. I began the procedure by making a 5-mm incision in the left upper quadrant at Dale point using an 11 blade. Using a Veress needle, I obtained insufflation of the abdominal cavity. Once insufflation was achieved, I entered the abdominal cavity under direct visualization. Using a 5-mm camera, attention was turned to the 5-mm optical trocar. Once inside the abdominal cavity, a 12-mm trocar was placed in the upper abdominal wall under direct visualization. Two 5-mm trocars were placed under direct visualization in the right upper quadrant. The gallbladder was grasped and retracted appropriately. The liver appeared quite contracted and inflamed with chronic inflammation. The patient had a very enlarged liver due to her morbid obesity and retraction of the gallbladder was somewhat difficult to achieve. However, with manipulation I was able to achieve appropriate exposure. I began by dissecting the peritoneum and fat overlying the gallbladder infundibulum and cystic duct junction. There was evidence of chronic inflammation. After careful [facility] PATIENT NAME: [facility] [place] MEDICAL REC #: [id number] [place] [address] ADMIT DATE: DISCHARGE DATE: OPERATIVE REPORT ATTENDING PHY: Mike Briones MD dissection, I was able to identify critical view of safety once I was able to identify only 2 structures entering the gallbladder as well as visualization of the liver bed posterior to these structures. Clips were placed on the cystic duct after the critical view of safety was achieved. The cystic duct was transected with scissors. Th cystic artery was very small and diminutive and was controlled with electrocautery ligation. The gallbladder was then removed from the liver bed using L hook electrocautery. The gallbladder was somewhat intrahepatic and during removal from the liver bed, several gallstones fell from the gallbladder and were removed using a gallstone grasper. All gallstones that fell were removed. In order to allow for the instrument to be used, I did up size the left upper quadrant incision to a 12-mm trocar. The gallbladder was removed from the abdominal cavity using an EndoCatch bag. Site was irrigated. Everything appeared hemostatic. At this point, both of the 12-mm fascial incisions were closed using 0 Vicryl suture using a suture passer device. Instruments and trocars were removed, and the abdomen was desufflated. Skin incisions were injected with local anesthetic and closed with 4-0 [facility] PATIENT NAME: FRANKIE LAZCANO [address] [place] MEDICAL REC #: [id number] [place] [address] ADMIT DATE: DISCHARGE DATE: OPERATIVE REPORT ATTENDING PHY: Mike Briones MD Monocryl suture. Dermabond skin glue was applied. The patient was awoken from anesthesia and transferred to the recovery area in good condition. She tolerated the procedure well. Mike Briones MD ELIANA/[id number] SSI File#: [id number] END OF DOCUMENT / CHANGE LOG FOLLOWS Last Edited By Elec. Signed By Mike Briones MD #[id number] Mike Briones MD #[email or web address] on 11/18/2021 14:25 ET on 11/18/2021 14:25 ET Revision Number - 2 Verified/Reviewed by 11/18/21 [id number] MYRON (more content not included)... Normal [facility] SURG 11-16-2021 SURG ------ Patient: CARLY LAZCANOPEDRO Pelaez SPECIMEN: [id number] Collection Date: 11/16/21 Received: 11/16/21 Status: MOOK Dos Santos. Dr.: Mike Briones MD Ph# Othr. Dr.: Juan Francisco Flores Material for Examination: A GALLBLADDER PRE-OP DIAGNOSIS: CHOLELITHIASIS POST-OP DIAGNOSIS: SAME SURGICAL PROCEDURE: LAPAROSCOPIC CHOLECYSTECTOMY DIAGNOSIS A. Gallbladder, laparoscopic cholecystectomy: - Chronic cholecystitis with cholelithiasis. GROSS DESCRIPTION The specimen is received in formalin and labeled with the patient's name, ID and designated #1 gallbladder, is a nonintact lozano-pink gallbladder, 8.1 x 3.0 x 2.1 cm. The cystic duct is patent. A definite cystic node is not identified. The lumen appears to have contained a red fluid and more than 10 yellow friable stones ranging in size from 0.5 to 1.0 cm in greatest dimension. The mucosa is lozano-red and velvety and the gallbladder wall is 0.1 cm thick. Senior Research Fellow sections are submitted in cassette A1 including the cystic duct. MICROSCOPIC DESCRIPTION One [place] stained slide examined. COPIES TO: Mike Briones MD, David M Signed Verified/Reviewed by EMELI WHITE M.D. 11/17/21 This dictation was created using voice recognition software. Phonetic and/or minor grammatical errors may exist. [facility] NAME: FRANKIE LAZCANO Pathology and Laboratory Medicine UNIT#: [id number] LOC: [facility] Stave Planer Tender: Emeli White M.D. [id number] ROOM/BED: Venga : 79 AGE/SEX: 45/F ORD.Mike Gonzalez MD END OF REPORT Normal [facility] [place] BMP (POC)on 08-06-2021 Perf Loc - POCT Tested at AM Normal [facility] ([place]) Comment on above: Result Comment: [place] [address] [place], [place] [address] BUN/Creatinine Ratio (POC) 12.8 ratio Normal 10.0-22.0 [facility] [place] Calcium Level Ionized (POC) 1.16 mmol/L Normal 1.12-1.32 [facility] [place] Chloride [Moles/Vol] 104 mmol/L Normal 98-110 [facility] ([place]) CO2 [Moles/Vol] 28 mmol/L Normal 22-32 [facility] [place] Creatinine [Mass/Vol] 0.95 mg/dL Normal 0.50-1.20 [facility] ([place]) Electrolyte Balance (POC) 10.0 mEq/L Normal 4.0-15.0 [facility] [place] Est GFR (POC) >60 Normal [facility] ([place] Comment on above: Result Comment: Chronic Kidney Disease: Less than 60 mL/min/1.73 square meters End Stage Renal Disease: Less than 15 mL/min/1.73 square meters Est GFR Non- (POC) >60 Normal [facility] ([place] Comment on above: Result Comment: Chronic Kidney Disease: Less than 60 mL/min/1.73 square meters End Stage Renal Disease: Less than 15 mL/min/1.73 square meters Glucose [Mass/Vol] 150 mg/dL High 70-110 [facility] ([place]) Performing Instrument - POCT EPOC 2 Normal [facility] [place] Potassium [Moles/Vol] 4.1 mmol/L Normal 3.5-5.0 [facility] ([place]) Sodium [Moles/Vol] 141 mmol/L Normal 136-145 [facility] [place]) Urea nitrogen [Mass/Vol] 12.0 mg/dL Normal 8.0-22.0 [facility] [place] CBC (POC)on 08-06-2021 Perf Loc - POCT Tested at AM Normal [facility] ([place] Comment on above: Result Comment: [place] [address] [place], [place] [address] Basophil, Absolute (POC) 0.02 10 3/mcL Normal 0.00-0.27 [facility]) Basophils/100 WBC (Bld) 0.3 % Normal 0.0-2.5 [facility]) Eosinophil, Absolute (POC) 0.07 10 3/mcL Normal 0.00-0.65 [facility] [place]) Eosinophils/100 WBC (Bld) 1.0 % Normal 0.0-6.0 [facility] [place] Erythrocyte distribution width (RBC) [Ratio] 13.8 % Normal 11.5-15.5 [facility]) Hematocrit (Bld) [Volume fraction] 42.2 % Normal 34.0-46.0 [facility]) Hemoglobin (POC) 13.6 G/dL Normal 12.0-16.0 [facility]) Imm Granulocyte, Absolute (POC) 0.01 10 3/mcL Normal [facility]) Immature granulocytes/100 WBC (Bld) 0.1 % Normal [facility]) Lymphocyte, Absolute (POC) 1.19 10 3/mcL Normal 0.90-4.32 [facility]) Lymphocytes/100 WBC (Bld) 17.4 % Low 20.0-40.0 [facility]) MCH (RBC) [Entitic mass] 30.6 pg Normal 27.0-33.0 [facility]) MCHC (POC) 32.2 G/dL Normal 32.0-36.0 [facility] [place] MCV (RBC) [Entitic vol] 94.8 fL Normal 80.0-99.0 [facility] [place] Monocyte, Absolute (POC) 0.23 10 3/mcL Normal 0.09-1.40 [facility]) Monocytes/100 WBC (Bld) 3.4 % Normal 2.0-13.0 [facility]) Neutrophil, Absolute (POC) 5.30 10 3/mcL Normal 2.25-8.10 [facility]) Neutrophils/100 WBC (Bld) 77.8 % High 50.0-75.0 [facility]) Performing Instrument - POCT SYSMEX Normal [facility] ([place] Platelet (POC) 223 10 3/mcL Normal 150-450 [facility] [place]) Platelet mean volume (Bld) [Entitic vol] 10.9 fL High 6.6-10.5 [facility] [place] RBC (POC) 4.45 10 6/mcL Low 4.50-6.00 [facility] [place] WBC (POC) 6.82 10 3/mcL Normal 4.50-10.80 [facility]) CHEM10 (POC)on 08-06-2021 Perf Loc - POCT Tested at AM Normal [facility] ([place] Comment on above: Result Comment: [facility] [address] [place], [place] [address] Albumin Level (POC) 4.0 G/dL Normal 3.2-4.8 [facility] ([place]) ALP [Catalytic activity/Vol] 66 U/L Normal 38-126 [facility] [place]) ALT [Catalytic activity/Vol] 16 U/L Normal 12-55 [facility] [place]) Amylase [Catalytic activity/Vol] 13 U/L Low 25-115 [facility] [place] Amylase [Catalytic activity/Vol] 18 U/L Normal 5-55 [facility] [place]) Asparate Aminotransferase (POC) 19 U/L Normal 8-34 [facility]) Bilirubin [Mass/Vol] 0.6 mg/dL Normal 0.2-1.2 [facility] ([place] Calcium [Mass/Vol] 10.0 mg/dL Normal 8.4-10.1 [facility] ([place]) Performing Instrument - POCT RUKHSANA Normal [facility] [place] Total Protein (POC) 7.8 G/dL Normal 6.0-8.5 [facility] ([place]) Uric Acid Level (POC) 7.4 mg/dL High 2.3-6.6 [facility] ([place] UA (POC)on 08-06-2021 Perf Loc - POCT Tested at AM Normal [facility] [place] Comment on above: Result Comment: [facility] [address] [place], [place] [address] Appearance (U) Cloudy Abnormal Clear [facility] [place] Bilirubin Ql (U) Negative Normal Neg-Trace [facility] [place] Color (U) Yellow Normal [facility] [place] Glucose Ql (U) Negative Normal Negative [facility] [place] Hemoglobin Ql (U) Negative Normal Neg-Trace [facility] [place] Ketones Ql (U) Negative Normal Neg-Trace [facility] [place] Leukocyte esterase Test strip Ql (U) Negative Normal Neg-Trace [facility] [place] Nitrite Ql (U) Negative Normal Negative [facility]) Performing Instrument - POCT CLINITEK Normal [facility] ([place] pH (U) 6.0 [pH] Normal 5.0 - 8.0 [facility]) Protein Ql (U) Negative Normal Neg-30 [facility]) Specific gravity (U) [Rel density] 1.025 Normal 1.006-1.029 [facility] [place] Urobilinogen Qn (U) 1.0 {Eugenio'U}/dL Normal 0.2-1.0 [facility] ([place] US ABDOMEN LIMITEDon 022 US ABDOMEN LIMITED ORIGINAL EXAMINATION: LIMITED ABDOMINAL ULTRASOUND08/06/2021 1:59 pm Ultrasound of the RIGHT upper quadrant COMPARISON: None HISTORY: ORDERING SYSTEM PROVIDED HISTORY: Reason for Exam: abdominal pain; suspect gallstones, gallbladder, or cholecystitis, FINDINGS: Study is moderately compromised by body habitus and bowel gas. Only gross evaluation is possible. The gallbladder is somewhat over distended with small calculi. There is no abnormal wall thickening, pericholecystic edema or fluid. Negative sonographic Perales's sign.. There is no intrahepatic bile duct dilatation. The common duct is 3 mm at the penny hepatis. The liver is heterogeneous and coarsened with increased echogenicity. No focal lesion is seen within constraints of this study but difficult to exclude. The pancreas is partially obscured by bowel gas. Visualized portions are grossly negative. No ascites is seen in the RIGHT upper quadrant. Limited survey images of the RIGHT kidney show no pelvocaliectasis. IMPRESSION: Moderately compromised suboptimal study. Gallstones with over distention of the gallbladder but no other secondary signs of acute cholecystitis. Evidence of diffuse hepatocellular disease. This may be fatty infiltration or other pathology. Interpreted by: Yonathan Willett MD Preliminary Report By: Yonathan Willett MD Electronically signed By Yonathan Willett MD Dictated Date: 08/06/2021 2:24:35 PM Prelim Date: 08/06/2021 2:26:21 PM Sign Date: 08/06/2021 2:26:21 PM Ordering Provider: SASHA Lopez [facility] ([place]) [facility] 05-30-2021 [facility] RE[facility] DATE OF SERVICE: 05/30/2021 CHIEF COMPLAINT: Bilateral [...] other sources such as bees and food. [facility] PATIENT NAME: FRANKIE LAZCANO [address] [place] MEDICAL REC #: [id number] [place] [address] [facility] RE[facility] SOCIAL HISTORY: Denies alcohol and tobacco use. [...] the patient. She is to take as [facility] PATIENT NAME: FRANKIE LAZCANO [address] [place] MEDICAL REC #: [id number] [place] [address] [facility]. She is to get lots of rest and fluids. Follow up with her primary care doctor if there is no improvement with this. Patient agrees and understands the plan at this time. Patient is stable upon [facility] from [facility]. ADRIENNE Rosa/[id number] SSI File#: [id number] END OF DOCUMENT / CHANGE LOG FOLLOWS Last Edited By Earle. Signed By Karo Mcgrath PAC #[email or web address] Karo Mcgrath PAC #[email or web address] on 06/10/2021 21:59 ET on 06/10/2021 21:59 ET Revision Number - 2 Verified/Reviewed by 06/10/212199 [email or web address] [facility] PATIENT NAME: FRANKIE LAZCANO [address] [place] MEDICAL REC #: [id number] [place] [address] [facility] RE[facility] Normal [facility] Vital Signs Date Time Vital Sign Value Performing Clinician Facility 07-28-2024 07:17-0500 Body temperature 98.49 [degF] Leny Rivera APRN.CNP Work Phone: [facility] 07-28-2024 07:17-0500 Body weight 132 kg Leny Rivera APRN.CNP Work Phone: [facility] 07-28-2024 07:17-0500 Diastolic blood pressure 80 mm[Hg] Leny Rivera APRN.CNP Work Phone: [facility] 07-28-2024 07:17-0500 Heart rate 120 /min Leny Rivera APRN.HOGSHEAD HEAD MATCHER Work Phone: [facility] 07-28-2024 07:17-0500 Respiratory rate 18 /min Leny Rivera APRN.HOGSHEAD HEAD MATCHER Work Phone: [facility] 07-28-2024 07:17-0500 SaO2% (BldA) [Mass fraction] 99 % Leny Rivera APRN.CNP Work Phone: [facility] 07-28-2024 07:17-0500 Systolic blood pressure 122 mm[Hg] Leny Rivera DICKSON Work Phone: [facility] 03-29-2023 16:05-0400 Blood Pressure Location GENARO HAMILTON MD [facility] 03-29-2023 16:05-0400 Blood Pressure Method GENARO HAMILTON MD [facility] 03-29-2023 16:05-0400 Body temperature 98.24 [degF] GENARO HAMILTON MD [facility] 03-29-2023 16:05-0400 Diastolic Blood Pressure Non-Invasive 83 1 GENARO HAMILTON MD [facility] 03-29-2023 16:05-0400 Heart rate 78 /min GENARO HAMILTON MD [facility] 03-29-2023 16:05-0400 Respiratory rate 18 /min GENARO HAMILTON MD [facility] 03-29-2023 16:05-0400 Systolic Blood Pressure Non-Invasive 157 1 GENARO HAMILTON MD [facility] 03-11-2023 08:22-0400 Body weight 143.79 kg Rosalva Athy PA-C Work Phone: [facility] 03-11-2023 08:22-0400 Diastolic blood pressure 90 mm[Hg] Rosalva Athy PA-C Work Phone: [facility] 03-11-2023 08:22-0400 Heart rate 75 /min Rosalva Athy PA-C Work Phone: [facility] 03-11-2023 08:22-0400 Respiratory rate 16 /min Rosalva Athy PA-C Work Phone: [facility] 03-11-2023 08:22-0400 SaO2% (BldA) [Mass fraction] 98 % Rosalva Avitia PA-C Work Phone: [facility] 03-11-2023 08:22-0400 Systolic blood pressure 140 mm[Hg] Rosalva Avitia PA-C Work Phone: [facility] 12-29-2022 12:11-0400 Respiratory rate 18 /min No Primary Care Physician [facility] 12-29-2022 12:11-0400 SaO2% (BldA) [Mass fraction] 100 % No Primary Care Physician [facility] 12-29-2022 10:21-0400 Diastolic blood pressure 65 mm[Hg] No Primary Care Physician [facility] 12-29-2022 10:21-0400 Heart rate 63 /min No Primary Care Physician [facility] 12-29-2022 10:21-0400 Systolic blood pressure 129 mm[Hg] No Primary Care Physician [facility] 12-29-2022 07:48-0400 Body height 177.8 cm No Primary Care Physician [facility] 12-29-2022 07:48-0400 Body mass index (BMI) [Ratio] 45.9 kg/m2 No Primary Care Physician [facility] 12-29-2022 07:48-0400 Body temperature 96.5 [degF] No Primary Care Physician [facility] 12-29-2022 07:48-0400 Body weight 145.14 kg No Primary Care Physician [facility] 12-29-2022 07:22-0400 Body mass index (BMI) [Ratio] 45.9 kg/m2 No Primary Care Physician [facility] 12-29-2022 07:22-0400 Body temperature 96.4 [degF] No Primary Care Physician [facility] 12-29-2022 07:22-0400 Body weight 145.31 kg No Primary Care Physician [facility] 12-29-2022 07:22-0400 Diastolic blood pressure 92 mm[Hg] No Primary Care Physician [facility] 12-29-2022 07:22-0400 Heart rate 92 /min No Primary Care Physician [facility] 12-29-2022 07:22-0400 Respiratory rate 18 /min No Primary Care Physician [facility] 12-29-2022 07:22-0400 SaO2% (BldA) [Mass fraction] 97 % No Primary Care Physician [facility] 12-29-2022 07:22-0400 Systolic blood pressure 148 mm[Hg] No Primary Care Physician [facility] 12-01-2022 17:06-0400 Body temperature 98.1 [degF] PA Jorge Luis Corrales PA Work Phone: [facility] 12-01-2022 17:06-0400 Diastolic blood pressure 84 mm[Hg] PA Jorge Luis Corrales PA Work Phone: [facility] 12-01-2022 17:06-0400 Heart rate 83 /min PA Jorge Luis Corrales PA Work Phone: [facility] 12-01-2022 17:06-0400 Respiratory rate 16 /min PA Jorge Luis Corrales PA Work Phone: [facility] 12-01-2022 17:06-0400 SaO2% (BldA) [Mass fraction] 99 % PA Jorge Luis Corrales PA Work Phone: [facility] 12-01-2022 17:06-0400 Systolic blood pressure 133 mm[Hg] PA Jorge Luis Corrales PA Work Phone: [facility] 12-01-2022 14:41-0400 Body height 177.8 cm PA Jorge Luis Corrales PA Work Phone: [facility] 12-01-2022 14:41-0400 Body mass index (BMI) [Ratio] 44.7 kg/m2 PA Jorge Luis Corrales PA Work Phone: [facility] 12-01-2022 14:41-0400 Body weight 141.52 kg PA Jorge Luis Corrales PA Work Phone: [facility] 10-11-2022 10:37-0400 Body mass index (BMI) [Ratio] 47.1 kg/m2 PA Jorge Luis Corrales PA Work Phone: [facility] 10-11-2022 10:37-0400 Body weight 149 kg PA Jorge Luis Corrales PA Work Phone: [facility] 09-14-2022 12:37-0400 Body mass index (BMI) [Ratio] 50.9 kg/m2 PA Jorge Luis Corrales PA Work Phone: [facility] 09-14-2022 12:37-0400 Body temperature 97 [degF] PA Jorge Luis Corrales PA Work Phone: [facility] 09-14-2022 12:37-0400 Body weight 149.68 kg PA Jorge Luis Corrales PA Work Phone: [facility] 09-14-2022 12:37-0400 Diastolic blood pressure 86 mm[Hg] PA Jorge Luis Corrales PA Work Phone: [facility] 09-14-2022 12:37-0400 Heart rate 123 /min PA Jorge Luis Corrales PA Work Phone: [facility] 09-14-2022 12:37-0400 Respiratory rate 17 /min PA Jorge Luis Corrales PA Work Phone: [facility] 09-14-2022 12:37-0400 SaO2% (BldA) [Mass fraction] 98 % PA Jorge Luis Corrales PA Work Phone: [facility] 09-14-2022 12:37-0400 Systolic blood pressure 130 mm[Hg] PA Jorge Luis Corrales PA Work Phone: [facility] 07-13-2022 08:49-0500 Body height 177.8 cm Tyrone Schrader MD Work Phone: [facility] 07-13-2022 08:49-0500 Body weight 150.14 kg Tyrone Schrader MD Work Phone: [facility] Encounters Encounter Date Encounter Type Care Provider Facility Start: 01-29-2025 ambulatory Dionisio Chi Tong Facility:[facility] Start: 01-19-2025 ambulatory Dionisio Chi Tong Facility:[facility] Start: 12-03-2024 End: 12-03-2024 ambulatory Yessy Atanasov Facility:[facility] Start: 11-26-2024 ambulatory Dionisio Chi Tong Facility:[facility] Start: 11-21-2024 End: 11-21-2024 ambulatory Dionisio Chi Tong Facility:[facility] Start: 11-20-2024 End: 11-20-2024 ambulatory Dionisio Chi Tong Facility:[facility] Start: 11-12-2024 End: 11-12-2024 ambulatory Criss Anderson Facility:[facility] Start: 10-23-2024 ambulatory Dionisio Chi Tong Facility:[facility] Start: 10-02-2024 End: 10-02-2024 ambulatory [facility] Facility:[facility] Start: 09-30-2024 End: 09-30-2024 ambulatory Criss Sherwood Facility:[facility] Start: 09-23-2024 End: 09-23-2024 Emergency department patient visit Latrice Magaña Facility:[facility] Start: 09-05-2024 End: 09-05-20[facility] Start: 08-27-2024 End: 08-27-2024 ambulatory Dionisio Chi Tong Facility:[facility] Start: 07-28-2024 End: 07-28-2024 ambulatory DIONISIO CHI TONG Facility:[facility] Start: 07-28-2024 End: 07-28-2024 Patient encounter procedure Leny Rivera APRN.HOGSHEAD HEAD MATCHER Work Phone: [facility] Comment on above: Sore throat (Primary Dx); Acute otitis media, right Start: 07-24-2024 End: 07-25-2024 ambulatory Criss Sherwood Facility:[facility] Start: 07-10-2024 ambulatory Dionisio Chi Tong Facility:[facility] Start: 07-10-2024 End: 07-10-2024 ambulatory Dionisio Chi Tong Facility:[facility] Start: 07-09-2024 End: 07-09-2024 ambulatory Dionisio Chi Tong Facility:[facility] Start: 05-13-2024 ambulatory Dionisio Chi Tong Facility:[facility] Start: 05-08-2024 End: 05-08-2024 ambulatory Criss Anderson Facility:[facility] Start: 04-22-2024 End: 04-22-2024 Emergency department patient visit Matthew Lemus Facility:[facility] Start: 03-12-2024 End: 03-12-2024 ambulatory Dionisio Rolo Fortune Facility:[facility] Start: 02-28-2024 End: 02-28-2024 ambulatory [facility] Tong Facility:[facility] Start: 02-26-2024 End: 02-26-2024 ambulatory [facility] Start: 02-25-2024 End: 02-25-2024 Emergency department patient visit Dionisio Fortune Facility:[facility] Start: 02-25-2024 End: 02-25-2024 ambulatory [facility] Facility:[facility] Start: 02-25-2024 End: 02-25-2024 Patient encounter procedure Dory Le INTAKE SPECIALIST.HOGSHEAD HEAD MATCHER Work Phone: [facility] Comment on above: Right lower quadrant abdominal pain (Primary Dx) Start: 02-23-2024 End: 02-23-2024 Emergency department patient visit DR LAURA FORTUNE MD Facility:[facility] Start: 03-29-2023 End: 03-29-2023 Emergency department patient visit GENARO HAMILTON MD [facility] Start: 03-12-2023 End: 03-12-2023 Subsequent hospital visit by physician Gen[facility] Work Phone: Radiology Comment on above: Acute left-sided low back pain without sciatica [M54.50] Start: 03-12-2023 Telephone encounter Dory villalobos INTAKE SPECIALIST.HOGSHEAD HEAD MATCHER Work Phone: [facility] Comment on above: Results Start: 03-11-2023 End: 03-11-2023 Patient encounter procedure Rosalva Avitia PA-C Work Phone: [facility] Comment on above: Acute left-sided low back pain without sciatica (Primary Dx) Start: 02-28-2023 End: 02-28-2023 ambulatory No Primary Care Physician [facility] Work Phone: Start: 02-28-2023 End: 02-28-2023 Patient encounter procedure No Primary Care Physician [facility]-Laboratory, Phy Office 3rd Flr Start: 01-03-2023 End: 01-03-2023 ambulatory No Primary Care Physician [facility] Work Phone: Start: 01-03-2023 End: 01-03-2023 Patient encounter procedure No Primary Care Physician [facility]-Laboratory, Phy Office 3rd Flr Start: 12-29-2022 End: 12-29-2022 Emergency department patient visit No Primary Care Physician [facility]Emergency Department Work Phone: Start: 12-29-2022 End: 12-29-2022 Patient encounter procedure No Primary Care Physician [facility] Work Phone: Start: 12-01-2022 End: 12-01-2022 Emergency department patient visit NIKOLE AGUSTIN Work Phone: [facility]Emergency Department Start: 10-11-2022 End: 10-11-2022 Patient encounter procedure NIKOLE AGUSTIN Work Phone: [facility] Start: 09-14-2022 End: 09-14-2022 Patient encounter procedure NIKOLE AGUSTIN Work Phone: [facility] Start: 07-13-2022 End: 07-13-2022 ambulatory TYRONE SCHRADER Facility:[facility] Start: 07-13-2022 End: 07-13-2022 Patient encounter procedure Tyrone Schrader MD Work Phone: Orthopaedics Comment on above: Primary osteoarthrit is of both knees (Primary Dx); Chronic pain of both knees; Morbid obesity with BMI of 45.0-49.9, adult (HCC) Start: 06-14-2022 End: 06-14-2022 ambulatory [facility] Work Phone: Start: 06-14-2022 End: 06-14-2022 Patient encounter procedure [facility]-Radiology, [facility] Start: 11-16-2021 End: 11-16-2021 Subsequent hospital visit by physician Mike Briones MD [facility] Comment on above: CALCULUS OF GALLBLAD CARLY W/O CHOLECYSTITI Start: 05-31-2021 Patient encounter procedure Karo Mcgrath Work Phone: [facility] Start: 05-31-2021 Progress Note Karo Nguyen an Work Phone: [facility] Start: 05-30-2021 End: 05-30-2021 Subsequent hospital visit by physician Venus Noland Work Phone[facility] Comment on above: PAIN IN BOTH EARS,HE ADACHE,BODYACHE Procedures Date Procedure Procedure Detail Performing Clinician Start: 07-28-2024 RIOS Hicks MOLECULAR (POC) Leny Rivera APRN.HOGSHEAD HEAD MATCHER Work Phone: Start: 03-12-2023 Radex hip unilateral with pelvis 2-3 views Rosalva AGUSTIN-C Work Phone: Start: 03-11-2023 Urnls dip stick/tabl et rgnt auto w/o microscopy Rosalva Avitia PA-C Work Phone: Start: 12-29-2022 Plain chest X-ray No Pr imary Care Physician Start: 12-01-2022 CT of abdomen and pe lvis without contrast NIKOLE AGUSTIN Work Phone: Start: 06-14-2022 Radiologic examinati on of knee Plan of Treatment Date Care Activity Detail Author Start: 03-02-2024 Covid-19 Vaccine () Covid-19 Vaccine ( season) [facility] Start: 03-02-2024 Covid-19 Vaccine () Covid-19 Vaccine ( season) [facility] Start: 03-02-2024 Influenza vaccination Influenza Vacc ine (#1) [facility] Start: 03-02-2023 Covid-19 Vaccine () Covid-19 Vaccine () [facility] Start: 03-02-2023 Influenza vaccination INFLUENZA (#1) [facility] Start: 12-29-2022 [facility] Start: 2022 COLOGUARD (FIT-DNA) COLOGUARD (FIT-D NA) [facility] Start: 2022 Colonoscopy COLONOSCOPY [facility] Start: 2022 COLORECTAL CANCER SCREENING COLORECTAL CANCER SCREENING [facility] Start: [address] COLONOGRAPHY [facility] Start: 2022 [facility]ABET[facility]EN [facility] Start: 2022 Diabetes Screening Diabetes Screenin g [facility] Start: 2022 FECAL OCCULT BLOOD FECAL OCCULT BLOO D [facility] Start: 2022 Lipid panel Lipid Screening [facility] Start: 2022 LIPID SCREEN LIPID SCREEN [facility] Start: 2022 Screening for malign ant neoplasm of colon [facility] Start: 2022 SIGMOIDOSCOPY SIGMOIDOSCOPY [facility] Start: 07-02-2022 DEPRESSION ASSESSMENT DEPRESSION ASS ESSMENT [facility] Start: 03-02-2022 Influenza vaccination INFLUENZA (#1) [facility] Start: 08-01-2021 COVID-19 VACCINE (4 - Booster for Pfizer series) COVID-19 VACCINE (4 - Booster for Pfizer series) [facility] Start: 2017 Mammography MAMMOGRAM [facility] Start: 2017 Screening for malign ant neoplasm of breast Mammogram Screening [facility] Start: 11-24-2007 HPV TESTING HPV TESTING [facility] Start: 1998 PAP TESTING PAP TESTING [facility] Start: 1998 Screening for malign ant neoplasm of cervix Cervical Cancer Screening [facility] Start: 1996 Hepatitis B Vaccine (1 of 3 - 19+ 3-dose series) Hepatitis B Vaccine (1 of 3 - 19+ 3-dose series) [facility] Start: 1996 Urine microalbumin profile [facility] Start: 11-24-1995 Anxiety Screening Anxiety Screening [facility] Start: 11-24-1995 Depression Screening Depression Scre ening [facility] Start: 11-24-1995 HEPATITIS C SCREENING HEPATITIS C [facility] Start: 11-24-1995 Hepatitis C screening Hepatitis C [facility] Start: 11-24-1995 HIV SCREENING HIV SCREENING [facility] Start: 11-24-1995 HIV screening HIV Screening [facility] Start: 11-24-1983 PNEUMOCOCCAL (1 - PCV) PNEUMOCOCCAL (1 - PCV) [facility] Start: 05-26-1978 COVID-19 VACCINE (#1) COVID-19 VACCI NE (#1) [facility] Start: 1977 HEPATITIS B (1 of 3 - 3-dose series) HEPATITIS B (1 of 3 - 3-dose series) [facility] Patient Education [facility] Work Phone: Patient referral [facility] Work Phone: End: 04-09-2024 Radex spine lumbosacral 2/3 views XR LUMBAR GENERAL 3V AP/LAT/L5-S1 Radiology STAT Acute left-sided low back pain without sciatica 1 Occurrences starting 03/11/2023 until 04/09/2024 [facility] Work Phone: Comment on above: 1 Occurrences starti ng 03/11/2023 until 04/09/2024 End: 04-09-2024 XR HIP GENERAL 3V PELV/AP/LAT LEFT XR HIP GENERAL 3V PELV/AP/LAT LEFT Radiology STAT Acute left-sided low back pain without sciatica 1 Occurrences starting 03/11/2023 until 04/09/2024 [facility] Work Phone: Comment on above: 1 Occurrences starti ng 03/11/2023 until 04/09/2024 Payers Date Payer Category Payer Self-pay 2020 Medicaid [id number] 2020 Unknown [id number] 1977 Unknown [id number] 2.16.8 [id number] 1977 Unknown [id number] 2.16.8 40.1.617741.3.579.2.627 1977 Unknown [id number] 2.16.8 40.1.247434.3.579.2.627 Unknown [id number] 2.16.8 40.1.778201.3.579.2.462 Unknown [id number] 2.16.8 40.1.943168.3.579.2.462 Unknown [id number] 2.16.8 40.1.801044.3.579.2.462 Unknown [id number] 2.16.8 40.1.415434.3.579.2.462 Unknown [id number] 2.16.8 40.1.263567.3.579.2.462 Unknown [id number] 2.16.8 40.1.638309.3.579.2.462 Unknown [id number] 2.16.8 40.1.603373.3.579.2.462 Unknown [id number] 2.16.8 40.1.507880.3.579.2.462 Unknown [id number] 2.16.8 40.1.528596.3.579.2.462 Unknown [id number] 2.16.8 40.1.216303.3.579.2.462 Unknown [id number] 2.16.8 40.1.519607.3.579.2.462 Unknown [id number] 2.16.8 40.1.656735.3.579.2.462 Unknown [id number] 2.16.8 40.1.482281.3.579.2.462 Unknown [id number] 2.16.8 40.1.795486.3.579.2.462 Unknown [id number] 2.16.8 40.1.586475.3.579.2.462 Unknown [id number] 2.16.8 40.1.824092.3.579.2.462 Unknown [id number] 2.16.8 40.1.917414.3.579.2.462 Unknown [id number] 2.16.8 40.1.487184.3.579.2.462 Unknown [id number] 2.16.8 40.1.562249.3.579.2.462 Unknown [id number] 2.16.8 40.1.207519.3.579.2.462 Unknown [id number] 2.16.8 40.1.381226.3.579.2.462 Unknown [id number] 2.16.8 40.1.986255.3.579.2.462 Unknown [id number] 2.16.8 40.1.275855.3.579.2.462 Unknown [id number] 2.16.8 40.1.211938.3.579.2.462 Unknown [id number] 2.16.8 40.1.147589.3.579.2.462 Unknown [id number] 2.16.8 40.1.925418.3.579.2.462 Social History Date Type Detail Facility Start: 12-01-2022 End: 12-29-2022 Tobacco smoking status SDIS Tobacco smoking consumption unknown [facility] Start: 1975 Sex Assigned At Not on file [facility] Start: 1975 Sex Assigned At Female [facility] Start: 07-13-2022 Tobacco smoking status SDIS Occasional tobacco smoker [facility] Work Phone: History of tobacco use Cigarette Smoker [facility] Work Phone: Start: 07-13-2022 End: 03-11-2023 Tobacco use and exposure Smokeless tobacco non-user [facility] Work Phone: Start: 07-13-2022 Alcohol intake Current drinke r of alcohol (finding) [facility] Start: 07-13-2022 Tobacco Comment Smokes 1 cigar ette every few days [facility] Start: 07-13-2022 Alcohol Comment rarely [facility] Start: 03-11-2023 Tobacco smoking status NHIS Ex-smoker [facility] History of tobacco use Current smoker [facility] Start: 03-11-2023 End: 07-28-2024 History of Social function [facility] Start: 03-11-2023 End: 07-28-2024 Tobacco use panel [facility] Tobacco smoking status No Smoking Status Entered [facility] NEGATED: Highlighted row [facility] Functional Status Date Assessment Result Facility 03-29-2023 Functional Status Independent [facility] 03-29-2023 Functional Status ID band on, Call device within reach, Bed in low position, Wheels locked, Upper/Half-Length side-rails up, Visitor at bedside [facility] Mental Status Date Assessment Result Facility 03-29-2023 Mental Status Orientation Oriented x 4 [facility] 03-29-2023 Mental Status [facility] 12-29-2022 Cognitive function Voice/Name [facility] Work Phone: Clinical Notes 05-31-2021 to 11-21-2024 Leny Rivera APRN.HOGSHEAD HEAD MATCHER - 07/28/2024 7:21 AM Dory Stahl APRN.HOGSHEAD HEAD MATCHER - 02/25/2024 4:15 PM EDTTelephone Encounter - Charla Galvan - 03/12/2023 5:02 PM EDT Note Date & Type Note Facility 11-21-2024 Note [facility] Medical Records Department [address] [place] [address] History Physical Exam 11/21/24 1240 MR#: [id number] Acct: [id number] Name: FRANKIE MCKINNEY Rep #: [id number] : 1975 48 From: Dwain Friend PCP: Dr. Dionisio Fortune MD Status:[facility] Location: [place] [address] HPI - General General Date of Admission: 11/21/24 Date of Service: 11/21/24 Chief Complaint: nausea, constipation, and diarrhea HPI Narrative FRANKIE MCKINNEY, is a 48 F who presents with nausea, constipation, and diarrhea Over the past few years pt has had issues with constipation alternating with diarrhea. She will go 7 days without a bm and then have diarrhea 2x per day for a few days. She has not tried any medications for her constipation. When she has the constipation she has some rectal bleeding. Her last colonoscopy was a few years ago with polyps. She is due for colonoscopy at this time. For 9 months now, she has had daily nausea but no vomiting. Her nausea typically lasts the entire day. It is not related to when she eats. She is having some abd pain associated with the nausea. [facility] Medical History No natural teeth Bipolar disorder Depression Hypothyroid Fatty liver Former smoker Post-menopausal Personal history of colonic polyps Anxiety Bipolar 1 disorder Contact with and (suspected) exposure to other viral communicable diseases URI (upper respiratory infection) Thyroid disease Arthritis HTN (hypertension) Home Medications ???Medication ???Instructions ???Recorded ???Last Taken ???Type levothyroxine 200 mcg tablet 200 mcg PO DAILY 05/13/23 Unknown History levothyroxine 25 mcg tablet 25 mcg PO DAILY 05/13/23 Unknown H istory acetaminophen 500 mg tablet 500 mg PO Q6H PRN fever or pain Unknown History propranolol 20 mg tablet 20 mg PO BID 09/21/23 Unknown Hist ory amlodipine 5 mg tablet 5 mg PO QDAY 11/07/23 Unknown Hist ory buspirone 7.5 mg tablet 7.5 mg PO TID #270 tabs 11/12/24 U nknown Rx divalproex 500 mg tablet,extended 1,500 mg (3 x 500 mg) PO DAILY #9 0 11/12/24 Unknown Rx release 24 hr tabs venlafaxine 225 mg tablet,extended 225 mg PO QHS #90 tabs 11/12/24 Unknown Rx release 24 hr Allergy/AdvReac Type Severity Reaction Status Date / Time adhesive tape Allergy Mild Rash Verified 11/20/24 12:09 Family History Mother Colon polyps Hypertension Other CVA (cerebral vascular accident) Cancer Melanoma Skin cancer Surgical History History of hysterectomy Hx of colonoscopy Hx of thyroidectomy Hx of oophorectomy Hx of tonsillectomy History of cholecystectomy Social History household members: spouse current occupational status: employed and disabled Smoking Status: Former smoker Electronic Cigarette Use: not used second hand exposure: Yes alcohol intake: current details: only around the holidays substance use type: does not use what type of physical activity do you participate in: walking ROS Constitutional Constitutional: Denies fatigue, fever(s), poor appetite, weight gain or weight loss Gastrointestinal Gastrointestinal: Denies belching, bloating, change in bowel habits, change in stool character, chewing difficulty, coffee ground emesis, constipation, cramping, diarrhea, dyspepsia, dysphagia, early satiety, excessive flatus, fecal incontinence, heartburn, hematemesis, hematochezia, hemorrhoids, loose stools, melena, nausea, odynophagia, rectal bleeding, tenesmus, vomiting or weight changes Physical Exam Const alert, oriented x3, no apparent distress and healthy appearing General Appearance: cooperative GI normal to inspection, nondistended, normoactive bowel sounds, soft to palpation, non-tender and non- distended Percussion: normal to percussion Rectal Exam: deferred Assessment Plan Assessment/Plan (1) Abdominal pain: (2) Constipation: (3) Nausea: (4) Encounter for screening for malignant neoplasm of colon: PLAN: Assessment and Plan Assessment and Plan (1) Nausea: Status: Acute Plan: This is a 48 yo female pt here today for evaluation of nausea, abd pain, constipation and diarrhea. Her symptoms have been ongoing for a few years but over the past 9 months have been worse. Last colonoscopy was a few years ago with polyps. She will undergo colonoscopy and EGD as soon as she is able. In the mean time, I will order GES to rule out delayed gastric emptying leading to nausea. SHe will take omeprazole 40 mg daily and Zofran PRN. For her constipation, she will take miralax daily. We will consider tx with Linlizzs in future. She will f (more content not included)... [facility] 07-28-2024 Note HNO ID: [id number] Author: LENY RIVERA APRN.HOGSHEAD HEAD MATCHER Service: ? Author Type: Nurse Practitioner Type: Progress Notes Filed: 07/28/2024 07:32 Note Text: CC: Patient presents with: Nasal Congestion: right ear pain and sore throat x 4 days HPI: Frankie Mckinney is a 48 year old female who presents to the office with complaint of head congestion, sore throat, and ear symptoms for 4 days. Symptoms are worsening Associated symptoms includes sore throat. Denies wheezing, dyspnea, fatigue, nausea, vomiting , and diarrhea. Treatments tried include nothing so far. with no relief of symptoms. Sick contacts: unknown. History of asthma, frequent episodes of bronchitis, chronic bronchitis, bronchiectasis or COPD: No Smoker: No Seasonal/environmental allergies: No The ROS is otherwise negative. The patient's pmh, medications, allergies, and past visits are reviewed. PHYSICAL EXAM: BP 122/80 Pulse 120 Temp 36.9 ?C (98.5 ?F) Resp 18 Wt 132 kg (291 lb 0.1 oz) SpO2 99% General appearance: alert, cooperative, pleasant, in no acute distress Head: Normocephalic Eyes: EOM's intact, conjunctiva pink and moist, no icterus, sclera white, non-injected Ears: Right ear: External ear/canal- Normal, TM - erythematous. Left ear: External ear/canal- Normal, TM - clear with good landmarks Oropharynx:moist without lesions, No erythema, exudates or tonsillar hypertrophy. Heart: Negative. RRR without obvious murmur, gallop, or rubs. No ectopy. Lungs: clear to auscultation, without rales or wheeze, good air exchange No past medical history on file. No past surgical history on file. ALLERGIES Patient has no known allergies. MEDICATIONS amLODIPine (NORVASC) 5 mg tablet Take 5 mg by mouth daily at bedtime. divalproex ER (DEPAKOTE ER) 500 mg 24 hr tablet metoprolol tartrate, short acting, (LOPRESSOR) 25 mg tablet busPIRone (BUSPAR) 7.5 mg tablet hydrOXYzine HCl (ATARAX) 25 mg tablet Take 25 mg by mouth three times a day as needed. levothyroxine (SYNTHROID) 200 mcg tablet levothyroxine (SYNTHROID) 25 mcg tablet venlafaxine XR (EFFEXOR XR) 225 mg tablet propranolol (INDERAL) 20 mg tablet Take 20 mg by mouth three times a day. amoxicillin (AMOXIL) 875 mg tablet Take 1 tablet by mouth two times a day for 7 days. lamoTRIgine (LAMICTAL) 100 mg tablet (Patient not taking: Reported on 07/28/2024) cyclobenzaprine (FLEXERIL) 10 mg tablet Take 1 tablet by mouth three times daily as needed for muscle spasm. (Patient not taking: Reported on 07/28/2024) No family history on file. Social History Tobacco Use Smoking status: Former Types: Cigarettes Smokeless tobacco: Never ASSESSMENT/PLAN: 1. Sore throat - ICD9: 462, ICD10: J02.9 (primary diagnosis) - STREP A MOLECULAR (POC) - neg 2. Acute otitis media, right - ICD9: 382.9, ICD10: H66.91 - AMOXICILLIN 875 MG TABLET Prescription instructions reviewed with patient as applicable. Potential red flag symptoms discussed with the patient. Reviewed appropriate action plan to take if red flag symptoms occur. Patient agreeable to treatment plan. Leny Rivera APRN.[facility] 07-28-2024 History of Presen t illness Narrative CC: Patient presents with: Nasal Congestion: right ear pain and sore throat x 4 days HPI: Frankie Mckinney is a 48 year old female who presents to the office with complaint of head congestion, sore throat, and ear symptoms for 4 days. Symptoms are worsening Associated symptoms includes sore throat. Denies wheezing, dyspnea, fatigue, nausea, vomiting , and diarrhea. Treatments tried include nothing so far. with no relief of symptoms. Sick contacts: unknown. History of asthma, frequent episodes of bronchitis, chronic bronchitis, bronchiectasis or COPD: No Smoker: No Seasonal/environmental allergies: No The ROS is otherwise negative. The patient's pmh, medications, allergies, and past visits are reviewed. PHYSICAL EXAM: BP 122/80 Pulse 120 Temp 36.9 C (98.5 F) Resp 18 Wt 132 kg (291 lb 0.1 oz) SpO2 99% General appearance: alert, cooperative, pleasant, in no acute distress Head: Normocephalic Eyes: EOM's intact, conjunctiva pink and moist, no icterus, sclera white, non-injected Ears: Right ear: External ear/canal- Normal, TM - erythematous. Left ear: External ear/canal- Normal, TM - clear with good landmarks Oropharynx:moist without lesions, No erythema, exudates or tonsillar hypertrophy. Heart: Negative. RRR without obvious murmur, gallop, or rubs. No ectopy. Lungs: clear to auscultation, without rales or wheeze, good air exchange No past medical history on file. No past surgical history on file. ALLERGIES Patient has no known allergies. MEDICATIONS amLODIPine (NORVASC) 5 mg tablet Take 5 mg by mouth daily at bedtime. divalproex ER (DEPAKOTE ER) 500 mg 24 hr tablet metoprolol tartrate, short acting, (LOPRESSOR) 25 mg tablet busPIRone (BUSPAR) 7.5 mg tablet hydrOXYzine HCl (ATARAX) 25 mg tablet Take 25 mg by mouth three times a day as needed. levothyroxine (SYNTHROID) 200 mcg tablet levothyroxine (SYNTHROID) 25 mcg tablet venlafaxine XR (EFFEXOR XR) 225 mg tablet propranolol (INDERAL) 20 mg tablet Take 20 mg by mouth three times a day. amoxicillin (AMOXIL) 875 mg tablet Take 1 tablet by mouth two times a day for 7 days. lamoTRIgine (LAMICTAL) 100 mg tablet (Patient not taking: Reported on 07/28/2024) cyclobenzaprine (FLEXERIL) 10 mg tablet Take 1 tablet by mouth three times daily as needed for muscle spasm. (Patient not taking: Reported on 07/28/2024) No family history on file. Social History Tobacco Use Smoking status: Former Types: Cigarettes Smokeless tobacco: Never ASSESSMENT/PLAN: 1. Sore throat - ICD9: 462, ICD10: J02.9 (primary diagnosis) - STREP A MOLECULAR (POC) - neg 2. Acute otitis media, right - ICD9: 382.9, ICD10: H66.91 - AMOXICILLIN 875 MG TABLET Prescription instructions reviewed with patient as applicable. Potential red flag symptoms discussed with the patient. Reviewed appropriate action plan to take if red flag symptoms occur. Patient agreeable to treatment plan. Leny Rivera APRN.JANE documented in this encounter [facility] 02-25-2024 Note HNO ID: [id number] Author: DORY LE APRN.CNP Service: ? Author Type: Nurse Practitioner Type: Progress Notes Filed: 02/25/2024 16:19 Note Text: Called to triage patient. 48 year old female presents for complaints of pelvic pain Acute onset of symptoms was over the weekend. Right lower pelvic +radiates into right back +nausea Progressively worsening. Right lower abdomen/pelvic region with TTP Right sided CVA TTP Given concerns for intraabdominal process and work up requires more than what [facility] can provide, has been referred to ED [facility] 02-25-2024 History of Presen t illness Narrative Called to triage patient. 48 year old female presents for complaints of pelvic pain Acute onset of symptoms was over the weekend. Right lower pelvic +radiates into right back +nausea Progressively worsening. Right lower abdomen/pelvic region with TTP Right sided CVA TTP Given concerns for intraabdominal process and work up requires more than what [facility] can provide, has been referred to ED documented in this encounter [facility] 03-29-2023 Hospital Discharg e instructions Patient Education 03/29/2023 17:09:27 Self-Care for [...] pain. Never sleep on a heating pad. Pjbl-uby-olezimu medicine can help control pain and swelling. [...] t decreasing after more than a week. 1656-2002 [employer]. [address] [place] [address]. All rights reserved. This information is not [...] or legs Numbness in the groin area 6362-1094 [employer]. [address] [place] [address]. All rights reserved. This information is not intended as a substitute for professional medical care. Always follow your healthcare professional's instructions. Follow Up Care 03/29/2023 15:58:23 With:Go to emergency room if symptoms worsen Address:Unknown When:2-4 days With:LAURA FORTUEN MD Address: [facility]/[address] [place] [address]- When:2-4 days [facility] 03-29-2023 Note Discharge Instructions Thank you for allowing [facility] to assist you with your healthcare needs. [...] Within 2-4 days Follow Up with LAURA FORTUNE MD When Within 2-4 days Where: [facility]/[place] [address] [place] [address]- Allergies No Known Medication Allergies Medications Please [...] tyler) AneCream, Bactine, Glydo, Lidoderm, LidoRx, Medi-Quik Skillman, RadiaGuard, RectiCare, Regenecare MANLEY Skillman, Solarcaine Cool Aloe What is the most [...] may report side effects to FDA at 7-505-YUA-9719. What other drugs will affect lidocaine topical? Medicine used on the skin is not likely to be affected by other drugs you use. But many drugs can interact with each other. Tell each of your health care providers about all medicines you use, including prescription and ahis-sic-pnvuygi medicines, vitamins, and herbal products. Where can I get more information? Your pharmacist can provide more information about lidocaine topical. Remember, keep this and all other medicines out of the reach of children, never share your medicines with others, and use this medication only for the indication prescribed. Every effort has been made to ensure that the information provided by [employer]. ('[employer]') is accurate, up-to-date, and complete, but no guarantee is made to that effect. Drug information contained herein may be time sensitive. [employer] information has been compiled for use by healthcare practitioners and consumers in the [place] and therefore [employer] does not warrant that uses outside of the [place] are appropriate, unless specifically indicated otherwise. [employer] drug information does not endorse drugs, diagnose patients or recommend therapy. [employer] drug information is an informational resource designed [...] effective or appropriate for any given patient. [employer] does not assume any responsibility for any aspect of healthcare administered with the aid of information [employer] provides. The information contained herein is not intended to cover all possible uses, directions, precautions, warnings, drug interactions, allergic reactions, or adverse effects. If you have questions about the drugs you are taking, check with your doctor, nurse or pharmacist. Copyright 7981-8595 [employer]. Version: 11.. Revision Date: 03/21/2023. Education Materials [...] pain. Never sleep on a heating pad. Qecn-elo-qczwmdy medicine can help control pain and swelling. [...] t decreasing after more than a week. 2164-9523 [employer]. [address] [place], [place] [address]. All rights reserved. This information is not [...] or legs Numbness in the groin area 6884-7438 [employer]. [address] [place] [address]. All rights reserved. This information is not intended as a substitute for professional medical care. Always follow your healthcare professional's instructions. Additional Information VACCINATE! IT SAVES LIVES! Members of the community who have not yet received the COVID-19 vaccine and would like to receive it can visit one of [facility] vaccine clinics. There are many vaccine clinic locations within the [facility]. For locations and available times, please visit [email or web address] [email or web address] It is important to note that some COVID mobile vaccine clinics are held outdoors and may be canceled in rainy or stormy conditions. To learn more about pediatric vaccinations (ages 5-11), we invite you to visit the [facility] webpage. https://www.[email or web address]/p ages/4291-Iqeaq-Mzohorulhng-Freq sghbxu-Gmxzb-Ikxthmhou.html To learn more about the COVID-19 vaccine, we invite you to visit the CDC website for a list of frequently asked questions. https://www.cdc.gov/coronavirus/ 2019-ncov/vaccines/faq.html [facility] Patient Portal Access Instructions: Stay connected with your healthcare team and access your personal medical information anytime with the [facility] Patient Portal. If you would like a full copy of your medical records please contact the [facility] Medical Records Department Sunday through Sunday between 8a.m. and 4:30p.m. Please follow the directions below to access the portal: 1.Access the email account you provided upon registration to the [facility].2.Look for an invitation email from [facility].3.Open the email and access the invitation link: Accept Invitation to [facility]4.Fill in the required salazar to create your account. Sign into [email or web address] with your username and password that you [...] you will allow to register on the [facility] Patient Portal for access to your information. You can also access the [facility] Patient Portal on the ITC. Simply click on Health Records under Health Data and then click on the [employer] logo. HOW TO SAFELY DISPOSE OF PRESCRIPTION [...] Call your local pharmacy or go to http://bit.[employer]/5L5Wu2a to find one close to you.3.Make use of household items: Use cat litter or old coffee grounds to dispose medications if other options are not available. Mix your drugs with these household products, seal them in an airtight container and throw it into the garbage. Call [facility]: [phone] to be sure your drugs can be [...] reviewed and explained to me and IFAYE FRANKIE M understand my current condition and have read and understand these discharge instructions. I have received a written copy of the plan/instructions. If I have questions, I am aware that I should contact my doctor. 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 Charla Galvan Please inform patient of hip xray results as well. Reveals degenerative changes (arthritis). Please notify patient of normal xray of lumbar. Continue treatment plan discussed at time of exam. Follow up with PCP documented in this encounter [facility] 03-12-2023 History of Presen t illness Narrative Radiology Service Progress Note PATIENT NAME: Frankie Mckinney DATE OF SERVICE: March 12, 2023 TIME: [...] RT Juliann(R) March 12, 2023 3:54 PM documented in this encounter [facility] 03-11-2023 History of Presen t illness Narrative This note was created using [employer]. Subjective Frankie Mckinney is a 47 year old female. HPI [...] None since then. She has tried Tylenol lknl-biz-gupmkhp without relief. No fever. No vomiting or [...] - XR HIP GENERAL 3V PELV/AP/LAT LEFT Rosalva Avitia PA-C documented in this encounter [facility] 12-29-2022 Discharge summary Note Date/Time December 29, 2022 8:22am [facility] Medical Records Department [address] [place] [id number] Emergency Department Summary 12/29/22 MR#: [id number] Acct: [id number] Name: FRANKIE MCKINNEY Rep #:[id number] : 1975 47 From: Kit Yang PCP: Dr. Juan Francisco Flores, DO Status:REG ER Location: ED HPI History of Present Illness Chief Complaint: Chest Pain Informant: patient and spouse/S.O. Narrative Narrative: Presents with similar 5-day history worsening exertional chest tightness startedat work. He states he was does heavy lifting she get tightness takes up to 2 3 hours to resolve with rest. Recurs with lifting. Today while at rest at home before work symptoms started 630 very mild symptoms currently. No recent illness or cough. Denies tobacco. Father with OR at the age of 77. She told him elevated blood pressure from PCP not currently on antihypertensives. Deniesdiabetes or hyperlipidemia. Denies any recent travel surgery or immobilizations. No history of PE or DVT. No history of stress test or heart cath in the past. Prior Similar Symptoms: No CVD Risk Factors: Positive for Hypertension; Negative for Diabetes, Hypercholesterolemia, Family History 1' </=55 or Smoking PE Risk Factors: Negative for Recent Travel/Surgery, Recent Immobilization or Prior DVT or PE [facility] Medical History Arthritis Contact with and (suspected) exposure to other viral communicable diseases HTN (hypertension) Thyroid disease URI (upper respiratory infection) Home Medications lamotrigine 100 mg tablet 100 mg PO DAILY 09/14/22 [History Last Taken 12/28/22] levothyroxine 175 mcg tablet 175 mcg PO DAILY 09/14/22 [History Last Taken 12/29/22] propranolol 10 mg tablet 10 mg PO BID PRN anxiety 09/14/22 [History Last Taken 12/28/22] quetiapine 25 mg tablet 25 mg PO DAILY 09/14/22 [History Last Taken 12/28/22] venlafaxine 225 mg tablet,extended release 24 hr 225 mg PO QHS 09/14/22 [History Last Taken 12/28/22] etodolac 500 mg tablet 500 mg PO BID #40 tabs 10/11/22 [Rx Last Taken Unknown] Allergy/AdvReac Type Severity Reaction Status Date / Time No Known Allergies Allergy Verified 12/29/22 07:23 Family History Other Skin cancer Surgical History History of cholecystectomy Hx of tonsillectomy Social History Smoking Status: Former smoker alcohol intake: never ROS ROS ED Constitutional Constitutional ED: Denies chills, fever(s) or sweats Eyes Eyes: Denies change in vision ENT ENT ED: Denies dysphagia or sore throat Cardiovascular Cardiovascular: Reports chest pain; Denies leg edema, palpitations or racing heartbeat Respiratory/Chest Respiratory/Chest: Denies cough, dyspnea or dyspnea on exertion Gastrointestinal Gastrointestinal: Denies abdominal pain, diarrhea, nausea or vomiting Genitourinary Genitourinary ED: Denies dysuria, hematuria or urinary frequency Musculoskeletal Musculoskeletal: Denies back pain, extremity pain or neck pain Integumentary Denies rash or wounds Neurologic Neurologic: Denies headache(s), paresthesias or weakness EXAM Physical Exam Const Vital Signs: 12/29/22 07:48 12/29/22 08:24 12/29/22 08:24 Temperature 96.5 F L Temperature Source Temporal Pulse Rate 76 67 Respiratory Rate 18 24 H Respiratory Effort Blood Pressure 180/88 H Blood Pressure Mean 118 Pulse Ox 100 100 Oxygen Delivery Method Room Air Room Air Room Air 12/29/22 08:24 12/29/22 09:00 12/29/22 10:00 Temperature Temperature Source Pulse Rate 56 L 62 Respiratory Rate Respiratory Effort Normal Non-Labored Blood Pressure 146/62 H 118/63 Blood Pressure Mean 90 81 Pulse Ox 100 99 Oxygen Delivery Method Room Air 12/29/22 10:21 Temperature Temperature Source Pulse Rate 63 Respiratory Rate Respiratory Effort Blood Pressure 129/65 H Blood Pressure Mean 86 Pulse Ox 100 Oxygen Delivery Method Room Air Positive well nourished and well developed Constitutional Narrative: BMI 45.9. General Appearance ED: well developed and NAD HEENT Reports moist mucous membranes normocephalic and atraumatic Eyes PERRL, EOMs intact bilaterally and conjunctivae normal General Eye ED: Yes normal appearance of both eyes Neck no lymphadenopathy and supple General: Negative for tenderness Chest Wall Chest: Negative for tenderness Resp normal respiratory effort and normal air movement Effort and Inspection: symmetric chest movement; Negative for respiratory distress Cardio regular rate, regular rhythm and no murmurs Peripheral Pulses: pulses 2+ throughout GI normal to inspection, nondistended, normoactive bowel sounds and non-tender Palpation: Negative for guarding or rebound tenderness present Back/Spine no CVA tenderness and no thoracic nor lumbar tenderness Extremity normal to inspection General Extremety ED: Negative for edema or tenderness General Extremity: Negative for edema Neuro oriented x3 and no sensory deficits noted Sensorium / Orientation: awake and alert Skin no rashes or lesions noted and no wounds Heart Score History: Moderately Suspicious ECG: Normal Age: >45 - <65 years Risk Factors: 1 or 2 Risk Factors Troponin: </= Normal Limit Score: 3 MDM MDM MDM Narrative Medical decision making narrative: Interventions / MDM: Differential diagnosis: ACS, chest pain Diagnosis considered but do not suspect: Pulmonary embolism, however D-dimer negative. My EKG interpretation: Sinus rate of 68, no ST changes, isolated T wave version in aVF nonspecific. Wandering baseline inferior leads. Imaging independently reviewed and interpreted by myself: 2 view chest x-ray: Noacute process External documents reviewed: N/A Test considered but not ordered:N/A ED course: Patient EKG nonspecific T wave inversion in leads aVF. Cardiac work-up initiated. Initial troponin negative. D-dimer obtained due to exertional dyspnea symptoms also negative. Two-view chest x-ray added with a negative dimer shows no acute process. Patient given aspirin. 0930: Awaiting second troponin at this time. Currently symptom-free. 1150: Patient's repeat troponin also -14. Remains symptom-free.Patient's heart score is a 3. Further discussed with the patient, States it takes an hour to work before she starts having symptoms. I considered admission to exertional symptoms however she would like outpatient management. Blood pressure proved on/65 without any intervention. Patient with minimal risk factors, therefore Ifeel this is reasonable. Patient will call for follow-up outpatient stress testing with strict return precautions. They reported they just moved to the area would like to follow-up with Dr. Fortune. Therefore his information put on paperwork. All questions were answered. Re-evaluation: stable Disposition discussed with patient/family/significant other: patient and significant other Case discussed with consulting clinician: N/A This note was generated with freee dictation software. It may contain incorrectwords, spelling, and punctuation that were not noted in checking the note beforesigning. Lab Data Attestation: I reviewed the patient's lab results. Labs: Laboratory Results - last 24 hr 12/29/22 12/29/22 08:30 10:34 WBC 5.0 RBC 4.14 L Hgb 12.7 Hct 39.5 MCV 95.4 MCH 30.7 MCHC 32.2 RDW Std Deviation 48.7 H RDW Coeff of Amandeep 13.9 Plt Count 222 MPV 10.7 Immature Gran % (Auto) 0.600 Neut % (Auto) 58.7 Lymph % (Auto) 32.9 [place] % (Auto) 5.2 Eos % (Auto) 2.2 Baso % (Auto) 0.4 Absolute Neuts (auto) 2.9 Absolute Lymphs (auto) 1.63 Nucleated RBC % 0 PT 13.0 INR 1.0 APTT 27.0 D-Dimer Quant (PE/DVT) 0.28 Sodium 142 Potassium 3.9 Chloride 109 H Carbon Dioxide 28.0 Anion Gap 5 BUN 13 Creatinine 0.99 Estim Creat Clear Calc 77.60 Est GFR (MDRD) Af Amer 78 Est GFR (MDRD) Non-Af 65 BUN/Creatinine Ratio 13.2 Glucose 102 Calcium 9.4 Troponin I High Sens 15 14 Radiography Diagnostic Testing: Clinical Impression(s) from Imaging Studies Chest X-Ray 12/29/22 09:25 IMPRESSION: Normal x-ray examination of the chest. Electronically Signed: Osmani Cordon MD at 9:43 EDT , Discharge Plan Triage Chief Complaint: Chest Pain ED Provider: Kit Russell Dx/Rx/DC Orders Clinical Impression: Elevated blood pressure reading in office without diagnosis of hypertension, Chest pain Instructions: ED Chest Pain, Uncertain Cause Prescriptions: No Action levothyroxine 175 mcg tablet 175 mcg PO DAILY propranolol 10 mg tablet 10 mg PO BID PRN (Reason: anxiety) lamotrigine 100 mg tablet 100 mg PO DAILY venlafaxine 225 mg tablet extended release 24hr 225 mg PO QHS quetiapine 25 mg tablet 25 mg PO DAILY etodolac 500 mg tablet 500 mg PO BID Qty: 40 0RF Rx Instructions: do not take in conjunction with other NSAIDs, Tylenol is ok. Stand Alone Forms: Work / School Excuse Primary Care Provider: Juan Francisco Flores Referrals: Dionisio Fortune Chi, MD [Med Staff - Active Staff] - 3-5 Days Care Physician,No Primary [Non-Staff] - Activity Restrictions/Additional Instructions: Cardiac work-up was negative. D-dimer negative. You report exertional chest tightness after an hour. He would need a stress test as an outpatient. Call for discussion with PCP for this. Your blood pressure 180/80 on arrival down to129/65 without any treatment. You need recheck for this. Return if any worsening symptoms. Disposition Disposition: Home, Self Care What to do if you have Problems For any increased pain, shortness of breath, bleeding, nausea or vomiting, chestpain, or any unexpected problems, contact your Primary Care Provider. Call [facility] ([phone]) or report to the closest Emergency Room. Call 911 if necessary. 12/29/22 1159 <Electronically signed by Kit Yang> Cosigner Signature (if applicable): CC: Dr. Juan Francisco Flores DO ~ Signed [facility] Work Phone: [phone] 128-202001-12-2023 NoteHNO ID: [id number] Author: Tyrone Schrader MD Service: ? Author Type: Physician Type: Progress Notes Filed: 07/13/2022 4:23 PM Note Text: Tyrone Schrader MD Department of Orthopaedics Orthopaedics [address] [facility] [address] Dept: [phone] Dept July 13, 2022 CHIEF COMPLAINT: New [...] hand carried copy of x-rays done at [facility] on 06/14/22. ASSESSMENT: M17.0 Primary osteoarthritis of both knees (primary encounter diagnosis) M25.561, M25.562, G89.29 Chronic pain of both knees E66.01, Z68.42 Morbid obesity with BMI of 45.0-49.9, adult (HCC) PLAN: We had a lengthy discussion about her knee osteoarthritis and some of the ramifications of her weight and tobacco use. She would like to try an anti-inflammatory and we will get her in touch with weight management program. I also provided her with strengthening exercises. FOLLOW UP INSTRUCTIONS: Possible cortisone injection if she would like. Ms. Frankie Lazcano was advised as to contrast therapies and/or to take analgesics/anti-inflammatories as needed and all contraindications were reviewed. OBJECTIVE: Ms. Frankie Lazcano is a pleasant 46 year old in [...] Musculoskeletal (see HPI) Psych (no depression, anxiety) Tyrone Schrader [facility]01-12-2023 History of Present illness Narrative* Tyrone Schrader MD - 07/13/2022 8:35 AM EST Tyrone Schrader MD Department of Orthopaedics Orthopaedics [address] [facility] [address] Dept: [phone] Dept July 13, 2022 CHIEF COMPLAINT: New [...] hand carried copy of x-rays done at [facility] on 06/14/22. ASSESSMENT: M17.0 Primary osteoarthritis of both knees (primary encounter diagnosis) M25.561, M25.562, G89.29 Chronic pain of both knees E66.01, Z68.42 Morbid obesity with BMI of 45.0-49.9, adult (HCC) PLAN: We had a lengthy discussion about her knee osteoarthritis and some of the ramifications of her weight and tobacco use. She would like to try an anti- inflammatory and we will get her in touch with weight management program. I also provided her with strengthening exercises. FOLLOW UP INSTRUCTIONS: Possible cortisone injection if she would like. Ms. Frankie Lazcano was advised as to contrast therapies and/or to take analgesics/anti-inflammatories as needed and all contraindications were reviewed. OBJECTIVE: Ms. Frankie Lazcano is a pleasant 46 year old in [...] degrees. Positive medial, without lateral joint line painon palpation. Extremity is warm and well perfused. [...] Musculoskeletal (see HPI) Psych (no depression, anxiety) Tyrone Schrader MD [facility] History of Present illness Narrative* Karo Mcgrath - 05/31/2021 11:44 PM EST DATE OF SERVICE: 05/30/2021 CHIEF COMPLAINT: Bilateral [...] time. Patient is stable upon discharge from [facility]. ADRIENNE Rosa/[id number] SSI File#: [id number] END OF DOCUMENT / CHANGE LOG FOLLOWS Last Edited By Earle. Signed By Karo Mcgrath PAC #[id number] Karo Mcgrath PAC #[id number] on 06/10/2021 21:59 ET on 06/10/2021 21:59 ET Revision Number - 2 ^^^ Verified/Reviewed by 06/10/212199 [facility] PATIENT NAME: FRANKIE LAZCANO [address] [place] MEDICAL REC #: [id number] [place] [address] [facility] note No data available for this section [facility] Evaluation noteNo assessment information available [facility] Work Phone: Evaluation note* Diagnosis Primary osteoarthritis of both knees- Primary Primary localized osteoarthrosis, lower leg Chronic pain of both knees Morbid obesity with BMI of 45.0-49.9, adult (HCC) Morbid obesity [facility] Diagnosis Onset Date Resolution Status Contact with and (suspected) exposure to other viral communicable diseases acute URI (upper respiratory infection) acute Osteoarthritis of left knee noneactive [facility] Work Phone: Evaluation note* Diagnosis Onset Date Resolution Status Contact with and (suspected) exposure to other viral communicable diseases acute URI (upper respiratory infection) acute Osteoarthritis of left knee noneactive Shortness of breath noneacti ve [facility] Work Phone: Evaluation note* Diagnosis Onset Date Resolution Status Shortness of breath noneacti ve [facility] Work Phone: Evaluation note* Diagnosis Acute left-sided low back pain without sciatica- Primary documented in this encounter [facility] note* Diagnosis Right lower quadrant abdominal pain- Primary Abdominal pain, right lower quadrant documented in this encounter [facility] note* Diagnosis Acute left-sided low back pain without sciatica [facility] Diagnosis Sore throat- Primary Acute pharyngitis Acute otitis media, right Unspecified otitis media [facility] Additional Instructions Thank you for trusting us with your care today! Please take Tylenol (2 pills, 650 mg), ibuprofen (2 pills, 400 mg) every 6 hours as needed for pain and fever control. Please go to your local pharmacy or drugstore and obtain Salonpas lidocaine patches. Please return to the emergency department if your symptoms change or worsen. Specifically if you develop bowel or bladder incontinence, urinary retention, loss of sensation or movement in your lower extremities Please follow with your primary care physician for further outpatient evaluation and management.[facility] Work Phone: Hospital Discharge instructions Additional Instructions Cardiac work-up was negative. D-dimer negative. You report exertional chest tightness after an hour. He would need a stress test as an outpatient. Call for discussion with PCP for this. Your blood pressure 180/80 on arrival down to 129/65 without any treatment. You need recheck for this. Return if any worsening symptoms.[facility] Work Phone: [facility] (narrative)* Diagnostic Procedure Only (Urgent) - Pending Review Specialty Diagnoses / Procedures Referred By Contac t Referred To Contact XR IMAGING Diagnoses Acute left-sided low back pain without sciatica Procedures XR HIP GENERAL 3V PELV/AP/LAT LEFT RADEX HIP UNILATERAL WITH PELVIS 2-3 VIEWS Rosalva Avitia PA-C [address] [place] [address] [place] [address] Referral ID Status Reason Start Date Expiration Date Visits Requested Visits Authorized [id number] Pending Review Auto-Generat ed Referral 03/11/2023 04/09/2024 1 1 * Diagnostic Procedure Only (Urgent) - Pending Review Specialty Diagnoses / Procedures Referred By Contac t Referred To Contact XR IMAGING Diagnoses Acute left-sided low back pain without sciatica Procedures XR LUMBAR GENERAL 3V AP/LAT/L5-S1 RADEX SPINE LUMBOSACRAL 2/3 VIEWS Rosalva Avitia PA-C [address] [place] [address] [place] [address] Referral ID Status Reason Start Date Expiration Date Visits Requested Visits Authorized [id number] Pending Review Auto-Generat ed Referral 03/11/2023 04/09/2024 [address] [facility] for referral (narrative)* Diagnostic Procedure Only (Urgent) - Closed Specialty Diagnoses / Procedures Referred By Contac t Referred To Contact XR IMAGING Diagnoses Acute left-sided low back pain without sciatica Procedures XR HIP GENERAL 3V PELV/AP/LAT LEFT RADEX HIP UNILATERAL WITH PELVIS 2-3 VIEWS Rosalva Avitia PA-C [address] [place] [address] [place] [address] Referral ID Status Reason Start Date Expiration Date V isits Requested Visits Authorized [id number] Closed Auto-Generate d Referral 03/11/2023 04/09/2024 1 1 * Diagnostic Procedure Only (Urgent) - Closed Specialty Diagnoses / Procedures Referred By Contac t Referred To Contact XR IMAGING Diagnoses Acute left-sided low back pain without sciatica Procedures XR LUMBAR GENERAL 3V AP/LAT/L5-S1 RADEX SPINE LUMBOSACRAL 2/3 VIEWS Rosalva Avitia PA-C [address] [place] [address] [place] [address] Referral ID Status Reason Start Date Expiration Date V isits Requested Visits Authorized [id number] Closed Auto-Generate d Referral 03/11/2023 04/09/2024 1 1 [facility]* Diagnostic Procedure Only (Urgent) - Closed Specialty Diagnoses / Procedures Referred By Contac t Referred To Contact XR IMAGING Diagnoses Acute left-sided low back pain without sciatica Procedures XR HIP GENERAL 3V PELV/AP/LAT LEFT RADEX HIP UNILATERAL WITH PELVIS 2-3 VIEWS Rosalva Avitia PA-C [address] [place] [address] [place] [address] Referral ID Status Reason Start Date Expiration Date V isits Requested Visits Authorized [id number] Closed Auto-Generate d Referral 03/11/2023 04/09/2024 1 1 [facility] Summary Purpose Family History No Family History Records Found Relationship Condition Age at Onset Recorded Date/T tarun Not Specified Malignant neoplasm of skin Unknown Advance Directives No Advanced Directives Records Found Advance Directive Response Recorded Date/ Time Living Will No December 01, 2022 3 :36pm Power of Milking Worker No December 01, 2022 3:36pm Advance Directive Response Recorded Date/ Time Living Will No December 29, 2022 8:24am Power of Milking Worker No December 29 8:24am Chief Complaint and Reason for Visit Chief Complaint Unspecified dislocat ion of left patella, initial e Chief Complaint SORE THROAT/NASAL CO NGESTION LEFT KNEE BACK Reason for Visit Contact with and (sosa spected) exposure to other viral communicable diseases URI (upper respiratory infection) Osteoarthritis of left knee Chief Complaint SORE THROAT/NASAL CO NGESTION LEFT KNEE BACK Shortness of breath CHEST PAIN Reason for Visit Contact with and (sosa spected) exposure to other viral communicable diseases URI (upper respiratory infection) Osteoarthritis of left knee Shortness of breath Chief Complaint BACK Shortness of breath CHEST PAIN Reason for Visit Shortness of breath Reason for Referral Specialty Diagnoses / Procedures Referred By Contac t Referred To Contact Diagnoses Morbid obesity with BMI of 45.0-49.9, adult (HCC) Procedures ENDOCRINE MEDICAL WEIGHT MANAGEMENT OFFICE/OUTPATIENT [facility] 60-74 MINUTES Tyrone Schrader MD [address] [place] [address] Referral ID Status Reason Start Date Expiration Date Visits Requested Visits Authorized [id number] Authorized PCP Requested Referral 07/13/2022 07/13/2023 1 1 Additional Source Comments Source Comments (unrecognize d section and content) In the event this informatio n is protected by the Federal Confidentiality of Alcohol and Drug Abuse Patient Records regulations: The Federal rules restrict any use of the information to criminally investigate or prosecute any alcohol or drug abuse patient.[facility] the event this information is protected by the Federal Confidentiality of Alcohol and Drug Abuse Patient Records regulations: The Federal rules restrict any use of the information to criminally investigate or prosecute any alcohol or drug abuse patient.[facility] HospitalIn the event this information is protected by the Federal Confidentiality of Alcohol and Drug Abuse Patient Records regulations: The Federal rules restrict any use of the information to criminally investigate or prosecute any alcohol or drug abuse patient.[facility] HospitalIn the event this information is protected by the Federal Confidentiality of Alcohol and Drug Abuse Patient Records regulations: The Federal rules restrict any use of the information to criminally investigate or prosecute any alcohol or drug abuse patient.[facility] HospitalIn the event this information is protected by the Federal Confidentiality of Alcohol and Drug Abuse Patient Records regulations: The Federal rules restrict any use of the information to criminally investigate or prosecute any alcohol or drug abuse patient.[facility] HospitalIn the event this information is protected by the Federal Confidentiality of Alcohol and Drug Abuse Patient Records regulations: The Federal rules restrict any use of the information to criminally investigate or prosecute any alcohol or drug abuse patient.[facility] HospitalIn the event this information is protected by the Federal Confidentiality of Alcohol and Drug Abuse Patient Records regulations: The Federal rules restrict any use of the information to criminally investigate or prosecute any alcohol or drug abuse patient.[facility] HospitalIn the event this information is protected by the Federal Confidentiality of Alcohol and Drug Abuse Patient Records regulations: The Federal rules restrict any use of the information to criminally investigate or prosecute any alcohol or drug abuse patient.[facility] HospitalIn the event this information is protected by the Federal Confidentiality of Alcohol and Drug Abuse Patient Records regulations: The Federal rules restrict any use of the information to criminally investigate or prosecute any alcohol or drug abuse patient.[facility] INFORMATION SOURCE (unrecogn ized section and content) DATE CREATED AUTHOR 12/02/2021 [facility] Francine Pacheco DATE CREATED AUTHOR AUTHOR'S ORGANIZ ATION 12/24/2021 [facility] ([place]) DATE CREATED AUTHOR AUTHOR'S ORGANIZ ATION 07/14/2022 [facility] DATE CREATED AUTHOR AUTHOR'S ORGANIZ ATION 02/25/2024 [facility] ([place]) DATE CREATED AUTHOR AUTHOR'S ORGANIZ ATION 03/18/2024 ERIC MADERA N DATE CREATED AUTHOR AUTHOR'S ORGANIZ ATION [facility]20[facility] DATE CREATED AUTHOR AUTHOR'S ORGANIZ ATION 01/31/2025 [facility] Goals (unrecognized section and content) Goals may be documented in a n alternate sectionGoals may be documented in an alternate sectionGoals may be documented in an alternate sectionGoals may be documented in an alternate sectionGoals may be documented in an alternate section No data available for this section Reason for Visit (unrecogniz ed section and content) Reason Comments New Knee Pain Reason Comments Back Pain Wrapping around to a bdominal x 3 days no injury Reason Comments Results Reason Comments Abdominal Pain Reason Comments Nasal Congestion right ear pain and s ore throat x 4 days Care Teams (unrecognized sec tion and content) Team Status: Active Member Role Status Dates No Primary Care Physician Primary Care Provider Active Team Status: Inactive Member Role Status Dates Jorge Luis AGUSTIN, PA Attending Provider Active Team Status: Inactive Member Role Status Dates Dr. Josiah Crooks DO Attending Provider Active Team Status: Inactive Member Role Status Dates No Primary Care Physician Primary Care Provider Active Dr. Gage Oliva DO Emergency Provider Active Team Status: Active Member Role Status Dates Dr. Juan Francisco Flores DO Primary Care Provider Active Team Status: Inactive Member Role Status Dates No Primary Care Physician Primary Care Provider, Refer ring Provider Active Naeem AGUSTIN, PA Attending Provider Active Team Status: Inactive Member Role Status Dates No Primary Care Physician Primary Care Provider Active Dr. Gage Oliva DO Attending Provider, Emergency P rovider Active Team Status: Inactive Member Role Status Dates Dr. Kit Russell DO Emergency Provider Active Dr. Juan Francisco Flores DO Primary Care Provider Active Team Status: Inactive Member Role Status Dates Dr. Kit Russell DO Attending Provider, Emergency Provide r Active Dr. Juan Francisco Flores DO Primary Care Provider Active Team Status: Inactive Member Role Status Dates Dr. Juan Francisco Flores DO Primary Care Provider Active Dr. 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 [facility] [employer] [facility]. provides no warranty or guarantee of the accuracy or completeness of information in this document.
== END | disposition home or self-care (01) ==
LOC: PSN 06:45
PROVIDERS: PCP Family Medicine Geriatric Medicine; Referring Provider Nurse Practitioner Family; Visit Provider Nurse Practitioner Family
DX: R06.02 Shortness of breath (principal)
CPT/HCPCS: 94060; 94726; 94729